=== PATIENT | female | born 1930 | race Caucasian/White ===

== ENCOUNTER 2018-09-20 19:52 | Inpatient (IN) | payer OTHER ==
--- OUTSIDE RECORDS SUMMARY | 2018-09-20 19:55 | XMS REPORT ---
:1930 Author Organization [facility] Address [address] [place] [address] Care Team Providers Name Role Phone ANTONIO RIZZO Unavailable Unavailable Problems This patient has no known problems. Allergies, Adverse Reactions, Alerts This patient has no known allergies or adverse reactions. Medications This patient has no known medications. Results Test Description Test Time Test Comments Text Results Atomic Results Result Comments CBC WITH AUTO DIFF 2017-07-23 05:57:00 Test Item Value Reference Range Comments WBC (test code=WBC) 4.50 10\\S\\3/ul 4.80-10.80 RBC (test code=RBC) 2.86 10\\S\\6/ul 4.20-5.40 Hemoglobin (test code=HGB) 8.6 gm/dl 12.0-14.0 Hematocrit (test code=HCT) 26.5 % 37.0-47.0 MCV (test code=MCV) 92.7 fL 81.0-99.0 MCH (test code=MCH) 30.1 pg 27.0-31.0 MCHC (test code=MCHC) 32.5 gm/dl 33.0-37.0 RDW (test code=RDWVC) 14.6 % 11.5-14.5 Platelet (test code=PLT) 111 10\\S\\3/ul 130-400 MPV (test code=MPV) 10.5 fL 7.4-10.4 "NOT MEASURED" RESULTS ARE DISPLAYED WHEN THE INSTRUMENT HAS A SUPPRESSED OR UNREPORTABLE RESULT. THIS WILL MOST OFTEN HAPPEN WITH THE MPV WHEN THERE IS AN ABNORMAL PLATLET DISTRIBUTION DUE TO A CRITICAL LOW VALUE OR PLATELET CLUMPING. NE% (test code=NE) 36.6 % 42.0-75.0 LY% (test code=LY) 48.4 % 13.0-42.0 MO% (test code=MO) 9.1 % 4.0-14.0 EO% (test code=EO) 5.3 % 1.0-3.0 BA% (test code=BA) 0.4 % 1.0-3.0 IG% (test code=IG%) 0.2 % 0.0-0.4 [id number] 05:43:00 Test Item Value Reference Range Comments Glucose (test code=GLU) 83 mg/dl 75-110 BUN (test code=BUN) 27.0 mg/dl 6.0-17.0 Creatinine (test 1.3 mg/dl 0.4-1.2 code=CREA) Sodium (test code=NA) 137 mmol/l 137-145 Potassium (test code=K) 4.0 mmol/l 3.5-5.0 Chloride (test code=CL) 103 mmol/l 98-107 CO2 (test code=CO2) 25 mmol/l 22-30 Calcium (test code=CALC) 8.6 mg/dl 8.4-10.2 EGFR if 50 (test code=EGFRAA) mL/min/1.73m\\S\\2 EGFR if Non- 41 Estimated Glomerular Iranian (test mL/min/1.73m\\S\\2 Filtration Rate (eGFR) code=EGFRNA) Reference Intervals Decision Points for 18 years and older and average body mass: >=60 Does not exclude kidney disease. 30 - 59 Suggests moderate chronic kidney disease and indicates the need for further investigation including assessment of proteinuria and cardiovascular factors. < 30 Usually indicates a need for referral for assessment and management of chronic kidney failure.
--- OUTSIDE RECORDS SUMMARY | 2018-09-20 19:55 | XMS REPORT | Clinical Summary ---
:1930 Author Organization [facility] Address [address] [place] [address] Care Team Providers Name Role Phone Asked, No Pcp Primary Care Provider Unavailable Allergies Active Allergy Reactions Severity Noted Date Comments Atorvastatin Rash Low 05/11/2016 Amlodipine-Benazepril 05/11/2016 Sulfa (Sulfonamide Antibiotics) 05/11/2016 Current Medications Prescription Sig. Disp. Refills Start Date End Date Status INFLIXIMAB (REMICADE IV) Infuse 400 mg into Active a venous catheter. Once every 3 months levothyroxine (SYNTHROID, Take 25 mcg by 07/22/2016 Active LEVOTHROID) 25 MCG tablet mouth daily. NAMENDA XR 28 mg 04/26/2016 Active capsule,sprinkle,ER 24hr metoprolol tartrate Take 100 mg by 06/02/2016 Active (LOPRESSOR) 100 MG tablet mouth 2 (two) times a day. raloxifene (EVISTA) 60 mg TK 1 T PO QD 0 05/23/2016 Active tablet simvastatin (ZOCOR) 20 MG TK 1 T PO QD IN THE 1 07/04/2016 Active tablet EVENING PREVIDENT 5000 BOOSTER BRUSH ON TEETH TID 2 07/04/2016 Active PLUS 1.1 % paste SUPREP BOWEL PREP KIT MIX AND DRINK A 0 07/01/2016 Active 17.5-3.13-1.6 gram recon DOSE WITH A LARGE soln GLASS OF WATER AT 5 PM AND 1 DOSE WITH LARGE GLASS OF WATER AT 9 PM triamterene-hydrochloroth TK ONE C PO QAM 0 07/15/2016 Active iazid (DYAZIDE) 37.5-25 mg per capsule naproxen-diphenhydramine Take 1 tablet by 07/25/2016 Active (ALEVE PM) 220-25 mg mouth nightly as tablet needed (insomina). cholecalciferol, vitamin Take 1 tablet 07/25/2016 Active D3, (VITAMIN D3) 2,000 (2,000 Units total) unit tablet by mouth daily. multivit with Take 1 tablet by 07/25/2016 Active nuq-BA-soatltoo 0.4-600 mouth daily. mg-mcg capsule biotin 2,500 mcg tablet Take 5,000 mcg by 0 07/25/2016 Active mouth daily. Active Problems Problem Noted Date Other specified rheumatoid arthritis, multiple sites (HCC) 07/25/2016 Social History Tobacco Use Types Packs/Day Years Used Date Never Smoker Alcohol Use Drinks/Week oz/Week Comments No Sex Assigned at Date Recorded Not on file Last Filed Vital Signs Not on file Plan of Treatment Health Maintenance Due Date Last Done Comments SHINGRIX VACCINE (#1) 1982 ZOSTER VACCINE 1992 PNEUMOCOCCAL POLYSACCHARIDE VACCINE AGE 65 AND OVER 1997 PNEUMOCOCCAL-13 1997 INFLUENZA VACCINE 06/27/2018 Results Not on fileafter 09/19/2017
[2018-09-20 20:28] LABS: Arterial Blood Carboxyhemoglob 1.1 % (0-1.5); Blood Gas Oxyhemoglobin 96.3 % (94-97); Blood O2 Saturation 98.2 % (92-98.5)
--- NOTE | 2018-09-20 20:55 | RAD REPORT ---
EXAM DESCRIPTION: CT - Head Brain Wo Cont - 09/20/2018 8:37 pm CLINICAL HISTORY: Transient alteration of awareness COMPARISON: June 2017 TECHNIQUE: Axial 5 mm thick images of the head were obtained without IV contrast. All CT scans are performed using dose optimization technique as appropriate and may include automated exposure control or mA/KV adjustment according to patient size. FINDINGS: No intracranial hemorrhage, mass, edema or shift of mid-line structures. No acute infarcti on changes seen. Moderate severity atrophy and chronic ischemic changes are present similar to compar sonja. Ventricles are in proportion to volume loss. Dense arterial tree calcifications are present. Mastoid air cells are clear. Left maxillary sinus mucosal thickening present without air-fluid level. No acute bony findings. IMPRESSION: Moderate severity atrophy and chronic ischemic change. No acute intracranial finding. No significant change from comparison.
--- NOTE | 2018-09-20 21:22 | RAD REPORT ---
EXAM DESCRIPTION: RAD - Chest Single View - 09/20/2018 8:46 pm CLINICAL HISTORY: Transient alteration of awareness, shortness of breath COMPARISON: January 2018 TECHNIQUE: AP portable chest image was obtained 2032 hours . FINDINGS: No peripheral mass or consolidation. Lung markings are mildly prominent but decreased when compared to the January 2018 exam. No significant failure or volume overload. Heart size is normal and has diminished from the comparison. Upper lobe vasculature within normal limits. No measurable pleur al effusion and no pneumothorax. No acute bony abnormality seen. No acute aortic findings suspected. IMPRESSION: No acute cardiopulmonary process. Heart, vasculature and lung markings have all decreased in prominence since the January comparison.
[2018-09-20 21:37] LABS: Absolute Monocytes 0.3 K/uL (0.1-1.3); Absolute Neutrophil 1.6 K/uL (1.8-8.0); Basophils % 0.4 % (0-1.3); Eosinophils % 3.9 % (0-4.4); Hematocrit 56.5 % (36.0-45.0); Lymphocytes % 33.8 % (15.3-44.8); MCH 31.7 pg (27.0-35.0); MCV 95.9 fL (80-100); MPV 8.9 fL (7.6-11.3)
[2018-09-20 21:42] LABS: Protime INR 1.13
[2018-09-20 21:58] LABS: ALT/SGPT 23 U/L (12-78); AST/SGOT 37 U/L (15-37); Albumin 2.8 g/dL (3.4-5.0); Alkaline Phosphatase 101 U/L (45-117); BUN Blood Urea Nitrogen 26 mg/dL (7-18); Bicarbonate 26 mmol/L (21-32); Bilirubin Direct 0.4 mg/dL (0-0.2); CKMB Creatine Kinase MB 1.5 ng/mL (0.3-3.6); Creatine Phosphokinase 90 U/L (26-192); Glucose Level 101 mg/dL (74-106); Lipase 146 U/L (73-393); Potassium 3.6 mmol/L (3.5-5.1); Protein, Total 7.5 g/dL (6.4-8.2); Sodium Level 144 mmol/L (136-145); Troponin (Emerg Dept Use Only) < 0.02 ng/mL (0.0-0.045)
[2018-09-20 22:15] LABS: Platelet Estimate DECR; Urine White Blood Cell Casts OK
[2018-09-20 22:16] LABS: Anisocytosis 1+; Blood Morphology Comment NOTED (NOT SEEN)
--- NOTE | 2018-09-20 22:16 | ER ---
Nurse's Notes [facility] Name: Britta Saleh Age: 87 yrs Sex: Female : 1930 Arrival Date: 09/20/2018 Time: 19:55 Bed 3 Private MD: Diagnosis: Hepatic Encephalopathy;Altered mental status, unspecified Presentation: 09/20 19:55 Presenting complaint: EMS states: that pt has cataract surg yesterday am and then fc started to become more confused later in the day yesterday. The confusion got worse today so family called EMS. Transition of care: patient was not received from another setting of care. Onset of symptoms was September 19, 2018. Risk Assessment: Do you want to hurt yourself or someone else? Patient reports no desire to harm self or others. Initial Sepsis Screen: Does the patient meet any 2 criteria? Yes Does the patient have a suspected source of infection? No. Patient's initial sepsis screen is negative. Care prior to arrival: Glucose check: 165. 19:55 Method Of Arrival: EMS: [facility] 19:55 Acuity: CHRIS 2 fc Historical: - Allergies: 20:31 Sulfa (Sulfonamide Antibiotics); fc 20:31 Namenda; fc 20:31 Lotrel; fc - Home Meds: 20:31 atorvastatin 10 mg Oral tab 1 tab nightly [Active]; escitalopram oxalate 10 mg oral tab fc 1 tab once daily [Active]; levothyroxine 25 mcg tab 1 tab once daily [Active]; losartan 100 mg oral tab 1 tab once daily [Active]; Evista 60 mg Oral tab 1 tab once daily [Active]; Avapro 300 mg Oral tab 1 tab once daily [Active]; - PMHx: 20:31 Rheumatoid Arthritis; Anemia; Osteoporosis; Hypothyroidism; Hyperlipidemia; osteopenia; fc CAD; Arthritis; Cataracts; C-diff; Dementia; Depression; ENCEPHALOPATHY; generalized weakness; GERD; High Cholesterol; Hypertension; unspecified edema; UTI; - Immunization history:: Last tetanus immunization: up to date Pneumococcal vaccine is up to date, Flu vaccine is up to date. - Social history:: Smoking status: Patient/guardian denies using tobacco. - Ebola Screening: : Patient negative for fever greater than or equal to 101.5 degrees Fahrenheit, and additional compatible Ebola Virus Disease symptoms Patient denies exposure to infectious person Patient denies travel to an Ebola-affected area in the 21 days before illness onset. Screenin:55 Abuse screen: Denies threats or abuse. Nutritional screening: No deficits noted. Tuberculosis screening: No symptoms or risk factors identified. Fall Risk Fall in past 12 months (25 points). Secondary diagnosis (15 points) dementia, No IV (0 pts). Ambulatory Aid- Crutches/Cane/Walker (15 pts). Gait- Weak (10 pts.). Mental Status- Overestimates/Forgets Limitations (15 pts.). Total Salter Fall Scale indicates High Risk Score (45 or more points). Fall prevention measures have been instituted. Side Rails Up X 2 Placed Close to Nursing Station Frequent Obs/Assessments Occuring Family Present and informed to notify staff if the need to leave the bedside As available patient and family educated on Fall Prevention Program and Strategies. Assessment: 20:31 General: Appears in no apparent distress. uncomfortable, well groomed, Behavior is ao anxious, flat, restless, uncooperative. General: Behavior is. Pain: Unable to use pain scale. FLACC scale score is 5 out of 10. Neuro: Level of Consciousness is awake, Oriented to person, Weakness. Cardiovascular: Capillary refill < 3 seconds Patient's skin is warm and dry. Respiratory: Airway is patent Respiratory effort is even, unlabored, Breath sounds are clear. GI: Abdomen is obese. : No deficits noted. No signs and/or symptoms were reported regarding the genitourinary system. EENT: No signs and/or symptoms were reported regarding the EENT system. Derm: Skin is pink, warm \T\ dry. normal, Skin temperature is cool. Musculoskeletal: No signs and/or symptoms reported regarding the musculoskeletal system. 21:46 Reassessment: pt more alert and talking. ak1 Vital Signs: 19:55 BP 169 / 68; Pulse 75; Resp 18; Temp 98.5(O); Pulse Ox 100% on R/A; Weight 77.11 kg fc (R); Height 5 ft. 5 in. (165.10 cm) (R); Pain 0/10; 21:47 BP 161 / 60; Pulse 79; Resp 17; ak1 21:48 Pulse Ox 100% on R/A; ak1 19:55 Body Mass Index 28.29 (77.11 kg, 165.10 cm) ED Course: 19:55 Patient arrived in ED. 19:55 Arm band placed on Patient placed in an exam room, on a stretcher. 19:55 Patient has correct armband on for positive identification. Bed in low position. Call light in reach. Side rails up X2. monitoring specialist on. Pulse ox on. NIBP on. 19:56 Vipul Rodríguez PA is PHCP. jr8 19:56 Art Chow MD is Attending Physician. jr8 20:05 Triage completed. fc 20:[address] via stretcher. vr 20:16 Dayanna Rouse, RN is Primary Nurse. ak1 20:37 CT Head Brain wo Cont In Process Unspecified. EDMS 20:40 Radiology exam delayed due to pat. taken to ct. sg4 20:43 CT completed. Patient tolerated procedure well. Patient moved to radiology. vm2 20:45 Chest Single View XRAY In Process Unspecified. EDMS 20:48 Inserted saline lock: 22 gauge in left forearm, using aseptic technique. ak1 21:48 Cleaned of incontinence. ak1 22:15 Ricardo Manning MD is Hospitalizing Provider. jr8 22:[address] via stretcher. vr 22:24 CT completed. Patient moved back from CT. vm2 22:34 CT Abd/Pelvis - Without Cont In Process Unspecified. EDMS 22:40 No provider procedures requiring assistance completed. Inserted saline lock: 22 gauge ak1 in left antecubital area, using aseptic technique. ,using aseptic technique. placed by Seamus. 22:41 Patient admitted, IV remains in place. ak1 Administered Medications: 21:46 Not Given (Physician Discretion): NS 0.9% 1000 ml IV at 1000 ml once jr8 22:42 Drug: Lactulose 30 grams Volume: 45 ml; Route: PO; ak1 22:53 Follow up: Response: No adverse reaction ak1 Point of Care Testing: Blood Glucose: 20:20 Blood Glucose: 140 mg/dL; ak1 Ranges: Outcome: 22:16 Decision to Hospitalize by Provider. jr8 22:41 Admitted to Med/surg accompanied by tech, family with patient, via stretcher, room 202, ak1 with chart, Report called to Marika 22:41 Condition: stable 22:41 Instructed on the need for admit. 23:13 Patient left the ED. ak1 Signatures: Dispatcher [employer] EDMS Maryan Milan RN RN fc Davis, Victoria vr Roszak, Josh, PA PA 8 Dayanna Rouse RN RN ak1 Seamus Head RN RN ao McGuire, Victoria [facility] Tangela Belcher [facility]
--- NOTE | 2018-09-20 22:17 | EDPHYS ---
Physician Documentation [facility] Name: Britta Saleh Age: 87 yrs Sex: Female : 1930 Arrival Date: 09/20/2018 Time: 19:55 Bed 3 Private MD: ED Physician Art Chow HPI: 09/20 20:55 This 87 yrs old Female presents to ER via EMS with complaints of altered jr8 mental status. 20:55 Onset: The symptoms/episode began/occurred acutely, last night. Possible causes: jr8 unknown. Associated signs and symptoms: The patient has no apparent associated signs or symptoms. Current symptoms: In the emergency department the patient's symptoms are unchanged from the initial presentation. Patient's baseline: Neuro: alert but confused, Motor: no deficits, Speech: normal. The patient has not experienced similar symptoms in the past. The patient has been recently seen by a physician:. Patient had cataract surgery yesterday. Stated that she was fine then. Around midnight noticed that she was acting different in bed. Throughout today patient was worse and now will not respond to them hardly . History of dementia. Stated that she is most of the time alert and can talk without any problem. Occasional confusion on a daily basis. Stated that this is very uncharacteristic of her . Historical: - Allergies: 20:31 Sulfa (Sulfonamide Antibiotics); fc 20:31 Namenda; fc 20:31 Lotrel; fc - Home Meds: 20:31 atorvastatin 10 mg Oral tab 1 tab nightly [Active]; escitalopram oxalate 10 mg oral tab fc 1 tab once daily [Active]; levothyroxine 25 mcg tab 1 tab once daily [Active]; losartan 100 mg oral tab 1 tab once daily [Active]; Evista 60 mg Oral tab 1 tab once daily [Active]; Avapro 300 mg Oral tab 1 tab once daily [Active]; - PMHx: 20:31 Rheumatoid Arthritis; Anemia; Osteoporosis; Hypothyroidism; Hyperlipidemia; osteopenia; fc CAD; Arthritis; Cataracts; C-diff; Dementia; Depression; ENCEPHALOPATHY; generalized weakness; GERD; High Cholesterol; Hypertension; unspecified edema; UTI; - Immunization history:: Last tetanus immunization: up to date Pneumococcal vaccine is up to date, Flu vaccine is up to date. - Social history:: Smoking status: Patient/guardian denies using tobacco. - Ebola Screening: : Patient negative for fever greater than or equal to 101.5 degrees Fahrenheit, and additional compatible Ebola Virus Disease symptoms Patient denies exposure to infectious person Patient denies travel to an Ebola-affected area in the 21 days before illness onset. ROS: 20:55 Unable to obtain ROS due to altered mental status. jr8 Exam: 20:55 Eyes: Pupils equal round and reactive to light, extra-ocular motions intact. Lids and jr8 lashes normal. Conjunctiva and sclera are non-icteric and not injected. Cornea within normal limits. Periorbital areas with no swelling, redness, or edema. ENT: Nares patent. No nasal discharge, no septal abnormalities noted. Tympanic membranes are normal and external auditory canals are clear. Oropharynx with no redness, swelling, or masses, exudates, or evidence of obstruction, uvula midline. Mucous membranes moist. Neck: Trachea midline, no thyromegaly or masses palpated, and no cervical lymphadenopathy. Supple, full range of motion without nuchal rigidity, or vertebral point tenderness. No Meningismus. Cardiovascular: Regular rate and rhythm with a normal S1 and S2. No gallops, murmurs, or rubs. Normal PMI, no JVD. No pulse deficits. 2+ pedal edema noted Respiratory: Lungs have equal breath sounds bilaterally, clear to auscultation and percussion. No rales, rhonchi or wheezes noted. No increased work of breathing, no retractions or nasal flaring. Abdomen/GI: Soft, non-tender, with normal bowel sounds. No distension or tympany. No guarding or rebound. No evidence of tenderness throughout. Back: No spinal tenderness. No costovertebral tenderness. Full range of motion. Skin: Warm, dry with normal turgor. Normal color with no rashes, no lesions, and no evidence of cellulitis. MS/ Extremity: Pulses equal, no cyanosis. Neurovascular intact. Full, normal range of motion. 20:55 Neuro: Orientation: to person, Not oriented to place, time, situation, Mentation: slow to respond, unable to follow commands, Memory: unable to test, Cranial nerves: unable to test, Cerebellar function: unable to test, Motor: unable to test, Sensation: unable to test, Gait: not tested. Vital Signs: 19:55 BP 169 / 68; Pulse 75; Resp 18; Temp 98.5(O); Pulse Ox 100% on R/A; Weight 77.11 kg fc (R); Height 5 ft. 5 in. (165.10 cm) (R); Pain 0/10; 21:47 BP 161 / 60; Pulse 79; Resp 17; ak1 21:48 Pulse Ox 100% on R/A; ak1 19:55 Body Mass Index 28.29 (77.11 kg, 165.10 cm) MDM: 19:56 Patient medically screened. [facility] 22:13 Data reviewed: vital signs, nurses notes, lab test result(s), EKG, radiologic studies, [facility] CT scan, plain films. Data interpreted: Pulse oximetry: on room air is 100 %. Interpretation: normal. Counseling: I had a detailed discussion with the patient and/or guardian regarding: the historical points, exam findings, and any diagnostic results supporting the discharge/admit diagnosis, lab results, radiology results, the need for further work-up and treatment in the hospital. Physician consultation: Ricardo Manning MD was called at 22:14, was contacted at 22:14, regarding admission, to the telemetry unit. consult, patient's condition, and will see patient. 09/20 20:09 Order name: Basic Metabolic Panel [facility] 09/20 20:09 Order name: Blood Culture Adult (2) [facility] 09/20 20:09 Order name: CBC with Diff; Complete Time: 22:16 [facility] 09/20 20:09 Order name: Ckmb; Complete Time: 22:03 [facility] 09/20 20:09 Order name: CPK; Complete Time: 22:03 [facility] 09/20 20:09 Order name: Lactate; Complete Time: 22:03 [facility] 09/20 20:09 Order name: LFT's; Complete Time: 22:03 [facility] 09/20 20:09 Order name: Lipase; Complete Time: 22:03 [facility] 09/20 20:09 Order name: Procalcitonin; Complete Time: 22:16 [facility] 09/20 20:09 Order name: Protime (+inr); Complete Time: 21:45 [facility] 09/20 20:09 Order name: Ptt, Activated; Complete Time: 21:45 [facility] 09/20 20:09 Order name: Troponin (emerg Dept Use Only); Complete Time: 22:03 [facility] 09/20 20:09 Order name: Urine Microscopic Only; Complete Time: 22:22 [facility] 09/20 20:09 Order name: AMMONIA; Complete Time: 22:03 [facility] 09/20 20:09 Order name: Cath; Complete Time: 21:22 [facility] 09/20 20:09 Order name: Chest Single View XRAY; Complete Time: 21:22 [facility] 09/20 20:09 Order name: Accucheck; Complete Time: 20:20 [facility] 09/20 20:09 Order name: Cardiac monitoring; Complete Time: 20:17 [facility] 09/20 20:09 Order name: EKG - Nurse/Tech; Complete Time: 20:33 [facility] 09/20 20:09 Order name: IV Saline Lock - Large Bore; Complete Time: 21:21 [facility] 09/20 20:09 Order name: Labs collected and sent; Complete Time: 21:21 [facility] 09/20 20:10 Order name: CT Head Brain wo Cont; Complete Time: 20:59 [facility] 09/20 20:10 Order name: Basic Metabolic Panel; Complete Time: 22:03 [facility] 09/20 20:10 Order name: ABG; Complete Time: 20:59 [facility] 09/20 21:35 Order name: Urine Dipstick--Ancillary (enter results); Complete Time: 22:26 [facility] 09/20 21:38 Order name: CBC Smear Scan; Complete Time: 22:16 [facility] 09/20 22:10 Order name: CT Abd/Pelvis - Without Cont [facility] 09/20 22:23 Order name: Urine Culture [facility] 09/20 20:09 Order name: O2 Per Protocol; Complete Time: 20:17 [facility] 09/20 20:09 Order name: O2 Sat Monitoring; Complete Time: 20:17 [facility] 09/20 20:09 Order name: Urine Dipstick-Ancillary (obtain specimen); Complete Time: 21:21 [facility] Administered Medications: 21:46 Not Given (Physician Discretion): NS 0.9% 1000 ml IV at 1000 ml once 22:42 Drug: Lactulose 30 grams Volume: 45 ml; Route: PO; ak1 22:53 Follow up: Response: No adverse reaction ak1 Point of Care Testing: Blood Glucose: 20:20 Blood Glucose: 140 mg/dL; ak1 Ranges: Critical Glucose Levels:Adult <50 mg/dl or >400 mg/dl <40 mg/dl or >180 mg/dl Disposition: 09/21 05:54 Co-signature as Attending Physician, Art Chow MD I agree with the assessment and jaki plan of care. Disposition: 09/20/18 22:16 Hospitalization ordered by Ricardo Manning for Inpatient Admission. Preliminary diagnosis are Hepatic Encephalopathy, Altered mental status, unspecified. - Bed requested for Telemetry/MedSurg (Inpatient). - Status is Inpatient Admission. ak1 - Condition is Fair. - Problem is new. - Symptoms have improved. UTI on Admission? No Signatures: Dispatcher [employer] Art Sebastian MD MD cha Chretien, Felicia, RN RN Vipul Cantu PA PA jr8 Dayanna Rouse RN RN ak1 Ngoc Tay mw2 Corrections: (The following items were deleted from the chart) 09/20 22:36 22:16 Hospitalization Ordered by Ricardo Manning MD for Inpatient Admission. Preliminary mw2 diagnosis is Hepatic Encephalopathy; Altered mental status, unspecified. Bed requested for Telemetry/MedSurg (Inpatient). Status is Inpatient Admission. Condition is Fair. Problem is new. Symptoms have improved. UTI on Admission? No. jr8 23:13 22:36 09/20/2018 22:16 Hospitalization Ordered by Ricardo Manning MD for Inpatient ak1 Admission. Preliminary diagnosis is Hepatic Encephalopathy; Altered mental status, unspecified. Bed requested for Telemetry/MedSurg (Inpatient). Status is Inpatient Admission. Condition is Fair. Problem is new. Symptoms have improved. UTI on Admission? No. mw2
[2018-09-20 22:21] LABS: Urine Bacteria <20 /HPF (<20); Urine Culture Reflex Order REFLEXED; Urine RBC <5 /HPF (NONE SEEN)
[2018-09-20 22:25] LABS: Urine Blood NEGATIVE (NEG); Urine Glucose NEGATIVE (NEG); Urine Protein NEGATIVE (NEG); Urine Specific Gravity 1.015 (1.005-1.030)
[2018-09-20] MEDS ORDERED: LACTULOSE 20 GM/30 ML UCUP ONE (22:44)
[2018-09-20] MEDS ORDERED: ACETAMINOPHEN 500 MG TAB PO PRN (22:46)
[2018-09-20] MEDS ORDERED: ONDANSETRON 4 MG/2 ML VIAL IV PRN (22:46)
[2018-09-20] MEDS: LACTULOSE 20 GM/30 ML UCUP PO SCH (23:00)
[2018-09-20] MEDS: NA CHLORIDE 0.9% 1,000 ML IV SCH (23:42)
[2018-09-21] MEDS: LACTULOSE 20 GM/30 ML UCUP PO SCH ×4 (05:00→17:24)
[2018-09-21 06:51] LABS: Potassium 3.5 mmol/L (3.5-5.1)
[2018-09-21 07:03] LABS: Absolute Lymphocytes (CBC) 2.2 K/uL (0.7-4.9); Absolute Monocytes 0.6 K/uL (0.1-1.3); Absolute Neutrophil 2.8 K/uL (1.8-8.0); Basophils % 0.4 % (0-1.3); Eosinophils % 3.9 % (0-4.4); Hematocrit 32.4 % (36.0-45.0); Lymphocytes % 37.5 % (15.3-44.8); MCH 31.8 pg (27.0-35.0); MCV 95.5 fL (80-100); MPV 8.9 fL (7.6-11.3); Monocytes % 10.3 % (3.3-12.3); RBC Red Blood Cell Count 3.39 M/uL (3.86-4.86)
--- NOTE | 2018-09-21 07:08 | RAD REPORT ---
EXAM DESCRIPTION: CT - Abdomen Pelvis Wo Contrast - 09/21/2018 3:25 am CLINICAL HISTORY: Abdominal pain, history of C diff colitis A preliminary report was provided at the time of the study and reviewed prior to final report. COMPARISON: None. TECHNIQUE: Axial [address] imaging of the abdomen and pelvis was performed without IV contrast. No IV contrast was given because of allergy, abnormal renal function, patient refusal or physician re quest. No oral contrast administered. All CT scans are performed using dose optimization technique as appropriate and may include automated exposure control or mA/KV adjustment according to patient size. FINDINGS: No suspicious findings in the lung bases. The liver, spleen and pancreas show no suspicious findings on non-contrast imaging. Cholecystectomy c lips are present. No abnormal biliary tree dilatation. No hydronephrosis or suspicious renal mass. No significant adrenal finding. Isodense renal masses an d pyelonephritis cannot be excluded in the absence of IV contrast. No urinary bladder wall thickening or mass. No bladder calculus. Punctate air within the lumen is presumed to be from in- and out kimberley terization procedure. This needs correlation with exam any history. No dilated bowel loops or bowel wall thickening. No free air, free fluid or inflammatory stranding. N o hernia, mass or bulky lymphadenopathy. Multiple phleboliths are present in the pelvis. Disc and bony degenerative changes are present. Postsurgical changes are present in the proximal righ t femur. Degenerative changes are severe near the lumbosacral junction. Dense arterial tree calcifica tions are present. Prominent dilated veins are seen in the posterior right mid abdomen. Motion degradation is present on both acquisitions. IMPRESSION: No bowel obstruction, free air or surgically emergent finding. Exam has motion degradation but no evidence for colitis or other significant GI process seen. No acute finding suspected. Punctate free air within the lumen of the urinary bladder is presumed to be from a in- and out catheterization procedure. This needs correlation with procedure history. Full assessment is limited is the absence of IV contrast.
[2018-09-21 07:39] VITALS: BMI 28.3
[2018-09-21] MEDS ORDERED: GENTAMICIN OPTH RIGHT EYE SCH (09:00)
[2018-09-21] MEDS: GENTAMICIN OPTH OPTH SCH ×4 (10:14→21:21)
[2018-09-21] MEDS: DIFLUPREDNATE LEFT EYE SCH ×4 (10:14→21:21)
[2018-09-21] MEDS: NEPAFENAC LEFT EYE SCH (10:14)
[2018-09-21] MEDS: DIFLUPREDNATE RIGHT EYE SCH ×2 (10:15→21:23)
[2018-09-21] MEDS: ASPIRIN EC 81 MG TAB PO SCH (10:16)
--- NOTE | 2018-09-21 13:47 | EKG ---
Test Date: 2018-09-20 Test Time: 20:21:24 Glove Wrapper: YUE MEASUREMENT RESULTS: Intervals: Rate: 73 RI: QRSD: 166 QT: 464 QTc: 511 [place]: P: RI: QRS: -19 T: 109 INTERPRETIVE STATEMENTS: nsr Left bundle branch block Abnormal ECG Compared to ECG 02/09/2018 14:26:50 Uncertain supraventricular rhythm now present Sinus rhythm no longer present Electronically Signed On 09-21-18 13:46:01 CDT by Alberto Oneil
--- NOTE | 2018-09-21 14:37 | P.HP ---
Certification for Inpatient Patient admitted to: Inpatient With expected LOS: >2 Midnights Practitioner: I am a practitioner with admitting privileges, knowledge of patient current condition, hospital course, and medical plan of care. Services: Services provided to patient in accordance with Admission requirements found in Title 42 Section 412.3 of the Code of Federal Regulations Patient History Date of Service: 09/21/18 Reason for admission: EXCESSIVE SLEEPINESS. History of Present Illness: MS. DE PAZ HAS BEEN SOMNOLENT ALL YEAR PER BUT LATELY MORE SO. SHE HAD HIGH AMMONIA LEVEL OF 115 AND LOW PLATELETS. SHE HAS RA, DJD AND SOME MEMORY LOSS BY HISTORY. SHE NEVER DRANK HEAVY. THIS AM I COULD NOT AWAKEN HER BUT LATER WHEN I TALKED TO SON SHE WAS FULLLY AWAKE AND ABLE TO CONVERSE. Allergies Sulfa (Sulfonamide Antibiotics) Allergy (Verified 11/30/14 06:16) Hives/Rash Home Medications: Difluprednate [Durezol 0.05%] 1 drops RIGHT EYE BID 09/20/18 Difluprednate [Durezol] 1 gtt LEFT EYE QID 09/20/18 Gentamicin Opth Drop [Garamycin Opth Drops] 1 gtt LEFT EYE QID 09/20/18 Gentamicin Opth Drop [Garamycin Opth Drops] 1 gtt RIGHT EYE QID 09/20/18 Nepafenac [Ilevro] 1 gtt LEFT EYE DAILY 09/20/18 Aspirin [Adult Low Dose Aspirin EC] 81 mg PO DAILY 09/21/18 Atorvastatin Calcium [Lipitor] 10 mg PO DAILY 09/21/18 Furosemide [Lasix] 40 mg PO DAILY 09/21/18 Irbesartan [Avapro] 300 mg PO BEDTIME 09/21/18 Losartan Potassium 100 mg PO DAILY 09/21/18 Optimized Curcumin 2 cap PO BEDTIME 09/21/18 Original Glutathione Formula 6 cap PO DAILY 09/21/18 Potassium Oral Tab [Klor-Con 10 mEq Tab] 10 meq PO DAILY WITH BREAKFAST Raloxifene HCl [Evista] 60 mg PO DAILY 09/21/18 Vitamin B Complex [B-Complex Vitamin] 1 cap PO DAILY 09/21/18 - Past Medical/Surgical History Has patient received pneumonia vaccine in the past: Yes Diabetic: No -: HTN -: hyperlipidemia -: hypothyroidism -: RA -: UTI -: C-Diff -: Dementia -: Htn -: Depression -: Gerd -: Cataracts -: Falls -: Coronary stents -: right knee replacement -: hysterectomy -: cataract sx - Family History Father -: Cancer Mother -: Stroke - Social History Smoking Status: Never smoker Alcohol use: No CD- Drugs: No Caffeine use: Yes Place of Residence: Home Review of Systems 10-point ROS is otherwise unremarkable General: Weakness, Malaise Physical Examination - Vital Signs Temperature: 98.0 F Blood Pressure: 137/63 Pulse: 88 Respirations: 17 Pulse Ox (%): 99 - Physical Exam General: Mild distress HEENT: Atraumatic, PERRLA, Mucous membr. moist/pink, EOMI, Sclerae nonicteric Neck: Supple, 2+ carotid pulse no bruit, No LAD, Without JVD or thyroid abnormality Respiratory: Clear to auscultation bilaterally, Normal air movement Cardiovascular: Regular rate/rhythm, Normal S1 S2 Gastrointestinal: Normal bowel sounds, No tenderness Musculoskeletal: No tenderness Integumentary: No rashes Neurological: Normal gait, Normal speech, Normal strength at 5/5 x4 extr, Normal tone, Normal affect Lymphatics: No axilla or inguinal lymphadenopathy - Studies Laboratory Data (last 24 hrs) 09/20/18 21:10: PT 13.3 H, INR 1.13, APTT 31.7 09/20/18 21:10: WBC 3.1 L, Hgb 18.7 H, Hct 56.5 H, Plt Count 52 L 09/20/18 21:10: Sodium 144, Potassium 3.6, BUN 26 H, Creatinine 1.60 H, Glucose 101, Total Bilirubin 1.0, AST 37, ALT 23, Alkaline Phosphatase 101, Lipase 146 Microbiology Data (last 24 hrs): 09/20/18 21:10 Blood - Blood Anaerobic Blood Culture - Final 09/20/18 21:25 Blood - Blood Anaerobic Blood Culture - Final Assessment and Plan - Problems (Diagnosis) (1) 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 (2) Hepatic encephalopathy Onset Date: 09/21/18 Current Visit: Yes Status: Acute Plan: WILL CONTINUE LACTULOSE TOLERATED, DAILY THIS IS NOT A CURABLE DIAGNOSIS. SON UNDRESTANDS. AT AGE OF 87 WE ONLY NEED SYMPTOMATIC THERAPY. SHE IS NOT A TRANSPLANT OR LIVER SPECIALIST CANDIDATE. (3) Dehydration Onset Date: 06/14/17 Current Visit: No Status: Acute Plan: GENTLE IV HYDRATION. (4) Rheumatoid arthritis Onset Date: 07/19/17 Current Visit: No Status: Chronic Plan: HAS BEEN TO [facility] BEFORE. NOW AT THIS AGE SHE CAN'T TRAVEL TO [place] FOR CARE. Qualifiers: - Advance Directives Does patient have a Living Will: No Does patient have a Durable POA for Healthcare: No
[2018-09-21] MEDS ORDERED: AMLODIPINE 5 MG TAB PO ONE (17:50)
[2018-09-21] MEDS: NA CHLORIDE 0.9% 1,000 ML IV SCH (21:19)
[2018-09-21] MEDS: IRBESARTAN 150 MG TAB PO SCH (21:19)
[2018-09-22] MEDS: LACTULOSE 20 GM/30 ML UCUP PO SCH ×5 (00:19→22:45)
[2018-09-22] MEDS: AMLODIPINE 5 MG TAB PO SCH (09:14)
[2018-09-22] MEDS: ASPIRIN EC 81 MG TAB PO SCH (09:18)
[2018-09-22] MEDS: DIFLUPREDNATE LEFT EYE SCH ×4 (09:18→22:45)
[2018-09-22] MEDS: DIFLUPREDNATE RIGHT EYE SCH ×2 (09:18→22:45)
[2018-09-22] MEDS: GENTAMICIN OPTH OPTH SCH ×4 (09:19→22:45)
[2018-09-22] MEDS: NEPAFENAC LEFT EYE SCH (09:19)
--- NOTE | 2018-09-22 11:08 | P.PN ---
Subjective Date of Service: 09/22/18 Chief Complaint: EXCESSIVE SLEEPINESS. Subjective: Improving SHE IS MUCH MORE AWAKE TODAY. SHE IS ALSO ABLE TO TOLERATE FOOD BUT VERY WEAK AND NOT ABLE TO AMBULATE. Review of Systems 10-point ROS is otherwise unremarkable General: Weakness, Malaise Neurological: Confusion Physical Examination - Vital Signs Temperature: 98.5 F Blood Pressure: 160/60 Pulse: 79 Respirations: 17 Pulse Ox (%): 100 - Physical Exam General: Alert, Mild distress, Confused HEENT: Atraumatic, PERRLA, EOMI Neck: Supple, JVD not distended Respiratory: Clear to auscultation bilaterally, Normal air movement Cardiovascular: Regular rate/rhythm, Normal S1 S2 Gastrointestinal: Normal bowel sounds, No tenderness Musculoskeletal: No tenderness Integumentary: No rashes Neurological: Normal speech, Other (ALERT BUT DISORIENTED TO PLACE.) Lymphatics: No axilla or inguinal lymphadenopathy - Studies Microbiology Data (last 24 hrs): 09/20/18 21:25 Blood - Blood Anaerobic Blood Culture - Final 09/20/18 21:10 Blood - Blood Anaerobic Blood Culture - Final Medications List Reviewed: Yes Assessment And Plan - Current Problems (Diagnosis) (1) 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 LACTULOSE WORKED TO WAKE HER UP. I SUSPECT THIS CAN HAPPEN AGAIN. I TALKED TO SON. I RECOMMEND NH ON MONDAY FOR FURTHER THERAPY. CAN'T PHYSICALLY TAKE CARE OF HER. (2) Hepatic encephalopathy Onset Date: 09/21/18 Current Visit: Yes Status: Acute Plan: WILL CONTINUE LACTULOSE TOLERATED, DAILY THIS IS NOT A CURABLE DIAGNOSIS. SON UNDRESTANDS. AT AGE OF 87 WE ONLY NEED SYMPTOMATIC THERAPY. SHE IS NOT A TRANSPLANT OR LIVER SPECIALIST CANDIDATE. (3) Dehydration Onset Date: 06/14/17 Current Visit: No Status: Acute Plan: GENTLE IV HYDRATION. (4) Rheumatoid arthritis Onset Date: 07/19/17 Current Visit: No Status: Chronic Plan: HAS BEEN TO [facility] BEFORE. NOW AT THIS AGE SHE CAN'T TRAVEL TO [place] FOR CARE. Qualifiers:
[2018-09-22] MEDS: NA CHLORIDE 0.9% 1,000 ML IV SCH (16:35)
[2018-09-22] MEDS: IRBESARTAN 150 MG TAB PO SCH (22:44)
[2018-09-23 02:08] VITALS: O2SAT 96
[2018-09-23 05:36] LABS: Absolute Lymphocytes (CBC) 1.5 K/uL (0.7-4.9); Absolute Monocytes 0.5 K/uL (0.1-1.3); Absolute Neutrophil 3.4 K/uL (1.8-8.0); Basophils % 0.3 % (0-1.3); Eosinophils % 3.5 % (0-4.4); Lymphocytes % 26.6 % (15.3-44.8); MCH 32.7 pg (27.0-35.0); MCV 94.8 fL (80-100); MPV 8.7 fL (7.6-11.3); Monocytes % 9.7 % (3.3-12.3); RBC Red Blood Cell Count 3.17 M/uL (3.86-4.86)
[2018-09-23 05:49] LABS: Potassium 3.7 mmol/L (3.5-5.1)
[2018-09-23] MEDS: LACTULOSE 20 GM/30 ML UCUP PO SCH (09:45)
[2018-09-23] MEDS: AMLODIPINE 5 MG TAB PO SCH (09:45)
[2018-09-23] MEDS: ASPIRIN EC 81 MG TAB PO SCH (09:45)
[2018-09-23 09:46] VITALS: BP 163/70
[2018-09-23] MEDS: DIFLUPREDNATE LEFT EYE SCH (09:47)
[2018-09-23] MEDS: NEPAFENAC LEFT EYE SCH (09:48)
[2018-09-23] MEDS: GENTAMICIN OPTH OPTH SCH (09:48)
[2018-09-23] MEDS: DIFLUPREDNATE RIGHT EYE SCH (09:48)
--- NOTE | 2018-09-23 10:00 | P.DS ---
Admission Date: 09/20/18 Discharge Date: 09/23/18 Disposition: ROUTINE DISCHARGE Discharge Condition: FAIR Reason for Admission: EXCESSIVE SLEEPINESS. 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 DE PAZ HAS BEEN SOMNOLENT ALL YEAR PER BUT LATELY MORE SO. SHE HAD HIGH AMMONIA LEVEL OF 115 AND LOW PLATELETS. SHE HAS RA, DJD AND SOME MEMORY LOSS BY HISTORY. SHE NEVER DRANK HEAVY. THIS AM I COULD NOT AWAKEN HER BUT LATER WHEN I TALKED TO SON SHE WAS FULLLY AWAKE AND ABLE TO CONVERSE. IS DOING GREAT ON LACTULOSE. IS HERE AND WANTS TO TAKE HER HOME. HE DOES NOT WANT NH. WE WILL GET PT. I WILL SEND ORDER. SHE WILL NEED TO RESUME LACTULOSE. I AM STOPPING LASIX AND KCL SHE GETS DEHYDRATED ADN ADDING HYDRALAZINE IN PLACE OF NORVASC TO AVOID PEDAL EDEMA. Vital Signs/Physical Exam: Temp Pulse Resp BP Pulse Ox 97.4 F 71 18 163/70 H 98 09/23/18 04:00 09/23/18 09:45 09/23/18 04:00 09/23/18 09:45 09/23/18 04:00 Laboratory Data at Discharge: WBC 5.7 K/uL (4.3-10.9) 09/23/18 05:26 Hgb 10.3 g/dL (12.0-15.0) L 09/23/18 05:26 Hct 30.0 % (36.0-45.0) L 09/23/18 05:26 Plt Count 75 K/uL (152-406) L 09/23/18 05:26 PT 13.3 SECONDS (9.5-12.5) H 09/20/18 21:10 INR 1.13 09/20/18 21:10 APTT 31.7 SECONDS (24.3-36.9) 09/20/18 21:10 Sodium 147 mmol/L (136-145) H 09/23/18 05:26 Potassium 3.7 mmol/L (3.5-5.1) 09/23/18 05:26 BUN 19 mg/dL (7-18) H 09/23/18 05:26 Creatinine 1.10 mg/dL (0.55-1.3) 09/23/18 05:26 Glucose 99 mg/dL (74-106) 09/23/18 05:26 Total Bilirubin 1.0 mg/dL (0.2-1.0) 09/20/18 21:10 AST 37 U/L (15-37) 09/20/18 21:10 ALT 23 U/L (12-78) 09/20/18 21:10 Alkaline Phosphatase 101 U/L (45-117) 09/20/18 21:10 Lipase 146 U/L (73-393) 09/20/18 21:10 Home Medications: Difluprednate [Durezol 0.05%] 1 drops RIGHT EYE BID 09/20/18 Difluprednate [Durezol] 1 gtt LEFT EYE QID 09/20/18 Gentamicin Opth Drop [Garamycin Opth Drops*] 1 gtt LEFT EYE QID 09/20/18 Gentamicin Opth Drop [Garamycin Opth Drops*] 1 gtt RIGHT EYE QID 09/20/18 Nepafenac [Ilevro] 1 gtt LEFT EYE DAILY 09/20/18 Aspirin [Adult Low Dose Aspirin EC] 81 mg PO DAILY 09/21/18 Irbesartan [Avapro] 300 mg PO BEDTIME 09/21/18 Losartan Potassium 100 mg PO DAILY 09/21/18 Optimized Curcumin 2 cap PO BEDTIME 09/21/18 Original Glutathione Formula 6 cap PO DAILY 09/21/18 Vitamin B Complex [Vitamin B Complex*] 1 cap PO DAILY 09/21/18 Hydralazine HCl 25 mg PO BID #60 tablet 09/23/18 Lactulose 30 ml PO BID #2 l 09/23/18 New Medications: Hydralazine HCl 25 mg PO BID #60 tablet Lactulose 30 ml PO BID #2 l
[2018-09-23 10:07] VITALS: TEMP 98.2
[2018-09-23 18:01] LABS: HBsAG Nonreactive (Nonreactive); Hepatitis A IgM Antibody Nonreactive
== END 2018-09-23 11:51 | disposition home or self-care (01) | DRG 443 ==
LOC: ER 19:52 → ERHOLD 22:23 → 2ND 22:50
PROVIDERS: ADMIT Internal Medicine; ATTEND Internal Medicine
DX: K72.00 Acute and subacute hepatic failure without coma (principal); K75.81 Nonalcoholic steatohepatitis (NASH); K74.69 Other cirrhosis of liver; E86.0 Dehydration; M06.9 Rheumatoid arthritis, unspecified; E03.9 Hypothyroidism, unspecified; Z96.651 Presence of right artificial knee joint; I25.10 Atherosclerotic heart disease of native coronary artery without angina pectoris; Z95.5 Presence of coronary angioplasty implant and graft; K21.9 Gastro-esophageal reflux disease without esophagitis; F32.9 Major depressive disorder, single episode, unspecified; F03.90 Unspecified dementia, unspecified severity, without behavioral disturbance, psychotic disturbance, mood disturbance, and anxiety; I10 Essential (primary) hypertension; E78.5 Hyperlipidemia, unspecified
CPT/HCPCS: 36415; 70450; 71045; 74176; 80048; 80074; 80076; 81003; 81015; 82140; 82550; 82553; 82805; 82962; 83605; 83690; 84145; 84484; 85025; 85610; 85730; 87040; 87086; 87088; 87493; 93005; 97163; 99285; J7030

== ENCOUNTER 2019-03-29 11:52 | Inpatient (IN) | payer OTHER ==
--- OUTSIDE RECORDS SUMMARY | 2019-03-29 11:53 | XMS REPORT | Clinical Summary ---
:1930 Author Organization [facility] Address [address] [place] [address] Care Team Providers Name Role Phone Asked, No Pcp Primary Care Provider Unavailable Allergies Active Allergy Reactions Severity Noted Date Comments Atorvastatin Rash Low 05/11/2016 Amlodipine-Benazepril 05/11/2016 Sulfa (Sulfonamide Antibiotics) 05/11/2016 Medications Medication Sig Dispensed Refills Start Date End Date Status INFLIXIMAB (REMICADE Infuse 400 mg 0 Active IV) into a venous catheter. Once every 3 months levothyroxine Take 25 mcg by 0 07/22/2016 Active (SYNTHROID, LEVOTHROID) mouth daily. 25 MCG tablet NAMENDA XR 28 mg 0 04/26/2016 Active capsule,sprinkle,ER 24hr metoprolol tartrate Take 100 mg by 0 06/02/2016 Active (LOPRESSOR) 100 MG mouth 2 (two) tablet times a day. raloxifene (EVISTA) 60 TK 1 T PO QD 0 05/23/2016 Active mg tablet simvastatin (ZOCOR) 20 TK 1 T PO QD IN 1 07/04/2016 Active MG tablet THE EVENING PREVIDENT 5000 BOOSTER BRUSH ON TEETH 2 07/04/2016 Active PLUS 1.1 % paste TID SUPREP BOWEL PREP KIT MIX AND DRINK A 0 07/01/2016 Active 17.5-3.13-1.6 gram DOSE WITH A LARGE recon soln GLASS OF WATER AT 5 PM AND 1 DOSE WITH LARGE GLASS OF WATER AT 9 PM triamterene-hydrochloro TK ONE C PO QAM 0 07/15/2016 Active thiazid (DYAZIDE) 37.5-25 mg per capsule naproxen-diphenhydramin Take 1 tablet by 0 07/25/2016 Active e (ALEVE PM) 220-25 mg mouth nightly as tablet needed (insomina). cholecalciferol, Take 1 tablet 0 07/25/2016 Active vitamin D3, (VITAMIN (2,000 Units D3) 2,000 unit tablet total) by mouth daily. multivit with Take 1 tablet by 0 07/25/2016 Active qsc-RQ-bfljuznl 0.4-600 mouth daily. mg-mcg capsule biotin 2,500 mcg tablet Take 5,000 mcg by 0 07/25/2016 Active mouth daily. Active Problems Problem Noted Date Other specified rheumatoid arthritis, multiple sites 07/25/2016 Social History Tobacco Use Types Packs/Day Years Used Date Never Smoker Alcohol Use Drinks/Week oz/Week Comments No Sex Assigned at Date Recorded Not on file Job Start Date Occupation Industry Not on file Not on file Not on file Travel History Travel Start Travel End No recent travel history available. Last Filed Vital Signs Not on file Plan of Treatment Health Maintenance Due Date Last Done Comments SHINGLES VACCINES (#1) 1982 65+ PNEUMOCOCCAL VACCINE (1 of 2 - PCV13) 1997 PNEUMOCOCCAL POLYSACCHARIDE VACCINE AGE 65 AND OVER 1997 INFLUENZA VACCINE 06/27/2019 Results Not on fileafter 03/28/2018 Advance Directives Patient has advance care planning documents on file. For more information, please contact:Jonathan Arambual[address] [place] [address]
--- OUTSIDE RECORDS SUMMARY | 2019-03-29 11:54 | XMS REPORT ---
:1930 [facility] Address [address] [place] [address] Care Team Providers Name Role Phone ANTONIO [...] 1.0-3.0 IG% (test code=IG%) 0.2 % 0.0-0.4 [id number] 05:43:00 Test Item Value Reference Range Comments [...] mL/min/1.73m\\S\\2 EGFR if Non- 41 Estimated [place] (test mL/min/1.73m\\S\\2 Filtration Rate (eGFR) code=EGFRNA) Reference [...]
--- NOTE | 2019-03-29 12:44 | RAD REPORT ---
EXAM DESCRIPTION: Michel Single View03/29/2019 12:38 pm CLINICAL HISTORY: Shortness of breath COMPARISON: August 2018 FINDINGS: The lungs appear clear of acute infiltrate. The heart is normal size IMPRESSION: No acute abnormalities displayed
--- NOTE | 2019-03-29 12:48 | RAD REPORT ---
EXAM DESCRIPTION: CT - Head Brain Wo Cont - 03/29/2019 12:40 pm CLINICAL HISTORY: Dizziness COMPARISON: August 2018 TECHNIQUE: Computed axial tomography of the head was obtained. IV contrast was not requested. All CT scans are performed using dose optimization technique as appropriate and may include automated exposure control or mA/KV adjustment according to patient size. FINDINGS: An intracranial bleed is not seen . The ventricles are normal in caliber. No extra-axial fluid collection is noted. [id number]-fp-[id number] low-density areas within periventricular, deep and subcortical white matter likely represent ischemic changes secondary to small vessel disease . Fluid within the sinuses/ mastoids is not seen. Chronic left maxillary and sphenoid sinusitis IMPRESSION: No acute intracranial abnormality is seen. If patient's symptoms persist MRI of the bra in would be recommended.
[2019-03-29] MEDS ORDERED: NA CHLORIDE 0.9% 500 ML ONE (12:54)
[2019-03-29 13:06] LABS: Protime INR 1.05
[2019-03-29 13:20] LABS: Absolute Lymphocytes (CBC) 1.7 K/uL (0.7-4.9); Absolute Monocytes 0.5 K/uL (0.1-1.3); Absolute Neutrophil 2.8 K/uL (1.8-8.0); Basophils % 0.4 % (0-1.3); Eosinophils % 1.9 % (0-4.4); Hematocrit 29.9 % (36.0-45.0); MPV 9.2 fL (7.6-11.3); Monocytes % 9.9 % (3.3-12.3); RBC Red Blood Cell Count 2.98 M/uL (3.86-4.86)
[2019-03-29 13:24] LABS: BUN Blood Urea Nitrogen 54 mg/dL (7-18); Bicarbonate 20 mmol/L (21-32); Glucose Level 116 mg/dL (74-106); Magnesium 2.1 mg/dL (1.8-2.4); Sodium Level 141 mmol/L (136-145); Troponin (Emerg Dept Use Only) < 0.02 ng/mL (0.0-0.045)
[2019-03-29 13:26] LABS: Potassium 5.9 mmol/L (3.5-5.1)
--- NOTE | 2019-03-29 13:48 | EDPHYS ---
Physician Documentation [facility] Name: Britta Saleh Age: 88 yrs Sex: Female : 1930 Arrival Date: 03/29/2019 Time: 11:54 Bed 4 Private MD: Marc York C ED Physician Jerod Monterroso HPI: 03/29 12:15 This 88 yrs old Female presents to ER via Wheelchair with complaints of rn Weakness, Dizziness, Low BP. 12:15 The patient presents to the emergency department with weakness of the entire body, rn generalized weakness. Onset: The symptoms/episode began/occurred 2 hour(s) ago. Severity of symptoms: At their worst the symptoms were mild in the emergency department the symptoms are unchanged. It is unknown whether or not the patient has had similar symptoms in the past. REports around 10AM was at [employer] for her hair, got dizzy, no syncope, no focal neurological complaints, denies pain, family reports generalized weakness but otherwise normal speech. No focal weakness, denies paresthesias, no slurred speech, no headache. No head injury. No recent vomiting/diarrhea. Family reports has cirrhosis and 2 weeks ago lactulose cut in half. Has had problems with ammonia levels before.. Historical: - Allergies: 12:14 Lotrel; hb 12:14 Namenda; hb 12:14 Sulfa (Sulfonamide Antibiotics); hb - Home Meds: 12:14 atorvastatin 10 mg Oral tab 1 tab nightly [Active]; Avapro 300 mg Oral tab 1 tab once hb daily [Active]; escitalopram oxalate 10 mg Oral tab 1 tab once daily [Active]; Evista 60 mg Oral tab 1 tab once daily [Active]; levothyroxine 25 mcg tab 1 tab once daily [Active]; losartan 100 mg Oral tab 1 tab once daily [Active]; Lactulose Oral [Active]; - PMHx: 12:14 Anemia; Arthritis; CAD; Cataracts; C-diff; Dementia; Depression; ENCEPHALOPATHY; hb generalized weakness; GERD; High Cholesterol; Hyperlipidemia; Hypertension; Hypothyroidism; Osteopenia; Osteoporosis; Rheumatoid Arthritis; unspecified edema; UTI; - Immunization history:: Adult Immunizations up to date. - Social history:: Smoking status: Patient/guardian denies using tobacco. - Ebola Screening: : No symptoms or risks identified at this time. - Family history:: not pertinent. - Hospitalizations: : No recent hospitalization is reported. ROS: 12:15 Constitutional: Negative for fever, chills, and weight loss, Eyes: Negative for injury, rn pain, redness, and discharge, Neck: Negative for injury, pain, and swelling, Cardiovascular: Negative for chest pain, palpitations, and edema, Respiratory: Negative for shortness of breath, cough, wheezing, and pleuritic chest pain, Abdomen/GI: Negative for abdominal pain, nausea, vomiting, diarrhea, and constipation, MS/Extremity: Negative for injury and deformity, Skin: Negative for injury, rash, and discoloration, Neuro: Negative for headache, numbness, tingling, and seizure. Exam: 12:15 Constitutional: This is a well developed, well nourished patient who is awake, alert, rn appears anxious Head/Face: Normocephalic, atraumatic. Eyes: Pupils equal round and reactive to light, extra-ocular motions intact. Lids and lashes normal. Conjunctiva and sclera are non-icteric and not injected. Cornea within normal limits. Periorbital areas with no swelling, redness, or edema. ENT: dry MM Cardiovascular: Regular rate and rhythm. No pulse deficits. Respiratory: Mild tachypnea but clear breath sounds Abdomen/GI: soft, non-tender MS/ Extremity: Pulses equal, no cyanosis. Neuro: Awake and alert, GCS 15, oriented to person, place, time, and situation. Cranial nerves II-XII grossly intact. Motor strength 4/5 in all extremities. Sensory grossly intact. Cerebellar exam normal. Vital Signs: 12:13 BP 125 / 42; Pulse 65; Resp 16; Temp 98.2(O); Pulse Ox 95% on R/A; Pain 2/10; hb 13:01 BP 144 / 55; Pulse 64 MON; Resp 14; Pulse Ox 100% on R/A; sg 13:37 BP 156 / 54; Pulse 71; Resp 16; Temp 97.1(TE); Pain 0/10; iw MDM: 12:13 Patient medically screened. rn 12:15 ED course: Pt complains of generalized weakness and dizziness, no focal findings on rn stroke scale, NIH 0, most likely dehydration/ammonia/UTI. . 13:46 Data reviewed: vital signs, nurses notes, lab test result(s), EKG, radiologic studies, rn CT scan, plain films, and as a result, I will admit patient. Counseling: I had a detailed discussion with the patient and/or guardian regarding: the historical points, exam findings, and any diagnostic results supporting the discharge/admit diagnosis, lab results, radiology results, the need for further work-up and treatment in the hospital. Response to treatment: the patient's symptoms have mildly improved after treatment, and as a result, I will admit patient. Admission orders: after a detailed discussion of the patient's condition and case, the admit orders are written by me. 15:06 ED course: NO urinary symptoms, culture obtained, will defer abx until culture returns, rn afebrile. . 03/29 12:11 Order name: Glucose, Ancillary Testing; Complete Time: 12:14 EDMS 03/29 12:15 Order name: Basic Metabolic Panel; Complete Time: 13:34 rn 03/29 12:15 Order name: CBC with Diff; Complete Time: 13:34 rn 03/29 12:15 Order name: Magnesium; Complete Time: 13:34 rn 03/29 12:15 Order name: Protime (+inr); Complete Time: 13:34 rn 03/29 12:15 Order name: Ptt, Activated; Complete Time: 13:34 rn 03/29 12:15 Order name: CT Head Brain wo Cont; Complete Time: 12:52 rn 03/29 12:15 Order name: Troponin (emerg Dept Use Only); Complete Time: 13:34 rn 03/29 12:15 Order name: AMMONIA; Complete Time: 13:34 rn 03/29 12:15 Order name: Urine Microscopic Only; Complete Time: 15:03 rn 03/29 12:15 Order name: Urine Culture rn 03/29 12:15 Order name: XRAY Chest (1 view); Complete Time: 12:52 rn 03/29 13:59 Order name: Urine Dipstick--Ancillary (enter results); Complete Time: 15:03 eb 03/29 12:15 Order name: EKG; Complete Time: 12:16 rn 03/29 12:15 Order name: Cardiac monitoring; Complete Time: 12:40 rn 03/29 12:15 Order name: EKG - Nurse/Tech; Complete Time: 12:40 rn 03/29 12:15 Order name: IV Saline Lock; Complete Time: 12:40 rn 03/29 12:15 Order name: Labs collected and sent; Complete Time: 12:59 rn 03/29 12:15 Order name: NPO; Complete Time: 12:40 rn 03/29 12:15 Order name: O2 Per Protocol; Complete Time: 12:40 rn 03/29 12:15 Order name: O2 Sat Monitoring; Complete Time: 12:40 rn 03/29 12:15 Order name: Urine Dipstick-Ancillary (obtain specimen); Complete Time: 13:41 rn Administered Medications: 12:46 Drug: NS 0.9% 500 ml Route: IV; Rate: bolus; Site: left antecubital; sv 14:27 Drug: Kayexalate 30 grams Route: PO; Point of Care Testing: Blood Glucose: 12:07 Blood Glucose: 128 mg/dL; hb Ranges: Critical Glucose Levels:Adult <50 mg/dl or >400 mg/dl <40 mg/dl or >180 mg/dl Disposition: 03/29/19 13:47 Hospitalization ordered by Marc York for Inpatient Admission. Preliminary diagnosis are Dehydration, Weakness, Acute kidney failure, Hyperkalemia. - Bed requested for Telemetry/MedSurg (Inpatient). - Status is Inpatient Admission. iw - Condition is Stable. - Problem is new. - Symptoms have improved. UTI on Admission? No Signatures: Dispatcher [employer] EDMaggy Holly RN RN sv Williams, Irene, RN RN iw Nieto, Roman, MD MD rn Baxter, Heather, RN RN hb Botello, Elizabeth eb Corrections: (The following items were deleted from the chart) 13:48 13:47 Hospitalization Ordered by A Chela BRIONES for Inpatient Admission. Preliminary rn diagnosis is Dehydration; Weakness; Acute kidney failure. Bed requested for Telemetry/MedSurg (Inpatient). Status is Inpatient Admission. Condition is Stable. Problem is new. Symptoms have improved. UTI on Admission? No. rn 14:52 13:48 03/29/2019 13:47 Hospitalization Ordered by Marc York MD for Inpatient Admission. eb Preliminary diagnosis is Dehydration; Weakness; Acute kidney failure; Hyperkalemia. Bed requested for Telemetry/MedSurg (Inpatient). Status is Inpatient Admission. Condition is Stable. Problem is new. Symptoms have improved. UTI on Admission? No. rn 16:06 14:52 03/29/2019 13:47 Hospitalization Ordered by A Chela BRIONES for Inpatient Admission. iw Preliminary diagnosis is Dehydration; Weakness; Acute kidney failure; Hyperkalemia. Bed requested for Telemetry/MedSurg (Inpatient). Status is Inpatient Admission. Condition is Stable. Problem is new. Symptoms have improved. UTI on Admission? No. eb
--- NOTE | 2019-03-29 13:48 | ER ---
Nurse's Notes [facility] Name: Britta Saleh Age: 88 yrs Sex: Female : 1930 Arrival Date: 03/29/2019 Time: 11:54 Bed 4 Private MD: Marc York C Diagnosis: Dehydration;Weakness;Acute kidney failure;Hyperkalemia Presentation: 03/29 12:12 Presenting complaint: Chills, dizziness, and generalized weakness x 1-2 hrs. Transition hb of care: patient was not received from another setting of care. 12:12 Method Of Arrival: Wheelchair hb 12:12 Onset of symptoms was March 29, 2019. Risk Assessment: Do you want to hurt yourself or hb someone else? Patient reports no desire to harm self or others. Care prior to arrival: None. 12:12 Acuity: CHRIS 3 hb 12:40 Initial Sepsis Screen: Does the patient meet any 2 criteria? No. Patient's initial iw sepsis screen is negative. Does the patient have a suspected source of infection? No. Patient's initial sepsis screen is negative. Historical: - Allergies: 12:14 Lotrel; hb 12:14 Namenda; hb 12:14 Sulfa (Sulfonamide Antibiotics); hb - Home Meds: 12:14 atorvastatin 10 mg Oral tab 1 tab nightly [Active]; Avapro 300 mg Oral tab 1 tab once hb daily [Active]; escitalopram oxalate 10 mg Oral tab 1 tab once daily [Active]; Evista 60 mg Oral tab 1 tab once daily [Active]; levothyroxine 25 mcg tab 1 tab once daily [Active]; losartan 100 mg Oral tab 1 tab once daily [Active]; Lactulose Oral [Active]; - PMHx: 12:14 Anemia; Arthritis; CAD; Cataracts; C-diff; Dementia; Depression; ENCEPHALOPATHY; hb generalized weakness; GERD; High Cholesterol; Hyperlipidemia; Hypertension; Hypothyroidism; Osteopenia; Osteoporosis; Rheumatoid Arthritis; unspecified edema; UTI; - Immunization history:: Adult Immunizations up to date. - Social history:: Smoking status: Patient/guardian denies using tobacco. - Ebola Screening: : No symptoms or risks identified at this time. - Family history:: not pertinent. - Hospitalizations: : No recent hospitalization is reported. Screenin:35 Abuse screen: Denies threats or abuse. Denies injuries from another. Nutritional iw screening: No deficits noted. Tuberculosis screening: No symptoms or risk factors identified. Fall Risk IV access (20 points). Assessment: 12:50 Reassessment: pt returned from CT at this time, pt family remains at bedside, will sg continue to monitor. 13:36 General: Appears in no apparent distress. Behavior is calm, cooperative. Pain: Denies iw pain. Neuro: Level of Consciousness is awake, alert, obeys commands, Oriented to person, place, Moves all extremities. Cardiovascular: Patient's skin is warm and dry. Respiratory: Respiratory effort is even, unlabored, Respiratory pattern is regular. GI: Parent/caregiver reports the patient having diarrhea. Derm: Skin is intact, is fragile, is thin. Musculoskeletal: Range of motion: intact in all extremities. 14:56 Reassessment: Patient appears in no apparent distress at this time. Patient and/or iw family updated on plan of care and expected duration. Pain level reassessed. Patient is alert, oriented x 3, equal unlabored respirations, skin warm/dry/pink. Vital Signs: 12:13 BP 125 / 42; Pulse 65; Resp 16; Temp 98.2(O); Pulse Ox 95% on R/A; Pain 2/10; hb 13:01 BP 144 / 55; Pulse 64 MON; Resp 14; Pulse Ox 100% on R/A; sg 13:37 BP 156 / 54; Pulse 71; Resp 16; Temp 97.1(TE); Pain 0/10; iw ED Course: 11:54 Patient arrived in ED. rg4 11:54 Marc York MD is Private Physician. rg4 12:01 Rosangela Manzano, FRACISCO is Primary Nurse. ph 12:03 Baudilio Saunders PA is PHCP. jmm 12:03 Jerod Monterroso MD is Attending Physician. jmm 12:13 Triage completed. hb 12:13 Arm band placed on. hb 12:21 EKG done, by information technology analyst. reviewed by Jerod Monterroso MD. sm3 12:30 Patient has correct armband on for positive identification. iw 12:33 Initial lab(s) drawn, by vt, sent to lab. Inserted saline lock: 20 gauge in left dh3 antecubital area, using aseptic technique. Blood collected. 12:35 XRAY Chest (1 view) In Process Unspecified. EDMS 12:35 X-ray completed. Portable x-ray completed in exam room. Patient tolerated procedure jb2 well. 12:39 CT completed. Patient tolerated procedure well. Patient moved to CT via stretcher. Patient moved back from CT. 12:40 CT Head Brain wo Cont In Process Unspecified. EDMS 13:21 Nneka Rice, RN is Primary Nurse. iw 13:35 Urine collected: straight cath specimen, clear. iw 13:47 Marc York MD is Hospitalizing Provider. rn 16:05 No provider procedures requiring assistance completed. Patient admitted, IV remains in iw place. Administered Medications: 12:46 Drug: NS 0.9% 500 ml Route: IV; Rate: bolus; Site: left antecubital; sv 14:27 Drug: Kayexalate 30 grams Route: PO; iw Point of Care Testing: Blood Glucose: 12:07 Blood Glucose: 128 mg/dL; hb Ranges: Outcome: 13:47 Decision to Hospitalize by Provider. rn 16:05 Admitted to Med/surg accompanied by tech, family with patient, via stretcher, room 212, iw with chart, Report called to FRACISCO Schaffer 16:05 Condition: good 16:05 Discharge instructions given to patient, family, Instructed on the need for admit, Demonstrated understanding of instructions. 16:06 Patient left the ED. iw Signatures: Dispatcher [employer] EDMS Maggy Boyer, RN FRACISCO Roshan Salinas RN Baudilio Allen PA PA jmm Buechter, Jesse jb2 Nneka Rice, RN FRACISCO Jerod Monterroso MD MD rn Hall, Patricia, RN RN ph Warren, Shannon sw Baxter, Heather, RN RN hb Garcia, Rubi 4 Ethel Warner 3 Vanessa Lopez 3
[2019-03-29 14:12] LABS: Urine Bacteria >50 /HPF (<20); Urine Culture Reflex Order NOT NEEDED; Urine RBC <5 /HPF (NONE SEEN)
[2019-03-29 14:25] LABS: Urine Blood NEGATIVE (NEG); Urine Glucose NEGATIVE (NEG); Urine Protein NEGATIVE (NEG)
[2019-03-29] MEDS ORDERED: SOD POLYSTYREN SUL 15 GM/60 ML UCUP ONE (14:27)
--- NOTE | 2019-03-29 15:16 | EKG ---
Test Date: 2019-03-29 Test Time: 12:21:56 Weed Control Inspector: KAYLA MEASUREMENT RESULTS: Intervals: Rate: 62 DC: 188 QRSD: 146 QT: 472 QTc: 479 [place]: P: 90 DC: 188 QRS: -12 T: 88 INTERPRETIVE STATEMENTS: Sinus rhythm with premature atrial complexes Left bundle branch block Abnormal ECG Compared to ECG 09/20/2018 20:21:24 Atrial premature complex(es) now present Electronically Signed On 03-29-19 15:15:24 CDT by Hussein Patrick
[2019-03-29] MEDS ORDERED: ONDANSETRON 4 MG/2 ML VIAL IV PRN (15:26)
[2019-03-29 16:51] VITALS: BMI 28.0
[2019-03-29] MEDS: NA CHLORIDE 0.9% 1,000 ML IV SCH (17:49)
[2019-03-29 18:24] LABS: Potassium 5.3 mmol/L (3.5-5.1)
[2019-03-29] MEDS: CEFTRIAXONE/SWI 1gm 1 GM/10 ML SYR IVP SCH (20:38)
[2019-03-29 22:47] LABS: Potassium 4.8 mmol/L (3.5-5.1)
[2019-03-30] MEDS: NA CHLORIDE 0.9% 1,000 ML IV SCH ×2 (00:53→12:58)
--- NOTE | 2019-03-30 04:14 | HP ---
Date of Admission: 03/29/2019 ALTAF/MAXIMILIAN Voice ID: [id number] MTDD
--- NOTE | 2019-03-30 04:20 | HP ---
Date of Admission: 03/29/2019 Chief Complaint: Feeling weak, having chills. History Of Present Illness: An 88-year-old female patient who saw me as a new patient visit a week ago, was doing fine in her normal usual state of health and today she was at her beautician's place for her appointment and all of a sudden she felt like she was very weak and felt like she was going to faint and her family brought her into my office. She was not able to get up and walk because of her weakness, so she had her walker and she was sitting on her walker and they wheeled her into our office. As soon as she was brought inside the exam room, I examined her. She appeared very weak and was having chills at that time. Her manual blood pressure was 100/60. She denied any pain anywhere. No fall. No injury. No vomiting. Family reported some diarrhea but no blood in stool. After she was evaluated, family was advised to take her to emergency room right away and after she was evaluated in the ER, she was admitted to hospital with dehydration, high potassium, and urinary tract infection. I did go to see her, this evening. She was in her room. There was no family member with her at bedside and she was feeling little better compared to earlier today. Allergies: TO SULFA. Past Medical History: Significant for hypertension, coronary artery disease, hyperlipidemia, stroke, cirrhosis of liver, hypothyroidism, anxiety, osteoarthritis, rheumatoid arthritis, anemia, thrombocytopenia, lumbar spinal stenosis, and osteopenia. Past Surgical History: Surgery for fracture of femur in 2017, hysterectomy, and coronary artery angioplasty with stent placement in the past. Family History: Significant for coronary artery disease, leukemia, stroke, Alzheimer's disease. Social History: Negative for smoking and negative for alcohol use. Review of Systems: Constitutional: As mentioned above. All other systems reviewed and negative. Medications: Atorvastatin 10 mg daily, B complex 1 tablet daily, escitalopram 10 mg daily, furosemide 40 mg daily, hydralazine 25 mg 2 times a day, irbesartan 300 mg p.o. daily, Klor-Con 10 mEq p.o. daily, lactulose 10 g/15 cc and the patient takes 15 cc 2 times a day, levothyroxine 25 mcg p.o. daily, modafinil 100 mg daily in morning, nitroglycerin p.r.n., spironolactone 100 mg p.o. daily, Vitamin D3 5000 unit daily. Physical Examination: Vital Signs: Her blood pressure when she was at office while sitting in her walker seat, it was 100/60. Initial vital signs in the emergency room, temperature 98.2, pulse 65, respiratory rate 16, blood pressure 125/42, oxygen saturation 95%. Height 5 feet 4 inches, weight 163 pounds. General: The patient appears weaker than normal, not in any distress. HEENT: Head atraumatic, normocephalic. Conjunctivae nonerythematous. Sclerae white. Mouth, no thrush or edema noted. Ears/Nose, no mass, lesion, discharge noted. Neck: Supple. No JVD, lymph nodes, bruit, thyromegaly noted. Lungs: Bilateral good equal air entry. Clear to auscultation. No rhonchi. No rales. Heart: Normal heart sounds, no murmur or gallop. Abdomen: Soft, bowel sounds normal. No guarding, rigidity, tenderness, mass, hepatosplenomegaly, distention, or bruit noted. Extremities: No leg edema. No calf tenderness. Skin: No rash, ulcer, cellulitis. Lymphatics: No lymph node enlargement in neck, supraclavicular, infraclavicular region. Neuro: No focal neurological deficit. Chest: Unremarkable. External Genitalia: Deferred. Rectal: Deferred. Laboratory Data: White count 5.1, hemoglobin 10.2, platelets 115. Sodium 141, potassium 5.9, chloride 113, bicarb 20, BUN 54, creatinine 2.59, glucose 116. Troponin less than 0.02. Magnesium 2.1. Urinalysis, trace esterase, bacteria more than 50, wbc 5-10. Chest x-ray, no acute infiltrate. EKG, no acute ST-T changes. CAT scan of the head, no acute intracranial changes noted. Impression: 1. Acute renal failure. 2. Volume depletion. 3. Hyperkalemia. 4. Urinary tract infection. 5. Cirrhosis of liver. 6. Hypertension. 7. Coronary artery disease. 8. Hyperlipidemia. 9. Stroke. 10. Anemia. 11. Thrombocytopenia. 12. Hypothyroidism. 13. Osteoarthritis, generalized. 14. Anxiety. 15. Rheumatoid arthritis. Plan: Admit the patient to hospital for further evaluation and management of this problem. The patient is appropriate for inpatient and is expected to spend 2 midnights in hospital. We will go ahead and give her IV fluid, IV antibiotics. Repeat blood work tomorrow. We will discontinue her potassium supplement that she takes at home and make adjustment on her diuretic medications. Continue lactulose. Continue other home medications per order. We will consult Physical Therapy to help ambulate her. DVT prophylaxis will be given using SCD. Follow up on urine culture, and details and plan of treatment discussed with her. ALTAF/MAXIMILIAN Voice ID: [id number] MADDIE
[2019-03-30 05:22] LABS: Hematocrit 25.9 % (36.0-45.0)
[2019-03-30 05:29] LABS: Potassium 4.8 mmol/L (3.5-5.1)
[2019-03-30 05:30] LABS: Absolute Lymphocytes (CBC) 1.3 K/uL (0.7-4.9); Absolute Monocytes 0.3 K/uL (0.1-1.3); Absolute Neutrophil 1.7 K/uL (1.8-8.0); Basophils % 0.7 % (0-1.3); Eosinophils % 2.7 % (0-4.4); Lymphocytes % 38.1 % (15.3-44.8); MPV 9.1 fL (7.6-11.3); Monocytes % 8.3 % (3.3-12.3); RBC Red Blood Cell Count 2.55 M/uL (3.86-4.86)
[2019-03-30 08:45] LABS: Platelet Estimate DECR; Urine White Blood Cell Casts OK
[2019-03-30 08:46] LABS: Blood Morphology Comment NOT SEEN (NOT SEEN)
[2019-03-30] MEDS: MODAFINIL 100 MG TAB PO SCH (09:00)
[2019-03-30] MEDS: ESCITALOPRAM 20 MG TAB PO SCH (09:00)
[2019-03-30] MEDS: CEFTRIAXONE/SWI 1gm 1 GM/10 ML SYR IVP SCH ×2 (09:11→21:46)
--- NOTE | 2019-03-30 14:41 | PN ---
Date of Progress Note: 03/30/2019 Subjective: The patient was seen this morning for followup. No new complaints or problems reported by her. Overall, she feels better this morning than yesterday. No fever, chills, nausea, vomiting, diarrhea reported overnight. Objective: Vital Signs: Reviewed. HEENT: Unremarkable. Lungs: Clear to auscultation. Heart: Sounds normal. Abdomen: Soft. Bowel sounds normal. No guarding, rigidity, tenderness, or distention. Extremities: No leg edema. Laboratory Data: White count 3.5, hemoglobin 8.6, platelets 79. Sodium 146, potassium 4.8, chloride 116, bicarb 21, BUN 45, creatinine 1.98, glucose 82. Impression: 1.Urinary tract infection. 2.Acute renal failure. 3.Volume depletion. 4.Hyperkalemia. 5.Pancytopenia. 6.Cirrhosis of liver. Plan: We will go to go ahead and continue current antibiotics, IV fluid. We will repeat blood work tomorrow. Ambulation was encouraged. We will consult Physical Therapy to help ambulate the patient. SCD will be used for DVT prophylaxis per order, and I will see her tomorrow for followup. I did ta lk to the patient's and son this morning and informed all of them that we will have to make s ome changes in her medication and reduce dose of some of her diuretic medication, stop some of the me dication including potassium tablet, so at the time of discharge we will give them new list of medica tions. Possible discharge to go home in next couple of days. The patient will benefit from home hea lth and home physical therapy because of her generalized weakness and debility, and they are willing to go ahead and participate in such care with home health care services, so we will have social worke r help make that arrangements. ALTAF/MODL Voice ID: [id number] Report ID: [id number]
[2019-03-30] MEDS ORDERED: ZOLPIDEM TARTRATE 5 MG TABLET PO SCH (21:00)
[2019-03-30] MEDS: ATORVASTATIN 10 MG TAB PO SCH (21:46)
[2019-03-31] MEDS: NA CHLORIDE 0.9% 1,000 ML IV SCH ×3 (02:23→22:03)
[2019-03-31] MEDS: LEVOTHYROXINE SOD 0.025 MG TAB PO SCH (06:10)
[2019-03-31 07:49] LABS: Magnesium 1.5 mg/dL (1.8-2.4); Potassium 4.9 mmol/L (3.5-5.1)
[2019-03-31 07:58] LABS: Absolute Lymphocytes (CBC) 1.2 K/uL (0.7-4.9); Absolute Monocytes 0.2 K/uL (0.1-1.3); Absolute Neutrophil 1.5 K/uL (1.8-8.0); Basophils % 0.4 % (0-1.3); Eosinophils % 3.1 % (0-4.4); Hematocrit 25.5 % (36.0-45.0); Lymphocytes % 40.1 % (15.3-44.8); MPV 9.4 fL (7.6-11.3); RBC Red Blood Cell Count 2.53 M/uL (3.86-4.86)
[2019-03-31] MEDS: CEFTRIAXONE/SWI 1gm 1 GM/10 ML SYR IVP SCH ×2 (08:27→22:01)
[2019-03-31] MEDS: MODAFINIL 100 MG TAB PO SCH (08:28)
[2019-03-31] MEDS: ESCITALOPRAM 20 MG TAB PO SCH (08:28)
[2019-03-31] MEDS ORDERED: MAGNESIUM SULFATE 1 gm IVPB 1 GM/100 ML BAG IV ONE (11:00)
[2019-03-31 11:02] VITALS: O2SAT 96
[2019-03-31] MEDS ORDERED: HOME MED 1 EA UNK (Lactulose [Lactulose] 10 GM) PO SCH (12:00)
[2019-03-31] MEDS: AMPICILLIN TRIHYDRATE 500 MG CAP PO SCH ×2 (14:08→22:02)
--- NOTE | 2019-03-31 17:31 | PN ---
Date of Progress Note: 03/31/2019 Subjective: The patient was seen this morning for followup. No new complaints or problems reported by patient. Lying in bed, not in distress. Denies any abdominal pain, nausea, vomiting. No chills. Objective: Vital Signs: Reviewed. Remains afebrile. HEENT: Unremarkable. Lungs: Clear to auscultation. Heart: Sounds normal. Abdomen: Soft. Bowel sounds normal. No guarding, rigidity, tenderness, or distention. Extremities: No leg edema. Laboratory Data: White count 3, hemoglobin 8.5, platelets 72. Sodium 145, potassium 4.9, chloride 1 18, bicarb 19, BUN 34, creatinine 1.48, glucose 83, and magnesium 1.5. Urine culture growing E. coli . Impression: 1.Urinary tract infection. 2.Acute renal failure. 3.Volume depletion. 4.Cirrhosis of liver. 5.Pancytopenia. Plan: We will go ahead and continue IV fluid. Renal function is improving on a daily basis with IV fluid hydration and she is responding well. We will continue current IV fluid, repeat blood work mitchell orrow. Possible discharge to go home tomorrow depending on her condition and blood work. We will co ntinue lactulose and urine culture sensitivity results reviewed. We will start the patient on ampicillin and discontinue ceftri axone. ALTAF/MODL Voice ID: [id number] Report ID: [id number]
[2019-03-31] MEDS ORDERED: ZOLPIDEM TARTRATE 5 MG TABLET PO ONE (21:32)
[2019-03-31] MEDS: ATORVASTATIN 10 MG TAB PO SCH (22:02)
[2019-04-01] MEDS: NA CHLORIDE 0.9% 1,000 ML IV SCH ×2 (03:26→05:19)
[2019-04-01] MEDS: LEVOTHYROXINE SOD 0.025 MG TAB PO SCH (05:19)
[2019-04-01 06:08] LABS: Magnesium 1.7 mg/dL (1.8-2.4); Potassium 4.9 mmol/L (3.5-5.1)
[2019-04-01] MEDS: MODAFINIL 100 MG TAB PO SCH (09:28)
[2019-04-01] MEDS: AMPICILLIN TRIHYDRATE 500 MG CAP PO SCH (09:29)
[2019-04-01] MEDS: ESCITALOPRAM 20 MG TAB PO SCH (09:29)
[2019-04-01 10:02] VITALS: BP 171/74; TEMP 98
--- NOTE | 2019-04-02 06:05 | DS ---
Date of Discharge: 04/01/2019 Disposition: Discharged to go home. Physical Examination: HEENT: Unremarkable. Lungs: Clear to auscultation. Heart: Sounds normal. Abdomen: Soft. Bowel sounds normal. No guarding, rigidity, tenderness, or distention. Extremities: No leg edema. Laboratory Data: Labs done during this hospitalization: Initial white count when she was admitted o n 03/29/2019 was 5.1, hemoglobin was 10.2, platelets 115. Yesterday, white count 3, hemoglobin 8.5, platelets 72. Last chemistry today; sodium 143, potassium 4.9, chloride 118, bicarb 18, BUN 26, crea tinine 1.14, glucose 82, magnesium 1.7. Yesterday, magnesium was 1.5. Upon admission, potassium was 5.9, BUN 54, creatinine 2.59. Hospital Course: An 88-year-old female patient was admitted to the hospital after she presented to e mergency room with complaints of feeling weak and having chills. Please see dictated H and P for mor e information. The patient was evaluated in the ER and was admitted to the hospital with acute renal failure, volume depletion, elevated potassium, and urinary tract infection. See dictated H and P fo r more details. After the patient was admitted to the hospital, she was given IV fluid, IV antibioti cs which was ceftriaxone. Home medications were continued per order. We did make some changes in ho me medication during this hospitalization. Physical Therapy was consulted, and she started to ambula te well. Her overall condition improved. Volume depletion problem including potassium was correcte d and normalized and remained normal. We followed renal function on a daily basis, and her renal fun ction improved back to normal. I did suggest to her and her family about getting home health and hermes e physical therapy, and they were agreeable. So, social media director consultation was requested and today nurse notified me and informed me that family and the patient refused to have home health and home ph ysical therapy. The patient's son came to office upon request and picked up a list of medication fro m my office today. Discharge Diagnoses: 1.Acute renal failure. 2.Volume depletion. 3.Hyperkalemia. 4.Urinary tract infection. 5.Cirrhosis of liver. 6.Hypertension. 7.Coronary artery disease. 8.Thrombocytopenia. 9.Hyperlipidemia. 10.Stroke. 11.Anemia. 12.Hypothyroidism. 13.Osteoarthritis, multiple sites. 14.Anxiety. 15.Rheumatoid arthritis. Discharge Medications And Instructions: 1.Follow up at my office per scheduled appointment. 2.Continue all prior home medication except following changes: a.Take ampicillin 500 mg 3 times a day for 1 week. b.Stop spironolactone 100 mg 1 pill daily dose and start spironolactone 100 mg, take half a tablet b y mouth daily. c.Stop furosemide. d.Stop potassium tablet. e.Stop irbesartan. ALTAF/MODL Voice ID: [id number] Report ID: [id number]
== END 2019-04-01 10:54 | disposition home or self-care (01) | DRG 683 ==
LOC: ER 11:52 → ERHOLD 13:58 → 2ND 15:26
PROVIDERS: ADMIT Internal Medicine; ATTEND Internal Medicine
DX: N17.9 Acute kidney failure, unspecified (principal); N39.0 Urinary tract infection, site not specified; D61.818 Other pancytopenia; E86.9 Volume depletion, unspecified; E87.5 Hyperkalemia; K74.60 Unspecified cirrhosis of liver; B96.20 Unspecified Escherichia coli [E. coli] as the cause of diseases classified elsewhere; I10 Essential (primary) hypertension; I25.10 Atherosclerotic heart disease of native coronary artery without angina pectoris; E78.5 Hyperlipidemia, unspecified; E03.9 Hypothyroidism, unspecified; F41.9 Anxiety disorder, unspecified; M06.9 Rheumatoid arthritis, unspecified; M15.9 Polyosteoarthritis, unspecified; Z86.73 Personal history of transient ischemic attack (TIA), and cerebral infarction without residual deficits; Z95.5 Presence of coronary angioplasty implant and graft; Z88.2 Allergy status to sulfonamides
CPT/HCPCS: 36415; 70450; 71045; 80048; 81003; 81015; 82140; 82962; 83735; 84484; 85025; 85610; 85730; 87077; 87086; 87088; 87186; 93005; 97116; 97162; 97530; 99285; J0696; J3475; J7030

== ENCOUNTER 2019-10-21 08:43 | Observation (INO) | payer OTHER ==
--- OUTSIDE RECORDS SUMMARY | 2019-10-21 08:48 | XMS REPORT ---
:1930 [facility] Address [address] [place] [address] Care Team Providers Name Role Phone ANTONIO [...] 1.0-3.0 IG% (test code=IG%) 0.2 % 0.0-0.4 [id number] 05:43:00 Test Item Value Reference Range Comments [...] mL/min/1.73m\\S\\2 EGFR if Non- 41 Estimated Glomerular Israeli (test mL/min/1.73m\\S\\2 Filtration Rate (eGFR) code=EGFRNA) Reference [...]
[2019-10-21 09:52] LABS: Protime INR 1.14
[2019-10-21 10:09] LABS: Absolute Lymphocytes (CBC) 1.3 K/uL (0.7-4.9); Basophils % 0.3 % (0-1.3); Hematocrit 33.9 % (36.0-45.0); Lymphocytes % 30.6 % (15.3-44.8); MPV 8.1 fL (7.6-11.3); RBC Red Blood Cell Count 3.57 M/uL (3.86-4.86)
[2019-10-21] MEDS ORDERED: LACTULOSE 20 GM/30 ML UCUP ONE (10:11)
--- NOTE | 2019-10-21 10:13 | RAD REPORT ---
EXAM DESCRIPTION: CT - Head Brain Wo Cont - 10/21/2019 9:47 am CLINICAL HISTORY: Transient alteration of awareness COMPARISON: None. TECHNIQUE: Axial 5 mm thick images of the head were obtained without IV contrast. All CT scans are performed using dose optimization technique as appropriate and may include automated exposure control or mA/KV adjustment according to patient size. FINDINGS: No intracranial hemorrhage, mass, edema or shift of mid-line structures. No acute infarcti on changes seen. No cortical edema or sulcal effacement. Patient has mild to moderate for age atrophy . Ventricles are in proportion. Advanced chronic ischemic changes present throughout the cerebral whi te matter and to a lesser degree each thalamus and basal ganglia. No significant brainstem chronic is chemic change identifiable. Arterial and physiologic calcifications are present. Mastoid air cells are clear. Significant mucosal thickening and possible air-fluid level in the parti ally imaged left maxillary sinus. No acute bony findings. IMPRESSION: No acute intracranial finding identifiable. Patient has mild to moderate atrophy with ve ntricles in proportion. Advanced chronic ischemic changes are present throughout the cerebral white matter, basal ganglia and thalamus tissues. Chronic ischemic changes can mask nonhemorrhagic acute infarction. MR brain followup can be obtained if there is ongoing concern for acute ischemia. Left maxillary sinus disease only partially imaged.
[2019-10-21 10:24] LABS: ALT/SGPT 40 U/L (12-78); AST/SGOT 76 U/L (15-37); Albumin 3.2 g/dL (3.4-5.0); Alkaline Phosphatase 94 U/L (45-117); Bilirubin Direct 0.4 mg/dL (0-0.2); Bilirubin Total 1.1 mg/dL (0.2-1.0); Protein, Total 7.1 g/dL (6.4-8.2)
[2019-10-21 11:30] LABS: Barbiturates NEGATIVE (NEGATIVE); Benzodiazepines NEGATIVE (NEGATIVE); Cocaine NEGATIVE (NEGATIVE); METHAMPHETAM NEGATIVE (NEGATIVE); Methadone NEGATIVE (NEGATIVE); Opiates NEGATIVE (NEGATIVE); Phencyclidine NEGATIVE (NEGATIVE); THC Cannibis NEGATIVE (NEGATIVE)
[2019-10-21 11:34] LABS: Urine Blood NEGATIVE (NEG); Urine Glucose NEGATIVE (NEG); Urine Protein NEGATIVE (NEG); Urine Specific Gravity 1.015 (1.005-1.030); Urine pH 7.5 (5.0-7.0)
--- NOTE | 2019-10-21 11:36 | RAD REPORT ---
EXAM DESCRIPTION: RAD - Chest Single View - 10/21/2019 11:18 am CLINICAL HISTORY: Shortness of breath, altered mental status COMPARISON: March 29, 2019 TECHNIQUE: AP portable chest image was obtained 1108 hours . FINDINGS: Lung volumes are low compared to prior study. Interstitial pattern is not substantially di fferent. No significant failure or volume overload finding. Heart size is accentuated by shallow insp iration. No measurable pleural effusion and no pneumothorax. No acute bony abnormality seen. No acute aortic findings suspected. IMPRESSION: No acute cardiopulmonary process. No significant change from comparison.
--- NOTE | 2019-10-21 11:46 | ER ---
Nurse's Notes [facility] Name: Rachel Saleh Age: 88 yrs Sex: Female : 1930 Arrival Date: 10/21/2019 Time: 08:56 Bed 14 Private MD: Diagnosis: Hepatic encephalopathy Presentation: 10/21 08:56 Presenting complaint: EMS states: ALTERED MENTAL STATUS. Transition of care: patient bp was not received from another setting of care. Onset of symptoms is unknown. Risk Assessment: Do you want to hurt yourself or someone else? Patient reports no desire to harm self or others. Initial Sepsis Screen: Does the patient meet any 2 criteria? Altered Mental Status. No. Patient's initial sepsis screen is negative. Does the patient have a suspected source of infection? No. Patient's initial sepsis screen is negative. Care prior to arrival: IV initiated. 22 GA, in the right antecubital area. 08:56 Method Of Arrival: EMS: [facility] bp 08:56 Acuity: CHRIS 2 bp Triage Assessment: 09:03 General: Appears in no apparent distress. comfortable, Behavior is unresponsive. Pain: bp Unable to use pain scale. Patient is unresponsive. EENT: No deficits noted. Neuro: Level of Consciousness is stuporous, Oriented to none. Cardiovascular: Rhythm is sinus rhythm. Respiratory: Airway is patent Respiratory effort is even, unlabored, Respiratory pattern is regular, symmetrical. GI: No signs and/or symptoms were reported involving the gastrointestinal system. : No signs and/or symptoms were reported regarding the genitourinary system. Derm: No deficits noted. Musculoskeletal: No deficits noted. Historical: - Allergies: 09:03 Lotrel; bp 09:03 Namenda; bp 09:03 Sulfa (Sulfonamide Antibiotics); bp - Home Meds: 09:03 atorvastatin 10 mg Oral tab 1 tab nightly [Active]; escitalopram oxalate 10 mg Oral tab bp 1 tab once daily [Active]; lactulose 10 gram/15 mL (15 mL) oral soln 15 mL twice a day [Active]; hydralazine 25 mg Oral tab 1 tab 2 times per day [Active]; levothyroxine 25 mcg tab 1 tab once daily [Active]; modafinil 100 mg oral tab 1 tabs once daily [Active]; nitroglycerin 0.4 mg SL subl 1 tab every 5 minutes [Active]; spironolactone 100 mg Oral tab 1 tab once daily [Active]; - PMHx: 09:03 Anemia; Arthritis; CAD; Cataracts; C-diff; Dementia; Depression; ENCEPHALOPATHY; bp generalized weakness; GERD; High Cholesterol; Hyperlipidemia; Hypertension; Hypothyroidism; Osteopenia; Osteoporosis; Rheumatoid Arthritis; unspecified edema; UTI; - Immunization history:: Adult Immunizations unknown. - Social history:: Smoking status: unknown. - Ebola Screening: : No symptoms or risks identified at this time. Screenin:10 Abuse screen: No signs of abuse noted. Nutritional screening: No deficits noted. aa5 Tuberculosis screening: No symptoms or risk factors identified. Fall Risk Fall in past 12 months (25 points). Secondary diagnosis (15 points) dementia, IV access (20 points). Mental Status- Overestimates/Forgets Limitations (15 pts.). Total Salter Fall Scale indicates High Risk Score (45 or more points). Fall prevention measures have been instituted. Side Rails Up X 2 Placed Close to Nursing Station Family Present and informed to notify staff if the need to leave the bedside. Assessment: 09:10 General: Appears comfortable. Pain: Unable to use pain scale. Patient is disoriented. aa5 Neuro: Level of Consciousness is resting with eyes closed, pt opens eyes when calling her name. . Oriented to none Pt unable to follow commands. . Pupils are PERRL. Cardiovascular: Heart tones S1 S2 present Rhythm is regular. Respiratory: Airway is patent Respiratory effort is even, unlabored, Respiratory pattern is regular, symmetrical, Breath sounds are clear bilaterally. GI: Abdomen is round non-distended, Bowel sounds present X 4 quads. Abd is soft and non tender X 4 quads. : Brief noted. EENT: No signs and/or symptoms were reported regarding the EENT system. Derm: Skin is pink, warm \T\ dry. Musculoskeletal: Musculoskeletal: Range of motion: intact in all extremities. 10:10 Reassessment: Pt in bed with eyes closed, pt opens eyes to name, equal and unlabored aa5 respirations. NSR on monitor. Skin is pink/warm/dry. Bed remains in low position, side rails x 2. Pt's family at bedside. . 10:41 Reassessment: Pt cleaned of urinary incontinence, clean brief applied. . aa5 11:00 Reassessment: Resting in bed with eyes closed, respirations are even and unlabored, aa5 skin is pink/warm/dry. Extra blankets applied per pt's family request. . 12:00 Reassessment: Pt in bed with eyes closed, pt opens eyes to name, unable to follow aa5 commands. Remains non-verbal at this time. Equal and unlabored respirations, skin is pink/warm/dry. . 13:00 Reassessment: Pt resting in bed with eyes closed, pt opens eyes to name, unable to aa5 follow commands. Equal and unlabored respirations, skin is pink/warm/dry. . Vital Signs: 09:03 BP 150 / 63; Pulse 74; Resp 12; Temp 97.7; Pulse Ox 97% on R/A; Weight 81.65 kg; bp 10:00 BP 154 / 65; Pulse 72; Resp 14 S; Pulse Ox 98% on R/A; aa5 11:00 BP 148 / 63; Pulse 74; Resp 16 S; Temp 97.8(TE); Pulse Ox 98% on R/A; aa5 12:00 BP 155 / 63; Pulse 74; Resp 14 S; Pulse Ox 100% ; aa5 13:00 BP 151 / 64; Pulse 76; Resp 16 S; Temp 97.8(TE); Pulse Ox 98% on R/A; aa5 ED Course: 08:56 Patient arrived in ED. bp 08:57 Triage completed. bp 08:57 Miley Umanzor, RN is Primary Nurse. aa5 09:00 Blaise Katz MD is Attending Physician. ps1 09:03 Arm band placed on. bp 09:10 Patient has correct armband on for positive identification. Placed in gown. Bed in low aa5 position. Call light in reach. Side rails up X2. Adult w/ patient. alarm security or surveillance monitor on. Pulse ox on. NIBP on. 09:20 Maintain EMS IV. Dressing intact. Good blood return noted. Site clean \T\ dry. Gauge \T\ aa 5 site: 22 G to R AC . 09:51 CT Head Brain wo Cont In Process Unspecified. EDMS 09:57 EKG done, by surveying technician. reviewed by Blaise Katz MD. sm3 10:41 Straight cath inserted, using sterile technique, 16 Fr. Specimen obtained. Returned aa5 clear yellow urine. Patient tolerated well. 11:22 CXR XRAY In Process Unspecified. EDMS 11:45 Marc York MD is Hospitalizing Provider. ps1 13:28 No provider procedures requiring assistance completed. Patient admitted, IV remains in aa5 place. Administered Medications: 10:30 Drug: Lactulose 30 grams Volume: 45 ml; Route: PO; aa5 Outcome: 11:45 Decision to Hospitalize by Provider. ps1 13:29 Admitted to Med/surg accompanied by tech, family with patient, via stretcher, with aa5 chart, Report called to FRACISCO Castellanos 13:29 Condition: stable 13:29 Discharge instructions given to family, Instructed on the need for admit, Demonstrated understanding of instructions. 13:37 Patient left the ED. aa5 Signatures: Dispatcher [employer] EDMS Miley Umanzor, RN RN aa5 Garrett Sanders RN RN Blaise Senior MD MD ps1 John, Vanessa 3
--- NOTE | 2019-10-21 11:46 | EDPHYS ---
Physician Documentation [facility] Name: Rachel Saleh Age: 88 yrs Sex: Female : 1930 Arrival Date: 10/21/2019 Time: 08:56 Bed 14 Private MD: ED Physician Blaise Katz HPI: 10/21 09:37 This 88 yrs old Female presents to ER via EMS with complaints of Altered ps1 Mental Status. 09:37 patient was in normal health a week ago but has had progressive decline. Had an episode ps1 of vomiting yesterday and was able to walk and assist in cleaning it up. This morning checked on patient and she is markedly confused not engaging in history evaluation. "last known normal" was last night before going to sleep. Hx of cirrhosis on lactulose and dementia. . Historical: - Allergies: 09:03 Lotrel; bp 09:03 Namenda; bp 09:03 Sulfa (Sulfonamide Antibiotics); bp - Home Meds: 09:03 atorvastatin 10 mg Oral tab 1 tab nightly [Active]; escitalopram oxalate 10 mg Oral tab bp 1 tab once daily [Active]; lactulose 10 gram/15 mL (15 mL) oral soln 15 mL twice a day [Active]; hydralazine 25 mg Oral tab 1 tab 2 times per day [Active]; levothyroxine 25 mcg tab 1 tab once daily [Active]; modafinil 100 mg oral tab 1 tabs once daily [Active]; nitroglycerin 0.4 mg SL subl 1 tab every 5 minutes [Active]; spironolactone 100 mg Oral tab 1 tab once daily [Active]; - PMHx: 09:03 Anemia; Arthritis; CAD; Cataracts; C-diff; Dementia; Depression; ENCEPHALOPATHY; bp generalized weakness; GERD; High Cholesterol; Hyperlipidemia; Hypertension; Hypothyroidism; Osteopenia; Osteoporosis; Rheumatoid Arthritis; unspecified edema; UTI; - Immunization history:: Adult Immunizations unknown. - Social history:: Smoking status: unknown. - Ebola Screening: : No symptoms or risks identified at this time. ROS: 09:37 Unable to obtain ROS due to altered mental status. ps1 Exam: 09:37 Head/Face: Normocephalic, atraumatic. Eyes: Pupils equal round and reactive to light, ps1 extra-ocular motions intact. Lids and lashes normal. Conjunctiva and sclera are non-icteric and not injected. Chest/axilla: Normal chest wall appearance and motion. Nontender with no deformity. No lesions are appreciated. Cardiovascular: Regular rate and rhythm. No gallops, murmurs, or rubs. Normal PMI, no JVD. No pulse deficits. Respiratory: Lungs have equal breath sounds bilaterally, clear to auscultation and percussion. No rales, rhonchi or wheezes noted. No increased work of breathing, no retractions or nasal flaring. Abdomen/GI: Soft, non-tender, with normal bowel sounds. No distension or tympany. No guarding or rebound. No evidence of tenderness throughout. MS/ Extremity: Pulses equal, no cyanosis. Neurovascular intact. Full, normal range of motion. 09:37 Constitutional: The patient appears in no acute distress, alert, listless. 09:37 Neuro: Orientation: to person, place, time, situation, Mentation: unable to follow commands, Memory: unable to test, AMS. Vital Signs: 09:03 BP 150 / 63; Pulse 74; Resp 12; Temp 97.7; Pulse Ox 97% on R/A; Weight 81.65 kg; bp 10:00 BP 154 / 65; Pulse 72; Resp 14 S; Pulse Ox 98% on R/A; aa5 11:00 BP 148 / 63; Pulse 74; Resp 16 S; Temp 97.8(TE); Pulse Ox 98% on R/A; aa5 12:00 BP 155 / 63; Pulse 74; Resp 14 S; Pulse Ox 100% ; aa5 13:00 BP 151 / 64; Pulse 76; Resp 16 S; Temp 97.8(TE); Pulse Ox 98% on R/A; aa5 MDM: 09:07 Patient medically screened. ps1 10/21 09:17 Order name: Acetaminophen; Complete Time: 10:34 ps1 10/21 09:17 Order name: CBC with Diff ps1 10/21 09:17 Order name: ETOH Level; Complete Time: 10:35 ps1 10/21 09:17 Order name: Hepatic Function; Complete Time: 10:34 ps1 10/21 09:17 Order name: PT-INR; Complete Time: 10:12 ps1 10/21 09:17 Order name: Salicylate; Complete Time: 10:38 ps1 10/21 09:17 Order name: Urine Drug Screen; Complete Time: 11:28 ps1 10/21 09:17 Order name: AMMONIA; Complete Time: 10:34 ps1 10/21 10:14 Order name: CBC Smear Scan EDMS 10/21 11:11 Order name: Urine Dipstick--Ancillary (enter results); Complete Time: 11:34 bd 10/21 11:54 Order name: Basic Metabolic Panel EDMS 10/21 11:54 Order name: Basic Metabolic Panel EDMS 10/21 11:54 Order name: CBC with Automated Diff EDMS 10/21 11:54 Order name: CBC with Automated Diff EDMS 10/21 09:17 Order name: EKG; Complete Time: 09:20 ps1 10/21 09:17 Order name: EKG - Nurse/Tech; Complete Time: 09:38 ps1 10/21 09:17 Order name: IV Saline Lock; Complete Time: 09:38 ps1 10/21 09:17 Order name: Labs collected and sent; Complete Time: 09:38 ps1 10/21 09:17 Order name: Urine Dipstick-Ancillary (obtain specimen); Complete Time: 10:46 ps1 10/21 09:17 Order name: CT Head Brain wo Cont; Complete Time: 10:16 ps1 10/21 10:40 Order name: CXR XRAY; Complete Time: 11:40 [facility] 10/21 10:40 Order name: Straight Cath - Urine; Complete Time: 10:45 ps1 Administered Medications: 10:30 Drug: Lactulose 30 grams Volume: 45 ml; Route: PO; aa5 Disposition: 10/21/19 11:45 Hospitalization ordered by Marc York for Inpatient Admission. Preliminary diagnosis is Hepatic encephalopathy. - Bed requested for Telemetry/MedSurg (Inpatient). - Status is Inpatient Admission. aa5 - Condition is Stable. - Problem is an acute exacerbation. - Symptoms are unchanged. UTI on Admission? No Signatures: Dis[facility] Chely Villarreal Audri, RN RN aa5 Garrett Sanders RN RN Blaise Senior MD MD ps1 Corrections: (The following items were deleted from the chart) 12:05 11:45 Hospitalization Ordered by Marc York MD for Inpatient Admission. Preliminary bd diagnosis is Hepatic encephalopathy. Bed requested for Telemetry/MedSurg (Inpatient). Status is Inpatient Admission. Condition is Stable. Problem is an acute exacerbation. Symptoms are unchanged. UTI on Admission? No. ps1 13:37 12:05 10/21/2019 11:45 Hospitalization Ordered by A Chela BRIONES for Inpatient Admission. aa5 Preliminary diagnosis is Hepatic encephalopathy. Bed requested for Telemetry/MedSurg (Inpatient). Status is Inpatient Admission. Condition is Stable. Problem is an acute exacerbation. Symptoms are unchanged. UTI on Admission? No. bd
[2019-10-21] MEDS ORDERED: ACETAMINOPHEN 500 MG TAB PO PRN (11:50)
--- NOTE | 2019-10-21 11:59 | EKG ---
Test Date: 2019-10-21 Test Time: 09:26:41 Railroad Car Checker: KAYLA MEASUREMENT RESULTS: Intervals: Rate: 74 CA: 192 QRSD: 142 QT: 466 QTc: 517 [place]: P: 67 CA: 192 QRS: 38 T: 159 INTERPRETIVE STATEMENTS: Normal sinus rhythm Left bundle branch block Abnormal ECG Compared to ECG 03/29/2019 12:21:56 Atrial premature complex(es) no longer present Electronically Signed On 10-21-19 11:58:44 PULMONOLOGIST by Hussein Patrick
[2019-10-21 13:57] LABS: Anisocytosis 1+; Blood Morphology Comment NOTED (NOT SEEN); Ovalocytes 1+; Platelet Estimate DECR; Urine White Blood Cell Casts OK
[2019-10-21 13:59] VITALS: BMI 32.9
[2019-10-21] MEDS: NA CHLORIDE 0.9% 1,000 ML IV SCH ×2 (16:00→23:49)
--- NOTE | 2019-10-22 04:14 | HP ---
Date of Admission: 10/21/2019 Chief Complaint: Altered mental status. History Of Present Illness: An 88-year-old pleasant female patient living at [facility] with her , was brought into emergency room because of altered mental status. Yes terday, she had unremarkable day. This morning, reported that he was not able to wake her up , so ambulance was called and the patient was brought here to the emergency room. After she was eval uated, she was admitted to the hospital, had encephalopathy problem. I saw her this evening, her con dition has improved. She was able to talk to me and answer simple questions. Denies any specific co mplaints. No abdominal pain, nausea, vomiting. No fever, chills. No bleeding. Allergies: TO SULFA. Medications: List reviewed. 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 All other systems reviewed and negative. Past Medical History: Significant for hypertension, coronary artery disease, hyperlipidemia, stroke, cirrhosis of liver, hypothyroidism, anxiety, osteoarthritis at multiple sites, rheumatoid arthritis, anemia, thrombocytopenia, lumbar spinal stenosis, and osteopenia. Past Surgical History: Significant for fracture of femur and surgery for that in 2017, hysterectomy, coronary artery angioplasty with stent placement. Family History: Significant for coronary artery disease, leukemia, stroke, Alzheimer disease. Social History: Negative for smoking, alcohol use. Physical Examination: Vital Signs: Temperature 98, pulse 72, respiratory rate 18, blood pressure 132/65, oxygen saturation 98%. General: Awake, alert, oriented, not in distress. HEENT: Head atraumatic, normocephalic. Conjunctivae nonerythematous. Sclerae white. Mouth, no thr ush or edema noted. Ears/Nose, no mass, lesion, discharge noted. Neck: Supple. No JVD, lymph nodes, bruit, thyromegaly noted. Lungs: Bilateral good equal air entry. Clear to auscultation. No rhonchi. No rales. Heart: Normal heart sounds, no murmur or gallop. Abdomen: Soft, bowel sounds normal. No guarding, rigidity, tenderness, mass, hepatosplenomegaly, dis tention, or bruit noted. Extremities: Trace leg edema. Skin: No rash, ulcer, cellulitis. Lymphatics: No lymph node enlargement in neck, supraclavicular, infraclavicular region. Neuro: No focal neurological deficit. Chest: Unremarkable. External Genitalia: Deferred. Rectal: Deferred. CARBON BRUSHER ASSEMBLER: Patient opens her eyes, answer simple questions, slow to respond, not completely oriented, but overall better than before. Laboratory Data: White count 4.4, hemoglobin 11.7, platelets 88. Electrolytes and renal function an d glucose was not checked by the emergency room provider. Only thing the other test was done on bloo d work was chemistry profile, total bilirubin 1.1, SGOT 76, SGPT 40, ammonia level 82. Urinalysis ne gative. Chest x-ray, no acute cardiopulmonary changes. CAT scan of the head, no acute intracranial changes. EKG normal sinus rhythm. No acute ST-T changes. Impression: 1.Hepatic encephalopathy. 2.Cirrhosis of liver, without alcohol use. 3.Hypertension. 4.Coronary artery disease. 5.Hyperlipidemia. 6.Anemia. 7.Thrombocytopenia. 8.Hypothyroidism. 9.Osteoarthritis, multiple sites. 10.Anxiety. 11.Rheumatoid arthritis. Plan: Admit patient to hospital for further evaluation and management of this problem. The patient is appropriate for inpatient and is expected to spend 2 midnights in hospital. We will continue home medications per order. Give lactulose per order. We will have Physical Therapy, start ambulating as of tomorrow and I will see her tomorrow for followup. We will have to make adjustment on her lactul ose dose and give her higher dose upon discharge. Details of plan of treatment discussed with her an d her . No signs or any evidence of any infection anywhere. ALTAF/MODL Voice ID: [id number]
[2019-10-22 05:53] LABS: Absolute Lymphocytes (CBC) 1.5 K/uL (0.7-4.9); Basophils % 0.5 % (0-1.3); Hematocrit 29.6 % (36.0-45.0); Lymphocytes % 37.3 % (15.3-44.8); RBC Red Blood Cell Count 3.08 M/uL (3.86-4.86)
[2019-10-22 06:01] LABS: Potassium 3.7 mmol/L (3.5-5.1)
[2019-10-22] MEDS ORDERED: NITROGLYCERIN 0.4 MG/TAB SL PRN (07:52)
[2019-10-22] MEDS: NA CHLORIDE 0.9% 1,000 ML IV SCH ×2 (08:00→17:04)
[2019-10-22] MEDS: ESCITALOPRAM 20 MG TAB PO SCH (08:56)
[2019-10-22] MEDS: SPIRONOLACTONE 100 MG TAB PO SCH (08:56)
[2019-10-22] MEDS: HYDRALAZINE HCL 25 MG TABLET PO SCH ×2 (08:56→21:27)
[2019-10-22] MEDS: MODAFINIL 100 MG TAB PO SCH (08:56)
[2019-10-22] MEDS: VITAMIN D 5,000 UNIT CAP PO SCH (08:56)
[2019-10-22] MEDS: LACTULOSE 20 GM/30 ML UCUP PO SCH ×4 (08:57→21:28)
[2019-10-22 20:49] VITALS: O2SAT 94
[2019-10-22] MEDS ORDERED: ATORVASTATIN 10 MG TAB PO SCH (21:00)
--- NOTE | 2019-10-22 23:38 | PN ---
Date of Progress Note: 10/22/2019 Subjective: Patient was seen this morning for followup. No new complaints or problems reported by t he patient. She still continues to remain very sleepy, but wakes up, opens her eyes, and answers wit h speaking 1 or 2 words. Objective: Vital Signs: Reviewed. HEENT: Unremarkable. Lungs: Clear to auscultation. Heart: Sounds normal. Abdomen: Soft. Bowel sounds normal. No guarding, rigidity, tenderness, or distention. Extremities: No leg edema. Laboratory Data: White count 4, hemoglobin 10.1, platelets 72. Sodium 144, potassium 3.7, chloride 112, bicarb 26, BUN 34, creatinine 1.50, glucose 80. Impression: 1.Hepatic encephalopathy. 2.Cirrhosis of liver. 3.Thrombocytopenia. 4.Volume depletion. Plan: We will continue current medication. Lactulose will be given per order 20 g 4 times a day. C ontinue home medications per order. Physical therapy was consulted to help ambulate the patient and I will see her tomorrow for followup. We will repeat blood work tomorrow morning. ALTAF/MODL Voice ID: [id number] Report ID: [id number]
[2019-10-23] MEDS: NA CHLORIDE 0.9% 1,000 ML IV SCH (05:18)
[2019-10-23] MEDS ORDERED: LEVOTHYROXINE SOD 0.025 MG TAB PO SCH (06:30)
[2019-10-23 06:34] LABS: Absolute Lymphocytes (CBC) 1.1 K/uL (0.7-4.9); Basophils % 0.4 % (0-1.3); Hematocrit 29.5 % (36.0-45.0); Lymphocytes % 25.6 % (15.3-44.8); MPV 8.5 fL (7.6-11.3); RBC Red Blood Cell Count 3.11 M/uL (3.86-4.86)
[2019-10-23 06:49] LABS: Albumin 2.6 g/dL (3.4-5.0); Bilirubin Total 1.4 mg/dL (0.2-1.0); Magnesium 1.7 mg/dL (1.8-2.4); Potassium 3.6 mmol/L (3.5-5.1); Protein, Total 6.1 g/dL (6.4-8.2)
[2019-10-23] MEDS ORDERED: MAGNESIUM SULFATE 1 gm IVPB 1 GM/100 ML BAG IV ONE (07:57)
[2019-10-23 08:56] VITALS: BP 167/72; TEMP 98.1
[2019-10-23] MEDS: SPIRONOLACTONE 100 MG TAB PO SCH (09:00)
[2019-10-23] MEDS: VITAMIN D 5,000 UNIT CAP PO SCH (09:13)
[2019-10-23] MEDS: ESCITALOPRAM 20 MG TAB PO SCH (09:13)
[2019-10-23] MEDS: LACTULOSE 20 GM/30 ML UCUP PO SCH (09:13)
[2019-10-23] MEDS: HYDRALAZINE HCL 25 MG TABLET PO SCH (09:13)
[2019-10-23] MEDS: MODAFINIL 100 MG TAB PO SCH (09:13)
--- NOTE | 2019-10-23 23:35 | DS ---
Date of Discharge: 10/23/2019 Disposition: Discharged to go home. Physical Examination: HEENT: Unremarkable. Lungs: Clear to auscultation. Heart: Heart sounds normal. Abdomen: Soft. Bowel sounds normal. No guarding, rigidity, tenderness, or distention. Extremities: No leg edema. Laboratory Data: Upon admission, white count 4.4, hemoglobin 11.7, platelets 88. Today, white count 4.5, hemoglobin 10.2, platelets 68. Today, ammonia level 28, upon admission ammonia level was 82. Today, sodium 143, potassium 3.6, chloride 114, bicarb 23, BUN 28, creatinine 1.30, glucose 86, magne sium 1.7, and it was corrected today with IV magnesium replacement. Hospital Course: An 88-year-old female patient who lives at home with her , was brought into the emergency room when was not able to wake her up day before yesterday. She was evaluated in the emergency room with this altered mental status and admitted to the hospital with hepatic encep halopathy. There is no evidence of any infection. CAT scan of the brain was negative for any acute intracranial changes. Urinalysis was negative for any evidence of any infection. After she was admi tted to the hospital, she was started on lactulose. Upon further discussion with the patient's george foster, he informed me that the patient was taking lactulose 10 g once a day. So, I instructed him to in crease the dose and give her 20 g every morning and every afternoon and goal is to have 3-4 loose bow el movement. If that does not happen, then give third dose in the evening time. The patient's george foster verbalized understanding. Her altered mental status problem has resolved. She is back to her nor mal self and today she is being discharged to go home in stable condition. I did talk to patient's bonifacio alemanband about home health care services and home physical therapy and he declined to get any such help . 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 3.Hypertension. 4.Hypomagnesemia. 5.Coronary artery disease. 6.Thrombocytopenia. 7.Anemia. 8.Hyperlipidemia. 9.Hypothyroidism. 10.Osteoarthritis, multiple sites. 11.Anxiety. 12.Rheumatoid arthritis. Discharge Medications And Instructions: 1.Continue all prior home medication except change lactulose dose to 20 g by mouth 2-3 times a day. 2.Follow up at my office in 2-3 weeks. ALTAF/MODL Voice ID: [id number] Report ID: [id number]
== END 2019-10-23 11:52 | disposition home or self-care (01) ==
LOC: ER 08:43 → INTOOBSV 11:53 → ERHOLD 11:53 → 2ND 12:59
PROVIDERS: ADMIT Internal Medicine; ATTEND Internal Medicine
DX: K72.90 Hepatic failure, unspecified without coma (principal); K74.60 Unspecified cirrhosis of liver; I10 Essential (primary) hypertension; E83.42 Hypomagnesemia; I25.10 Atherosclerotic heart disease of native coronary artery without angina pectoris; D69.6 Thrombocytopenia, unspecified; D64.9 Anemia, unspecified; E78.5 Hyperlipidemia, unspecified; E03.9 Hypothyroidism, unspecified; M19.90 Unspecified osteoarthritis, unspecified site; F41.9 Anxiety disorder, unspecified; M06.9 Rheumatoid arthritis, unspecified; E86.9 Volume depletion, unspecified; Z88.2 Allergy status to sulfonamides; Z86.73 Personal history of transient ischemic attack (TIA), and cerebral infarction without residual deficits
CPT/HCPCS: 93005; 85025 ×3; 80048; 36415 ×2; 80320; 82140 ×2; 83735; 80329 ×2; 85610; 80076; 80307 ×8; 81003; 80053; 70450; 71045; 92610; 97112; 97116 ×2; 97161; 97530 ×2; 51702; 99285; J3475; J7030 ×5; G0378 ×4

== ENCOUNTER 2019-11-13 10:03 | Emergency (ER) | payer OTHER ==
--- OUTSIDE RECORDS SUMMARY | 2019-11-13 10:05 | XMS REPORT ---
:1930 [facility] Address [address] [place] [address] Care Team Providers Name Role Phone ANTONIO [...] 1.0-3.0 IG% (test code=IG%) 0.2 % 0.0-0.4 [id number] 05:43:00 Test Item Value Reference Range Comments [...] mL/min/1.73m\\S\\2 EGFR if Non- 41 Estimated Glomerular [place] (test mL/min/1.73m\\S\\2 Filtration Rate (eGFR) code=EGFRNA) Reference [...]
--- NOTE | 2019-11-13 11:30 | RAD REPORT ---
EXAM DESCRIPTION: RAD - Knee Left 2 View - 11/13/2019 11:20 am CLINICAL HISTORY: PAIN COMPARISON: No comparisons FINDINGS: [id number] osteoarthritis is present, greatest involving the medial joint compartmen t. There is loss of joint space with small osteophytes. A small suprapatellar joint effusion is seen. An acute fracture is not identified. IMPRESSION: Moderate osteoarthritis.
--- NOTE | 2019-11-13 11:33 | RAD REPORT ---
EXAM DESCRIPTION: RAD - Clavicle Left - 11/13/2019 11:24 am CLINICAL HISTORY: PAIN COMPARISON: Shoulder Left 2 View dated 11/13/2019 FINDINGS: Advanced AC joint arthritic changes are present. The bones are osteopenic. No acute fractu re seen.
--- NOTE | 2019-11-13 11:34 | RAD REPORT ---
EXAM DESCRIPTION: RAD - Shoulder Left 2 View - 11/13/2019 11:25 am CLINICAL HISTORY: PAIN COMPARISON: No comparisons FINDINGS: Prominent AC joint and glenohumeral joint arthritic changes are present. No acute fracture is evident.
--- NOTE | 2019-11-13 12:13 | ER ---
Nurse's Notes [facility] Name: Rachel Saleh Age: 89 yrs Sex: Female : 1930 Arrival Date: 11/13/2019 Time: 10:05 Bed 7 Private MD: Marc York C Diagnosis: Other slipping, tripping and stumbling and falls;Pain in left shoulder;Pain in left knee Presentation: 11/13 10:20 Presenting complaint: Patient states: I was walking to the car from the flower shop sg when my walker fell off the edge of the sidewalk causing me to fall. pt complaining of pain in the left shoulder, left arm, left ribs, left hip and left leg, pt states did not hit head, denies LOC. Care prior to arrival: None. Mechanism of Injury: Fall from standing position. Trauma event details: Injury occurred in the [facility], Injury occurred: in a public building. Injury occurred: November 13, 2019. 10:20 Acuity: CHRIS 3 sg 10:20 Method Of Arrival: Ambulatory sg 10:30 Transition of care: patient was not received from another setting of care. Onset of sg symptoms was November 13, 2019. Risk Assessment: Do you want to hurt yourself or someone else? Patient reports no desire to harm self or others. Initial Sepsis Screen: Does the patient meet any 2 criteria? No. Patient's initial sepsis screen is negative. Does the patient have a suspected source of infection? No. Patient's initial sepsis screen is negative. Historical: - Allergies: 10:30 Lotrel; sg 10:30 Namenda; sg 10:30 Sulfa (Sulfonamide Antibiotics); sg - PMHx: 10:30 Anemia; Arthritis; CAD; C-diff; Cataracts; Dementia; Depression; ENCEPHALOPATHY; sg generalized weakness; GERD; High Cholesterol; Hyperlipidemia; Hypertension; Hypothyroidism; Osteopenia; Osteoporosis; Rheumatoid Arthritis; unspecified edema; UTI; - Immunization history:: Adult Immunizations up to date. - Social history:: Smoking status: Patient/guardian denies using tobacco. - Ebola Screening: : Patient negative for fever greater than or equal to 101.5 degrees Fahrenheit, and additional compatible Ebola Virus Disease symptoms Patient denies exposure to infectious person Patient denies travel to an Ebola-affected area in the 21 days before illness onset No symptoms or risks identified at this time. Screenin:20 Abuse screen: Denies threats or abuse. Denies injuries from another. Tuberculosis sg screening: No symptoms or risk factors identified. Primary Survey: 10:20 NO uncontrolled hemorrhage observed. A: The patient is alert. Airway: patent, No sg supplemental oxygen in use on arrival. Trachea midline. Breathing/Chest: Respiratory pattern: regular, Respiratory effort: spontaneous, unlabored, Breath sounds: clear, Chest inspection: symmetrical rise and fall of the chest. Circulation: Heart tones present. Skin color: pink, Skin temperature: warm. Disability Alert. Exposure/Environment: All clothing and personal items were removed. Forensic evidence collection is not deemed to be indicated at this time. Items placed in patient belonging bag. There is no evidence of uncontrolled external bleeding. Obvious injury(ies) are noted at this time: left shoulder,left arm, left hip, left leg pain A warming method has been applied: A warm blanket has been provided to the patient. Secondary Survey: 10:20 HEENT: Head No injury/deformity Face No injury/deformity Eyes: No injury or deformity sg noted. Ears: clear Nose: clear Throat: No injury or deformity noted. Gastrointestinal: Abdomen is soft, non-distended. : No signs and/or symptoms were reported regarding the genitourinary system. Musculoskeletal: Circulation, motion, and sensation intact. Range of motion: limited in left shoulder and left elbow Reports pain in left hip, anterior aspect of left shoulder, left elbow and left leg. Assessment: 10:39 General: Appears in no apparent distress. uncomfortable, well groomed, well developed, sg well nourished, Behavior is calm, cooperative, appropriate for age. Pain: Complains of pain in left hip, anterior aspect of left shoulder, left elbow and left knee Quality of pain is described as aching, tender. Neuro: Level of Consciousness is awake, alert, obeys commands, Oriented to person, place, Speech is normal, Facial symmetry appears normal. Cardiovascular: Capillary refill is brisk in bilateral fingers Patient's skin is warm and dry. Chest pain is denied. Respiratory: Airway is patent Respiratory effort is even, unlabored, Respiratory pattern is regular, symmetrical. GI: Abdomen is round non-distended. : No signs and/or symptoms were reported regarding the genitourinary system. EENT: No signs and/or symptoms were reported regarding the EENT system. Derm: Skin is pink, warm \T\ dry. Musculoskeletal: Circulation, motion, and sensation intact. Range of motion: limited in left shoulder Reports pain in left hip, anterior aspect of left shoulder, left elbow and left knee. Vital Signs: 10:20 BP 142 / 65; Pulse 82; Resp 18; Temp 97.4; Pulse Ox 97% on R/A; Pain 7/10; sg [place] Coma Score: 10:20 Eye Response: spontaneous(4). Verbal Response: oriented(5). Motor Response: obeys sg commands(6). Total: 15. Trauma Score (Adult): 10:20 Eye Response: spontaneous(1); Verbal Response: oriented(1); Motor Response: obeys sg commands(2); Systolic BP: > 89 mm Hg(4); Respiratory Rate: 10 to 29 per min(4); Vidya Score: 15; Trauma Score: 12 ED Course: 10:05 Patient arrived in ED. as 10:06 Marc York MD is Private Physician. as 10:08 Jaime Pang MD is Attending Physician. kdr 10:22 Patient has correct armband on for positive identification. Bed in low position. Call sg light in reach. 10:29 Triage completed. sg 10:30 Patient maintains SpO2 saturation greater than 95% on room air. Thermoregulation: warm sg blanket given to patient. 10:31 Arm band placed on. sg 10:32 Roshan Salinas, RN is Primary Nurse. sg 10:58 Awaiting for x-ray. sg 11:30 Shoulder Left (2 View) XRAY In Process Unspecified. EDMS 11:31 Clavicle Left XRAY In Process Unspecified. EDMS 11:31 Knee Left 2 View XRAY In Process Unspecified. EDMS 12:11 Marc York MD is Referral Physician. kdr 12:45 Sling applied to left arm. sg 13:05 No provider procedures requiring assistance completed. Patient did not have IV access sg during this emergency room visit. Administered Medications: No medications were administered Outcome: 12:12 Discharge ordered by . kdr 13:05 Discharged to home ambulatory, with family. sg 13:05 Condition: good 13:05 Discharge instructions given to patient, Instructed on discharge instructions, follow up and referral plans. medication usage, safety practices, Demonstrated understanding of instructions, follow-up care, Prescriptions given X 1. 13:08 Patient left the ED. hb Signatures: Dispatcher [employer] EDMS Roshan Salinas RN RN Jaime Larkin MD MD kdr Martinez, Amelia as Baxter, Heather, RN RN hb
--- NOTE | 2019-11-13 12:13 | EDPHYS ---
Physician Documentation [facility] Name: Rachel Saleh Age: 89 yrs Sex: Female : 1930 Arrival Date: 11/13/2019 Time: 10:05 Bed 7 Private MD: Marc York C ED Physician Jaime Pang HPI: 11/13 10:48 This 89 yrs old Female presents to ER via Ambulatory with complaints of Fall kdr Injury. 10:48 Details of fall: The patient fell from an upright position, while walking. Onset: The kdr symptoms/episode began/occurred suddenly, just prior to arrival. Associated injuries: The patient sustained Left shoulder and knee. Severity of symptoms: At their worst the symptoms were mild, in the emergency department the symptoms are unchanged. The patient has not experienced similar symptoms in the past. The patient has not recently seen a physician. Historical: - Allergies: 10:30 Lotrel; sg 10:30 Namenda; sg 10:30 Sulfa (Sulfonamide Antibiotics); sg - PMHx: 10:30 Anemia; Arthritis; CAD; C-diff; Cataracts; Dementia; Depression; ENCEPHALOPATHY; sg generalized weakness; GERD; High Cholesterol; Hyperlipidemia; Hypertension; Hypothyroidism; Osteopenia; Osteoporosis; Rheumatoid Arthritis; unspecified edema; UTI; - Immunization history:: Adult Immunizations up to date. - Social history:: Smoking status: Patient/guardian denies using tobacco. - Ebola Screening: : Patient negative for fever greater than or equal to 101.5 degrees Fahrenheit, and additional compatible Ebola Virus Disease symptoms Patient denies exposure to infectious person Patient denies travel to an Ebola-affected area in the 21 days before illness onset No symptoms or risks identified at this time. ROS: 10:48 Constitutional: Negative for fever, chills, and weight loss, Eyes: Negative for injury, kdr pain, redness, and discharge, Neck: Negative for injury, pain, and swelling, Cardiovascular: Negative for chest pain, palpitations, and edema, Respiratory: Negative for shortness of breath, cough, wheezing, and pleuritic chest pain, Abdomen/GI: Negative for abdominal pain, nausea, vomiting, diarrhea, and constipation, Back: Negative for injury and pain, : Negative for injury, bleeding, discharge, and swelling, Skin: Negative for injury, rash, and discoloration, Neuro: Negative for headache, weakness, numbness, tingling, and seizure activity. Psych: Negative for depression, anxiety, suicide ideation, homicidal ideation, and hallucinations, Allergy/Immunology: Negative for hives, rash, and allergies, Endocrine: Negative for neck swelling, polydipsia, polyuria, polyphagia, and marked weight changes, Hematologic/Lymphatic: Negative for swollen nodes, abnormal bleeding, and unusual bruising. 10:48 MS/extremity: Positive for injury or acute deformity, decreased range of motion, pain, swelling, tenderness. Exam: 10:48 Constitutional: This is a well developed, well nourished patient who is awake, alert, kdr and in no acute distress. Head/Face: Normocephalic, atraumatic. Eyes: Pupils equal round and reactive to light, extra-ocular motions intact. Lids and lashes normal. Conjunctiva and sclera are non-icteric and not injected. Cornea within normal limits. Periorbital areas with no swelling, redness, or edema. Neck: Trachea midline, no thyromegaly or masses palpated, and no cervical lymphadenopathy. Supple, full range of motion without nuchal rigidity, or vertebral point tenderness. No Meningismus. Chest/axilla: Normal chest wall appearance and motion. Nontender with no deformity. No lesions are appreciated. Cardiovascular: Regular rate and rhythm with a normal S1 and S2. No gallops, murmurs, or rubs. Normal PMI, no JVD. No pulse deficits. Respiratory: Lungs have equal breath sounds bilaterally, clear to auscultation and percussion. No rales, rhonchi or wheezes noted. No increased work of breathing, no retractions or nasal flaring. Abdomen/GI: Soft, non-tender, with normal bowel sounds. No distension or tympany. No guarding or rebound. No evidence of tenderness throughout. Back: No spinal tenderness. No costovertebral tenderness. Full range of motion. Skin: Warm, dry with normal turgor. Normal color with no rashes, no lesions, and no evidence of cellulitis. Neuro: Awake and alert, GCS 15, oriented to person, place, time, and situation. Cranial nerves II-XII grossly intact. Motor strength 5/5 in all extremities. Sensory grossly intact. Cerebellar exam normal. Normal gait. Psych: Awake, alert, with orientation to person, place and time. Behavior, mood, and affect are within normal limits. 10:48 Musculoskeletal/extremity: Extremities: There is tenderness but minimal swelling and no deformity in the left clavicle and shoulder. There is also tenderness to the left knee and with pain on movement anteriorly.. Vital Signs: 10:20 BP 142 / 65; Pulse 82; Resp 18; Temp 97.4; Pulse Ox 97% on R/A; Pain 7/10; sg [place] Coma Score: 10:20 Eye Response: spontaneous(4). Verbal Response: oriented(5). Motor Response: obeys sg commands(6). Total: 15. Trauma Score (Adult): 10:20 Eye Response: spontaneous(1); Verbal Response: oriented(1); Motor Response: obeys sg commands(2); Systolic BP: > 89 mm Hg(4); Respiratory Rate: 10 to 29 per min(4); Vidya Score: 15; Trauma Score: 12 MDM: 12:12 Patient medically screened. kdr 12:15 Data reviewed: vital signs, nurses notes, radiologic studies. Counseling: I had a kdr detailed discussion with the patient and/or guardian regarding: the historical points, exam findings, and any diagnostic results supporting the discharge/admit diagnosis, radiology results, the need for outpatient follow up, a orthopedic surgeon. 11/13 10:47 Order name: Shoulder Left (2 View) XRAY; Complete Time: 12:10 kdr 11/13 10:47 Order name: Clavicle Left XRAY; Complete Time: 12:10 kdr 11/13 10:47 Order name: Knee Left 2 View XRAY; Complete Time: 12:10 kdr 11/13 12:11 Order name: Sling; Complete Time: 12:43 kdr Administered Medications: No medications were administered Disposition: 11/13/19 12:12 Discharged to Home. Impression: Other slipping, tripping and stumbling and falls, Pain in left shoulder, Pain in left knee. - Condition is Stable. - Discharge Instructions: Musculoskeletal Pain, Shoulder Range of Motion Exercises, Shoulder Pain, [id number], Knee Pain, [id number]. - Prescriptions for Ibuprofen 600 mg Oral Tablet - take 1 tablet by ORAL route every 6 hours As needed take with food; 15 tablet. - Medication Reconciliation Form, Thank You Letter form. - Follow up: Marc York MD; When: 2 - 3 days; Reason: Further diagnostic work-up, Recheck today's complaints, Continuance of care, Re-evaluation by your physician. - Problem is new. - Symptoms have improved. - Notes: Use the sling as need for comfort and walking but does not need to be worn continuously or at night. Signatures: Dispatcher [employer] EDMS Roshan Salinas RN RN Jaime Pang MD MD [facility] Anne Baxter RN RN hb Corrections: (The following items were deleted from the chart) 13:08 12:12 11/13/2019 12:12 Discharged to Home. Impression: Other slipping, tripping and hb stumbling and falls; Pain in left shoulder; Pain in left knee. Condition is Stable. Forms are Medication Reconciliation Form, Thank You Letter, Antibiotic Education, Prescription Opioid Use. Follow up: Marc York; When: 2 - 3 days; Reason: Further diagnostic work-up, Recheck today's complaints, Continuance of care, Re-evaluation by your physician. Problem is new. Symptoms have improved. kdr
[2019-11-13 13:20] VITALS: BP 142/65; TEMP 97.4; O2SAT 97
== END 2019-11-13 13:08 | disposition home or self-care (01) ==
LOC: ER 10:03
DX: M25.512 Pain in left shoulder (principal); M25.562 Pain in left knee; W17.89XA Other fall from one level to another, initial encounter; Y93.89 Activity, other specified; Y92.480 Sidewalk as the place of occurrence of the external cause; Z88.2 Allergy status to sulfonamides; Z88.8 Allergy status to other drugs, medicaments and biological substances
CPT/HCPCS: 99284

== ENCOUNTER 2020-02-01 18:10 | Inpatient (IN) | payer OTHER ==
--- OUTSIDE RECORDS SUMMARY | 2020-02-01 18:11 | XMS REPORT ---
:1930 [facility] Address [address] [place] [address] Dr. Jaramillo. [address] [place] [address] Care Team Providers Name Role Phone ANTONIO [...] 1.0-3.0 IG% (test code=IG%) 0.2 % 0.0-0.4 [id number] 05:43:00 Test Item Value Reference Range Comments [...] mL/min/1.73m\\S\\2 EGFR if Non- 41 Estimated Glomerular [place] (test mL/min/1.73m\\S\\2 Filtration Rate (eGFR) code=EGFRNA) Reference [...]
[2020-02-01] MEDS ORDERED: FENTANYL CITR 100 MCG/2 ML ONE (19:20)
--- NOTE | 2020-02-01 19:50 | RAD REPORT ---
EXAM DESCRIPTION: CT - Pelvis Wo Cont - 02/01/2020 7:23 pm CLINICAL HISTORY: Left hip pain status post fall COMPARISON: None. TECHNIQUE: Computed axial tomography of the pelvis was obtained. Coronal reconstruction performed All CT scans are performed using dose optimization technique as appropriate and may include automated exposure control or mA/KV adjustment according to patient size. FINDINGS: Comminuted markedly displaced intertrochanteric fracture involves the proximal left femur with angulation present at the fracture site. The fracture involves the greater and lesser trochanter s. No dislocation IMPRESSION: Left femoral fracture
[2020-02-01 20:31] LABS: Basophils % 0.4 % (0-1.3); Hematocrit 34.2 % (36.0-45.0); Lymphocytes % 16.3 % (15.3-44.8); RBC Red Blood Cell Count 3.58 M/uL (3.86-4.86)
--- NOTE | 2020-02-01 20:31 | ER ---
Nurse's Notes [facility] Name: Rachel Saleh Age: 89 yrs Sex: Female : 1930 Arrival Date: 02/01/2020 Time: 18:13 Bed 25 Private MD: Diagnosis: Intertrochanteric fracture of femur-left;Fall on same level from slipping, tripping and stumbling Presentation: 01/31 18:30 Chief complaint: Patient's son or daughter states: PT WAS KNEELING DOWN CLEANING AND ls4 LOST HER BALANCE AND FELL BACKWARD. LEFT HIP BRUISE AND PAIN. Coronavirus screen: The patient has NOT traveled to a country currently being monitored by the CDC within the last 14 days. Proceed with normal triage procedures. Ebola Screen: No symptoms or risks identified at this time. Initial Sepsis Screen: Does the patient meet any 2 criteria? No. Patient's initial sepsis screen is negative. Does the patient have a suspected source of infection? No. Patient's initial sepsis screen is negative. Risk Assessment: Do you want to hurt yourself or someone else? Patient reports no desire to harm self or others. Note PT HAS OLDER BRUISING, YELLOW AND PURPLE TO LEFT EYE, LEFT JAW REDNESS AND SWELLING WHICH FAMILY STATES IS OLD. PT HAS FREQUENT FALLS AT HOME. Care prior to arrival: 18:30 Method Of Arrival: EMS: [facility] ls4 18:30 Acuity: CHRIS 3 ls4 Triage Assessment: 18:35 General: Appears uncomfortable, Behavior is calm, cooperative. Pain: Complains of pain ls4 in left hip Pain currently is 7 out of 10 on a pain scale. Neuro: Level of Consciousness is awake, alert, obeys commands, Oriented to person, place, situation, Features Editor are weak bilaterally Moves all extremities. Gait is unsteady, Speech SLOW . Facial symmetry appears normal, Pupils are PERRLA. Cardiovascular: Denies chest pain, diaphoresis, fatigue, lightheadedness, nausea, palpitations, shortness of breath, syncope, vomiting, Capillary refill < 3 seconds Patient's skin is warm and dry. Respiratory: Airway is patent Respiratory effort is even, unlabored, Respiratory pattern is regular, Breath sounds are diminished bilaterally. GI: No signs and/or symptoms were reported involving the gastrointestinal system. : No signs and/or symptoms were reported regarding the genitourinary system. Derm: Skin is fragile, Skin is dry, Skin is mottled, BRUISES OF VARIOUS AGES TO ARMS AND FACE. Musculoskeletal: Circulation, motion, and sensation intact. Capillary refill < 3 seconds, Range of motion: limited in left hip Bony deformity noted of left hip. Historical: - Allergies: 18:35 Lotrel; ls4 18:35 Namenda; ls4 18:35 Sulfa (Sulfonamide Antibiotics); ls4 - Home Meds: 22:23 atorvastatin 10 mg Oral tab 1 tab nightly [Active]; escitalopram oxalate 10 mg Oral tab ls4 1 tab once daily [Active]; hydralazine 25 mg Oral tab 1 tab 2 times per day [Active]; lactulose 10 gram/15 mL (15 mL) Oral soln 15 mL twice a day [Active]; levothyroxine 25 mcg tab 1 tab once daily [Active]; modafinil 100 mg Oral tab 1 tabs once daily [Active]; nitroglycerin 0.4 mg SL subl 1 tab every 5 minutes [Active]; spironolactone 100 mg Oral tab 1 tab once daily [Active]; - PMHx: 22:23 Anemia; Arthritis; CAD; Cataracts; C-diff; Dementia; Depression; ENCEPHALOPATHY; ls4 generalized weakness; GERD; High Cholesterol; Hyperlipidemia; Hypertension; Hypothyroidism; Osteopenia; Osteoporosis; Rheumatoid Arthritis; unspecified edema; UTI; - Immunization history:: Adult Immunizations up to date. - Social history:: Smoking status: Patient denies any tobacco usage or history of. Screenin:45 Abuse screen: Denies threats or abuse. Denies injuries from another. Nutritional ls4 screening: No deficits noted. Tuberculosis screening: No symptoms or risk factors identified. Fall Risk Total Salter Fall Scale indicates High Risk Score (45 or more points). Fall prevention measures have been instituted. Side Rails Up X 2 Placed Close to Nursing Station Frequent Obs/Assessments Occuring Family Present and informed to notify staff if the need to leave the bedside As available patient and family educated on Fall Prevention Program and Strategies. Assessment: 18:47 General: SEE TRIAGE. ls4 20:24 Reassessment: Patient appears in no apparent distress at this time. Patient and/or ls4 family updated on plan of care and expected duration. Pain level reassessed. Patient is alert, oriented x 3, equal unlabored respirations, skin warm/dry/pink. 21:30 Reassessment: Patient appears in no apparent distress at this time. Patient and/or ls4 family updated on plan of care and expected duration. Pain level reassessed. Patient is alert, oriented x 3, equal unlabored respirations, skin warm/dry/pink. Vital Signs: 18:30 BP 169 / 67; Pulse 76; Resp 14; Temp 98.5; Pulse Ox 96% on R/A; Weight 72.57 kg; Height ls4 0 ft. 1 in. (5 cm); Pain 7/10; 19:09 BP 171 / 65; Pulse 77; Resp 14; Pulse Ox 96% on R/A; Pain 7/10; ls4 20:00 BP 159 / 75; Pulse 76; Resp 16; Pulse Ox 96% on R/A; Pain 5/10; ls4 22:00 BP 156 / 74; Pulse 74; Resp 14; Pulse Ox 99% on R/A; Pain 3/10; ls4 18:30 Body Mass Index 97521.91 (72.57 kg, 5 cm) ls4 ED Course: 18:13 Patient arrived in ED. ls4 18:29 Cecile Coello, RN is Primary Nurse. ls4 18:34 Triage completed. ls4 18:39 Arm band placed on. Affected limb elevated. ls4 18:40 Whit Hull FNP-C is [facility]. snw 18:40 Jerod Monterroso MD is Attending Physician. snw 18:45 Patient has correct armband on for positive identification. Allergy band placed. Fall ls4 risk band placed. Bed in low position. Call light in reach. Side rails up X2. Adult w/ patient. assistant restaurant general manager on. Pulse ox on. NIBP on. 18:45 No provider procedures requiring assistance completed. ls4 19:[address] In Process Unspecified. EDMS 19:25 CT completed. Patient tolerated procedure well. Patient moved back from CT. mw3 20:24 Initial lab(s) drawn, by me, sent to lab. Inserted saline lock: 20 gauge in left ls4 antecubital area, using aseptic technique. Blood collected. Patient maintains SpO2 saturation greater than 95% on room air. 20:30 Marc York MD is Hospitalizing Provider. snw 21:23 Femur Left XRAY In Process Unspecified. EDMS 21:45 Gallardo cath inserted, using sterile technique, 16 Fr., by pr, balloon inflated, to ls4 gravity drainage, returned clear yellow urine. Patient tolerated well. 21:45 EKG done, by ED staff, reviewed by Whit BALDWIN. ls4 21:56 Chest Single View XRAY Sent. ls4 Administered Medications: 19:17 Drug: fentaNYL (PF) 25 mcg Route: IM; Site: left deltoid; ls4 19:40 Follow up: Response: No adverse reaction; Marked relief of symptoms ls4 21:56 Drug: NS 0.9% 500 ml Route: IV; Rate: bolus; Site: left antecubital; ls4 21:56 Drug: NS 0.9% 1000 ml Route: IV; Rate: 75 ml/hr; Site: left antecubital; ls4 Outcome: 20:30 Decision to Hospitalize by Provider. snw 22:45 Patient left the ED. lp1 Signatures: Dispatcher [employer] EDAR Whit Hull FNP-C FNP-Csnw Jeussita So, RN RN lp1 Lashae Khan mw3 Cecile Coello, RN RN ls4 Corrections: (The following items were deleted from the chart) 23:55 23:53 Patient left the ED. lp1 lp1
--- NOTE | 2020-02-01 20:31 | EDPHYS ---
Physician Documentation [facility] Name: Rachel Saleh Age: 89 yrs Sex: Female : 1930 Arrival Date: 02/01/2020 Time: 18:13 Bed 25 Private MD: ED Physician Jerod Monterroso HPI: 01/31 20:06 This 89 yrs old Female presents to ER via EMS with complaints of fall, left snw hip pain. 20:06 The patient presents with decreased range of motion, pain. The complaints affect the snw left hip. Context: The problem was sustained at home, kitchen, resulted from bending and lost balance, the patient is not able to bear weight, the patient is not able to ambulate. Onset: The symptoms/episode began/occurred suddenly, just prior to arrival. Associated signs and symptoms: The patient has no apparent associated signs or symptoms. Treatment prior to arrival includes: no previous treatment. Severity of symptoms: At their worst the symptoms were moderate. The patient has experienced a previous episode, approximately 3 years ago, and the symptoms today are exactly the same. It is unknown whether or not the patient has recently seen a physician, sees Dr. York. Historical: - Allergies: 18:35 Lotrel; ls4 18:35 Namenda; ls4 18:35 Sulfa (Sulfonamide Antibiotics); ls4 - Home Meds: 22:23 atorvastatin 10 mg Oral tab 1 tab nightly [Active]; escitalopram oxalate 10 mg Oral tab ls4 1 tab once daily [Active]; hydralazine 25 mg Oral tab 1 tab 2 times per day [Active]; lactulose 10 gram/15 mL (15 mL) Oral soln 15 mL twice a day [Active]; levothyroxine 25 mcg tab 1 tab once daily [Active]; modafinil 100 mg Oral tab 1 tabs once daily [Active]; nitroglycerin 0.4 mg SL subl 1 tab every 5 minutes [Active]; spironolactone 100 mg Oral tab 1 tab once daily [Active]; - PMHx: 22:23 Anemia; Arthritis; CAD; Cataracts; C-diff; Dementia; Depression; ENCEPHALOPATHY; ls4 generalized weakness; GERD; High Cholesterol; Hyperlipidemia; Hypertension; Hypothyroidism; Osteopenia; Osteoporosis; Rheumatoid Arthritis; unspecified edema; UTI; - Immunization history:: Adult Immunizations up to date. - Social history:: Smoking status: Patient denies any tobacco usage or history of. ROS: 20:05 Constitutional: Negative for fever, chills, and weight loss, Eyes: Negative for injury, snw pain, redness, and discharge, ENT: Negative for injury, pain, and discharge, Neck: Negative for injury, pain, and swelling, Cardiovascular: Negative for chest pain, palpitations, and edema, Respiratory: Negative for shortness of breath, cough, wheezing, and pleuritic chest pain, Abdomen/GI: Negative for abdominal pain, nausea, vomiting, diarrhea, and constipation, Back: Negative for injury and pain, : Negative for injury, bleeding, discharge, and swelling, Skin: Negative for injury, rash, and discoloration, Neuro: Negative for headache, weakness, numbness, tingling, and seizure. 20:05 MS/extremity: Positive for injury or acute deformity, decreased range of motion, pain, of the left hip. Exam: 20:03 Constitutional: This is a well developed, well nourished patient who is awake, alert, snw and in no acute distress. 20:03 Eyes: Pupils equal round and reactive to light, extra-ocular motions intact. Lids and lashes normal. Conjunctiva and sclera are non-icteric and not injected. Cornea within normal limits. Periorbital areas with no swelling, redness, or edema. ENT: Nares patent. No nasal discharge, no septal abnormalities noted. Tympanic membranes are normal and external auditory canals are clear. Oropharynx with no redness, swelling, or masses, exudates, or evidence of obstruction, uvula midline. Mucous membranes moist. Neck: Trachea midline, no thyromegaly or masses palpated, and no cervical lymphadenopathy. Supple, full range of motion without nuchal rigidity, or vertebral point tenderness. No Meningismus. Chest/axilla: Normal chest wall appearance and motion. Nontender with no deformity. No lesions are appreciated. Cardiovascular: Regular rate and rhythm with a normal S1 and S2. No gallops, murmurs, or rubs. Normal PMI, no JVD. No pulse deficits. Respiratory: Lungs have equal breath sounds bilaterally, clear to auscultation and percussion. No rales, rhonchi or wheezes noted. No increased work of breathing, no retractions or nasal flaring. Abdomen/GI: Soft, non-tender, with normal bowel sounds. No distension or tympany. No guarding or rebound. No evidence of tenderness throughout. Back: No spinal tenderness. No costovertebral tenderness. Full range of motion. 20:03 Head/face: Noted is contusion, that is deep, ecchymosis, that is moderate, of the left cheek, left jaw and left side of forehead, of the old, yellowed/green ecchymosis. 20:03 Skin: Appearance: normal except for affected area, multiple areas of old and new ecchymosis to left face, upper, lateral thigh/hip. Vital Signs: 18:30 BP 169 / 67; Pulse 76; Resp 14; Temp 98.5; Pulse Ox 96% on R/A; Weight 72.57 kg; Height ls4 0 ft. 1 in. (5 cm); Pain 7/10; 19:09 BP 171 / 65; Pulse 77; Resp 14; Pulse Ox 96% on R/A; Pain 7/10; ls4 20:00 BP 159 / 75; Pulse 76; Resp 16; Pulse Ox 96% on R/A; Pain 5/10; ls4 22:00 BP 156 / 74; Pulse 74; Resp 14; Pulse Ox 99% on R/A; Pain 3/10; ls4 18:30 Body Mass Index 04372.91 (72.57 kg, 5 cm) ls4 MDM: 19:10 Patient medically screened. snw 20:01 Data reviewed: vital signs, nurses notes. Data interpreted: Pulse oximetry: on room air snw is 96 %. Interpretation: acceptable. Counseling: I had a detailed discussion with the patient and/or guardian regarding: the historical points, exam findings, and any diagnostic results supporting the discharge/admit diagnosis, the presence of at least one elevated blood pressure reading (>120/80) during this emergency department visit, lab results, radiology results, the need for further work-up and treatment in the hospital. Physician consultation: Avelino Mayfield MD was called at 20:02, was contacted at 20:02, wants results of lab findings prior to agreeing to consult. 20:31 Physician consultation: South Fan MD was called at 20:31, regarding admission, to snw the telemetry unit. Admission orders: after a detailed discussion of the patient's condition and case, the admit orders are written by me. 20:52 Physician consultation: Avelino Mayfield MD and will see patient in inpatient room, would snw like further tests performed, Left femur. 01/31 19:15 Order name: CBC with Diff; Complete Time: 21:33 snw 01/31 19:15 Order name: Chem 7; Complete Time: 20:46 snw 01/31 19:15 Order name: AMMONIA; Complete Time: 20:42 snw 01/31 19:59 Order name: PT-INR; Complete Time: 20:37 snw 01/31 19:59 Order name: Ptt, Activated; Complete Time: 20:37 snw 01/31 21:29 Order name: CBC Smear Scan; Complete Time: 21:33 EDMS 01/31 19:00 Order name: Pelvis Wo Cont CT; Complete Time: 19:52 snw 01/31 19:59 Order name: Chest Single View XRAY snw 01/31 19:59 Order name: EKG; Complete Time: 20:00 snw 01/31 19:59 Order name: EKG - Nurse/Tech; Complete Time: 21:56 snw 01/31 20:52 Order name: Femur Left XRAY snw 01/31 20:06 Order name: Gallardo; Complete Time: 20:36 snw Administered Medications: 19:17 Drug: fentaNYL (PF) 25 mcg Route: IM; Site: left deltoid; ls4 19:40 Follow up: Response: No adverse reaction; Marked relief of symptoms ls4 21:56 Drug: NS 0.9% 500 ml Route: IV; Rate: bolus; Site: left antecubital; ls4 21:56 Drug: NS 0.9% 1000 ml Route: IV; Rate: 75 ml/hr; Site: left antecubital; ls4 Disposition: 02/01 10:09 Co-signature as Attending Physician, Jerod Monterroso MD. rn Disposition: 02/01/20 20:30 Hospitalization ordered by Marc York for Inpatient Admission. Preliminary diagnosis are Intertrochanteric fracture of femur - left, Fall on same level from slipping, tripping and stumbling. - Bed requested for Telemetry/MedSurg (Inpatient). - Status is Inpatient Admission. lp1 - Condition is Stable. - Problem is new. - Symptoms are unchanged. Signatures: Dispatcher [employer] EDMS Whit Hull, ENVELOPE FOLDER-C ENVELOPE FOLDER-Csnw Jerod Monterroso MD MD rn Pena, Laura, RN RN lp1 Imelda Belcher RN RN cg Cecile Coello RN RN ls4 Corrections: (The following items were deleted from the chart) 01/31 22:09 20:30 Hospitalization Ordered by A Chela BRIONES for Inpatient Admission. Preliminary cg diagnosis is Intertrochanteric fracture of femur - left; Fall on same level from slipping, tripping and stumbling. Bed requested for Telemetry/MedSurg (Inpatient). Status is Inpatient Admission. Condition is Stable. Problem is new. Symptoms are unchanged. snw 23:53 22:09 02/01/2020 20:30 Hospitalization Ordered by A Chela BRIONES for Inpatient Admission. lp1 Preliminary diagnosis is Intertrochanteric fracture of femur - left; Fall on same level from slipping, tripping and stumbling. Bed requested for Telemetry/MedSurg (Inpatient). Status is Inpatient Admission. Condition is Stable. Problem is new. Symptoms are unchanged. cg
[2020-02-01 20:34] LABS: Protime INR 1.15
[2020-02-01 20:45] LABS: Potassium 4.2 mmol/L (3.5-5.1)
[2020-02-01 21:28] LABS: Blood Morphology Comment NOT SEEN (NOT SEEN); Platelet Estimate DECR; Urine White Blood Cell Casts OK
[2020-02-01] MEDS ORDERED: NA CHLORIDE 0.9% 1,000 ML ONE (21:32)
[2020-02-01] MEDS ORDERED: MORPHINE 4 MG/ML SYR IV PRN (23:02)
[2020-02-01] MEDS ORDERED: ONDANSETRON 4 MG/2 ML VIAL IV PRN (23:02)
[2020-02-01] MEDS ORDERED: ALBUTEROL 2.5 MG/3 ML NEB SOL NEB PRN (23:02)
[2020-02-01] MEDS: NA CHLORIDE 0.9% 1,000 ML IV SCH (23:02)
[2020-02-01 23:57] VITALS: BMI 29.0
[2020-02-02 06:25] LABS: Absolute Lymphocytes (CBC) 1.1 K/uL (0.7-4.9); Basophils % 0.2 % (0-1.3); Hematocrit 28.4 % (36.0-45.0); Lymphocytes % 19.8 % (15.3-44.8); MPV 8.4 fL (7.6-11.3); RBC Red Blood Cell Count 2.99 M/uL (3.86-4.86)
[2020-02-02 06:32] LABS: Potassium 4.2 mmol/L (3.5-5.1)
[2020-02-02 10:32] LABS: Albumin 2.4 g/dL (3.4-5.0); Bilirubin Total 1.5 mg/dL (0.2-1.0); Potassium 4.2 mmol/L (3.5-5.1); Protein, Total 6.2 g/dL (6.4-8.2)
[2020-02-02] MEDS ORDERED: NITROGLYCERIN 0.4 MG/TAB SL PRN (10:45)
[2020-02-02] MEDS: NA CHLORIDE 0.9% 1,000 ML IV SCH (11:43)
--- NOTE | 2020-02-02 12:25 | CON ---
Date of Consultation: 02/02/2020 Reason For Consultation: Left hip pain. History Of Present Illness: Ms. Saleh is an 89-year-old female who presented to the ER yesterday af ter sustaining a fall onto her left side with subsequent left hip pain and inability to bear weight. reports fall earlier. There was some bruising over her left hip earlier in the week. Britta lly, the patient mobilizes with the use of a walker. Patient has history of right subtrochanteric fe mur fracture 3 years ago. She underwent intramedullary nailing. Patient did require postop rehabili tation in the residential facility. Patient reports pain in her left hip at this time. Denies a ny other musculoskeletal complaints. Review of Systems: As above, otherwise negative. Past Medical History: Includes hypertension, hyperlipidemia, hypothyroidism, dementia, coronary mark ry disease. Past Surgical History: Includes right knee replacement, hysterectomy, right hip nailing and coronary stent placement. Social History: Denies tobacco, alcohol use. Lives at home with her . Physical Examination: General: No apparent distress. HEENT: Normocephalic, atraumatic. Neck: Supple. Cardiovascular: Brisk cap refill to all digits. Chest: Nonlabored breathing. Abdomen: Nondistended. Psychiatric: Response to examination. Musculoskeletal: Bilateral upper extremities functional range of motion without pain. No gross defo rmities. No obvious dislocations. Right lower extremity functional range of motion without pain. N o gross deformities. No obvious dislocations. Left lower extremity pain with range of motion of the left hip. Ecchymosis of the lateral left hip. No tenderness to palpation of the knee, tibia, foot, or ankle. Moves toes grossly. Reports sensation grossly intact to the dorsal and plantar surface o f her left foot. Diagnostic Studies: X-rays and CAT scan of her left hip demonstrate an intertrochanteric left femur fracture with displacement. Assessment And Plan: Ms. Saleh is an 89-year-old female with a left intertrochanteric femur fractur e. I discussed with the patient and her and her daughter at length risks and benefits associ ated with operative and nonoperative treatment. Given her displaced fracture pattern, I recommend hope rgical fixation with intramedullary fixation. Risks and benefits associated with the procedure were discussed. They expressed understanding. We will proceed with operative treatment once patient has been evaluated and cleared medically by Dr. York and Cardiology. CV/MODL Voice ID: [id number] Report ID: [id number]
--- NOTE | 2020-02-02 12:42 | RAD REPORT ---
EXAM DESCRIPTION: RAD - Chest Single View - 02/01/2020 8:50 pm CLINICAL HISTORY: preop Chest pain. COMPARISON: Chest Single View dated 10/21/2019; Chest Single View dated 03/29/2019; Chest Single View dated 09/20/2018; Chest Single View dated 02/09/2018 FINDINGS: Portable technique limits examination quality. Emphysematous changes are present throughout the lungs. The heart is normal in size. No displaced fra ctures.Aortic atherosclerosis. IMPRESSION: Prominent COPD.
--- NOTE | 2020-02-02 12:44 | RAD REPORT ---
EXAM DESCRIPTION: RAD - Femur Left - 02/01/2020 9:23 pm CLINICAL HISTORY: SMASH INJURY Trauma, pain COMPARISON: Pelvis Wo Cont dated 02/01/2020 FINDINGS: Intratrochanteric fracture the proximal left femur is seen with varus angulation. Bones ar e diffusely demineralized.
--- NOTE | 2020-02-02 17:47 | CON ---
Date of Consultation: 01/26/2020 Identification: An 89-year-old woman. Chief Complaint: Pain in the left hip, her left side of her body. Reason For Consult: Preop assessment before she undergoes open reduction internal fixation of her hi p. History Of Present Illness: Ms. Saleh has a remote history of intracoronary stents more than 20 yea rs ago. She is not having chest pain. She was walking around her house, ended up falling, somehow. Apparently, there was not loss of consciousness and immediately started having pain. X-rays indicat e intertrochanteric fracture of the left femoral neck. In the past, she has had a right femoral neck surgery. She does not recall having any problems going to anesthesia. Outpatient Medications: Spironolactone, levothyroxine, vitamin D3, vitamin B complex, Provigil, ator vastatin, hydralazine, Lexapro, lactulose, nitroglycerin, although the patient never uses nitroglycer in. Allergies: THE PATIENT REPORTS DRUG ALLERGY TO AMLODIPINE, BENAZEPRIL, MEMANTINE, SULFA, AND ALL SUL FA ANTIBIOTICS. Social History: She was a cigarette smoker in the past. Does not smoke or use any alcohol now. Physical Examination: General: She appears to be her stated age of 89. She is alert, conversant, but seems a little bit l ess than perfect in her memory. She is 5 feet 1 inch, 153 pounds. Does not appear to be in distress . Lungs: Clear. Heart: Regular rate and rhythm. No murmur or gallop. Abdomen: Soft. Extremities: Reveal no significant edema. Distal pulses easily palpable. Laboratory Data: An EKG reveals sinus rhythm, left bundle-branch block. She has had EKGs here befor e, the last one was September 2019 and it looked exactly the same. Impression: The patient is an acceptable candidate to undergo open reduction internal fixation of a left intertrochanteric femoral neck fracture. ANCA/MAXIMILIAN Voice ID: [id number] Report ID: [id number]
--- NOTE | 2020-02-02 20:17 | HP ---
Date of Admission: 02/02/2020 Chief Complaint: Fall and hip pain. 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 She started complaining of hip pain immediately. After she was evaluated in the emergency room, she was admitted to the hospital with hip fracture. I saw her this morning. Her and daughter were present at bedside. Allergies: TO SULFA, DETAILS UNKNOWN. Medications: Atorvastatin 10 mg daily, vitamin D3 5000 units daily, escitalopram 10 mg p.o. daily, furosemide 40 mg p.o. daily, hydralazine 50 mg 1 tablet by mouth 2 times a day, lactulose 10 g per 15 mL and the patient takes 15 mL by mouth 2 times a day, Nitrostat p.r.n. for chest pain, spironolactone 100 mg takes half a tablet by mouth daily. Review of Systems: Musculoskeletal: As mentioned above. All other systems reviewed and negative. 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 Past Surgical History: Hysterectomy, right femur fracture surgery. Family History: Father due to leukemia and had coronary artery disease. Mother with Alzheimer disease and stroke. Brother with coronary artery disease. Social History: Negative for smoking, alcohol use. Physical Examination: Vital Signs: Temperature 98.2, pulse 89, respiratory rate 16, blood pressure 136/62, oxygen saturation 96%. Height 5 feet 1 inch, weight 153 pounds. General: Awake, alert, oriented, not in distress. HEENT: Face examination shows some contusion of the left side of the face. Conjunctivae nonerythematous. Sclerae white. Mouth, no thrush or edema noted. Ears/Nose, no mass, lesion, discharge noted. Neck: Supple. No JVD, lymph nodes, bruit, thyromegaly noted. Lungs: Bilateral good equal air entry. Clear to auscultation. No rhonchi. No rales. Heart: Normal heart sounds, no murmur or gallop. Abdomen: Soft, bowel sounds normal. No guarding, rigidity, tenderness, mass, hepatosplenomegaly, distention, or bruit noted. Extremities: No leg edema. No calf tenderness. Skin: No rash, ulcer, cellulitis. Lymphatics: No lymph node enlargement in neck, supraclavicular, infraclavicular region. Neuro: No focal neurological deficit. Chest: Unremarkable. External Genitalia: Deferred. Rectal: Deferred. Laboratory Data: Yesterday, white count 6.2, hemoglobin 11.4, platelets 97. This morning, white count 5.4, hemoglobin 9.6, platelets 85. INR 1.15. Yesterday, sodium 141, potassium 4.2, chloride 104, bicarb 26, BUN 45, creatinine 2.13, glucose 133. Ammonia level 18. Today, sodium 143, potassium 4.2, chloride 108, bicarb 27, BUN 45, creatinine 1.83, glucose 105, total bilirubin 1.5, direct bilirubin not available, SGOT 41, SGPT 27, serum albumin 2.2. CAT scan of the pelvis shows left femoral fracture, intertrochanteric region. Impression: 1. Left femur intertrochanteric fracture, comminuted. 2. Pancytopenia. 3. Cirrhosis of liver, not alcohol related. 4. Chronic kidney disease, stage 3. 5. Hypertension. 6. Hyperlipidemia. 7. Coronary artery disease, history of stroke. 8. Lumbar spine stenosis. 9. Osteoarthritis, multiple sites. Plan: Admit the patient to hospital for further evaluation and management of this problem. Patient is appropriate for inpatient and is expected to spend [address] Mayfield from orthopedic surgeon was consulted and he has seen the patient this morning prior to my arrival and as I understand he is planning to do surgery tomorrow. Cardiology consultation for preop clearance is pending. Patient is at acceptable risk from planned surgery except few details that I have discussed with the patient's family member that is inherent risk of any surgery at this age, including risk of bleeding, infection, blood clot, risk of myocardial infarction, stroke, etc, but in view of her cirrhosis of liver one has to worry about possibly somewhat increased risk of bleeding, infection as well as she may require some blood product. At this point, there is no need for any blood transfusion or platelet transfusion. We will repeat tomorrow morning. Home medications will be continued per order. Depending on how she does postoperatively, decision will be made if she can go to inpatient rehab or she will have to go to [facility] for rehab therapy. Also, talked to family about advance directive and daughter will look into the patient's advance directive at this point. She remains full code until we hear something different from family. ALTAF/MODL Voice ID: [id number] MADDIE
[2020-02-02] MEDS ORDERED: HOME MED 1 EA UNK (Lactulose [Lactulose] 10 GM) PO SCH (21:00)
[2020-02-02] MEDS: LACTULOSE 20 GM/30 ML UCUP PO SCH (21:20)
[2020-02-02] MEDS: HYDRALAZINE HCL 25 MG TABLET PO SCH (21:20)
[2020-02-02] MEDS ORDERED: ACETAMINOPHEN 500 MG TAB PO ONE (21:55)
[2020-02-02] MEDS ORDERED: ACETAMINOPHEN 500 MG TAB PO PRN (21:59)
[2020-02-02] MEDS ORDERED: CEFTRIAXONE 1 GM/NS 50 ML 1 GM/50 ML BAG IV SCH (22:00)
[2020-02-02 22:41] LABS: Urine Appearance CLOUDY; Urine Bilirubin NEGATIVE (NEG); Urine Blood NEGATIVE (NEG); Urine Color YELLOW; Urine Glucose NEGATIVE (NEG); Urine Protein NEGATIVE (NEG); Urine Specific Gravity 1.015 (1.005-1.030); Urine pH 5.5 (5.0-7.0)
[2020-02-02 22:49] LABS: Urine Microscopic Reflex ORDER UMIC
[2020-02-02] MEDS: CEFTRIAXONE/SWI 1gm 1 GM/10 ML SYR IV SCH (22:53)
[2020-02-02 22:57] LABS: Urine Bacteria LOADED /HPF (<20); Urine Culture Reflex Order REFLEXED; Urine RBC <5 /HPF (NONE SEEN); Urine Urothelial Cells <5 /HPF (NONE SEEN)
[2020-02-03] MEDS: NA CHLORIDE 0.9% 1,000 ML IV SCH ×2 (01:15→15:39)
[2020-02-03 04:24] LABS: Absolute Lymphocytes (CBC) 1.8 K/uL (0.7-4.9); Basophils % 0.3 % (0-1.3); Hematocrit 24.9 % (36.0-45.0); Lymphocytes % 28.4 % (15.3-44.8); MPV 8.1 fL (7.6-11.3); RBC Red Blood Cell Count 2.63 M/uL (3.86-4.86)
[2020-02-03 04:36] LABS: Magnesium 1.8 mg/dL (1.8-2.4); Potassium 4.2 mmol/L (3.5-5.1)
[2020-02-03] MEDS: LEVOTHYROXINE SOD 0.05 MG TABLET PO SCH (05:30)
--- NOTE | 2020-02-03 07:31 | EKG ---
Test Date: 2020-02-01 Test Time: 21:35:54 Vehicle Glass Technician: MERLE MEASUREMENT RESULTS: Intervals: Rate: 98 NV: 168 QRSD: 150 QT: 430 QTc: 548 [place]: P: 52 NV: 168 QRS: -13 T: 130 INTERPRETIVE STATEMENTS: Normal sinus rhythm Left bundle branch block Abnormal ECG Compared to ECG 10/21/2019 09:26:41 No significant changes Electronically Signed On 02-03-20 07:30:41 CDT by Hussein Patrick
--- NOTE | 2020-02-03 08:24 | RAD REPORT ---
EXAM DESCRIPTION: RAD - Chest Single View - 02/02/2020 10:51 pm CLINICAL HISTORY: Fever of unknown origin Chest pain. COMPARISON: Chest Single View dated 02/01/2020; Chest Single View dated 10/21/2019; Chest Single View dated 03/29/2019; Chest Single View dated 09/20/2018 FINDINGS: Portable technique limits examination quality. The lungs are emphysematous but grossly clear. The heart is normal in size. No displaced fractures.Ao rtic atherosclerosis. IMPRESSION: Prominent COPD.
[2020-02-03] MEDS: LACTULOSE 20 GM/30 ML UCUP PO SCH ×2 (08:58→21:32)
[2020-02-03] MEDS: HYDRALAZINE HCL 25 MG TABLET PO SCH ×2 (08:58→21:32)
[2020-02-03] MEDS: SPIRONOLACTONE 100 MG TAB PO SCH (08:58)
[2020-02-03] MEDS: ESCITALOPRAM 20 MG TAB PO SCH (08:58)
[2020-02-03] MEDS ORDERED: FENTANYL CITR 100 MCG/2 ML ONE (11:33)
[2020-02-03] MEDS ORDERED: LIDOCAINE 1% MPF 5 ML VIAL ONE (11:33)
[2020-02-03] MEDS ORDERED: propofoL 200 MG/20 ML VIAL IV ONE (11:33)
[2020-02-03] MEDS ORDERED: Ringers Lactate 1,000 ML IV ONE (11:57)
[2020-02-03] MEDS ORDERED: TRANEXAMIC ACID 1,000 MG in NA CHLORIDE 0.9% 50 ML IV ONE (12:00)
[2020-02-03] MEDS ORDERED: CEFAZOLIN/SWI 1gm 1 GM/10 ML SYR ONE (12:30)
[2020-02-03] MEDS ORDERED: ONDANSETRON 4 MG/2 ML VIAL ONE (13:15)
--- NOTE | 2020-02-03 14:45 | P.BOP ---
Preoperative diagnosis: left intertrochanteric femur fracture Postoperative diagnosis: same Primary procedure: cephallomedullary fixation of left intertrochanteric femur fracture Advertising Intern: NONE,NONE Estimated blood loss: 150 cc Specimen: none Findings: see dictation Anesthesia: General Complications: None Drain(s): Urinary catheter Implants: 9x180 mm Biomet Affixus nail, 90 mm lag screw Fluids & blood products: per anesthesia record Transferred to: Recovery Room Condition: Good
[2020-02-03] MEDS ORDERED: HYDROCODONE/APAP 7.5/325 MG TAB PO PRN (14:52)
[2020-02-03] MEDS ORDERED: DOCUSATE NA 100 MG CAP PO PRN (14:52)
[2020-02-03] MEDS ORDERED: MORPHINE 4 MG/ML SYR IV PRN (14:52)
--- NOTE | 2020-02-03 15:03 | RAD REPORT ---
EXAM DESCRIPTION: RAD - Hip In Or - 02/03/2020 2:57 pm CLINICAL HISTORY: LT HIP NAILING IN OR 5 COMPARISON: Pelvis dated 07/05/2017 FINDINGS: Fluoroscopy time 1.4 minutes.
[2020-02-03 15:25] LABS: Hematocrit 29.7 % (36.0-45.0)
--- NOTE | 2020-02-03 15:26 | RAD REPORT ---
EXAM DESCRIPTION: RAD - Hip Left 2 View - 02/03/2020 3:17 pm CLINICAL HISTORY: Left femoral fracture FINDINGS: Compression screw and intramedullary conor affix left femoral fracture in good alignment
[2020-02-03] MEDS ORDERED: ALBUTEROL 2.5 MG/3 ML NEB SOL NEB PRN (16:00)
[2020-02-03] MEDS ORDERED: MORPHINE 2 MG/ML SYR IV PRN (16:00)
[2020-02-03] MEDS: CEFTRIAXONE/SWI 1gm 1 GM/10 ML SYR IV SCH (22:22)
--- NOTE | 2020-02-04 00:32 | PN ---
Date of Progress Note: 02/03/2020 Subjective: Patient was seen this morning for followup. She was lying in bed, awake, alert, oriente d, not in distress. Denied any complaints. Objective: VITAL SIGNS: Reviewed. HEENT: Unremarkable. LUNGS: Clear to auscultation. CARDIAC: Heart sounds normal. ABDOMEN: Soft. Bowel sounds normal. No guarding, rigidity, tenderness, or distention. EXTREMITIES: No leg edema. Laboratory Data: White count 6.4, hemoglobin 8.4, platelets 80. Sodium 140, potassium 4.2, chloride 108, bicarb 27, BUN 42, creatinine 1.68, glucose 96, magnesium 1.8. Impression: 1.Hip fracture. 2.Cirrhosis of liver. 3.Anemia. 4.Thrombocytopenia. Plan: We will continue current medication. Patient had surgery done for hip fracture today by Dr. Anirudh quiroz, and he did call and discuss details with me. We will go ahead and repeat blood work tomorrow, a nd depending on that, we will decide about anticoagulation therapy for DVT prophylaxis and it depends on her hemoglobin and platelet count. Patient should use SCD for DVT prophylaxis meanwhile. Dr. Raya hernandes has suggested touchdown weightbearing, so there is a good possibility that patient will need to co nsider snf placement if she cannot go to inpatient rehab and will make this decision over period of next day or 2 days. ALTAF/MODL Voice ID: [id number] Report ID: [id number]
[2020-02-04 04:21] LABS: Absolute Lymphocytes (CBC) 1.3 K/uL (0.7-4.9); Basophils % 0.3 % (0-1.3); Hematocrit 22.7 % (36.0-45.0); Lymphocytes % 20.8 % (15.3-44.8); MPV 8.3 fL (7.6-11.3); RBC Red Blood Cell Count 2.36 M/uL (3.86-4.86)
[2020-02-04 04:29] LABS: Potassium 4.4 mmol/L (3.5-5.1)
[2020-02-04] MEDS: LEVOTHYROXINE SOD 0.05 MG TABLET PO SCH (05:23)
[2020-02-04] MEDS: TRAMADOL HCL 50 MG TAB PO PRN ×2 (05:24→21:22)
[2020-02-04] MEDS: NA CHLORIDE 0.9% 1,000 ML IV SCH (05:24)
[2020-02-04] MEDS ORDERED: NA CHLORIDE 0.9% 1,000 ML IV SCH (06:00)
[2020-02-04] MEDS ORDERED: NA CHLORIDE 0.9% 250 ML ONE ×2 (06:45→12:34)
[2020-02-04] MEDS: LACTULOSE 20 GM/30 ML UCUP PO SCH ×2 (08:29→21:22)
[2020-02-04] MEDS: SPIRONOLACTONE 100 MG TAB PO SCH (08:29)
[2020-02-04] MEDS: HYDRALAZINE HCL 25 MG TABLET PO SCH ×2 (08:30→21:22)
[2020-02-04] MEDS: modafiniL 100 MG TAB PO SCH (08:34)
[2020-02-04] MEDS: ESCITALOPRAM 20 MG TAB PO SCH (08:34)
[2020-02-04] MEDS: VITAMIN B COMPLEX 1 CAP PO SCH (08:34)
[2020-02-04] MEDS: VITAMIN D 5,000 UNIT CAP PO SCH (08:35)
--- NOTE | 2020-02-04 12:04 | P.PN ---
Subjective Date of Service: 02/04/20 Chief Complaint: s/p IMN left hip Subjective: Working w/ PT asleep during visit; discussed care with at bedside; some pain with PT today Physical Examination - Vital Signs Temperature: 98.6 F Blood Pressure: 120/57 Pulse: 86 Respirations: 17 Pulse Ox (%): 96 - Physical Exam General: In no apparent distress Musculoskeletal: Other (LLE: dressing c/d/i; some ecchymoses over the lateral hip) Assessment And Plan - Plan Rachel is an 89 yo female s/p left hip IMN POD #1 for intertrochanteric femur fracture -PT to mobilize; TDWB LLE -decrease [place] 7.5 to 5 as patient lethargic today -acute expected postoperative blood loss anemia; continue to monitor H/H -given 1 unit PRBCs and 1 more to be given today -lovenox to be started for DVT prophylaxis today
[2020-02-04] MEDS: HYDROCODONE/APAP 5/325 MG TAB PO PRN (16:51)
[2020-02-04] MEDS ORDERED: ENOXAPARIN 30 MG/0.3 ML SQ SCH (17:00)
[2020-02-04 17:31] LABS: Hematocrit 29.2 % (36.0-45.0)
[2020-02-04] MEDS: ATORVASTATIN 10 MG TAB PO SCH (21:22)
[2020-02-04] MEDS: CEFTRIAXONE/SWI 1gm 1 GM/10 ML SYR IV SCH (22:12)
--- NOTE | 2020-02-05 02:26 | PN ---
Date of Progress Note: 02/04/2020 Subjective: Patient was seen this morning for followup lying in bed, sleeping, arousable, not in any distress. Objective: Vital Signs: Reviewed. HEENT: Unremarkable. Lungs: Clear to auscultation. Heart: Sounds normal. Abdomen: Soft. Bowel sounds normal. No guarding, rigidity, tenderness, distention. Extremities: No leg edema. Laboratory Data: White count 6.2, hemoglobin 7.7, platelets 75. Sodium 142, potassium 4.4, chloride 111, bicarb 26, BUN 35, creatinine 1.56, glucose 99. Impression: 1.Acute blood loss anemia. 2.Thrombocytopenia. 3.Cirrhosis of liver. 4.Hip fracture. Plan: We will continue current medications. We will start DVT prophylaxis using Lovenox as of this morning, and blood transfusion was ordered this morning with patient's low hemoglobin result. We james l monitor patient's CBC. If platelet count starts to get less than 50,000, we will hold anticoagulat ion medication, which is Lovenox 30 mg subcu injection daily which will be started this evening. Alyce coon with physical therapy and I will see her tomorrow for followup. ALTAF/MODL Voice ID: [id number] Report ID: [id number]
[2020-02-05 04:08] LABS: Absolute Lymphocytes (CBC) 1.6 K/uL (0.7-4.9); Basophils % 0.3 % (0-1.3); Hematocrit 27.2 % (36.0-45.0); Lymphocytes % 23.6 % (15.3-44.8); MPV 8.7 fL (7.6-11.3); RBC Red Blood Cell Count 2.93 M/uL (3.86-4.86)
[2020-02-05 04:23] LABS: Magnesium 1.9 mg/dL (1.8-2.4); Potassium 4.1 mmol/L (3.5-5.1)
[2020-02-05] MEDS: HYDROCODONE/APAP 5/325 MG TAB PO PRN ×2 (05:24→09:13)
[2020-02-05] MEDS: LEVOTHYROXINE SOD 0.05 MG TABLET PO SCH (05:24)
[2020-02-05] MEDS: HYDRALAZINE HCL 25 MG TABLET PO SCH ×2 (09:00→22:21)
[2020-02-05] MEDS: LACTULOSE 20 GM/30 ML UCUP PO SCH ×2 (09:03→22:25)
[2020-02-05] MEDS: VITAMIN D 5,000 UNIT CAP PO SCH (09:04)
[2020-02-05] MEDS: ESCITALOPRAM 20 MG TAB PO SCH (09:04)
[2020-02-05] MEDS: SPIRONOLACTONE 100 MG TAB PO SCH (09:06)
[2020-02-05] MEDS: modafiniL 100 MG TAB PO SCH (09:07)
[2020-02-05] MEDS: VITAMIN B COMPLEX 1 CAP PO SCH (09:07)
[2020-02-05] MEDS: FUROSEMIDE 40 MG TABLET PO SCH (09:12)
--- NOTE | 2020-02-05 14:04 | P.PN ---
Subjective Date of Service: 02/05/20 Chief Complaint: s/p IMN left hip Subjective: Working w/ PT asleep during visit; discussed care with daughter at bedside; sat up in a chair with PT today Physical Examination - Vital Signs Temperature: 98.1 F Blood Pressure: 143/64 Pulse: 75 Respirations: 18 Pulse Ox (%): 100 - Physical Exam General: In no apparent distress Musculoskeletal: Other (LLE: dressing c/d/i; no significant swelling noted) Assessment And Plan - Plan Rachel is an 89 yo female s/p left hip IMN POD #2 for intertrochanteric femur fracture -PT to mobilize; TDWB LLE -pain controlled -acute expected postoperative blood loss anemia; continue to monitor H/H -lovenox for DVT prophylaxis today; monitor platelets -d/c jones today
[2020-02-05] MEDS: ENOXAPARIN 30 MG/0.3 ML SQ SCH (16:33)
[2020-02-05] MEDS: CEFTRIAXONE/SWI 1gm 1 GM/10 ML SYR IV SCH (22:19)
[2020-02-05] MEDS: TRAMADOL HCL 50 MG TAB PO PRN (22:20)
[2020-02-05] MEDS: ATORVASTATIN 10 MG TAB PO SCH (22:21)
--- NOTE | 2020-02-06 01:09 | PN ---
Date of Progress Note: 02/05/2020 Subjective: Patient was seen this morning for followup. She was lying in bed, not in any distress. Denies any new complaints. Objective: Vital Signs: Reviewed. HEENT: Unremarkable. Lungs: Clear to auscultation. Heart: Heart sounds normal. Abdomen: Soft, bowel sounds normal. No guarding, rigidity, tenderness, or distention. Extremities: No leg edema. Laboratory Data: White count 6.6, hemoglobin 9.2, platelets 70. Sodium 138, potassium 4.1, chloride 107, bicarb 26, BUN 35, creatinine 1.52, glucose 93. Urine culture grew E coli and Klebsiella. It is sensitive to ceftriaxone and the patient is currently receiving current antibiotic. Impression: 1.Hip fracture. 2.Urinary tract infection. 3.Anemia. 4.Thrombocytopenia. 5.Cirrhosis of liver. Plan: We will continue current medication. Continue DVT prophylaxis use. We will monitor CBC. We will hold Lovenox if platelet count is less than 50. We will have social science analyst assist family with s killed nursing facility placement as the patient was thought to be appropriate for residential fa cility placement instead of inpatient rehab as she is not able to participate in 3 hours rehab therapy on the day-to-day basis. I will see her tomorrow for followup. ALTAF/MODL Voice ID: [id number] Report ID: [id number]
[2020-02-06 04:11] LABS: Absolute Lymphocytes (CBC) 1.5 K/uL (0.7-4.9); Basophils % 0.3 % (0-1.3); Hematocrit 26.6 % (36.0-45.0); Lymphocytes % 22.7 % (15.3-44.8); MPV 8.5 fL (7.6-11.3); RBC Red Blood Cell Count 2.87 M/uL (3.86-4.86)
[2020-02-06 04:28] LABS: Magnesium 1.9 mg/dL (1.8-2.4); Potassium 4.4 mmol/L (3.5-5.1)
[2020-02-06 05:35] LABS: Blood Morphology Comment NOT SEEN (NOT SEEN); Platelet Estimate DECR
[2020-02-06] MEDS: LEVOTHYROXINE SOD 0.05 MG TABLET PO SCH (05:53)
--- NOTE | 2020-02-06 06:30 | OP ---
Date of Procedure: 02/03/2020 Surgeon: Avelino Mayfield MD Preoperative Diagnosis: Left intertrochanteric femur fracture. Postoperative Diagnosis: Left intertrochanteric femur fracture. Procedure Performed: Cephalomedullary fixation of left intertrochanteric femur fracture. Anesthesia: General. Fluids: Per Anesthesia record. Estimated Blood Loss: 150 cc. Complications: None. Implants: A 9 x 180 mm Biomet Affixus nail with a 90 mm lag screw. Indications For Procedure: Rachel is an 89-year-old female who presented to the ER after sustaining a fall onto her left side with subsequent pain and inability to bear weight to her left hip. X-rays i n the emergency room demonstrated a left intertrochanteric femur fracture on both x-ray and CT scan. I discussed with the patient and her family at length risks and benefits associated with operative a nd nonoperative treatment. Given her inability to bear weight and significant fracture pattern, I re commended operative treatment, the family agreed to proceed with operative treatment after clearance by the Medical Team and Cardiology. Description Of Procedure: After informed consent was obtained, the patient was identified in the pre operative holding area. The left lower extremity was marked. Patient was then taken back to the ope rating room, transferred to the operating room table in a supine fashion and placed under general ane sthesia. She was placed on the fracture table with her extremities well padded. Fluoroscopy was the n used preoperatively to evaluate the fracture pattern and evaluate for proper reduction. The patien t did have significant medial displacement of the shaft, at that point an open reduction was found to be necessary. The left lower extremity was prepped and draped in the usual sterile fashion. A time -out was initiated. The correct patient and procedure were confirmed and identified. The patient caicedo kranthi received her preoperative prophylactic antibiotics. Approximately an 8 cm incision was made over t he lateral aspect of the proximal femur at the level of the fracture site as marked by fluoroscopy. A bone hook was carefully placed over the top of the proximal femoral shaft and a lateral force was b rought on the proximal femur to aid with reduction. Once reduction was confirmed on fluoroscopy in [facility] AP and lateral views, a second 8 cm incision was made just proximal to the greater tuberosity and dissection was then taken out of the greater trochanter with Bovie electrocautery. A guide pin was placed in the tip of the greater trochanter, placed on the femoral canal in an antegrade fashion. Af ter this was placed, the entry reamer was then placed over the guide pin and passed down the proximal femur by hand. Once this was completed, the guide pin and the entry reamer was then removed. A bal l-tip guide pin was then placed down the femoral shaft down to the distal femur. The proximal femur was then reamed, preoperatively using x-ray a size 9 mm nail was selected at 125 degree neck angle. The nail was then placed over the guidepin into proper position, again holding the fracture reduced w ith the bone hook. The fracture did have a reverse obliquity type pattern noted. After the conor was placed, triple sleeve guide was then placed using the jig and a lag screw was selected. Using a size 90 mm lag screw it was then placed into good overall position near the subchondral bone of the femor al head. Once that was placed, using the jig, a distal interlocking screw was placed. Final x-rays were taken. There was overall good reduction of the fracture and good placement of the hardware. Th e wounds were then irrigated thoroughly with normal saline. The fascia was approximated using 0 Vicr yl. Subcutaneous tissue was approximated using a 2-0 Vicryl. Skin was approximated using wil. Sterile dressings were placed. The patient was awakened and transferred to the PACU in stable condit ion. Postoperative Plan: She will be touchdown weightbearing on her left lower extremity. Physical Thera py will be consulted. Dr. York will continue to monitor the patient and manage medically. CV/MODL Voice ID: [id number] Report ID: [id number]
[2020-02-06] MEDS ORDERED: LACTULOSE 20 GM/30 ML UCUP PO ONE (08:25)
[2020-02-06] MEDS: TRAMADOL HCL 50 MG TAB PO PRN (08:44)
[2020-02-06] MEDS: SPIRONOLACTONE 100 MG TAB PO SCH (08:46)
[2020-02-06] MEDS: VITAMIN B COMPLEX 1 CAP PO SCH (08:46)
[2020-02-06] MEDS: VITAMIN D 5,000 UNIT CAP PO SCH (08:46)
[2020-02-06] MEDS: FUROSEMIDE 40 MG TABLET PO SCH (08:47)
[2020-02-06] MEDS: HYDRALAZINE HCL 25 MG TABLET PO SCH ×2 (08:48→21:22)
[2020-02-06] MEDS: LACTULOSE 20 GM/30 ML UCUP PO SCH ×3 (08:48→21:21)
[2020-02-06] MEDS: ESCITALOPRAM 20 MG TAB PO SCH (08:49)
[2020-02-06] MEDS: modafiniL 100 MG TAB PO SCH (08:49)
--- NOTE | 2020-02-06 15:39 | P.PN ---
Subjective Date of Service: 02/06/20 Chief Complaint: s/p IMN left hip Subjective: Working w/ PT Physical Examination - Vital Signs Temperature: 97.8 F Blood Pressure: 140/55 Pulse: 72 Respirations: 19 Pulse Ox (%): 98 - Physical Exam General: In no apparent distress Musculoskeletal: Other (LLE: minimal sanguinous drainage on left hip dressing; mild swelling; + ecchymoses over lateral hip which was there preoperatively) Assessment And Plan - Plan Rachel is an 89 yo female s/p left hip IMN POD #3 for intertrochanteric femur fracture -continue with PT to mobilize; TDWB LLE -lovenox for DVT prophylaxis today; monitor platelets -ok to d/c to SNF when accepted; d/c stapes 2 weeks postop
[2020-02-06] MEDS: ENOXAPARIN 30 MG/0.3 ML SQ SCH (16:58)
[2020-02-06] MEDS: HYDROCODONE/APAP 5/325 MG TAB PO PRN (21:22)
[2020-02-06] MEDS: ATORVASTATIN 10 MG TAB PO SCH (21:22)
[2020-02-06] MEDS: CEFTRIAXONE/SWI 1gm 1 GM/10 ML SYR IV SCH (23:55)
[2020-02-07 06:25] LABS: Absolute Lymphocytes (CBC) 1.4 K/uL (0.7-4.9); Basophils % 0.6 % (0-1.3); Hematocrit 26.1 % (36.0-45.0); Lymphocytes % 24.7 % (15.3-44.8); MPV 8.3 fL (7.6-11.3)
[2020-02-07] MEDS: LEVOTHYROXINE SOD 0.05 MG TABLET PO SCH (06:35)
[2020-02-07 06:38] LABS: Magnesium 1.8 mg/dL (1.8-2.4); Potassium 4.1 mmol/L (3.5-5.1)
[2020-02-07] MEDS: FUROSEMIDE 40 MG TABLET PO SCH (08:38)
[2020-02-07] MEDS: modafiniL 100 MG TAB PO SCH (08:38)
[2020-02-07] MEDS: VITAMIN D 5,000 UNIT CAP PO SCH (08:38)
[2020-02-07] MEDS: HYDRALAZINE HCL 25 MG TABLET PO SCH (08:39)
[2020-02-07] MEDS: ESCITALOPRAM 20 MG TAB PO SCH (08:39)
[2020-02-07] MEDS: LACTULOSE 20 GM/30 ML UCUP PO SCH ×2 (08:39→13:26)
[2020-02-07] MEDS: SPIRONOLACTONE 100 MG TAB PO SCH (08:39)
[2020-02-07] MEDS: VITAMIN B COMPLEX 1 CAP PO SCH (08:40)
[2020-02-07 12:08] VITALS: TEMP 97.7
--- NOTE | 2020-02-07 12:25 | PN ---
Date of Progress Note: 02/06/2020 Subjective: Patient was seen for followup in the morning. Her daughter was present with her at beds kourt[facility]. Objective: VITAL SIGNS: Reviewed. HEENT: Unremarkable. LUNGS: Clear to auscultation. HEART: Sounds normal. ABDOMEN: Soft. Bowel sounds normal. No guarding, rigidity, tenderness, or distention. EXTREMITIES: No leg edema. Laboratory Data: White count 6.7, hemoglobin 9.1, platelets 84. Sodium 136, potassium 4.4, chloride 106, bicarb 27, BUN 37, creatinine 1.49, glucose 106. Magnesium 1.9. Impression: 1.Hip fracture. 2.Cirrhosis of liver. 3.Anemia. 4.Thrombocytopenia. Plan: We will go ahead and increase the dose of lactulose as after communicating with nursing staff information that I have learnt that patient has not had a bowel movement in last 24 hours. So, I hav e ordered an extra dose of lactulose and we will increase her usual dose of lactulose as well. Varinder nickerson's daughter informed me that family would like to take her home instead of taking her to [facility] and I expressed my concerns about taking her home and may not be able to get the physi caren therapy that she needs at the [facility], but it appears that family understands, but they woul d like to rather take her home. So as per their decision, we will request social service to assist w ith disposition. Once arrangements gets completed, we can plan to discharge her. Meanwhile, nursing staff after I saw patient reported that patient does have area of decubitus on her heel. Her heels were ordered to be offloaded, but in spite of those precautions, patient still ended up having this d ecubitus on the heel, so we will consult general surgeon, but meanwhile, I have instructed nursing st aff to make sure that her heels are offloaded. We will continue ceftriaxone for urinary tract infect ion. Continue Lovenox. Her platelet count is stable, which is her baseline right now. ALTAF/MODL Voice ID: [id number] Report ID: [id number]
[2020-02-07 13:19] VITALS: O2SAT 96
[2020-02-07] MEDS ORDERED: BISACODYL 10 MG RECTAL SUPP PR ONE (15:00)
[2020-02-07] MEDS: ENOXAPARIN 30 MG/0.3 ML SQ SCH (15:36)
[2020-02-07 16:25] VITALS: BP 148/63
--- NOTE | 2020-02-08 01:47 | DS ---
Date of Discharge: 02/07/2020 History: The patient was seen this morning for followup. No new complaints or problems reported. She was lying in bed, not in distress. Her was with her at bedside. Physical Examination: Vital Signs: Reviewed. HEENT: Unremarkable. Abdomen: Bowel sounds normal. No guarding, rigidity, tenderness, or distention. Extremities: No leg edema. Left heel exam shows evidence of blister over left medial knee. No open wound. Discharge Medications And Instructions: 1. Continue all prior home medications including continue furosemide 40 mg p.o. daily. 2. Cefuroxime 250 mg p.o. 2 times a day for 5 days. 3. Tylenol with codeine No. 3, which she will take 1 tablet p.o. q.6 hours p.r.n. for pain. Prescription written for 30 tablets with 1 refill. 4. Consult Physical Therapy and Occupational Therapy at senior living. 5. Fall precautions. 6. Offload heels all the time. 7. Change position every 2 hours from [id number]. 8. CBC, Chem-7 to be done once a week. Discharge Diagnoses: 1. Left hip intertrochanteric fracture. 2. Anemia. 3. Thrombocytopenia. 4. Cirrhosis of liver. 5. Stage II decubitus ulcer, left heel. 6. Urinary tract infection. Hospital Course: An 89-year-old female patient who fell down at home and was brought into the emergency room. Further evaluation revealed presence of left hip intertrochanteric fracture. Patient was admitted to the hospital. Orthopedic consultation was requested and the patient had surgery done by Dr. Mayfield. Cardiac clearance was obtained. Her ammonia level was normal when she came in. Patient has chronic anemia, chronic thrombocytopenia and after surgery she was medically stable, she did require blood transfusion because of anemia problem and after blood transfusion her hemoglobin remained stable. Lowest platelet count was 70,000. After that platelet started coming up and today was around 85,000 to 87,000. This is her baseline platelet count. Lovenox was started for DVT prophylaxis and she has tolerated that very well. My recommendation is to continue Lovenox unless platelet count drops less than 50, which we never saw that during this hospitalization. Upon discharge from the hospital instead of Lovenox, I have changed her anti-coagulation therapy to Eliquis 2.5 mg 2 times a day for 1 month. She did have a small blister over left heel area. There is no open wound and she developed this in spite of air mattress and offloading of the heel. I did discuss with the patient's about precautions to be taken at senior living. Social Service was consulted and arrangements completed today for patient to go to long-term facility. Inpatient rehab was consulted and the patient was denied for inpatient rehab stay. She did have some constipation problem. Lactulose was continued, we gave even higher dose of lactulose yesterday and today Dulcolax rectal suppository was ordered. ALTAF/MODL Voice ID: [id number] Report ID: [id number]
== END 2020-02-07 16:54 | DRG 481 ==
LOC: ER 18:10 → ERHOLD 21:37 → 4TH 22:19
PROVIDERS: ADMIT Internal Medicine; ATTEND Internal Medicine
PROC: 0QS704Z Reposition Left Upper Femur with Internal Fixation Device, Open Approach (ICD-10-PCS; 2020-02-03)
PROC: 30233N1 Transfusion of Nonautologous Red Blood Cells into Peripheral Vein, Percutaneous Approach (ICD-10-PCS; principal; 2020-02-04)
DX: S72.142A Displaced intertrochanteric fracture of left femur, initial encounter for closed fracture (principal); D62 Acute posthemorrhagic anemia; N39.0 Urinary tract infection, site not specified; L89.622 Pressure ulcer of left heel, stage 2; E03.9 Hypothyroidism, unspecified; I25.10 Atherosclerotic heart disease of native coronary artery without angina pectoris; M06.9 Rheumatoid arthritis, unspecified; K74.60 Unspecified cirrhosis of liver; I12.9 Hypertensive chronic kidney disease with stage 1 through stage 4 chronic kidney disease, or unspecified chronic kidney disease; N18.3 Chronic kidney disease, stage 3 (moderate); E78.5 Hyperlipidemia, unspecified; M48.061 Spinal stenosis, lumbar region without neurogenic claudication; D69.6 Thrombocytopenia, unspecified; M19.90 Unspecified osteoarthritis, unspecified site; B96.20 Unspecified Escherichia coli [E. coli] as the cause of diseases classified elsewhere; B96.1 Klebsiella pneumoniae [K. pneumoniae] as the cause of diseases classified elsewhere; W01.0XXA Fall on same level from slipping, tripping and stumbling without subsequent striking against object, initial encounter; Y92.000 Kitchen of unspecified non-institutional (private) residence as the place of occurrence of the external cause; Z95.5 Presence of coronary angioplasty implant and graft; Z86.73 Personal history of transient ischemic attack (TIA), and cerebral infarction without residual deficits; Z96.651 Presence of right artificial knee joint
CPT/HCPCS: 36415; 36430; 51702; 71045; 72192; 73530; 80048; 80053; 81003; 81015; 82140; 83605; 83735; 85014; 85018; 85025; 85610; 85730; 86850; 86900; 86901; 87040; 87077; 87086; 87088; 87186; 87804; 93005; 94760; 96372; 97112; 97116; 97161; 97530; 99285; J0690; J0696; J1650; J2270; J2405; J2704; J3010; J7030; J7120; P9016

== ENCOUNTER 2020-06-04 15:24 | Emergency (ER) | payer OTHER ==
--- NOTE | 2020-06-04 17:05 | RAD REPORT ---
EXAM DESCRIPTION: CT - CTHCSPWOC - 06/04/2020 4:51 pm CLINICAL HISTORY: Trauma, head and neck injury. fall COMPARISON: Head C Spine Mpr Wo Con dated 07/05/2017; Facial Bones W/ Mpr dated 06/04/2020; Head Brain W o Cont dated 10/21/2019; Head Brain Wo Cont dated 03/29/2019; Pelvis Wo Cont dated 02/01/2020 TECHNIQUE: Axial 5 mm thick images of the head were obtained. Axial 2 mm thick images of the cervical spine were obtained with sagittal and coronal reconstruction images generated and reviewed. All CT scans are performed using dose optimization technique as appropriate and may include automated exposure control or mA/KV adjustment according to patient size. FINDINGS: CT HEAD WITHOUT CONTRAST: No acute hemorrhage, hydrocephalus or extra-axial collection is identified.Moderate generalized brain atrophy is present with moderate periventricular and deep white matter chronic microvascular ischemi c changes.No areas of brain edema or midline shift. Chronic left maxillary sinusitis.Right vertebral artery is atherosclerotic.The calvarium is intact. CT CERVICAL SPINE WITHOUT CONTRAST: No acute fracture or subluxation seen.Quite significant bony hypertrophy and degenerative changes at the C1-C2 articulation is seen. 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 Advanced lower cervical degenerative changes with large posterior osteophyte pr esent at C5-6. 2 mm degenerative anterolisthesis C4 on 5 is present.No prevertebral soft tissues swel ling is identified. IMPRESSION: No acute intracranial findings. 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 Chronic left maxillary sinusitis.
--- NOTE | 2020-06-04 17:07 | RAD REPORT ---
EXAM DESCRIPTION: CT - CTFB CLINICAL HISTORY: fall Fall, trauma facial pain and injury. COMPARISON: No comparisons TECHNIQUE: Axial 2 mm thick images of the face were obtained with sagittal and coronal reconstructio n images. All CT scans are performed using dose optimization technique as appropriate and may include automated exposure control or mA/KV adjustment according to patient size. FINDINGS: Mildly angulated anterior right nasal bone fracture is seen.No additional nasal bone fract ure is evident.The mandible is intact. The globes and orbital contents are grossly unremarkable.Chronic left maxillary sinusitis changes are present. IMPRESSION: Mild right-sided nasal bone fracture.
--- NOTE | 2020-06-04 18:06 | ER ---
Nurse's Notes [facility] Name: Rachel Saleh Age: 89 yrs Sex: Female : 1930 Arrival Date: 06/04/2020 Time: 15:34 Bed 20 Private MD: Diagnosis: Other slipping, tripping and stumbling and falls;Fracture of nasal bones;Superficial injury of head Presentation: 06/04 15:53 Chief complaint: Patient states: Slipped and fell forward. Landed on face. Bruising and ca1 Lac on nose. Happened around noon. Denies LOC. Not on Blood thinners. Reports L knee pain. Coronavirus screen: Proceed with normal triage. Patient denies a cough. Patient denies shortness of breath or difficulty breathing. Patient denies measured and/or subjective temperature greater than 100.4F prior to today's visit. Patient denies travel on a cruise ship or to a country the [facility] currently lists as an affected area. Patient denies contact with known and/or suspected case of COVID-19. Ebola Screen: Patient negative for fever greater than or equal to 101.5 degrees Fahrenheit, and additional compatible Ebola Virus Disease symptoms Patient denies exposure to infectious person. Patient denies travel to an Ebola-affected area in the 21 days before illness onset. No symptoms or risks identified at this time. Initial Sepsis Screen: Does the patient meet any 2 criteria? No. Patient's initial sepsis screen is negative. Does the patient have a suspected source of infection? No. Patient's initial sepsis screen is negative. Risk Assessment: Do you want to hurt yourself or someone else? Patient reports no desire to harm self or others. Onset of symptoms was June 04, 2020. 15:53 Method Of Arrival: Wheelchair ca1 15:53 Acuity: CHRIS 2 ca1 17:15 Care prior to arrival: None. Mechanism of Injury: Fall. Trauma event details: Injury ll1 occurred in the [facility]. Triage Assessment: 17:13 General: Appears uncomfortable, Behavior is calm, cooperative, appropriate for age. ll1 Pain: Complains of pain in nose Quality of pain is described as aching. EENT: Nares dried blood noted. Reports nasal discharge that is bloody pain in nose. Neuro: No deficits noted. Cardiovascular: No deficits noted. Respiratory: No deficits noted. Musculoskeletal: Circulation, motion, and sensation intact. Capillary refill < 3 seconds, Tenderness present in nose Reports pain in nose. Injury Description: Head injury. Trauma Activation: Alert Physician: ED Physician; Name: ; Notified At: ; Arrived At: Physician: General Surgeon; Name: ; Notified At: ; Arrived At: Physician: Radiology; Name: ; Notified At: ; Arrived At: Physician: Respiratory; Name: ; Notified At: ; Arrived At: Physician: Lab; Name: ; Notified At: ; Arrived At: Historical: - Allergies: 15:58 Lotrel; ca1 15:58 Namenda; ca1 15:58 Sulfa (Sulfonamide Antibiotics); ca1 - Home Meds: 15:58 atorvastatin 10 mg Oral tab 1 tab nightly [Active]; escitalopram oxalate 10 mg Oral tab ca1 1 tab once daily [Active]; hydralazine 25 mg Oral tab 1 tab 2 times per day [Active]; lactulose 10 gram/15 mL (15 mL) Oral soln 15 mL twice a day [Active]; levothyroxine 25 mcg tab 1 tab once daily [Active]; modafinil 100 mg Oral tab 1 tabs once daily [Active]; nitroglycerin 0.4 mg SL subl 1 tab every 5 minutes [Active]; spironolactone 100 mg Oral tab 1 tab once daily [Active]; - PMHx: 15:58 Anemia; Arthritis; CAD; Cataracts; C-diff; Dementia; Depression; ENCEPHALOPATHY; ca1 generalized weakness; GERD; High Cholesterol; Hyperlipidemia; Hypertension; Hypothyroidism; Osteopenia; Osteoporosis; Rheumatoid Arthritis; unspecified edema; UTI; - Immunization history:: Adult Immunizations up to date, Last tetanus immunization: unknown, Pneumococcal vaccine is up to date, Flu vaccine is up to date. - Social history:: Smoking status: Patient denies any tobacco usage or history of. Screenin:11 Abuse screen: Denies threats or abuse. Nutritional screening: No deficits noted. ll1 Tuberculosis screening: No symptoms or risk factors identified. Fall Risk Fall in past 12 months (25 points). IV access (20 points). Gait- Weak (10 pts.). Mental Status- Overestimates/Forgets Limitations (15 pts.). Total Salter Fall Scale indicates High Risk Score (45 or more points). Fall prevention measures have been instituted. Side Rails Up X 2 1:1 Attendant Assigned Frequent Obs/Assessments Occuring As available patient and family educated on Fall Prevention Program and Strategies. Primary Survey: 17:12 NO uncontrolled hemorrhage observed. A: The patient is alert. Airway: patent. ll1 Breathing/Chest: Respiratory pattern: regular, Respiratory effort: spontaneous, unlabored, Breath sounds: clear. Circulation: Pulses: palpable right radial artery and left radial artery. Skin color: pink. Disability Alert. Exposure/Environment: There is no evidence of uncontrolled external bleeding. Obvious injury(ies) are noted at this time: nose A warming method has been applied: A warm blanket has been provided to the patient. 17:15 Reassessment Airway Breathing/Chest. ll1 Assessment: 17:50 General: See triage assessment for further details.. Pain: Complains of pain in nose. ll1 Neuro: Level of Consciousness is awake, alert, obeys commands, Oriented to person, place, time, situation, Appropriate for age Multi Purpose Machine Operator are equal bilaterally Moves all extremities. Full function Gait is steady, Speech is normal, Facial symmetry appears normal, Pupils are PERRLA, Reports headache. Cardiovascular: No deficits noted. Respiratory: No deficits noted. Derm: Wound noted Reports laceration to bridge of nose. Vital Signs: 15:53 BP 162 / 81; Pulse 82; Resp 15 S; Temp 97.9(TE); Pulse Ox 98% on R/A; Weight 72.57 kg ca1 (R); Height 5 ft. 4 in. (162.56 cm) (R); 17:29 BP 171 / 72; Pulse 82; Resp 17; Pulse Ox 100% ; ll1 19:00 BP 159 / 69; Pulse 80; Resp 18; Pulse Ox 100% ; ll1 15:53 Body Mass Index 27.46 (72.57 kg, 162.56 cm) ca1 [place] Coma Score: 17:12 Eye Response: spontaneous(4). Verbal Response: oriented(5). Motor Response: obeys ll1 commands(6). Total: 15. Trauma Score (Adult): 17:12 Eye Response: spontaneous(1); Verbal Response: oriented(1); Motor Response: obeys ll1 commands(2); Systolic BP: > 89 mm Hg(4); Respiratory Rate: 10 to 29 per min(4); Vidya Score: 15; Trauma Score: 12 ED Course: 15:34 Patient arrived in ED. fj1 15:56 Triage completed. ca1 15:58 Arm band placed on right wrist. ca1 15:59 India Macdonald, RN is Primary Nurse. ll1 16:02 Jaime Pang MD is Attending Physician. kdr 17:15 Patient has correct armband on for positive identification. Placed in gown. Bed in low ll1 position. Call light in reach. Side rails up X2. 17:15 Patient maintains SpO2 saturation greater than 95% on room air. Thermoregulation: warm ll1 blanket given to patient. 19:00 No provider procedures requiring assistance completed. Patient did not have IV access ss during this emergency room visit. Administered Medications: No medications were administered Intake: 19:07 IV: 0ml; Total: 0ml. ll1 Output: 19:07 Urine: 0ml; Total: 0ml. ll1 Outcome: 18:06 Discharge ordered by . kdr 19:00 Discharged to home via wheelchair, with family. ss 19:00 Condition: good 19:00 Discharge instructions given to patient, family, Instructed on discharge instructions, follow up and referral plans. Demonstrated understanding of instructions, follow-up care. 19:06 Patient left the ED. ll1 19:07 Patient's length of stay in the Emergency Department was greater than 2 hours. ll1 resultsPatient's length of stay extended due to Signatures: Jaime Pang MD MD [facility] Noreen Lux RN RN Susy June RN RN ca1 Jitendra Vance fj India Macdonald, FRACISCO RN ll1 Corrections: (The following items were deleted from the chart) 15:57 15:53 Chief complaint: Patient states: Slipped and fell forward. Landed on face. ca1 Bruising and Lac on nose. Happened around noon. Denies LOC. ca1
--- NOTE | 2020-06-04 18:06 | EDPHYS ---
Physician Documentation [facility] Name: Rachel Saleh Age: 89 yrs Sex: Female : 1930 Arrival Date: 06/04/2020 Time: 15:34 Bed 20 Private MD: ED Physician Jaime Pang HPI: 06/04 16:14 This 89 yrs old Female presents to ER via Wheelchair with complaints of Fall kdr Injury. 16:14 Details of fall: The patient fell from an upright position, while walking. Onset: The kdr symptoms/episode began/occurred suddenly, at 12:30. Associated injuries: The patient sustained Nose/facial . Severity of symptoms: At their worst the symptoms were very mild, in the emergency department the symptoms have resolved. The patient has not experienced similar symptoms in the past. The patient has not recently seen a physician. Historical: - Allergies: 15:58 Lotrel; ca1 15:58 Namenda; ca1 15:58 Sulfa (Sulfonamide Antibiotics); ca1 - Home Meds: 15:58 atorvastatin 10 mg Oral tab 1 tab nightly [Active]; escitalopram oxalate 10 mg Oral tab ca1 1 tab once daily [Active]; hydralazine 25 mg Oral tab 1 tab 2 times per day [Active]; lactulose 10 gram/15 mL (15 mL) Oral soln 15 mL twice a day [Active]; levothyroxine 25 mcg tab 1 tab once daily [Active]; modafinil 100 mg Oral tab 1 tabs once daily [Active]; nitroglycerin 0.4 mg SL subl 1 tab every 5 minutes [Active]; spironolactone 100 mg Oral tab 1 tab once daily [Active]; - PMHx: 15:58 Anemia; Arthritis; CAD; Cataracts; C-diff; Dementia; Depression; ENCEPHALOPATHY; ca1 generalized weakness; GERD; High Cholesterol; Hyperlipidemia; Hypertension; Hypothyroidism; Osteopenia; Osteoporosis; Rheumatoid Arthritis; unspecified edema; UTI; - Immunization history:: Adult Immunizations up to date, Last tetanus immunization: unknown, Pneumococcal vaccine is up to date, Flu vaccine is up to date. - Social history:: Smoking status: Patient denies any tobacco usage or history of. ROS: 16:14 Constitutional: Negative for fever, chills, and weight loss, Eyes: Negative for injury, kdr pain, redness, and discharge, Neck: Negative for injury, pain, and swelling, Cardiovascular: Negative for chest pain, palpitations, and edema, Respiratory: Negative for shortness of breath, cough, wheezing, and pleuritic chest pain, Abdomen/GI: Negative for abdominal pain, nausea, vomiting, diarrhea, and constipation, Back: Negative for injury and pain, : Negative for injury, bleeding, discharge, and swelling, MS/Extremity: Negative for injury and deformity, Skin: Negative for injury, rash, and discoloration, Neuro: Negative for headache, weakness, numbness, tingling, and seizure activity. Psych: Negative for depression, anxiety, suicide ideation, homicidal ideation, and hallucinations, Allergy/Immunology: Negative for hives, rash, and allergies, Endocrine: Negative for neck swelling, polydipsia, polyuria, polyphagia, and marked weight changes, Hematologic/Lymphatic: Negative for swollen nodes, abnormal bleeding, and unusual bruising. 16:14 ENT: Positive for nose bleed, Nasal swelling and hematoma!. Exam: 16:14 Constitutional: This is a well developed, well nourished patient who is awake, alert, kdr and in no acute distress. Eyes: Pupils equal round and reactive to light, extra-ocular motions intact. Lids and lashes normal. Conjunctiva and sclera are non-icteric and not injected. Cornea within normal limits. Periorbital areas with no swelling, redness, or edema. Neck: Trachea midline, no thyromegaly or masses palpated, and no cervical lymphadenopathy. Supple, full range of motion without nuchal rigidity, or vertebral point tenderness. No Meningismus. Chest/axilla: Normal chest wall appearance and motion. Nontender with no deformity. No lesions are appreciated. Cardiovascular: Regular rate and rhythm with a normal S1 and S2. No gallops, murmurs, or rubs. Normal PMI, no JVD. No pulse deficits. Respiratory: Lungs have equal breath sounds bilaterally, clear to auscultation and percussion. No rales, rhonchi or wheezes noted. No increased work of breathing, no retractions or nasal flaring. Abdomen/GI: Soft, non-tender, with normal bowel sounds. No distension or tympany. No guarding or rebound. No evidence of tenderness throughout. Back: No spinal tenderness. No costovertebral tenderness. Full range of motion. Skin: Warm, dry with normal turgor. Normal color with no rashes, no lesions, and no evidence of cellulitis. MS/ Extremity: Pulses equal, no cyanosis. Neurovascular intact. Full, normal range of motion. Neuro: Awake and alert, GCS 15, oriented to person, place, time, and situation. Cranial nerves II-XII grossly intact. Motor strength 5/5 in all extremities. Sensory grossly intact. Cerebellar exam normal. Normal gait. Psych: Awake, alert, with orientation to person, place and time. Behavior, mood, and affect are within normal limits. 16:14 Head/face: Noted is contusion, deformity, elevation, ecchymosis, hematoma, swelling, of the bridge of nose, right side of nose and left side of nose. Vital Signs: 15:53 BP 162 / 81; Pulse 82; Resp 15 S; Temp 97.9(TE); Pulse Ox 98% on R/A; Weight 72.57 kg ca1 (R); Height 5 ft. 4 in. (162.56 cm) (R); 17:29 BP 171 / 72; Pulse 82; Resp 17; Pulse Ox 100% ; ll1 19:00 BP 159 / 69; Pulse 80; Resp 18; Pulse Ox 100% ; ll1 15:53 Body Mass Index 27.46 (72.57 kg, 162.56 cm) ca1 [place] Coma Score: 17:12 Eye Response: spontaneous(4). Verbal Response: oriented(5). Motor Response: obeys ll1 commands(6). Total: 15. Trauma Score (Adult): 17:12 Eye Response: spontaneous(1); Verbal Response: oriented(1); Motor Response: obeys ll1 commands(2); Systolic BP: > 89 mm Hg(4); Respiratory Rate: 10 to 29 per min(4); Vidya Score: 15; Trauma Score: 12 MDM: 18:06 Patient medically screened. kdr 18:08 Data reviewed: vital signs, nurses notes, radiologic studies. Counseling: I had a kdr detailed discussion with the patient and/or guardian regarding: the historical points, exam findings, and any diagnostic results supporting the discharge/admit diagnosis, radiology results, the need for outpatient follow up. 06/04 16:13 Order name: CT Facial Bones W/ Con \T\ Mpr kdr 06/04 16:13 Order name: CT Head C Spine kdr 06/04 17:07 Order name: CT; Complete Time: 18:04 EDMS 06/04 17:08 Order name: CT; Complete Time: 18:04 EDMS Administered Medications: No medications were administered Disposition: 06/04/20 18:06 Discharged to Home. Impression: Other slipping, tripping and stumbling and falls, Fracture of nasal bones, Superficial injury of head. - Condition is Stable. - Discharge Instructions: Nasal Fracture, [id number], Head Injury, Adult, [id number]. - Medication Reconciliation Form, Thank You Letter form. - Follow up: Private Physician; When: 2 - 3 days; Reason: If symptoms return, Further diagnostic work-up, Recheck today's complaints, Continuance of care, Re-evaluation by your physician. - Problem is new. - Symptoms have improved. Signatures: Dispatcher [employer] EDMS Jaime Pang MD MD kdr Shaylee, Susy RN RN ca1 India Macdonald RN RN ll1 Corrections: (The following items were deleted from the chart) 19:06 18:06 06/04/2020 18:06 Discharged to Home. Impression: Other slipping, tripping and ll1 stumbling and falls; Fracture of nasal bones; Superficial injury of head. Condition is Stable. Forms are Medication Reconciliation Form, Thank You Letter, Antibiotic Education, Prescription Opioid Use. Follow up: Private Physician; When: 2 - 3 days; Reason: If symptoms return, Further diagnostic work-up, Recheck today's complaints, Continuance of care, Re-evaluation by your physician. Problem is new. Symptoms have improved. kdr
--- OUTSIDE RECORDS SUMMARY | 2020-06-04 18:42 | XMS REPORT | Continuity of Care Document ---
:1930 Author Organization [facility] Address [facility] [address] [place] [address] Care Team Providers Name Role Phone Asked, Pcp Primary Care Physician Unavailable Doctor Unassigned, Name Attending Clinician Unavailable Doreen Vargas Attending Clinician Luca BRIONES Attending Clinician MATTHIAS Attending Clinician Unavailable Luca BRIONES Admitting Clinician MATTHIAS Admitting Clinician Unavailable Problems Condition Condition Condition Status Onset Resolution Last Treating Co mments Source Name Details Category Date Date Treatment Clinician Date Other Other Disease Active [place] specified specified 07-25 Meth nando rheumatoid rheumatoid 00:00: st arthritis, arthritis, 00 multiple multiple sites sites Allergies, Adverse Reactions, Alerts Allergy Allergy Status Severity Reaction(s) Onset Inactive Treating Comm ents Source Name Type Date Date Clinician Atorvast Propensi Active Rash [place] atin ty to 615 Methodi adverse 00:00: st reaction 00 s to drug Amlodipi Propensi Active [place] ne-Benaz ty to 615 Methodi epril adverse 00:00: st reaction 00 s to drug Sulfa Propensi Active [place] (Sulfona ty to 15 Methodi mide adverse 00:00: st Antibiot reaction 00 ics) s to drug Social History Social Habit Start Date Stop Date Quantity Comments Source Sex Assigned At [facility] ethodist Alcohol intake 2016-07-25 2016-07-25 Current [facility] thodist 00:00:00 00:00:00 non-drinker of alcohol (finding) Smoking Status Start Date Stop Date Source Never smoker Jonathan Wattersis t Medications Ordered Filled Start Stop Current Ordering Indication Dosage Frequency Signature Comments Components Source Medication Medication Date Date Medication? Clinician (SIG) Name Name INFLIXIMAB Yes 400mg Infuse 400 Castillo (REMICADE 8-29 mg into a Metho di IV) 10:37: venous st 44 catheter. Once every 3 months naproxen-di Yes 1{tbl} QD Take 1 [place] phenhydrami 8-29 tablet by Met vishal ne (ALEVE 00:00: mouth st PM) 220-25 00 nightly as mg tablet needed (insomina) . cholecalcif Yes 2000U QD Take 1 Elie ston herrera, 8-29 tablet Methodi vitamin D3, 00:00: (2,000 st (VITAMIN 00 Units D3) 2,000 total) by unit tablet mouth daily. multivit Yes 1{tbl} QD Take 1 [place] with 8-29 tablet by Methodi min-FA-lyco 00:00: mouth st pene 00 daily. 0.4-600 mg-mcg capsule biotin Yes 5000ug QD Take 5,000 Elie ston 2,500 mcg 8-29 mcg by Methodi tablet 00:00: mouth st 00 daily. levothyroxi Yes 25ug QD Take 25 Elie ston ne 8-26 mcg by Methodi (SYNTHROID, 00:00: mouth st LEVOTHROID) 00 daily. 25 MCG tablet triamterene Yes TK ONE C [place] -hydrochlor 8-19 PO QAM Method i othiazid 00:00: st (DYAZIDE) 00 37.5-25 mg per capsule simvastatin Yes TK 1 T PO [place] (ZOCOR) 20 8-08 QD IN THE Meth nando MG tablet 00:00: EVENING st 00 PREVIDENT Yes BRUSH ON [place] 8-08 TEETH TID Methodi BOOSTER 00:00: st PLUS 1.1 % 00 paste SUPREP Yes MIX AND Castillo BOWEL PREP 8-05 DRINK A Method i KIT 00:00: DOSE WITH st 17.5-3.13-1 00 A LARGE .6 gram GLASS OF recon soln WATER AT 5 PM AND 1 DOSE WITH LARGE GLASS OF WATER AT 9 PM metoprolol Yes 100mg Q.5D Take 100 [place] tartrate 7-07 mg by Methodi (LOPRESSOR) 00:00: mouth 2 st 100 MG 00 (two) tablet times a day. raloxifene Yes TK 1 T PO Moi ayala (EVISTA) 60 6-27 QD Methodi mg tablet 00:00: st 00 NAMENDA XR Yes Castillo 28 mg 5-31 Methodi capsule,spr 00:00: st inkle,ER 00 24hr Procedures This patient has no known procedures. Plan of Care Planned Activity Planned Date Details Comments Source Future Scheduled 2020-06-27 INFLUENZA VACCINE [place] [facility] 00:00:00 [code = INFLUENZA VACCINE] Future Scheduled 1997 65+ PNEUMOCOCCAL [facility] 00:00:00 VACCINE (1 of 2 - PCV13) [code = 65+ PNEUMOCOCCAL VACCINE (1 of 2 - PCV13)] Future Scheduled 1982 SHINGLES VACCINES (#1) [facility] Test 00:00:00 [code = SHINGLES VACCINES (#1)] Encounters Start End Encounter Admission Attending Care Care Encounter Source Date/Time Date/Time Type Type Clinicians Facility Department ID 2020-03-30 2020-03-30 Orders Doctor WALL [id number] 18 00:00:00 00:00:00 Only UnassignedNAZIA [id number] [facility] [id number] [id number] 2020-03-16 2020-03-16 Orders Doctor WALL [id number] 75 00:00:00 00:00:00 Only UnassignedNAZIA [id number] [facility] [id number] 2020-02-28 2020-03-02 Hospital Mariela Jaime Doreen [facility] [id number] 16:38:44 16:46:00 Encounter Stacia Segovia [place] [id number] [place] [id number] [place] [id number] 081 Results Test Description Test Time Test Comments Results Result Comments Source CBC WITH AUTO DIFF 2017-07-23 05:57:00 Test Item Value Reference Range Interpretation Comme nts WBC (test code = WBC) 4.50 10\\S\\3/ul 4.80-10.80 L RBC (test code = RBC) 2.86 10\\S\\6/ul 4.20-5.40 L Hemoglobin (test code = HGB) 8.6 gm/dl 12.0-14.0 L Hematocrit (test code = HCT) 26.5 % 37.0-47.0 L MCV (test code = MCV) 92.7 fL 81.0-99.0 MCH (test code = MCH) 30.1 pg 27.0-31.0 MCHC (test code = MCHC) 32.5 gm/dl 33.0-37.0 L RDW (test code = RDWVC) 14.6 % 11.5-14.5 H Platelet (test code = PLT) 111 10\\S\\3/ul 130-400 L MPV (test code = MPV) 10.5 fL 7.4-10.4 A "NOT M EASURED" RESULTS ARE DISPLAYED WHEN THE INSTRUMENT HAS A SUPPRESSE D OR UNREPORTABLE RE SULT. THIS WILL MOST OFTEN HAPPEN WITH THE MPV WHEN TH ERE IS AN ABNORMAL PLATLE T DISTRIBUTION DUE TO A CRITIC AL LOW VALUE OR PLATELET CLU MPING. NE% (test code = NE) 36.6 % 42.0-75.0 L LY% (test code = LY) 48.4 % 13.0-42.0 H MO% (test code = MO) 9.1 % 4.0-14.0 EO% (test code = EO) 5.3 % 1.0-3.0 H BA% (test code = BA) 0.4 % 1.0-3.0 L IG% (test code = IG%) 0.2 % 0.0-0.4 [id number] 05:43:00 Test Item Value Reference Range Interpretation Comments Glucose (test code 83 mg/dl 75-110 = GLU) BUN (test code = 27.0 mg/dl 6.0-17.0 H BUN) Creatinine (test 1.3 mg/dl 0.4-1.2 H code = CREA) Sodium (test code = 137 mmol/l 137-145 NA) Potassium (test 4.0 mmol/l 3.5-5.0 code = K) Chloride (test code 103 mmol/l 98-107 = CL) CO2 (test code = 25 mmol/l 22-30 CO2) Calcium (test code 8.6 mg/dl 8.4-10.2 = CALC) EGFR if 50 Latvian (test code mL/min/1.73m\\ = EGFRAA) S\\2 EGFR if Non- 41 Estimate d Glomerular [place]vian (test code mL/min/1.73m\\ Filtrat ion Rate (eGFR) = EGFRNA) S\\2 Reference Inter vals Decision Points for 18 years and older and average body ma ss: >= 60 Does not exc lude kidney disease. 30 - 59 Suggests modera te chronic kidney disease and indicat es the need for furthe r investigation including asses sment of proteinuria and cardiovascular factors. < 30 Usually in dicates a need for refe rral for assessment and management of c hronic kidney failure.
--- OUTSIDE RECORDS SUMMARY | 2020-06-04 18:42 | XMS REPORT | Clinical Summary ---
:1930 Author Organization [facility] Address [address] [place] [address] Care Team Providers Name Role Phone Asked, Pcp Primary Care Provider Unavailable Allergies Active Allergy Reactions Severity Noted Date Comments Atorvastatin Rash Low 05/11/2016 Amlodipine-Benazepril 05/11/2016 Sulfa (Sulfonamide Antibiotics) 6 Medications Medication Sig Dispensed Refills Start Date End Date Status INFLIXIMAB (REMICADE Infuse 400 mg 0 Active IV) into a venous catheter. Once every 3 months levothyroxine Take 25 mcg by 0 07/22/2016 Active (SYNTHROID, LEVOTHROID) mouth daily. 25 MCG tablet NAMENDA XR 28 mg 0 04/26/2016 Ac tive capsule,sprinkle,ER 24hr metoprolol tartrate Take 100 mg [...] capsule naproxen-diphenhydramin Take 1 tablet by 0 6 Active e (ALEVE PM) 220-25 mg mouth nightly as tablet needed (insomina). cholecalciferol, Take 1 tablet 0 07/25/2016 Active vitamin D3, (VITAMIN (2,000 Units D3) 2,000 unit tablet total) by mouth daily. multivit with Take 1 tablet by 0 07/25/2016 Active def-DL-lfhgoupd 0.4-600 mouth daily. mg-mcg capsule biotin 2,500 mcg tablet Take 5,000 mcg by 0 07/25/20 16 Active mouth daily. 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
--- OUTSIDE RECORDS SUMMARY | 2020-06-04 18:42 | XMS REPORT | Summary of Care ---
:1930 Author Organization [facility] - Health Address [address] [place] [address] Care Team Providers Name Role Phone Pcp, Patient Does Not Have A Primary Care Provider +1-000-00 0-0000 Elena Andrew DO Body Masker Encounter Details Date Type Department Care Team Description 03/16/2020 Orders Only [facility] Doctor Unassigned, No [address] [facility] [place] [address] [address] [place] [address] Allergies Active Allergy Reactions Severity Noted Date Comments Amlodipine-Benazepril Unknown - See comments 6 Atorvastatin Rash Low 05/11/2016 Sulfa (Sulfonamide Antibiotics) Unknown - See comments 05/11/2016 documented as of this encounter (statuses as of 03/18/2020) Medications Medication Sig Dispensed Refills Start Date End Date Status traMADOL 50 mg tablet Take 50 mg by 0 Active mouth every 6 (six) hours as needed. simvastatin 20 mg tablet Take 20 mg by 0 Active mouth at bedtime. atorvastatin 10 mg Take 10 mg by 0 Active tablet mouth at bedtime. CHOLECALCIFEROL, VITAMIN 0 Active D3, (CHOLECALCIFEROL, VIT D3,,BULK, MISC) levothyroxine 25 mcg Take 25 mcg by 0 Active tablet mouth every morning. metoprolol succinate XL Take 100 mg by 0 Active 100 mg 24 hr tablet mouth daily. raloxifene (EVISTA) 60 Take 60 mg by 0 Active mg tablet mouth daily. donepezil 5 mg tablet Take 5 mg by 0 Active mouth at bedtime. rivaroxaban (XARELTO) 10 Take by mouth 0 Active mg tablet daily. aspirin (LO-DOSE Take 81 mg by 0 Active ASPIRIN) 81 mg EC tablet mouth daily. losartan 100 mg tablet Take 100 mg by 0 Active mouth daily. FOLIC ACID ORAL Take by mouth. 0 Active escitalopram oxalate Take 10 mg by 0 Active (LEXAPRO) 10 mg tablet mouth daily. MAGNESIUM OXIDE ORAL Take by mouth. 0 Active omeprazole 20 mg capsule Take 20 mg by 0 Active mouth daily. BIOTIN ORAL Take by mouth. 0 Ac tive Food Supplement, Take by mouth. 0 Active Lactose-Free (ENSURE HIGH PROTEIN) liquid acetaminophen 325 mg Take by mouth 0 Active tablet every 6 (six) hours as needed. guaiFENesin Take by mouth 0 Act andrew (GUERO-TUSSIN) 100 mg/5 every 4 (four) mL solution hours. lactulose 10 gram/15 mL Take 30 mL by 0 Active oral solution mouth 3 (three) times daily. documented as of this encounter (statuses as of 03/18/2020) Active Problems Problem Noted Date Pneumonia due to infectious organism 02/29/2020 Chronic diastolic congestive heart failure 02/29/2020 LBBB (left bundle branch block) 02/29/2020 Essential hypertension 02/29/2020 Anemia 02/29/2020 Thrombocytopenia 02/29/2020 Hypertensive urgency 02/29/2020 NSTEMI (non-ST elevated myocardial infarction) 020 documented as of this encounter (statuses as of 03/18/2020) Social History Tobacco Use Types Packs/Day Years Used Date Never Smoker Smokeless Tobacco: Never Used Sex Assigned at Date Recorded Not on file Job Start Date Occupation Industry Not on file Not on file Not on file Travel History Travel Start Travel End No recent travel history available. documented as of this encounter Last Filed Vital Signs Not on filedocumented in this encounter Plan of Treatment Health Maintenance Due Date Last Done Comments DTaP,Tdap,and Td Vaccines (1 - Tdap) 1941 Zoster Recombinant Vaccine (SHINGRIX) (1 of 2) 1982 Medicare Wellness Visit 1997 Osteoporosis Screening 1997 PNEUMOCOCCAL VACCINES 65+ (1 of 2 - PCV13) 1997 INFLUENZA VACCINE (#1) 2019 documented as of this encounter Procedures Procedure Name Priority Date/Time Associated Diagnosis Comme nts HOME HEALTH - OTHER Routine 03/16/2020 12:01 AM CDT documented in this encounter Results Not on filedocumented in this encounter Insurance Payer Benefit Plan / Subscriber ID Effective Dates Phone Addre ss Type Group HUMANA - HUMANA [id number] 2016-[place] [facility] Adv MANAGED MEDICARE t FFS MEDICARE documented as of this encounter
--- OUTSIDE RECORDS SUMMARY | 2020-06-04 18:43 | XMS REPORT | Summary of Care ---
:1930 Author Organization [facility] - Health Address [address] [place] [address] Care Team Providers Name Role Phone Pcp, Patient Does Not Have A Primary Care Provider +1-000-00 0-0000 Elena Andrew DO Environmental Services Technician Encounter Details Date Type Department Care Team Description 03/30/2020 Orders Only [facility] Doctor Unassigned, No 301 [facility] [place] [address] [address] [place] [address] Allergies Active Allergy Reactions Severity Noted Date Comments Amlodipine-Benazepril Unknown - See comments 6 Atorvastatin Rash Low 05/11/2016 Sulfa (Sulfonamide Antibiotics) Unknown - See comments 05/11/2016 documented as of this encounter (statuses as of 03/31/2020) Medications Medication Sig Dispensed Refills Start Date [...] as of this encounter (statuses as of 03/31/2020) Active Problems Problem Noted Date Pneumonia due to infectious organism 02/29/2020 Chronic diastolic congestive heart failure 02/29/2020 LBBB (left bundle branch block) 02/29/2020 Essential hypertension 02/29/2020 Anemia 02/29/2020 Thrombocytopenia 02/29/2020 Hypertensive urgency 02/29/2020 NSTEMI (non-ST elevated myocardial infarction) 020 documented as of this encounter (statuses as of 03/31/2020) Social History Tobacco Use Types Packs/Day Years [...] of 2 - PCV13) 1997 INFLUENZA VACCINE (Season Ended) 2020 documented as of this encounter Procedures Procedure Name Priority Date/Time Associated Diagnosis Comme nts HOME HEALTH - OTHER Routine 03/30/2020 12:01 AM CDT documented in this encounter Results Not on filedocumented in this encounter Insurance Payer Benefit Plan / Subscriber ID Effective Dates Phone Addre ss Type Group HUMANA - HUMANA [id number] 2016-[place] [facility] Adv MANAGED MEDICARE t FFS MEDICARE documented as of this encounter
[2020-06-04 19:11] VITALS: TEMP 97.9
[2020-06-04 19:12] VITALS: O2SAT 100
[2020-06-04 19:14] VITALS: BP 159/69
== END 2020-06-04 19:06 | disposition home or self-care (01) ==
LOC: ER 15:24
DX: S02.2XXA Fracture of nasal bones, initial encounter for closed fracture (principal); W01.0XXA Fall on same level from slipping, tripping and stumbling without subsequent striking against object, initial encounter; Y93.01 Activity, walking, marching and hiking; Y92.9 Unspecified place or not applicable; Z88.2 Allergy status to sulfonamides; Z88.8 Allergy status to other drugs, medicaments and biological substances; I10 Essential (primary) hypertension; E78.5 Hyperlipidemia, unspecified; E78.00 Pure hypercholesterolemia, unspecified; E03.9 Hypothyroidism, unspecified
CPT/HCPCS: 70450; 70486; 72125; 76377; 99284; G0390

== ENCOUNTER 2021-02-04 11:58 | Inpatient (IN) | payer OTHER, SELFPAY ==
--- OUTSIDE RECORDS SUMMARY | 2021-02-04 12:00 | XMS REPORT | Continuity of Care Document ---
:1930 Author Organization [facility] t Address [address] [place] [address] Care Team Providers Name Role Phone Asked, Pcp Primary Care Physician Unavailable Doctor Unassigned, Name Attending Clinician Unavailable Doreen Vargas Attending Clinician Luca BRIONES Attending Clinician MATTHIAS Attending Clinician Unavailable Luca BRIONES Admitting Clinician MATTHIAS Admitting Clinician Unavailable Problems Condition Condition Condition Status Onset Resolution Last Treating Co mments Source Name Details Category Date Date Treatment Clinician Date Other Other Disease Active [place] specified specified 07-25 Meth nando rheumatoid rheumatoid 00:00: st arthritis, arthritis, 00 multiple multiple sites sites Allergies, Adverse Reactions, Alerts Allergy Allergy Status Severity Reaction(s) Onset Inactive Treating Comm ents Source Name Type Date Date Clinician Atorvast Propensi Active Rash [place] atin ty to 6-15 Methodi adverse 00:00: st reaction 00 s to drug Amlodipi Propensi Active [place] ne-Benaz ty to 6-15 Methodi epril adverse 00:00: st reaction 00 s to drug Sulfa Propensi Active [place] (Sulfona ty to 6-15 Methodi mide adverse 00:00: st Antibiot reaction 00 ics) s to drug Social History Social Habit Start Date Stop Date Quantity Comments Source Alcohol intake 2016-07-25 2016-07-25 Current [facility] thodist 00:00:00 00:00:00 non-drinker of alcohol (finding) Sex Assigned At [birth year] [facility] ethodist 00:00:00 00:00:00 Smoking Status Start Date Stop Date Source Never smoker Cast[facility] Methodis t Medications Ordered Filled Start Stop Current Ordering Indication Dosage Frequency Signature Comments Components Source Medication Medication Date Date Medication? Clinician (SIG) Name Name INFLIXIMAB Yes 400mg Infuse 400 Jonathan (REMICADE 8-29 mg into a Metho di IV) 10:37: venous st 44 catheter. Once every 3 months naproxen-di Yes 1{tbl} QD Take 1 [place] phenhydrami 8-29 tablet by Met vishal blair (ALEVE 00:00: mouth st PM) 220-25 00 [...] SUPREP Yes MIX AND [place] BOWEL PREP 05 DRINK A Method i KIT 00:00: DOSE WITH st 17.5-3.13-1 00 A LARGE .6 gram GLASS OF recon soln WATER AT 5 PM AND 1 DOSE WITH LARGE GLASS OF WATER AT 9 PM metoprolol Yes 100mg Q.5D Take 100 [place] tartrate 7-07 mg by Methodi (LOPRESSOR) 00:00: [...] Future Scheduled 2020-06-27 INFLUENZA VACCINE [place] [facility] 00:00:00 [code = INFLUENZA VACCINE] Future Scheduled 1997 65+ PNEUMOCOCCAL [facility] 00:00:00 VACCINE (1 of 1 - PPSV23) [code = 65+ PNEUMOCOCCAL VACCINE (1 of 1 - PPSV23)] Future Scheduled 1982 SHINGLES VACCINES (#1) [facility] 00:00:00 [code = SHINGLES VACCINES (#1)] Future Scheduled 1948 COVID-19 VACCINE (1 of [place] [facility] 00:00:00 2) [code = COVID-19 VACCINE (1 of 2)] Encounters Start End Encounter Admission Attending Care Care Encounter Source Date/Time Date/Time Type Type Clinicians Facility Department ID 2020-03-30 2020-03-30 Orders Doctor WALL [id number] 00:00:00 00:00:00 Only UnassignedNAZIA [id number] [place] [facility] [id number] [id number] 2020-03-16 2020-03-16 Orders Doctor WALL [id number] 00:00:00 00:00:00 Only UnassignedNAZIA [id number] [place] [facility] [id number] 2020-02-28 2020-03-02 [facility] Jaime [place] [facility] [id number] 16:38:44 16:46:00 Encounter Stacia Segovia [id number] [place] [id number] [place] [id number] [id number] Results Test Description Test Time Test [...] (test code = IG%) 0.2 % 0.0-0.4 [id number] 05:43:00 Test Item Value Reference Range Interpretation [...] mg/dl 8.4-10.2 = CALC) EGFR if 50 [place]ian (test code mL/min/1.73m\\ = EGFRAA) S\\2 EGFR if Non- 41 Estimate d Glomerular [place]ian (test code mL/min/1.73m\\ Filtrat ion Rate (eGFR) [...]
[2021-02-04 12:53] LABS: Absolute Lymphocytes (CBC) 1.7 K/uL (0.7-4.9); Basophils % 0.3 % (0-1.3); Lymphocytes % 35.1 % (15.3-44.8); MPV 8.6 fL (7.6-11.3); RBC Red Blood Cell Count 3.51 M/uL (3.86-4.86)
--- NOTE | 2021-02-04 13:01 | RAD REPORT ---
EXAM DESCRIPTION: CT - Head Brain Wo Cont - 02/04/2021 12:48 pm CLINICAL HISTORY: Alteration of awareness/confusion COMPARISON: 2018 TECHNIQUE: Computed axial tomography of the head was obtained. IV contrast was not requested. All CT scans are performed using dose optimization technique as appropriate and may include automated exposure control or mA/KV adjustment according to patient size. FINDINGS: An intracranial bleed is not seen . The ventricles are normal in caliber. No extra-axial fluid collection is noted. Moderate low-density areas within periventricular, deep and subcortical white matter likely represent ischemic changes secondary to small vessel disease. Low-density left cerebrum may be secondary to old infarction. Chronic sinusitis IMPRESSION: No acute intracranial abnormality seen. If the patient's symptoms persist MR brain would be recommended
--- NOTE | 2021-02-04 13:02 | RAD REPORT ---
EXAM DESCRIPTION: Michel Single View02/04/2021 12:45 pm CLINICAL HISTORY: Shortness of breath COMPARISON: 2019 FINDINGS: The lungs appear clear of acute infiltrate. The heart is borderline enlarged IMPRESSION: No acute abnormalities displayed
[2021-02-04 13:09] LABS: Protime INR 1.16
[2021-02-04 13:14] LABS: Sodium Level 140 mmol/L (136-145)
[2021-02-04 13:15] LABS: ALT/SGPT 43 U/L (12-78); AST/SGOT 61 U/L (15-37); Albumin 2.9 g/dL (3.4-5.0); Alkaline Phosphatase 146 U/L (45-117); BUN Blood Urea Nitrogen 37 mg/dL (7-18); Bicarbonate 24 mmol/L (21-32); Bilirubin Direct 0.8 mg/dL (0-0.2); Bilirubin Total 2.5 mg/dL (0.2-1.0); Glucose Level 96 mg/dL (74-106); Magnesium 1.9 mg/dL (1.8-2.4); NT PRO-BNP 769 pg/mL (<450); Protein, Total 7.2 g/dL (6.4-8.2); Troponin (Emerg Dept Use Only) < 0.02 ng/mL (0.0-0.045)
[2021-02-04] MEDS ORDERED: NA CHLORIDE 0.9% 500 ML ONE (13:58)
[2021-02-04] MEDS ORDERED: NA CHLORIDE 0.9% 1,000 ML ONE (13:58)
[2021-02-04] MEDS ORDERED: CEFTRIAXONE/SWI 1gm 1 GM/10 ML SYR ONE (13:59)
--- NOTE | 2021-02-04 14:46 | EDPHYS ---
Physician Documentation [facility] Name: Rachel Saleh Age: 89 yrs Sex: Female : 1930 Arrival Date: 02/04/2021 Time: 12:14 Bed 15 Private MD: ED Physician Art Chow HPI: 02/04 13:49 This 89 yrs old Female presents to ER via EMS with complaints of Altered jaki Mental Status. 13:49 The patient presents with agitation, confusion, trouble concentrating. Onset: The jaki symptoms/episode began/occurred 2 day(s) ago. Possible causes: low blood sugar, sepsis, hepatic encepholopathy. Associated signs and symptoms: Pertinent positives: confusion. Current symptoms: In the emergency department the patient's symptoms are unchanged from the initial presentation. Patient's baseline: Neuro: alert but confused, orientated to person, place, Motor: no deficits, Speech: normal, normal for age. The patient has experienced similar episodes in the past, several times. Historical: - Allergies: 12:18 Lotrel; dm5 12:18 Namenda; dm5 12:18 Sulfa (Sulfonamide Antibiotics); dm5 - PMHx: 12:18 Anemia; CAD; UTI; unspecified edema; Rheumatoid Arthritis; Osteoporosis; Osteopenia; dm5 Hypothyroidism; Hypertension; Hyperlipidemia; High Cholesterol; GERD; generalized weakness; ENCEPHALOPATHY; Depression; Dementia; C-diff; Cataracts; Arthritis; - Family history:: not pertinent. ROS: 13:49 Constitutional: Negative for fever, chills, and weight loss, Eyes: Negative for injury, jaki pain, redness, and discharge, ENT: Negative for injury, pain, and discharge, Neck: Negative for injury, pain, and swelling, Cardiovascular: Negative for chest pain, palpitations, and edema, Respiratory: Negative for shortness of breath, cough, wheezing, and pleuritic chest pain, Abdomen/GI: Negative for abdominal pain, nausea, vomiting, diarrhea, and constipation, Back: Negative for injury and pain, : Negative for injury, bleeding, discharge, and swelling, MS/Extremity: Negative for injury and deformity, Skin: Negative for injury, rash, and discoloration, Psych: Negative for depression, anxiety, suicide ideation, homicidal ideation, and hallucinations, Allergy/Immunology: Negative for hives, rash, and allergies, Endocrine: Negative for neck swelling, polydipsia, polyuria, polyphagia, and marked weight changes, Hematologic/Lymphatic: Negative for swollen nodes, abnormal bleeding, and unusual bruising. 13:49 Neuro: Positive for altered mental status, weakness. Exam: 13:49 Constitutional: This is a well developed, well nourished patient who is awake, alert, jaki and in no acute distress. Head/Face: Normocephalic, atraumatic. Eyes: Pupils equal round and reactive to light, extra-ocular motions intact. Lids and lashes normal. Conjunctiva and sclera are non-icteric and not injected. Cornea within normal limits. Periorbital areas with no swelling, redness, or edema. ENT: Nares patent. No nasal discharge, no septal abnormalities noted. Tympanic membranes are normal and external auditory canals are clear. Oropharynx with no redness, swelling, or masses, exudates, or evidence of obstruction, uvula midline. Mucous membranes moist. Neck: Trachea midline, no thyromegaly or masses palpated, and no cervical lymphadenopathy. Supple, full range of motion without nuchal rigidity, or vertebral point tenderness. No Meningismus. Chest/axilla: Normal chest wall appearance and motion. Nontender with no deformity. No lesions are appreciated. Cardiovascular: Regular rate and rhythm with a normal S1 and S2. No gallops, murmurs, or rubs. Normal PMI, no JVD. No pulse deficits. Respiratory: Lungs have equal breath sounds bilaterally, clear to auscultation and percussion. No rales, rhonchi or wheezes noted. No increased work of breathing, no retractions or nasal flaring. Abdomen/GI: Soft, non-tender, with normal bowel sounds. No distension or tympany. No guarding or rebound. No evidence of tenderness throughout. Back: No spinal tenderness. No costovertebral tenderness. Full range of motion. Skin: Warm, dry with normal turgor. Normal color with no rashes, no lesions, and no evidence of cellulitis. MS/ Extremity: Pulses equal, no cyanosis. Neurovascular intact. Full, normal range of motion. Psych: Awake, alert, with orientation to person, place and time. Behavior, mood, and affect are within normal limits. 13:49 Neuro: Orientation: appropriate for stated age, no acute changes, to person, place, Not oriented to time, situation, Mentation: slow to respond, confused, Memory: immediate memory is impaired, remote memory is impaired, recent memory is intact, Cerebellar function: no acute changes, Motor: is normal, is grossly normal based on the patient's age, Sensation: no obvious gross deficits, appropriate no acute changes, Gait: not tested. seizure activity, is not displayed by the patient. 14:45 ECG was reviewed by the Attending Physician. jaki Vital Signs: 12:15 BP 158 / 62; Pulse 81; Resp 16; Temp 98.5(O); Pulse Ox 98% on R/A; Pain 0/10; zb 13:25 BP 148 / 86; Pulse 74; Resp 16; Pulse Ox 96% on R/A; zb 14:00 BP 157 / 63; Pulse 83; Resp 18; Pulse Ox 100% on R/A; zb 16:00 BP 155 / 68; Pulse 80; Resp 16; Pulse Ox 97% on R/A; zb 17:00 BP 163 / 59; Pulse 88; Resp 18; Pulse Ox 98% on R/A; zb 18:00 BP 168 / 55; Pulse 90; Resp 16; Pulse Ox 95% on R/A; zb 19:23 BP 169 / 54; Pulse 86; Resp 14; Pulse Ox 95% ; tt3 MDM: 12:24 Patient medically screened. jaki 13:57 Differential Diagnosis: CVA, electrolyte abnormality, hypoglycemia, pneumonia, sepsis, jaki TIA, UTI. Data reviewed: vital signs, nurses notes, lab test result(s), EKG, radiologic studies, CT scan, plain films. Data interpreted: facility rehab director: rate is 80 beats/min, rhythm is regular, Pulse oximetry: on room air is 95 %. Test interpretation: by ED physician or midlevel provider: ECG, plain radiologic studies. Counseling: I had a detailed discussion with the patient and/or guardian regarding: the historical points, exam findings, and any diagnostic results supporting the discharge/admit diagnosis, lab results, radiology results, the need for further work-up and treatment in the hospital. 02/04 12:20 Order name: Basic Metabolic Panel dm5 02/04 12:20 Order name: CBC with Diff dm5 02/04 12:20 Order name: LFT's dm5 02/04 12:20 Order name: Magnesium dm5 02/04 12:20 Order name: NT PRO-BNP [facility] 02/04 12:20 Order name: PT-INR [facility] 02/04 12:20 Order name: Troponin (emerg Dept Use Only) [facility] 02/04 12:27 Order name: Urine Culture [facility] 02/04 12:27 Order name: Blood Culture Adult (2) [facility] 02/04 12:27 Order name: Lactate [facility] 02/04 12:44 Order name: AMMONIA [facility] 02/04 12:53 Order name: CBC with Automated Diff; Complete Time: 13:24 [facility] 02/04 13:15 Order name: Basic Metabolic Panel; Complete Time: 13:24 [facility] 02/04 13:15 Order name: Liver (Hepatic) Function; Complete Time: 13:24 [facility] 02/04 12:20 Order name: XRAY Chest (1 view) [facility] 02/04 12:27 Order name: CT Head Brain wo Cont [facility] 02/04 13:02 Order name: CT; Complete Time: 13:24 [facility] 02/04 13:02 Order name: RAD; Complete Time: 13:24 [facility] 02/04 13:15 Order name: Troponin (Emerg Dept Use Only); Complete Time: 13:24 [facility] 02/04 13:15 Order name: NT PRO-BNP; Complete Time: 13:24 [facility] 02/04 13:15 Order name: Magnesium; Complete Time: 13:24 [facility] 02/04 13:39 Order name: Protime (+INR); Complete Time: 14:43 [facility] 02/04 14:29 Order name: Lactate; Complete Time: 14:43 [facility] 02/04 15:23 Order name: Urine Dipstick--Ancillary (enter results) 02/04 15:30 Order name: Urine Dipstick-Ancillary; Complete Time: 19:41 [facility] 02/04 17:27 Order name: Ammonia; Complete Time: 19:41 [facility] 02/04 17:31 Order name: Lactate Sepsis 2 HR Follow-up; Complete Time: 19:41 [facility] 02/04 19:58 Order name: COVID-19 : Document "Date of Symptom Onset" if Symptomatic. em 02/04 20:14 Order name: CORONAVIRUS [facility] 02/04 21:08 Order name: SARS-COV-2 RT PCR [facility] 02/04 12:20 Order name: EKG; Complete Time: 12:21 [facility] 02/04 12:20 Order name: Cardiac monitoring; Complete Time: 14:27 [facility] 02/04 12:20 Order name: EKG - Nurse/Tech; Complete Time: 14:27 [facility] 02/04 12:20 Order name: IV Saline Lock; Complete Time: 14:26 [facility] 02/04 12:20 Order name: Labs collected and sent; Complete Time: 14:27 [facility] 02/04 12:20 Order name: O2 Per Protocol; Complete Time: 14:27 [facility] 02/04 12:20 Order name: O2 Sat Monitoring; Complete Time: 14:27 [facility] 02/04 12:27 Order name: Urine Dipstick-Ancillary (obtain specimen); Complete Time: 18:45 jaki 02/04 12:27 Order name: Gallardo; Complete Time: 14:26 jaki EC:45 Rate is 87 beats/min. Rhythm is regular. QRS [place] is Normal. DC interval is normal. QRS jaki interval is normal. QT interval is prolonged at 434 msec. No Q waves. T waves are Normal. No ST changes noted. Clinical impression: Abnormal EKG without significant change and No evidence of ischemia. Interpreted by me. Reviewed by me. Administered Medications: 13:49 Drug: Rocephin 1 grams Route: IV; Rate: per protocol; Site: right jugular; zb 19:52 Follow up: Response: No adverse reaction; IV Status: Completed infusion; IV Intake: zb 1400ml 13:54 Drug: NS 0.9% 1000 ml Route: IV; Rate: 125 ml/hr; Site: right jugular; zb 19:45 Follow up: IV Status: Infusion continued upon admission ss 13:55 Drug: NS 0.9% 500 ml Route: IV; Rate: bolus; Site: right jugular; zb 19:45 Follow up: IV Status: Completed infusion Disposition: 02/04/21 14:45 Hospitalization ordered by Roc York for Inpatient Admission. Preliminary diagnosis are Unspecified cirrhosis of liver, Dementia in other diseases classified elsewhere, Weakness, Urinary tract infection, site not specified, Unspecified kidney failure - chronic. - Bed requested for Telemetry/MedSurg (Inpatient). - Status is Inpatient Admission. mw2 - Condition is Fair. - Problem is new. - Symptoms have improved. Signatures: Dispatcher [employer] EDMS Cleopatra Brink RN RN Art Richardson MD MD cha Westbrook, SandiSylvia mw2 Soheila Valerio Zipporah, RN RN zb Smirch, Shelby RN ss Corrections: (The following items were deleted from the chart) 18:33 14:45 Hospitalization Ordered by Roc York MD for Inpatient Admission. Preliminary eb diagnosis is Unspecified cirrhosis of liver; Dementia in other diseases classified elsewhere; Weakness; Urinary tract infection, site not specified. Bed requested for Telemetry/MedSurg (Inpatient). Status is Inpatient Admission. Condition is Fair. Problem is new. Symptoms have improved. jaki 19:42 18:33 02/04/2021 14:45 Hospitalization Ordered by Roc York MD for Inpatient jaki Admission. Preliminary diagnosis is Unspecified cirrhosis of liver; Dementia in other diseases classified elsewhere; Weakness; Urinary tract infection, site not specified. Bed requested for Telemetry/MedSurg (Inpatient). Status is Inpatient Admission. Condition is Fair. Problem is new. Symptoms have improved. eb 21:37 19:42 02/04/2021 14:45 Hospitalization Ordered by Roc York MD for Inpatient mw2 Admission. Preliminary diagnosis is Unspecified cirrhosis of liver; Dementia in other diseases classified elsewhere; Weakness; Urinary tract infection, site not specified; Unspecified kidney failure - chronic. Bed requested for Telemetry/MedSurg (Inpatient). Status is Inpatient Admission. Condition is Fair. Problem is new. Symptoms have improved. jaki
--- NOTE | 2021-02-04 14:46 | ER ---
Nurse's Notes [facility] Name: Rachel Saleh Age: 89 yrs Sex: Female : 1930 Arrival Date: 02/04/2021 Time: 12:14 Bed 15 Private MD: Diagnosis: Unspecified cirrhosis of liver;Dementia in other diseases classified elsewhere;Weakness;Urinary tract infection, site not specified;Unspecified kidney failure-chronic Presentation: 02/04 12:14 Chief complaint: EMS states: AMS more than normal, pt has history of dementia and UTI, dm5 CVA 2012. Pt is repeating herself more than normal since 0700 this morning. Neg for [place] in the field. Coronavirus screen: Client denies travel out of the [place] in the last 14 days. At this time, the client does not indicate any symptoms associated with coronavirus-19. Ebola Screen: Patient negative for fever greater than or equal to 101.5 degrees Fahrenheit, and additional compatible Ebola Virus Disease symptoms Patient denies exposure to infectious person. Patient denies travel to an Ebola-affected area in the 21 days before illness onset. No symptoms or risks identified at this time. Initial Sepsis Screen: Does the patient meet any 2 criteria? Altered Mental Status. Does the patient have a suspected source of infection? Yes: Dysuria/Frequency/Urgency/UTI. Risk Assessment: Do you want to hurt yourself or someone else? Unable to obtain. Onset of symptoms was February 04, 2021 at 07:00. 12:14 Method Of Arrival: EMS: [facility] dm5 12:14 Acuity: CHRIS 3 dm5 13:18 Acuity: CHRIS 2 zb Historical: - Allergies: 12:18 Lotrel; dm5 12:18 Namenda; dm5 12:18 Sulfa (Sulfonamide Antibiotics); dm5 - PMHx: 12:18 Anemia; CAD; UTI; unspecified edema; Rheumatoid Arthritis; Osteoporosis; Osteopenia; dm5 Hypothyroidism; Hypertension; Hyperlipidemia; High Cholesterol; GERD; generalized weakness; ENCEPHALOPATHY; Depression; Dementia; C-diff; Cataracts; Arthritis; - Family history:: not pertinent. Screenin:00 Abuse screen: Denies threats or abuse. Denies injuries from another. Nutritional zb screening: No deficits noted. Tuberculosis screening: No symptoms or risk factors identified. Fall Risk No fall in past 12 months (0 pts). Secondary diagnosis (15 points) IV access (20 points). Ambulatory Aid- None/Bed Rest/Nurse Assist (0 pts). Gait- Impaired (20 pts.). Mental Status- Overestimates/Forgets Limitations (15 pts.). Total Salter Fall Scale indicates High Risk Score (45 or more points). Fall prevention measures have been instituted. Side Rails Up X 2 Placed Close to Nursing Station Frequent Obs/Assessments Occuring Family Present and informed to notify staff if the need to leave the bedside As available patient and family educated on Fall Prevention Program and Strategies. Assessment: 13:18 General: Appears in no apparent distress. uncomfortable, Behavior is calm, cooperative, zb appropriate for age. Pain: Denies pain. Neuro: Level of Consciousness is awake, alert, obeys commands, confused, Oriented to person, place, Speech is normal. Cardiovascular: Capillary refill < 3 seconds Patient's skin is warm and dry. Respiratory: Airway is patent Respiratory effort is even, unlabored, Respiratory pattern is regular, symmetrical. GI: Abdomen is round non-distended, Bowel sounds present X 4 quads. : Urine is cloudy. EENT: No signs and/or symptoms were reported regarding the EENT system. Derm: Skin is intact, is fragile, is thin, Skin is normal, Bruising that is dark purple, on right antecubital area. 14:00 Reassessment: Patient appears in no apparent distress at this time. family remains at b bedside. patient aox2 with periods of confusion and agitation. 15:00 Reassessment: family remains at bedside no changes for patient at this time. Will zb continue to follow w/ patient. 16:00 Reassessment: family remains at bed. no changes at this time. patient repositioned and zb discussed plan of care. Reassessment:. 17:00 Reassessment: Pt aox2 has periods of confusion. daughter remains at bedside. zb 18:00 Reassessment: daughter switched out with other daughter to keep patient comforted. zb patient remains aox2 with periods of contusion. 19:32 Reassessment: Patient appears in no apparent distress at this time. Daughter remains at bedside with patient. Neuro: Level of Consciousness is awake, alert. Respiratory: Airway is patent Respiratory effort is even, unlabored, Respiratory pattern is regular, symmetrical. 19:47 Reassessment: Report called to FRACISCO Reece. ss 20:35 Reassessment: Patient appears in no apparent distress at this time. zb Vital Signs: 12:15 BP 158 / 62; Pulse 81; Resp 16; Temp 98.5(O); Pulse Ox 98% on R/A; Pain 0/10; zb 13:25 BP 148 / 86; Pulse 74; Resp 16; Pulse Ox 96% on R/A; zb 14:00 BP 157 / 63; Pulse 83; Resp 18; Pulse Ox 100% on R/A; zb 16:00 BP 155 / 68; Pulse 80; Resp 16; Pulse Ox 97% on R/A; zb 17:00 BP 163 / 59; Pulse 88; Resp 18; Pulse Ox 98% on R/A; zb 18:00 BP 168 / 55; Pulse 90; Resp 16; Pulse Ox 95% on R/A; zb 19:23 BP 169 / 54; Pulse 86; Resp 14; Pulse Ox 95% ; tt3 ED Course: 12:14 Patient arrived in ED. dm5 12:16 Triage completed. dm5 12:24 Art Chow MD is Attending Physician. jaki 13:13 Dalila Kapoor, FRACISCO is Primary Nurse. zb 14:44 Roc York MD is Hospitalizing Provider. [facility] 15:31 Urine Dipstick--Ancillary (enter results) Sent. 5 15:31 Basic Metabolic Panel Sent. 5 15:31 CBC with Diff Sent. 5 15:31 LFT's Sent. 5 15:32 Magnesium Sent. 5 15:32 NT PRO-BNP Sent. 5 15:32 Troponin (emerg Dept Use Only) Sent. 5 15:32 PT-INR Sent. 5 15:32 Urine collected: EKG done. Inserted. 5 15:32 Patient has correct armband on for positive identification. Placed in gown. Bed in low 5 position. Call light in reach. Side rails up X2. Adult w/ patient. Warm blanket given. surveillance monitor on. Pulse ox on. NIBP on. 15:33 Gallardo cath inserted, using sterile technique, 16 Fr., by me, balloon inflated, urine [facility] specimen collected. 15:35 EKG done, by ED staff, reviewed by Art Chow MD. 5 Administered Medications: 13:49 Drug: Rocephin 1 grams Route: IV; Rate: per protocol; Site: right jugular; zb 19:52 Follow up: Response: No adverse reaction; IV Status: Completed infusion; IV Intake: zb 1400ml 13:54 Drug: NS 0.9% 1000 ml Route: IV; Rate: 125 ml/hr; Site: right jugular; zb 19:45 Follow up: IV Status: Infusion continued upon admission ss 13:55 Drug: NS 0.9% 500 ml Route: IV; Rate: bolus; Site: right jugular; zb 19:45 Follow up: IV Status: Completed infusion ss Intake: 19:52 IV: 1400ml; Total: 1400ml. zb Outcome: 14:45 Decision to Hospitalize by Provider. jaki 21:37 Patient left the ED. mw2 Signatures: Cleopatra Brink, RN FRACISCO Art Jones MD MD cha Munoz, Edgar RN Noreen Prajapati RN RN ss Martinez, Maria 5 Ngoc Tay mw2 Leonel Starks 3 Dalila Kapoor RN RN zb Corrections: (The following items were deleted from the chart) 19:08 18:46 BP 158 / 62; Pulse 81bpm; Resp 16bpm; Pulse Ox 98% RA; Temp 98.5F Oral; Pain zb 0/10; zb 20:49 14:00 Reassessment: Patient appears in no apparent distress at this time. em zb
[2021-02-04 15:30] LABS: Urine Blood NEGATIVE (NEG); Urine Glucose NEGATIVE (NEG); Urine Protein NEGATIVE (NEG); Urine Specific Gravity 1.015 (1.005-1.030); Urine pH 8.5 (5.0-7.0)
[2021-02-04] MEDS: NA CHLORIDE 0.9% 1,000 ML IV SCH (20:02)
[2021-02-04] MEDS ORDERED: ONDANSETRON 4 MG/2 ML VIAL IV PRN (20:02)
[2021-02-04] MEDS: CEFTRIAXONE/SWI 1gm 1 GM/10 ML SYR IV SCH (20:02)
[2021-02-04] MEDS ORDERED: ACETAMINOPHEN 325 MG TABLET PO PRN (20:02)
[2021-02-04 22:14] VITALS: BMI 23.2
[2021-02-04] MEDS: FAMOTIDINE 20 MG/2 ML VIAL IV SCH (23:23)
[2021-02-05 06:19] LABS: Absolute Lymphocytes (CBC) 1.2 K/uL (0.7-4.9); Basophils % 0.7 % (0-1.3); Hematocrit 26.6 % (36.0-45.0); Lymphocytes % 33.5 % (15.3-44.8); MPV 8.8 fL (7.6-11.3); RBC Red Blood Cell Count 2.79 M/uL (3.86-4.86)
[2021-02-05 06:25] LABS: Potassium 4.1 mmol/L (3.5-5.1)
[2021-02-05] MEDS: NA CHLORIDE 0.9% 1,000 ML IV SCH ×3 (06:26→23:47)
--- NOTE | 2021-02-05 06:50 | EKG ---
Test Date: 2021-02-04 Test Time: 14:29:21 Gem Setter: ELISEO MEASUREMENT RESULTS: Intervals: Rate: 87 WA: 202 QRSD: 118 QT: 434 QTc: 522 [place]: P: 62 WA: 202 QRS: -24 T: 90 INTERPRETIVE STATEMENTS: Normal sinus rhythm Cannot rule out Anterior infarct, age undetermined Prolonged QT Abnormal ECG Compared to ECG 02/01/2020 21:35:54 Myocardial infarct finding now present Prolonged QT interval now present Left bundle-branch block no longer present Electronically Signed On 02-05-21 06:49:13 [employer]IT [employer] DEPARTMENT SUPERVISOR by Alberto Oneil
[2021-02-05] MEDS: FAMOTIDINE 20 MG/2 ML VIAL IV SCH ×2 (09:16→21:25)
[2021-02-05 10:26] LABS: Platelet Estimate DECR
[2021-02-05 10:27] LABS: Blood Morphology Comment NOT SEEN (NOT SEEN)
[2021-02-05 10:29] LABS: White Blood Cell Scan OK (OK)
[2021-02-05] MEDS: HYDRALAZINE HCL 25 MG TABLET PO SCH (20:46)
[2021-02-05] MEDS: HEPARIN 5000 UNIT/ML 1 ML VIAL SQ SCH (20:46)
[2021-02-05] MEDS: CEFTRIAXONE/SWI 1gm 1 GM/10 ML SYR IV SCH (20:47)
--- NOTE | 2021-02-05 21:18 | PN ---
Date of Progress Note: 02/05/2021 Subjective: The patient was seen for followup this morning. No new complaints or problems reported. She feels better than yesterday, looks actually better than yesterday. Objective: Vital Signs: Reviewed. HEENT: Unremarkable. Lungs: Clear to auscultation. Heart: Sounds normal. Abdomen: Soft. Bowel sounds normal. No guarding, rigidity, tenderness, or distention. Extremities: No leg edema. Laboratory Data: White count 3.5, hemoglobin 8.9, platelets 74. Sodium 143, potassium 4.1, chloride 111, bicarb 24, BUN 42, creatinine 1.60, glucose 74. Impression: 1.Acute kidney injury. 2.Volume depletion. 3.Cirrhosis of liver. 4.Pancytopenia. 5.Hypertension. 6.Hyperlipidemia. 7.Generalized weakness. 8.Debility. Plan: We will go ahead and have physical therapy continue to work with the patient. Continue IV flu id, but reduce rate. Home medications will be continued per order. Repeat blood work tomorrow morning and I will see her tomorrow for followup. Abdominal ultrasound was ordered. We will follow up on the results. ALTAF/MODL Voice ID: [id number] Report ID: [id number]
--- NOTE | 2021-02-05 23:57 | HP ---
Date of Admission: 02/04/2021 Chief Complaint: Feeling weak and confused. History Of Present Illness: This is an 89-year-old female patient, living at home with her , was brought into the emergency room because she was found to be weaker than usual and somewhat confus ed. After she was evaluated in the ER, she was admitted to the hospital. I saw her in the emergency room. Her daughter was present with her at bedside. She denies any fall or injury. Allergies: SULFA, DETAILS UNKNOWN. Medications: Atorvastatin 10 mg daily, vitamin D3 5000 units daily, escitalopram 10 mg daily, furose mide 40 mg daily, hydralazine 50 mg 2 times a day, lactulose 15 mL 2 times a day, nitroglycerin p.r.n ., spironolactone 50 mg daily. Review of Systems: FRUIT PICKER: As mentioned above. Constitutional: As mentioned above. All other systems reviewed and negative. Past Medical History: Significant for stroke, hypothyroidism, hypertension, hyperlipidemia, coronary artery disease, cirrhosis of liver, lumbar spinal stenosis, osteoarthritis at multiple sites, rheuma toid arthritis, anemia due to chronic kidney disease, pancytopenia, anxiety, osteopenia. Past Surgical History: Hysterectomy and surgery for right femur fracture. Family History: Father , had leukemia and coronary artery disease. Mother had Alzheimer disease , stroke. Brother with coronary artery disease. Social History: Negative for smoking or alcohol use. Physical Examination: Vital Signs: Initial vital signs when she came into emergency room, temperature 98.5, pulse 81, resp iratory rate 16, blood pressure 158/62, oxygen saturation 98%, height 5 feet 4 inches, weight 135 radu nds. General: Awake, alert, oriented, not in distress. HEENT: Head atraumatic, normocephalic. Conjunctivae nonerythematous. Sclerae white. Mouth, no thr ush or edema noted. Ears/Nose, no mass, lesion, discharge noted. Neck: Supple. No JVD, lymph nodes, bruit, thyromegaly noted. Lungs: Bilateral good equal air entry. Clear to auscultation. No rhonchi. No rales. Heart: Normal heart sounds. No murmur or gallop. Abdomen: Soft. Bowel sounds normal. No guarding, rigidity, tenderness, mass, hepatosplenomegaly, d istention, or bruit noted. Extremities: No leg edema. No calf tenderness. Skin: No rash, ulcer, cellulitis. Lymphatics: No lymph node enlargement in neck, supraclavicular, infraclavicular region. Neuro: No focal neurological deficit. Chest: Unremarkable. External Genitalia: Deferred. Rectal: Deferred. Laboratory Data: White count 5, hemoglobin 11, platelets 105. Sodium 140, potassium 4, chloride 104 , bicarb 24, BUN 37, creatinine 2.16, glucose 96, lactic acid 3.9, total bilirubin 2.5, direct biliru bin 0.8, AST 61, ALT 43, alkaline phosphatase 146. Troponin less than 0.02. Urinalysis negative. C OVID-19 test negative. CAT scan of the head was negative for any acute intracranial changes. Chest x-ray, no acute abnormality detected. EKG normal sinus rhythm. Impression: 1.Acute kidney injury. 2.Volume depletion. 3.Pancytopenia. 4.Hypothyroidism. 5.Hypertension. 6.Hyperlipidemia. 7.Coronary artery disease. 8.Cirrhosis of liver. 9.Lumbar spinal stenosis. 10.Osteoarthritis, multiple sites. 11.Anxiety. Plan: We will admit the patient to hospital for further evaluation and management of this problem. The patient is appropriate for inpatient and is expected to spend 2 midnights in hospital. We will g o ahead and start her on IV fluid. Consult physical therapy. We will go ahead and repeat blood work tomorrow morning. Details and plan of treatment discussed with her and her family. The patient anisha es at home with her and they both have increasing difficulty with ADLs and I have recommended assisted care facility placement for her and her . ALTAF/MODL Voice ID: [id number]
[2021-02-06 06:44] LABS: Absolute Lymphocytes (CBC) 1.5 K/uL (0.7-4.9); Basophils % 0.7 % (0-1.3); Hematocrit 31.2 % (36.0-45.0); Lymphocytes % 32.1 % (15.3-44.8); MPV 8.1 fL (7.6-11.3); RBC Red Blood Cell Count 3.29 M/uL (3.86-4.86)
[2021-02-06 07:02] LABS: Potassium 3.9 mmol/L (3.5-5.1)
[2021-02-06 07:03] LABS: Magnesium 1.6 mg/dL (1.8-2.4)
[2021-02-06] MEDS: HEPARIN 5000 UNIT/ML 1 ML VIAL SQ SCH (09:00)
[2021-02-06] MEDS: SPIRONOLACTONE 25 MG TABLET PO SCH (09:11)
[2021-02-06] MEDS: FAMOTIDINE 20 MG/2 ML VIAL IV SCH ×2 (09:11→20:22)
[2021-02-06] MEDS: HYDRALAZINE HCL 25 MG TABLET PO SCH ×2 (09:11→20:22)
[2021-02-06] MEDS ORDERED: LACTULOSE 20 GM/30 ML UCUP PO ONE (10:49)
--- NOTE | 2021-02-06 12:10 | PN ---
Date of Progress Note: 02/06/2021 Subjective: The patient was seen this morning for followup. She was lying in bed, not in any distre ss. Denies any new complaints. Objective: Vital Signs: Reviewed. HEENT: Unremarkable. Lungs: Clear to auscultation. Heart: Sounds normal. Abdomen: Soft. Bowel sounds normal. No guarding, rigidity, tenderness, distention. Extremities: No leg edema. Laboratory Data: White count 4.6, hemoglobin 10.5, platelets 69. Sodium 142, potassium 3.9, chlorid e 111, bicarb 22, BUN 29, creatinine 1.47, glucose 73, magnesium 1.6. Impression: 1.Acute kidney injury. 2.Volume depletion. 3.Hypomagnesemia. 4.Anemia. 5.Thrombocytopenia. 6.Cirrhosis of liver. 7.Urinary tract infection, organism Escherichia coli. Plan: We will go ahead and continue current antibiotic, which is ceftriaxone and E coli sensitive to ceftriaxone. Continue current IV fluid. Ambulation was encouraged. She is ambulating with physica l therapy and we will replace magnesium per protocol. Repeat blood work tomorrow. I will communicat e with her son today. ALTAF/MODL Voice ID: [id number] Report ID: [id number]
[2021-02-06] MEDS ORDERED: MAGNESIUM SULFATE 1 gm IVPB 1 GM/100 ML BAG IV ONE (12:20)
--- NOTE | 2021-02-06 18:00 | RAD REPORT ---
EXAM DESCRIPTION: US - Abdomen Exam Complete - 02/06/2021 5:44 pm CLINICAL HISTORY: Abdominal pain. cirrhosis COMPARISON: Abdomen Exam Complete dated 12/26/2016 FINDINGS: Liver demonstrates a shrunken nodular contour and heterogenous echotexture compatible with underlying cirrhosis. No focal liver lesions or intrahepatic biliary dilatation is seen. Cholecystectomy. Common bile duct is normal in caliber measuring 5 millimeters. Both kidneys are normal in size, shape and echotexture. No hydronephrosis, focal lesion of concern or perinephric fluid. The spleen is mildly prominent measuring 12 x 5 cm. The pancreas and aorta are obscured by bowel gas. The visualized aspects of the IVC are grossly normal. IMPRESSION: Moderate liver cirrhosis pattern. Cholecystectomy.
[2021-02-06] MEDS: LACTULOSE 20 GM/30 ML UCUP PO SCH (20:22)
[2021-02-06] MEDS: CEFTRIAXONE/SWI 1gm 1 GM/10 ML SYR IV SCH (20:22)
[2021-02-06 20:55] VITALS: O2SAT 98
[2021-02-07] MEDS: NA CHLORIDE 0.9% 1,000 ML IV SCH (03:13)
[2021-02-07 05:52] LABS: Absolute Lymphocytes (CBC) 1.4 K/uL (0.7-4.9); Basophils % 0.5 % (0-1.3); Hematocrit 27.4 % (36.0-45.0); Lymphocytes % 37.3 % (15.3-44.8); MPV 8.6 fL (7.6-11.3); RBC Red Blood Cell Count 2.85 M/uL (3.86-4.86)
[2021-02-07 06:05] LABS: Albumin 2.1 g/dL (3.4-5.0); Bilirubin Total 0.9 mg/dL (0.2-1.0); Magnesium 1.9 mg/dL (1.8-2.4); Potassium 3.9 mmol/L (3.5-5.1); Protein, Total 5.5 g/dL (6.4-8.2)
[2021-02-07] MEDS: FAMOTIDINE 20 MG/2 ML VIAL IV SCH (09:00)
[2021-02-07] MEDS: SPIRONOLACTONE 25 MG TABLET PO SCH (09:59)
[2021-02-07] MEDS: HYDRALAZINE HCL 25 MG TABLET PO SCH (09:59)
[2021-02-07] MEDS: LACTULOSE 20 GM/30 ML UCUP PO SCH (09:59)
[2021-02-07] MEDS ORDERED: FAMOTIDINE 20 MG/2 ML VIAL IV SCH (10:00)
--- NOTE | 2021-02-07 12:47 | DS ---
Date of Discharge: 02/07/2021 Disposition: Discharged to go home. Physical Examination: HEENT: Unremarkable. Lungs: Clear to auscultation. Heart: Sounds normal. Abdomen: Soft. Bowel sounds normal. No guarding, rigidity, tenderness, or distention. Extremities: No leg edema. Discharge Medications And Instructions: 1.Continue all prior home medications. 2.Following new medication as prescribed which is Augmentin 500 mg 1 tablet by mouth 2 times a day w ith food for 1 week. 3.Family to provide 24-hour care to the patient to reduce any chances of fall and injury. 4.Follow up with Dr. York on 02/18/2021. Call office for appointment. Laboratory Data: Labs done during this hospitalization, upon admission; white count 5, hemoglobin 11 , platelets 105. CBC today; white count 3.9, hemoglobin 9.1, platelets 72. Sodium 145, potassium 3. 9, chloride 114, bicarb 23, BUN 26, creatinine 1.24, glucose 74. Liver function test; AST 66, ALT 36 , alkaline phosphatase 107, albumin 2.1. Ultrasound shows moderate changes of cirrhosis of liver. Hospital Course: An 89-year-old female patient admitted to the hospital with complaints of feeling w eak and confused. Please see dictated H and P for more information. The patient was admitted to the hospital with acute kidney injury, volume depletion. She was given IV fluid. Her renal function caicedo s improved. Her home medications were continued per order. Physical Therapy was consulted. The lucho juarez lives at home with her and I am definitely concerned about her ability to live at home w ithout any extra help at home. I did recommend assisted care facility placement which the patient's , her son and other family member are very well aware of that as I have discussed that with th e patient's son today as well as the patient's daughter on the day of admission about my recommendati on that they both should go to assisted care facility, but they have not made any decision. They bot h would like to go home. Family wants them to come home and family already has started talking to [facility] and some other local agencies to provide care at home. The patient has significant gen eralized weakness still and I am concerned about her risk of fall and injury and I have asked family to provide 24-hour care at home between family's help and outside agency. Son has informed me that [facility] will be able to provide 24-hour care for the patient and as her condition improves, then they can reduce level of help that she needs at home. She has still some periods of confusion, which is to b e expected with her old age and she may have some underlying dementia problem along with current urin devi tract infection may contribute to that problem as well. Her urine culture results came back and it is E coli and she is on ceftriaxone during this hospital stay, which is sensitive to ceftriaxone a nd upon discharge, we will send her home with Augmentin. The patient's son has requested wheelchair and I have written Social Service consultation to assist the patient to get wheelchair along with [facility] and home physical therapy and nurse was advised to contact the agency of family's [facility] today to initiate this home health services. Final Diagnoses: 1.Acute kidney injury. 2.Volume depletion. 3.Urinary tract infection. 4.Pancytopenia. 5.Hypothyroidism. 6.Hypertension. 7.Hyperlipidemia. 8.Coronary artery disease. 9.Cirrhosis of liver. 10.Lumbar spinal stenosis. 11.Osteoarthritis, multiple sites. 12.Anxiety. ALTAF/MODL Voice ID: [id number] Report ID: [id number]
[2021-02-07 13:17] VITALS: BP 150/65; TEMP 97.4
== END 2021-02-07 14:09 | disposition home or self-care (01) | DRG 683 ==
LOC: ER 11:58 → ERHOLD 14:11 → 2ND 19:50
PROVIDERS: ADMIT Internal Medicine; ATTEND Internal Medicine
DX: N17.9 Acute kidney failure, unspecified (principal); N39.0 Urinary tract infection, site not specified; D61.818 Other pancytopenia; E86.9 Volume depletion, unspecified; I10 Essential (primary) hypertension; E78.5 Hyperlipidemia, unspecified; I25.10 Atherosclerotic heart disease of native coronary artery without angina pectoris; K21.9 Gastro-esophageal reflux disease without esophagitis; M19.90 Unspecified osteoarthritis, unspecified site; F41.9 Anxiety disorder, unspecified; E83.42 Hypomagnesemia; E03.9 Hypothyroidism, unspecified; M48.061 Spinal stenosis, lumbar region without neurogenic claudication; K74.60 Unspecified cirrhosis of liver; B96.20 Unspecified Escherichia coli [E. coli] as the cause of diseases classified elsewhere; Z88.1 Allergy status to other antibiotic agents; Z88.8 Allergy status to other drugs, medicaments and biological substances; Z90.710 Acquired absence of both cervix and uterus; Z86.73 Personal history of transient ischemic attack (TIA), and cerebral infarction without residual deficits; Z20.822 Contact with and (suspected) exposure to COVID-19
CPT/HCPCS: 36415; 51702; 70450; 71045; 76700; 80048; 80053; 80076; 81003; 82140; 83605; 83735; 83880; 84484; 85025; 85610; 87040; 87077; 87086; 87088; 87186; 93005; 96365; 96366; 97161; 99285; J0696; J1644; J3475; J7030; J7040; U0003

== ENCOUNTER 2021-03-19 16:23 | Inpatient (IN) | payer OTHER ==
--- OUTSIDE RECORDS SUMMARY | 2021-03-19 16:26 | XMS REPORT | Continuity of Care Document ---
:1930 Author Organization [facility] t Address [address] [place] [address] Care Team Providers Name Role Phone Asked, Pcp Primary Care Physician Unavailable Doctor Unassigned, Name Attending Clinician Unavailable Doreen Vargas Attending Clinician Luca BRIONES Attending Clinician MATTHIAS Attending Clinician Unavailable Luca BRIONES Admitting Clinician MATTHIAS Admitting Clinician Unavailable Problems Condition Condition Condition Status Onset Resolution Last Treating Co mments Source Name Details Category Date Date Treatment Clinician Date Other Other Disease Active Timbo specified specified 07-25 Meth nando rheumatoid rheumatoid [...] 00 s to drug Sulfa Propensi Active Timbo (Sulfona ty to 6-15 Methodi mide adverse 00:00: st Antibiot reaction 00 ics) s to drug Social History Social Habit Start Date Stop Date Quantity Comments Source Alcohol intake 2016-07-25 2016-07-25 Current [facility] thodist 00:00:00 00:00:00 non-drinker of alcohol (finding) Sex Ass[birth year] At [birth year] [facility] ethodist 00:00:00 00:00:00 Smoking Status Start Date [...] Planned Date Details Comments Source Future Scheduled 2021-06-27 INFLUENZA VACCINE [place] [facility] Test 00:00:00 [code = INFLUENZA VACCINE] Future Scheduled 1997 65+ PNEUMOCOCCAL [place] Religion Test 00:00:00 VACCINE (1 of 1 - PPSV23) [code = 65+ PNEUMOCOCCAL VACCINE (1 of 1 - PPSV23)] Future Scheduled 1982 SHINGLES VACCINES (#1) H ourodrigo Religion Test 00:00:00 [code = SHINGLES VACCINES (#1)] Future Scheduled 1946 COVID-19 VACCINE (1) Eliedavid solerabril Religion Test 00:00:00 [code = COVID-19 VACCINE (1)] Encounters Start End Encounter Admission Attending Care Care Encounter Source Date/Time Date/Time Type Type Clinicians Facility Department ID 2020-03-30 2020-03-30 Orders Doctor WALL [id number] 00:00:00 00:00:00 Only UnassignedNAZIA [id number] [place] [facility] [id number] 2020-03-16 2020-03-16 Orders Doctor WALL [id number] 00:00:00 00:00:00 Only UnassignedNAZIA [id number] [place] [facility] [id number] 2020-02-28 2020-03-02 [facility] Jaime Sierra [facility] [id number] 16:38:44 16:46:00 Encounter Stacia Segovia [id number] [place] [id number] [place] [id number] Results Test Description Test Time Test [...] (test code = IG%) 0.2 % 0.0-0.4 [id number] 05:43:00 Test Item Value Reference Range Interpretation [...]
--- NOTE | 2021-03-19 21:11 | RAD REPORT ---
EXAM DESCRIPTION: CT - Head Brain Wo Cont - 03/19/2021 9:05 pm CLINICAL HISTORY: CONFUSED Headache, drowsiness COMPARISON: Head Brain Wo Cont dated 02/04/2021; Facial Bones W/ Mpr dated 06/04/2020 TECHNIQUE: All CT scans are performed using dose optimization technique as appropriate and may inclu de automated exposure control or mA/KV adjustment according to patient size. FINDINGS: No intracranial hemorrhage, hydrocephalus or extra-axial fluid collection.Moderate general ized brain atrophy is present with moderate periventricular and deep white matter chronic microvascul ar ischemic changes.No areas of brain edema or evidence of midline shift. Mild right vertebral athero sclerosis. Chronic opacification left maxillary antrum. The calvarium is intact. IMPRESSION: No acute intracranial abnormality.
--- NOTE | 2021-03-19 21:12 | RAD REPORT ---
EXAM DESCRIPTION: RAD - Chest Single View - 03/19/2021 8:51 pm CLINICAL HISTORY: AMS Chest pain. COMPARISON: Chest Single View dated 02/04/2021; Chest Single View dated 02/02/2020; Chest Single View d ated 02/01/2020; Chest Single View dated 10/21/2019 FINDINGS: Portable technique limits examination quality. The lungs are grossly clear. The heart is normal in size. No displaced fractures. IMPRESSION: No acute intrathoracic process suspected.
[2021-03-19] MEDS ORDERED: NA CHLORIDE 0.9% 500 ML ONE (21:16)
[2021-03-19 21:30] LABS: ALT/SGPT 37 U/L (12-78); AST/SGOT 48 U/L (15-37); Albumin 2.9 g/dL (3.4-5.0); Alkaline Phosphatase 121 U/L (45-117); BUN Blood Urea Nitrogen 34 mg/dL (7-18); Bicarbonate 26 mmol/L (21-32); Bilirubin Direct 0.4 mg/dL (0-0.2); Glucose Level 83 mg/dL (74-106); Magnesium 1.8 mg/dL (1.8-2.4); NT PRO-BNP 328 pg/mL (<450); Protein, Total 6.9 g/dL (6.4-8.2); Sodium Level 139 mmol/L (136-145); Troponin (Emerg Dept Use Only) < 0.02 ng/mL (0.0-0.045)
[2021-03-19 21:49] LABS: Absolute Lymphocytes (CBC) 1.6 K/uL (0.7-4.9); Basophils % 0.5 % (0-1.3); Hematocrit 32.7 % (36.0-45.0); Lymphocytes % 27.4 % (15.3-44.8); MPV 8.4 fL (7.6-11.3); RBC Red Blood Cell Count 3.44 M/uL (3.86-4.86)
[2021-03-19 21:55] LABS: Blood Morphology Comment NOT SEEN (NOT SEEN); Platelet Estimate DECR; White Blood Cell Scan OK (OK)
[2021-03-19 22:07] LABS: Urine Blood Negative (Negative); Urine Glucose Negative (Negative); Urine Protein Negative (Negative); Urine Specific Gravity 1.015 (1.005-1.030); Urine pH 8.5 (5.0-7.0)
[2021-03-19 22:08] LABS: Urine Blood Negative (Negative); Urine Glucose Negative (Negative); Urine Protein Negative (Negative); Urine Specific Gravity 1.015 (1.005-1.030); Urine pH 8.5 (5.0-7.0)
--- NOTE | 2021-03-19 22:14 | EDPHYS ---
Physician Documentation [facility] Name: Rachel Saleh Age: 89 yrs Sex: Female : 1930 Arrival Date: 03/19/2021 Time: 16:27 Bed 18 Private MD: Marc York C ED Physician Norberto Agosto HPI: 03/19 20:33 This 89 yrs old Female presents to ER via Wheelchair with complaints of mh7 Urinary Problem. 20:33 The patient presents with confusion, Lethargic, less active. Onset: The mh7 symptoms/episode began/occurred this morning, today. Possible causes: family suspects UTI. Associated signs and symptoms: Pertinent negatives: abdominal pain, agitation, blurred vision, chest pain, combativeness, diaphoresis, diarrhea, dizziness, headache, lightheadedness, nausea, numbness, palpitations, seizure, shortness of breath, tingling, vertigo, vomiting, weakness. Current symptoms: In the emergency department the patient's symptoms have improved, moderately. Historical: - Allergies: 16:53 Lotrel; hb 16:53 Namenda; hb 16:53 Sulfa (Sulfonamide Antibiotics); hb - Home Meds: 19:39 atorvastatin 10 mg Oral tab 1 tab nightly [Active]; escitalopram oxalate 10 mg Oral tab vg1 1 tab once daily [Active]; hydralazine 25 mg Oral tab 1 tab 2 times per day [Active]; lactulose 10 gram/15 mL (15 mL) Oral soln 15 mL twice a day [Active]; levothyroxine 25 mcg tab 1 tab once daily [Active]; modafinil 100 mg Oral tab 1 tabs once daily [Active]; nitroglycerin 0.4 mg SL subl 1 tab every 5 minutes [Active]; spironolactone 100 mg Oral tab 1 tab once daily [Active]; - PMHx: 19:39 Anemia; Arthritis; CAD; Cataracts; C-diff; Dementia; Depression; ENCEPHALOPATHY; vg1 generalized weakness; GERD; High Cholesterol; Hyperlipidemia; Hypertension; Hypothyroidism; Osteopenia; Osteoporosis; Rheumatoid Arthritis; unspecified edema; UTI; - Immunization history:: Adult Immunizations up to date. - Social history:: Smoking status: Patient denies any tobacco usage or history of. ROS: 20:33 Constitutional: Negative for fever, chills, and weight loss, Eyes: Negative for injury, mh7 pain, redness, and discharge, ENT: Negative for injury, pain, and discharge, Neck: Negative for injury, pain, and swelling, Cardiovascular: Negative for chest pain, palpitations, and edema, Respiratory: Negative for shortness of breath, cough, wheezing, and pleuritic chest pain, Abdomen/GI: Negative for abdominal pain, nausea, vomiting, diarrhea, and constipation, Back: Negative for injury and pain, : Negative for injury, bleeding, discharge, and swelling, MS/Extremity: Negative for injury and deformity, Skin: Negative for injury, rash, and discoloration, Psych: Negative for depression, anxiety, suicide ideation, homicidal ideation, and hallucinations, Allergy/Immunology: Negative for hives, rash, and allergies, Endocrine: Negative for neck swelling, polydipsia, polyuria, polyphagia, and marked weight changes, Hematologic/Lymphatic: Negative for swollen nodes, abnormal bleeding, and unusual bruising. Exam: 20:33 Constitutional: This is a well developed, well nourished patient who is awake, alert, mh7 and in no acute distress. Head/Face: Normocephalic, atraumatic. Eyes: Pupils equal round and reactive to light, extra-ocular motions intact. Lids and lashes normal. Conjunctiva and sclera are non-icteric and not injected. Cornea within normal limits. Periorbital areas with no swelling, redness, or edema. Neck: Trachea midline, no thyromegaly or masses palpated, and no cervical lymphadenopathy. Supple, full range of motion without nuchal rigidity, or vertebral point tenderness. No Meningismus. Chest/axilla: Normal chest wall appearance and motion. Nontender with no deformity. No lesions are appreciated. Cardiovascular: Regular rate and rhythm with a normal S1 and S2. No gallops, murmurs, or rubs. Normal PMI, no JVD. No pulse deficits. Respiratory: Lungs have equal breath sounds bilaterally, clear to auscultation and percussion. No rales, rhonchi or wheezes noted. No increased work of breathing, no retractions or nasal flaring. Abdomen/GI: Soft, non-tender, with normal bowel sounds. No distension or tympany. No guarding or rebound. No evidence of tenderness throughout. Back: No spinal tenderness. No costovertebral tenderness. Full range of motion. Skin: Warm, dry with normal turgor. Normal color with no rashes, no lesions, and no evidence of cellulitis. MS/ Extremity: Pulses equal, no cyanosis. Neurovascular intact. Full, normal range of motion. Psych: Awake, alert, with orientation to person, place and time. Behavior, mood, and affect are within normal limits. 03/20 00:08 Neuro: Orientation: to person, place, situation, Mentation: appropriate for stated age, mh7 Memory: appropriate for stated age, Cranial nerves: grossly normal, Cerebellar function: is grossly normal, Motor: is normal, Sensation: is normal, Gait: not tested. seizure activity, is not displayed by the patient, Abnormal movements: there are no abnormal movements. Vital Signs: 03/19 16:50 BP 153 / 56; Pulse 63; Resp 16; Temp 97.4; Pulse Ox 99% on R/A; Pain 0/10; hb 19:35 BP 188 / 64; Pulse 66; Resp 16; Pulse Ox 98% on R/A; vg1 03/20 01:27 BP 160 / 86; Pulse 81; Resp 16; Pulse Ox 98% on R/A; Pain 0/10; iw MDM: 03/19 22:11 Differential Diagnosis: electrolyte abnormality, hypoglycemia, intracranial bleed, [facility] pneumonia, UTI, volume depletion. Data reviewed: vital signs, nurses notes, old medical records, lab test result(s), CBC, electrolytes, urinalysis, radiologic studies, CT scan, plain films. Data interpreted: Pulse oximetry: on room air is 98 %. Interpretation: normal. Response to treatment: the patient's symptoms have mildly improved after treatment. 22:[address] [facility] 03/19 19:51 Order name: Basic Metabolic Panel; Complete Time: 22:05 [facility] 03/19 19:51 Order name: CBC with Diff; Complete Time: 22:05 [facility] 03/19 19:51 Order name: LFT's; Complete Time: 22:05 [facility] 03/19 19:51 Order name: Magnesium; Complete Time: 22:05 [facility] 03/19 19:51 Order name: NT PRO-BNP; Complete Time: 22:05 [facility] 03/19 19:51 Order name: PT-INR [facility] 03/19 19:51 Order name: Troponin (emerg Dept Use Only); Complete Time: 22:05 [facility] 03/19 19:52 Order name: AMMONIA; Complete Time: 22:05 [facility] 03/19 21:55 Order name: CBC Smear Scan; Complete Time: 22:05 [facility] 03/19 22:07 Order name: Urine Dipstick-Ancillary; Complete Time: 22:09 [facility] 03/19 22:07 Order name: Urine Dipstick-Ancillary; Complete Time: 22:09 [facility] 03/19 22:34 Order name: CBC with Automated Diff [facility] 03/19 22:34 Order name: Comprehensive Metabolic Panel [facility] 03/19 22:34 Order name: Comprehensive Metabolic Panel [facility] 03/19 19:51 Order name: XRAY Chest (1 view); Complete Time: 22:05 [facility] 03/19 19:51 Order name: EKG; Complete Time: 19:52 [facility] 03/19 19:51 Order name: Cardiac monitoring; Complete Time: 20:01 [facility] 03/19 19:51 Order name: EKG - Nurse/Tech; Complete Time: 20:01 [facility] 03/19 19:51 Order name: IV Saline Lock; Complete Time: 20:53 [facility] 03/19 19:51 Order name: Labs collected and sent; Complete Time: 20:53 [facility] 03/19 19:51 Order name: O2 Per Protocol; Complete Time: 20:01 [facility] 03/19 19:51 Order name: O2 Sat Monitoring; Complete Time: 20:01 [facility] 03/19 19:52 Order name: CT Head Brain wo Cont; Complete Time: 22:05 [facility] 03/19 22:34 Order name: Heart Healthy [facility] 03/19 22:35 Order name: CBC with Automated Diff [facility] 03/19 23:27 Order name: COVID-19 : Document "Date of Symptom Onset" if Symptomatic. tt3 03/20 00:05 Order name: CORONAVIRUS [facility] 03/20 01:07 Order name: SARS-COV-2 RT PCR [facility] 03/19 19:51 Order name: Urine Dipstick-Ancillary (obtain specimen); Complete Time: 22:06 7 Administered Medications: 21:17 Drug: NS 0.9% 500 ml Route: IV; Rate: bolus; Site: right forearm; vg1 23:08 Drug: Lactulose 20 grams Volume: 30 ml; Route: PO; iw Disposition: 03/19/21 22:13 Hospitalization ordered by Marc York for Inpatient Admission. Preliminary diagnosis is Hepatic Encephalopathy. - Bed requested for Telemetry/MedSurg (Inpatient). - Status is Inpatient Admission. jm8 - Condition is Stable. - Problem is new. - Symptoms have improved. Signatures: Dispatcher [employer] EDMS Kaycee Vivar RN RN mw Williams, Irene, RN RN Anne Baxter RN RN hb Garcia, Victoria, RN RN vg1 Norberto Agosto MD MD 7 Caden Boss RN FRACISCO jm8 Corrections: (The following items were deleted from the chart) 03/20 01:13 03/19 22:13 Hospitalization Ordered by A Chela BRIONES for Inpatient Admission. Preliminary diagnosis is Hepatic Encephalopathy. Bed requested for Telemetry/MedSurg (Inpatient). Status is Inpatient Admission. Condition is Stable. Problem is new. Symptoms have improved. [facility] 03/20 01:59 01:13 03/19/2021 22:13 Hospitalization Ordered by A Chela BRIONES for Inpatient Admission. jm8 Preliminary diagnosis is Hepatic Encephalopathy. Bed requested for Telemetry/MedSurg (Inpatient). Status is Inpatient Admission. Condition is Stable. Problem is new. Symptoms have improved. ronnie
--- NOTE | 2021-03-19 22:14 | ER ---
Nurse's Notes [facility] Name: Rachel Saleh Age: 89 yrs Sex: Female : 1930 Arrival Date: 03/19/2021 Time: 16:27 Bed 18 Private MD: Marc York C Diagnosis: Hepatic Encephalopathy Presentation: 03/19 16:50 Chief complaint: Daughter reports she seems lethargic today, concerned that she has hb another UTI. Pt stated "I just don't feel good.". Coronavirus screen: At this time, the client does not indicate any symptoms associated with coronavirus-19. Ebola Screen: No symptoms or risks identified at this time. Initial Sepsis Screen: Does the patient meet any 2 criteria? No. Patient's initial sepsis screen is negative. Does the patient have a suspected source of infection? No. Patient's initial sepsis screen is negative. Risk Assessment: Do you want to hurt yourself or someone else? Patient reports no desire to harm self or others. Onset of symptoms was March 19, 2021. 16:50 Method Of Arrival: Wheelchair hb 16:50 Acuity: CHRIS 3 hb Historical: - Allergies: 16:53 Lotrel; hb 16:53 Namenda; hb 16:53 Sulfa (Sulfonamide Antibiotics); hb - Home Meds: 19:39 atorvastatin 10 mg Oral tab 1 tab nightly [Active]; escitalopram oxalate 10 mg Oral tab vg1 1 tab once daily [Active]; hydralazine 25 mg Oral tab 1 tab 2 times per day [Active]; lactulose 10 gram/15 mL (15 mL) Oral soln 15 mL twice a day [Active]; levothyroxine 25 mcg tab 1 tab once daily [Active]; modafinil 100 mg Oral tab 1 tabs once daily [Active]; nitroglycerin 0.4 mg SL subl 1 tab every 5 minutes [Active]; spironolactone 100 mg Oral tab 1 tab once daily [Active]; - PMHx: 19:39 Anemia; Arthritis; CAD; Cataracts; C-diff; Dementia; Depression; ENCEPHALOPATHY; vg1 generalized weakness; GERD; High Cholesterol; Hyperlipidemia; Hypertension; Hypothyroidism; Osteopenia; Osteoporosis; Rheumatoid Arthritis; unspecified edema; UTI; - Immunization history:: Adult Immunizations up to date. - Social history:: Smoking status: Patient denies any tobacco usage or history of. Screenin:36 Abuse screen: Denies threats or abuse. Nutritional screening: No deficits noted. vg1 Tuberculosis screening: No symptoms or risk factors identified. Fall Risk No fall in past 12 months (0 pts). No secondary diagnosis (0 pts). IV access (20 points). Ambulatory Aid- Crutches/Cane/Walker (15 pts). Gait- Weak (10 pts.). Mental Status- Oriented to own ability (0 pts). Total Salter Fall Scale indicates High Risk Score (45 or more points). Fall prevention measures have been instituted. Side Rails Up X 2 Placed Close to Nursing Station 1:1 Attendant Assigned Family Present and informed to notify staff if the need to leave the bedside. Assessment: 19:31 General: Appears in no apparent distress. comfortable, Behavior is calm, cooperative. vg1 Pain: Denies pain. Neuro: Level of Consciousness is awake, alert, obeys commands, Oriented to person, place, time, situation, Arboreal Scientist are equal bilaterally Full function in bilateral arm(s) Pt unable to hold BRUNA legs up for 5 seconds. Provider notified. Gait is unsteady, Speech is normal, Facial symmetry appears normal. Cardiovascular: Patient's skin is warm and dry. Respiratory: Airway is patent Respiratory effort is even, unlabored. GI: No signs and/or symptoms were reported involving the gastrointestinal system. : Denies burning with urination. EENT: No signs and/or symptoms were reported regarding the EENT system. Derm: Skin is intact, Skin is pink, warm \\T\\ dry. Musculoskeletal: Circulation, motion, and sensation intact. 21:30 Reassessment: Patient appears in no apparent distress at this time. Patient and/or iw family updated on plan of care and expected duration. Pain level reassessed. 23:00 Reassessment: Patient appears in no apparent distress at this time. Patient and/or iw family updated on plan of care and expected duration. Pain level reassessed. Patient is alert, oriented x 3, equal unlabored respirations, skin warm/dry/pink. Vital Signs: 16:50 BP 153 / 56; Pulse 63; Resp 16; Temp 97.4; Pulse Ox 99% on R/A; Pain 0/10; hb 19:35 BP 188 / 64; Pulse 66; Resp 16; Pulse Ox 98% on R/A; vg1 03/20 01:27 BP 160 / 86; Pulse 81; Resp 16; Pulse Ox 98% on R/A; Pain 0/10; iw ED Course: 03/19 16:27 Patient arrived in ED. mr 16:27 Marc York MD is Private Physician. mr 16:52 Triage completed. hb 16:53 Arm band placed on. hb 18:21 Baudilio Saunders PA is PHCP. [facility] 18:21 Art Chow MD is Attending Physician. [facility] 19:19 Sidra Belcher, RN is Primary Nurse. vg1 19:23 Norberto Agosto MD is Attending Physician. mh7 19:36 Patient has correct armband on for positive identification. Bed in low position. Call vg1 light in reach. Side rails up X2. Adult w/ patient. 20:00 EKG done, by ED staff, reviewed by Norberto Agosto MD. vg1 20:30 Missed attempt(s): 22 gauge in left antecubital area. vg1 20:51 XRAY Chest (1 view) In Process Unspecified. EDMS 20:53 Initial lab(s) drawn, by ED staff, sent to lab. Inserted saline lock: 22 gauge in right vg1 forearm, using aseptic technique. ,using aseptic technique. Completed by FRACISCO Villarreal Blood collected. 21:05 CT Head Brain wo Cont In Process Unspecified. EDMS 21:36 Lab(s) recollected, by me, sent to lab. vg1 22:09 Report given to FRACISCO Early. vg1 22:12 Marc York MD is Hospitalizing Provider. [facility] 03/20 00:40 Primary Nurse role handed off by Sidra Belcher, RN tt3 Administered Medications: 03/19 21:17 Drug: NS 0.9% 500 ml Route: IV; Rate: bolus; Site: right forearm; vg1 23:08 Drug: Lactulose 20 grams Volume: 30 ml; Route: PO; iw Outcome: 22:13 Decision to Hospitalize by Provider. [facility] 03/20 01:59 Patient left the ED. jm8 Signatures: Dispatcher [employer] EDKS Baudilio Saunders PA PA [facility] Nneka Rice RN RN Anne Baxter RN RN Sidra Belcher RN RN vg1 Norberto Agosto MD MD mh7 Leonel Starks tt3 Caden Boss RN RN jm8
[2021-03-19] MEDS ORDERED: ONDANSETRON 4 MG/2 ML VIAL IV PRN (22:29)
[2021-03-19] MEDS ORDERED: ALBUTEROL 2.5 MG/3 ML NEB SOL NEB PRN (22:29)
[2021-03-19 22:46] LABS: Protime INR 1.15
[2021-03-19] MEDS ORDERED: LACTULOSE 20 GM/30 ML UCUP ONE (23:05)
[2021-03-20] MEDS: D5 0.45 NS 1,000 ML IV SCH ×3 (00:44→12:41)
[2021-03-20] MEDS ORDERED: D5 0.45 NS 1,000 ML IV ONE (01:04)
[2021-03-20 02:21] VITALS: BMI 24.6
[2021-03-20] MEDS: IPRATROPIUM BROM 0.5MG/2.5ML NEB SCH ×4 (03:00→20:25)
[2021-03-20 04:40] LABS: Absolute Lymphocytes (CBC) 1.4 K/uL (0.7-4.9); Basophils % 0.7 % (0-1.3); Hematocrit 27.7 % (36.0-45.0); Lymphocytes % 33.7 % (15.3-44.8); MPV 8.9 fL (7.6-11.3)
[2021-03-20 04:59] LABS: Albumin 2.3 g/dL (3.4-5.0); Bilirubin Total 0.8 mg/dL (0.2-1.0); Potassium 4.3 mmol/L (3.5-5.1); Protein, Total 5.8 g/dL (6.4-8.2)
--- NOTE | 2021-03-20 07:56 | EKG ---
Test Date: 2021-03-19 Test Time: 19:55:21 Gluing Machine Offbearer: BRE MEASUREMENT RESULTS: Intervals: Rate: 70 SD: QRSD: 116 QT: 458 QTc: 494 [place]: P: SD: QRS: -20 T: 86 INTERPRETIVE STATEMENTS: Accelerated Junctional rhythm Cannot rule out Anterior infarct, age undetermined Abnormal ECG Compared to ECG 02/04/2021 14:29:21 Accelerated junctional rhythm now present Sinus rhythm no longer present Prolonged QT interval no longer present Myocardial infarct finding still present Electronically Signed On 03-20-21 07:56:09 CDT by Alberto Oneil
[2021-03-20] MEDS ORDERED: LACTULOSE 20 GM/30 ML UCUP PO SCH (09:00)
[2021-03-20] MEDS: LACTULOSE 20 GM/30 ML UCUP PO SCH ×3 (12:41→19:55)
[2021-03-20] MEDS: SPIRONOLACTONE 25 MG TABLET PO SCH (12:51)
[2021-03-20] MEDS: ATORVASTATIN 10 MG TAB PO SCH (19:55)
--- NOTE | 2021-03-20 22:11 | HP ---
Date of Admission: 03/19/2021 Chief Complaint: Weakness and sleepiness. History Of Present Illness: This is an 89-year-old female patient, who lives at home with her joann crisostomo, came into emergency room with above-mentioned problem. No recent fall or injury. After she was e valuated in the ER, she was admitted to the hospital with hepatic encephalopathy. When I saw her thi s morning, she was lying in bed, not in any distress, recognized me, and denies any shortness of liz th or chest pain. No abdominal pain. No nausea or vomiting. Upon further questioning, she tells me that she has not taken her lactulose lately and has been having constipation problem also lately. S he could not tell me exactly when was her last bowel movement. Allergies: SULFA, DETAILS UNKNOWN. Medications: Atorvastatin 40 mg daily, vitamin D3 5000 unit daily, furosemide 40 mg daily, spironola ctone 50 mg p.o. daily, escitalopram 10 mg daily, hydralazine 50 mg 2 times a day, lactulose 15 mL 2 times a day, nitroglycerin p.r.n. Review of Systems: Constitutional: As mentioned above. All other systems reviewed and negative. Past Medical History: Significant for stroke, hypothyroidism, hypertension, hyperlipidemia, coronary artery disease, cirrhosis of liver, lumbar spinal stenosis, osteoarthritis at multiple sites, rheuma toid arthritis, anemia due to chronic kidney disease, pancytopenia, anxiety, osteopenia. Past Surgical History: Significant for hysterectomy and surgery for right femur fracture. Family History: Father , had leukemia and coronary artery disease. Mother had Alzheimer disease , stroke. Brother with coronary artery disease. Social History: Negative for smoking and alcohol use. Physical Examination: LAST VITAL SIGNS: Temperature 98.8, pulse 69, respiratory rate 16, blood pressure 140/64, oxygen sat uration 98%. Height 5 feet 5 inches, weight 148 pounds. General: Awake, alert, oriented, not in distress. HEENT: Head atraumatic, normocephalic. Conjunctivae nonerythematous. Sclerae white. Mouth, no thr ush or edema noted. Ears/Nose, no mass, lesion, discharge noted. Neck: Supple. No JVD, lymph nodes, bruit, thyromegaly noted. Lungs: Bilateral good equal air entry. Clear to auscultation. No rhonchi. No rales. Heart: Normal heart sounds. No murmur or gallop. Abdomen: Soft. Bowel sounds normal. No guarding, rigidity, tenderness, mass, hepatosplenomegaly, d istention, or bruit noted. Extremities: No leg edema. No calf tenderness. Skin: No rash, ulcer, cellulitis. Lymphatics: No lymph node enlargement in neck, supraclavicular, infraclavicular region. Neuro: No focal neurological deficit. Chest: Unremarkable. External Genitalia: Deferred. Rectal: Deferred. Laboratory Data: White count 5.9, hemoglobin 11, platelets 91. Today, white count 4, hemoglobin 9.3 , platelets 75. INR 1.15. Sodium 139, potassium 5, chloride 106, bicarb 26, BUN 34, creatinine 1.43 , glucose 83. Liver function tests revealed total bilirubin 0.4, AST 48, ALT 37, alkaline phosphatas e 121. Ammonia level was 91 yesterday with troponin less than 0.02. This morning, ammonia level is 125, AST 40, ALT 30, alkaline phosphatase 93, total bilirubin 0.8, BUN 35, creatinine 1.34, sodium 14 1, and potassium 4.3. Urinalysis negative. COVID-19 test negative. Chest x-ray, no acute cardiopul monary changes. CAT scan of the head, no acute intracranial changes. Impression: 1.Hepatic encephalopathy. 2.Cirrhosis of liver. 3.Pancytopenia. 4.Volume depletion. 5.Hypothyroidism. 6.Hypertension. 7.Hyperlipidemia. 8.Coronary artery disease. 9.Lumbar spinal stenosis. 10.Osteoarthritis, multiple sites. 11.Anxiety. Plan: We will go ahead and admit the patient to hospital for further evaluation and management of th is problem. The patient is appropriate for inpatient and [facility] We will continue her home medications per order. SCD is in place for DVT prophylaxis, which we w ill continue that. Consult physical therapy to help ambulate the patient. We will continue current diet order and start the patient on lactulose per order. We will repeat blood work tomorrow morning. Depending on her condition, we will decide if she can be discharged tomorrow or not. ALTAF/MODL Voice ID: [id number]
[2021-03-21] MEDS: IPRATROPIUM BROM 0.5MG/2.5ML NEB SCH ×4 (02:25→20:07)
[2021-03-21] MEDS: D5 0.45 NS 1,000 ML IV SCH ×2 (05:21→23:38)
[2021-03-21] MEDS: SPIRONOLACTONE 25 MG TABLET PO SCH (08:36)
[2021-03-21] MEDS: VITAMIN D 5,000 UNIT CAP PO SCH (08:36)
[2021-03-21] MEDS: LACTULOSE 20 GM/30 ML UCUP PO SCH ×4 (08:36→23:03)
[2021-03-21 08:37] LABS: Absolute Lymphocytes (CBC) 1.2 K/uL (0.7-4.9); Basophils % 0.5 % (0-1.3); Hematocrit 27.3 % (36.0-45.0); Lymphocytes % 35.9 % (15.3-44.8); MPV 8.5 fL (7.6-11.3); RBC Red Blood Cell Count 2.86 M/uL (3.86-4.86)
[2021-03-21] MEDS: HOME MED 1 EA UNK (Escitalopram Oxalate [Escitalopram Oxalate] 10 MG Tablet) PO SCH (08:37)
[2021-03-21] MEDS: FUROSEMIDE 40 MG TABLET PO SCH (08:37)
[2021-03-21 08:45] LABS: Magnesium 1.6 mg/dL (1.8-2.4); Potassium 4.6 mmol/L (3.5-5.1)
[2021-03-21] MEDS ORDERED: HYDRALAZINE HCL 25 MG TABLET PO SCH (09:00)
[2021-03-21] MEDS: HYDRALAZINE HCL 25 MG TABLET PO SCH ×2 (09:23→20:08)
[2021-03-21] MEDS ORDERED: Rifaximin 550 MG Tab PO SCH (10:00)
--- NOTE | 2021-03-21 10:15 | PN ---
Date of Progress Note: 03/21/2021 Subjective: The patient was seen this morning for followup. No new complaints or problems reported by the patient. Lying in bed, eating breakfast this morning when I saw her. Denies any abdominal pa in, nausea, vomiting. No chest pain. No shortness of breath. Objective: Vital Signs: Reviewed. HEENT: Unremarkable. Lungs: Clear to auscultation. Heart: Sounds normal. Abdomen: Soft. Bowel sounds normal. No guarding, rigidity, tenderness, distention. Extremities: No leg edema. Laboratory Data: Sodium 139, potassium 4.6, chloride 109, bicarb 26, BUN 27, creatinine 1.20, glucos e 91, magnesium low at 1.6, and ammonia level has gone up today, it is 137. Yesterday, it was 125 an d at the time of admission it was 91. White count 3.3, hemoglobin 9, platelets 75. Impression: 1.Hepatic encephalopathy. 2.Pancytopenia. 3.Cirrhosis of liver. Plan: We will go ahead and continue current medications. Home medications will be continued per ord er. Physical Therapy to continue to work with the patient. Pancytopenia will not require any interv ention, except monitoring and it is due to underlying cirrhosis of liver. The patient reports that s he did not have any bowel movement since I saw her yesterday, but as per my discussion with the [facility] staff, the patient did have one bowel movement last night. We will go ahead and increase the dose of lactulose from 3 times a day to every 6 hours and we will add Xifaxan 550 mg 2 times a day. We will repeat blood work tomorrow and I will see her tomorrow for followup. ALTAF/MODL Voice ID: [id number] Report ID: [id number]
[2021-03-21] MEDS: ATORVASTATIN 10 MG TAB PO SCH (20:08)
[2021-03-22] MEDS: IPRATROPIUM BROM 0.5MG/2.5ML NEB SCH ×4 (02:10→20:10)
[2021-03-22 04:44] LABS: Albumin 2.2 g/dL (3.4-5.0); Bilirubin Total 0.8 mg/dL (0.2-1.0); Magnesium 1.6 mg/dL (1.8-2.4); Potassium 4.2 mmol/L (3.5-5.1); Protein, Total 5.6 g/dL (6.4-8.2)
[2021-03-22] MEDS: LACTULOSE 20 GM/30 ML UCUP PO SCH ×3 (05:13→17:26)
[2021-03-22] MEDS: LEVOTHYROXINE SOD 0.025 MG TAB PO SCH (05:13)
[2021-03-22] MEDS ORDERED: MAGNESIUM SULFATE 1 gm IVPB 1 GM/100 ML BAG IV ONE (06:11)
[2021-03-22] MEDS: HOME MED 1 EA UNK (Escitalopram Oxalate [Escitalopram Oxalate] 10 MG Tablet) PO SCH (08:07)
[2021-03-22] MEDS: VITAMIN D 5,000 UNIT CAP PO SCH (08:49)
[2021-03-22] MEDS: FUROSEMIDE 40 MG TABLET PO SCH (08:49)
[2021-03-22] MEDS: SPIRONOLACTONE 25 MG TABLET PO SCH (08:49)
[2021-03-22] MEDS: HYDRALAZINE HCL 25 MG TABLET PO SCH ×2 (08:49→21:01)
[2021-03-22] MEDS: D5 0.45 NS 1,000 ML IV SCH (17:26)
[2021-03-22 18:36] VITALS: O2SAT 96
[2021-03-22] MEDS: ATORVASTATIN 10 MG TAB PO SCH (21:01)
--- NOTE | 2021-03-22 21:03 | PN ---
Date of Progress Note: 03/22/2021 Subjective: The patient was seen this morning for followup. She was lying in bed, sleeping, easily arousable, not in distress. Denies any complaints. Nurse reported that the patient had 2 loose maximiliano l movements last night, none during daytime. No nausea. No vomiting. Objective: Vital Signs: Reviewed. HEENT: Unremarkable. Lungs: Clear to auscultation. Heart: Sounds normal. Abdomen: Soft. Bowel sounds normal. No guarding, rigidity, tenderness, or distention. Extremities: No leg edema. Laboratory Data: Ammonia level 104. Sodium 140, potassium 4.2, chloride 109, bicarb 26, BUN 26, cre atinine 1.31, glucose 83. Impression: 1.Hepatic encephalopathy. 2.Cirrhosis of liver. 3.Pancytopenia. Plan: We will go ahead and continue lactulose 20 g every 6 hours. Xifaxan was ordered yesterday but I was told by pharmacist that it is not available in the hospital, so we will not be able to use it. Physical Therapy to continue to work with the patient. We will repeat blood work tomorrow. Today' s ammonia level is better today than yesterday and hopefully depending on ammonia level tomorrow, we will decide if we can discharge her to go home tomorrow or not. ALTAF/MODL Voice ID: [id number] Report ID: [id number]
[2021-03-23] MEDS: LACTULOSE 20 GM/30 ML UCUP PO SCH ×2 (01:20→06:19)
[2021-03-23] MEDS: IPRATROPIUM BROM 0.5MG/2.5ML NEB SCH ×2 (02:25→08:00)
[2021-03-23 05:14] LABS: Magnesium 1.8 mg/dL (1.8-2.4); Potassium 4.1 mmol/L (3.5-5.1)
[2021-03-23 05:20] LABS: Absolute Lymphocytes (CBC) 1.6 K/uL (0.7-4.9); Basophils % 0.4 % (0-1.3); Hematocrit 30.1 % (36.0-45.0); Lymphocytes % 30.8 % (15.3-44.8); RBC Red Blood Cell Count 3.15 M/uL (3.86-4.86)
[2021-03-23] MEDS: LEVOTHYROXINE SOD 0.025 MG TAB PO SCH (06:19)
[2021-03-23] MEDS ORDERED: MAGNESIUM SULFATE 1 gm IVPB 1 GM/100 ML BAG IV ONE (06:45)
[2021-03-23] MEDS: HYDRALAZINE HCL 25 MG TABLET PO SCH (08:31)
[2021-03-23] MEDS: SPIRONOLACTONE 25 MG TABLET PO SCH (08:31)
[2021-03-23] MEDS: VITAMIN D 5,000 UNIT CAP PO SCH (08:31)
[2021-03-23] MEDS: FUROSEMIDE 40 MG TABLET PO SCH (08:31)
[2021-03-23] MEDS: HOME MED 1 EA UNK (Escitalopram Oxalate [Escitalopram Oxalate] 10 MG Tablet) PO SCH (09:00)
[2021-03-23 12:04] VITALS: BP 152/68; TEMP 98
--- NOTE | 2021-03-24 18:05 | DS ---
Date of Discharge: 03/23/2021 Disposition: Discharged to go home. Physical Examination: HEENT: Unremarkable. Lungs: Clear to auscultation. Heart: Sounds normal. Abdomen: Soft. Bowel sounds normal. No guarding, rigidity, tenderness, or distention. Extremities: No leg edema. Discharge Medications And Instructions: 1.Continue all prior home medication except change lactulose and take 20 g by mouth 3 times a day an d follow up at my office next week on Monday or Monday. 2.Social Service to make arrangements for home health care and home physical therapy. Laboratory Data: Upon admission; white count 5.9, hemoglobin 11, platelets 91. Today; white count 5 .3, hemoglobin 9.9, platelets 86. Last chemistry today; sodium 141, potassium 4.1, chloride 108, bic arb 25, BUN 29, creatinine 1.54, glucose 102. Ammonia level 86 today. Her initial ammonia level whe n she came into emergency room was 91. Highest ammonia level was 137, which was on 03/21/2021. Init ial creatinine was 1.43 when she came in, lowest creatinine 1.20 day before yesterday, and last creat inine today 1.54. Hospital Course: An 89-year-old female patient admitted to the hospital with weakness and sleepiness . Please see dictated H and P for more information. The patient was evaluated in the ER and admitte d to the hospital with hepatic encephalopathy. She was given lactulose and she started to have diarr hea with lactulose as expected and her ammonia level started to come down now and overall her conditi on is stable for discharge and she was discharged to go home in stable condition. Physical Therapy w as consulted during this hospitalization to help ambulate the patient. Her other medical problems re mained stable. Final Diagnoses: 1.Hepatic encephalopathy. 2.Pancytopenia. 3.Cirrhosis of liver. 4.Volume depletion. 5.Hypothyroidism. 6.Hypertension. 7.Hyperlipidemia. 8.Coronary artery disease. 9.Lumbar spinal stenosis. 10.Osteoarthritis, multiple sites. 11.Anxiety. ALTAF/MODL Voice ID: [id number] Report ID: [id number]
== END 2021-03-23 11:40 | disposition home health service (06) | DRG 442 ==
LOC: ER 16:23 → ERHOLD 22:53 → 4TH 03-20 01:45
PROVIDERS: ADMIT Internal Medicine; ATTEND Internal Medicine
DX: K72.90 Hepatic failure, unspecified without coma (principal); D61.818 Other pancytopenia; I25.10 Atherosclerotic heart disease of native coronary artery without angina pectoris; K21.9 Gastro-esophageal reflux disease without esophagitis; E78.5 Hyperlipidemia, unspecified; I10 Essential (primary) hypertension; E03.9 Hypothyroidism, unspecified; K74.60 Unspecified cirrhosis of liver; E86.9 Volume depletion, unspecified; M48.061 Spinal stenosis, lumbar region without neurogenic claudication; M19.90 Unspecified osteoarthritis, unspecified site; F41.9 Anxiety disorder, unspecified; Z88.1 Allergy status to other antibiotic agents; Z79.899 Other long term (current) drug therapy; Z86.73 Personal history of transient ischemic attack (TIA), and cerebral infarction without residual deficits; Z88.8 Allergy status to other drugs, medicaments and biological substances; Z79.890 Hormone replacement therapy; Z20.822 Contact with and (suspected) exposure to COVID-19
CPT/HCPCS: 36415; 70450; 71045; 80048; 80053; 80076; 81003; 82140; 82947; 83735; 83880; 84484; 85025; 85610; 93005; 94640; 94760; 97116; 97161; 97530; 99284; J3475; J7040; J7799; U0003

== ENCOUNTER 2021-03-28 08:36 | Inpatient (IN) | payer OTHER ==
--- OUTSIDE RECORDS SUMMARY | 2021-03-28 08:39 | XMS REPORT | Continuity of Care Document ---
:1930 Author Organization [facility] t Address [address] [place] [address] Care Team Providers Name Role Phone Asked, Pcp Primary Care Physician Unavailable Doctor Unassigned, Name Attending Clinician Unavailable Doreen Vargas Attending Clinician Luca BRIONES Attending Clinician MATTHIAS Attending Clinician Unavailable Luca BRIONES Admitting Clinician MATTHIAS Admitting Clinician Unavailable Problems Condition Condition Condition Status Onset Resolution Last Treating Co mments Source Name Details Category Date Date Treatment Clinician Date Other Other Disease Active Rousseau specified specified 07-25 Meth nando rheumatoid rheumatoid [...] 00 s to drug Sulfa Propensi Active Rousseau (Sulfona ty to 6-15 Methodi mide adverse 00:00: st Antibiot reaction 00 ics) s to drug Social History Social Habit Start Date Stop Date Quantity Comments Source Alcohol intake 2016-07-25 2016-07-25 Current [facility] thodist 00:00:00 00:00:00 non-drinker of alcohol (finding) Sex Assigned At [birth year] [facility] ethodist 00:00:00 00:00:00 Smoking Status Start Date [...] Future Scheduled 2021-06-27 INFLUENZA VACCINE [place] [facility] [employer] [facility] 00:00:00 [code = INFLUENZA VACCINE] Future Scheduled 1997 65+ PNEUMOCOCCAL [place] Religious Test 00:00:00 VACCINE (1 of 1 - PPSV23) [code = 65+ PNEUMOCOCCAL VACCINE (1 of 1 - PPSV23)] Future Scheduled 1982 SHINGLES VACCINES (#1) H ourodrigo Religious Test 00:00:00 [code = SHINGLES VACCINES (#1)] Future Scheduled 1946 COVID-19 VACCINE (1) Eliedavid solerabril Religious Test 00:00:00 [code = COVID-19 VACCINE (1)] Encounters Start End Encounter Admission Attending Care Care Encounter Source Date/Time Date/Time Type Type Clinicians Facility Department ID 2020-03-30 2020-03-30 Orders Doctor WALL [id number] 00:00:00 00:00:00 Only UnassignedNAZIA [id number] [place] [facility] [id number] 2020-03-16 2020-03-16 Orders Doctor WALL [id number] 00:00:00 00:00:00 Only UnassignedNAZIA [id number] [place] [facility] [id number] 2020-02-28 2020-03-02 [facility] Jaime Sierra [facility] [id number] 16:38:44 16:46:00 Encounter Stacia Segovia [id number] [place] [id number] [place] [id number] Results Test Description Test Time Test [...] (test code = IG%) 0.2 % 0.0-0.4 [id number] 05:43:00 Test Item Value Reference Range Interpretation [...] mg/dl 8.4-10.2 = CALC) EGFR if 50 Ghanaian (test code mL/min/1.73m\\ = EGFRAA) S\\2 EGFR if Non- 41 Estimate d Glomerular Ghanaian (test code mL/min/1.73m\\ Filtrat ion Rate (eGFR) [...]
--- NOTE | 2021-03-28 09:45 | RAD REPORT ---
EXAM DESCRIPTION: CT - Head Brain Wo Cont - 03/28/2021 9:40 am CLINICAL HISTORY: CONFUSED Headache, drowsiness COMPARISON: Head Brain Wo Cont dated 03/19/2021; Head Brain Wo Cont dated 02/04/2021 TECHNIQUE: All CT scans are performed using dose optimization technique as appropriate and may inclu de automated exposure control or mA/KV adjustment according to patient size. FINDINGS: No intracranial hemorrhage, hydrocephalus or extra-axial fluid collection. Moderate genera lized brain atrophy is present with moderate periventricular and deep white matter chronic microvascu lar ischemic changes. No areas of brain edema or evidence of midline shift. Chronic sinus opacification of the left frontal and left maxillary antrum. The calvarium is intact. M ild vertebral atherosclerosis. IMPRESSION: No acute intracranial abnormality. Chronic left-sided sinus opacification.
[2021-03-28 10:23] LABS: Absolute Lymphocytes (CBC) 1.3 K/uL (0.7-4.9); Basophils % 0.5 % (0-1.3); Hematocrit 31.3 % (36.0-45.0); Lymphocytes % 33.5 % (15.3-44.8); MPV 8.7 fL (7.6-11.3); RBC Red Blood Cell Count 3.25 M/uL (3.86-4.86)
[2021-03-28] MEDS ORDERED: NA CHLORIDE 0.9% 1,000 ML ONE (10:37)
[2021-03-28] MEDS ORDERED: CEFTRIAXONE/SWI 1gm 1 GM/10 ML SYR ONE (10:37)
[2021-03-28] MEDS ORDERED: LACTULOSE 20 GM/30 ML UCUP ONE (10:37)
[2021-03-28 10:45] LABS: Albumin 2.7 g/dL (3.4-5.0); Bilirubin Direct 0.3 mg/dL (0-0.2); Bilirubin Total 0.9 mg/dL (0.2-1.0); Potassium 4.4 mmol/L (3.5-5.1); Protein, Total 7.1 g/dL (6.4-8.2)
--- NOTE | 2021-03-28 11:01 | EDPHYS ---
Physician Documentation [facility] Name: Rachel Saleh Age: 89 yrs Sex: Female : 1930 Arrival Date: 03/28/2021 Time: 08:40 Bed 15 Private MD: ED Physician Sanjuanita Tam HPI: 03/28 10:57 This 89 yrs old Female presents to ER via EMS with complaints of ams. ma2 10:57 The patient presents with confusion, decreased mental status. Onset: The ma2 symptoms/episode began/occurred gradually, 1 day(s) ago. Associated signs and symptoms: Pertinent negatives: chest pain, combativeness, confusion, diarrhea. - Immunization history:: Adult Immunizations up to date. - Social history:: Smoking status: unknown Patient/guardian denies using alcohol, street drugs, The patient lives with family. - Family history:: not pertinent. ROS: 10:57 Constitutional: Negative for fever, chills, and weight loss. ma2 10:57 All other systems are negative. Exam: 10:57 Constitutional: This is a well developed, well nourished patient who is awake, alert, ma2 and in no acute distress. Chest/axilla: Normal chest wall appearance and motion. Nontender with no deformity. No lesions are appreciated. Cardiovascular: Regular rate and rhythm with a normal S1 and S2. No gallops, murmurs, or rubs. Normal PMI, no JVD. No pulse deficits. Respiratory: Lungs have equal breath sounds bilaterally, clear to auscultation and percussion. No rales, rhonchi or wheezes noted. No increased work of breathing, no retractions or nasal flaring. Abdomen/GI: Soft, non-tender, with normal bowel sounds. No distension or tympany. No guarding or rebound. No evidence of tenderness throughout. Back: No spinal tenderness. No costovertebral tenderness. Full range of motion. Skin: Warm, dry with normal turgor. Normal color with no rashes, no lesions, and no evidence of cellulitis. MS/ Extremity: Pulses equal, no cyanosis. Neurovascular intact. Full, normal range of motion. Neuro: samnolant arosable to verbal communication , otherwise alert, GCS 15, oriented to person, place, time, and situation. Cranial nerves II-XII grossly intact. Motor strength 5/5 in all extremities. Sensory grossly intact. Cerebellar exam normal. Normal gait. Vital Signs: 09:14 BP 141 / 54; Pulse 68; Resp 18; Temp 98.0(O); Pulse Ox 100% on R/A; Pain 0/10; kg 10:00 BP 136 / 64; Pulse 69; Resp 15; Pulse Ox 100% on R/A; ca1 11:00 BP 142 / 54; Pulse 68; Resp 18 S; Pulse Ox 100% on R/A; ca1 12:00 BP 132 / 53; Pulse 70; Resp 16; Pulse Ox 99% on R/A; zb 13:07 BP 136 / 51; Pulse 67; Resp 18; Pulse Ox 98% on R/A; zb 14:00 BP 139 / 53; Pulse 66; Resp 16; Pulse Ox 98% on R/A; zb MDM: 08:55 Patient medically screened. ma2 10:57 Differential Diagnosis: electrolyte abnormality, seizure, UTI, volume depletion. Data ma2 reviewed: vital signs, nurses notes. Counseling: I had a detailed discussion with the patient and/or guardian regarding: the historical points, exam findings, and any diagnostic results supporting the discharge/admit diagnosis, the presence of at least one elevated blood pressure reading (>120/80) during this emergency department visit, the need for further work-up and treatment in the hospital. Response to treatment: the patient's symptoms have markedly improved after treatment. 03/28 08:59 Order name: AMMONIA [facility] 03/28 08:59 Order name: Basic Metabolic Panel [facility] 03/28 08:59 Order name: CBC with Diff [facility] 03/28 08:59 Order name: Hepatic Function; Complete Time: 10:57 [facility] 03/28 08:59 Order name: Lipase; Complete Time: 10:57 [facility] 03/28 09:00 Order name: Ammonia; Complete Time: 10:57 EDMN 03/28 09:00 Order name: Basic Metabolic Panel; Complete Time: 10:57 EDMN 03/28 09:00 Order name: CBC with Automated Diff; Complete Time: 13:00 EDMN 03/28 11:45 Order name: Urine Dipstick-Ancillary; Complete Time: 13:00 EDMN 03/28 11:50 Order name: CBC Smear Scan; Complete Time: 13:00 EDMS 03/28 13:26 Order name: Liver (Hepatic) Function EDMS 03/28 13:26 Order name: CBC with Automated Diff EDMS 03/28 13:26 Order name: CBC with Automated Diff EDMS 03/28 13:26 Order name: Comprehensive Metabolic Panel EDMS 03/28 08:59 Order name: CT Head Brain wo Cont vt2 03/28 08:59 Order name: IV Saline Lock; Complete Time: 10:14 [facility] 03/28 08:59 Order name: Labs collected and sent; Complete Time: 10:14 [facility] 03/28 08:59 Order name: Urine Dipstick-Ancillary (obtain specimen); Complete Time: 11:43 vt2 03/28 09:46 Order name: CT; Complete Time: 10:57 EDMS 03/28 13:26 Order name: Regular EDMS 03/28 13:26 Order name: Comprehensive Metabolic Panel EDMS 03/28 13:38 Order name: COVID-19 : Document "Date of Symptom Onset" if Symptomatic. 03/28 14:43 Order name: SARS-COV-2 RT PCR [facility] 03/28 15:22 Order name: Glucose, Ancillary Testing EDMS Administered Medications: 10:11 Drug: NS 0.9% 1000 ml Route: IV; Rate: 125 ml/hr; Site: left antecubital; ca1 11:44 Follow up: Response: No adverse reaction; IV Status: Infusion continued upon admission ca1 10:14 Drug: Rocephin (cefTRIAXone) 1 grams Route: IV; Rate: calculated rate; Site: left ca1 antecubital; 11:43 Follow up: Response: No adverse reaction; IV Status: Completed infusion ca1 10:16 Drug: Lactulose 30 grams Volume: 45 ml; Route: PO; ca1 11:43 Follow up: Response: No adverse reaction ca1 Disposition: 03/28/21 11:00 Hospitalization ordered by Roc York for Inpatient Admission. Preliminary diagnosis is Encephalopathy, unspecified - hepatic . - Bed requested for Telemetry/MedSurg (Inpatient). - Status is Inpatient Admission. zb - Condition is Stable. - Problem is new. - Symptoms are unchanged. Signatures: Dispatcher [employer] EDMN Sanjuanita Tam MD MD vt2 Soheila Valerio Cheryl, RN RN ca1 Dalila Kapoor RN RN zb Rissa Ferreira kg Corrections: (The following items were deleted from the chart) 14:01 13:39 CORONAVIRUS ordered. EDMS EDMS 14:07 11:00 Hospitalization Ordered by Roc York MD for Inpatient Admission. Preliminary eb diagnosis is Encephalopathy, unspecified - hepatic . Bed requested for Telemetry/MedSurg (Inpatient). Status is Inpatient Admission. Condition is Stable. Problem is new. Symptoms are unchanged. ma2 15:26 14:07 03/28/2021 11:00 Hospitalization Ordered by Roc York MD for Inpatient zb Admission. Preliminary diagnosis is Encephalopathy, unspecified - hepatic . Bed requested for Telemetry/MedSurg (Inpatient). Status is Inpatient Admission. Condition is Stable. Problem is new. Symptoms are unchanged. eb
--- NOTE | 2021-03-28 11:01 | ER ---
Nurse's Notes [facility] Name: Rachel Saleh Age: 89 yrs Sex: Female : 1930 Arrival Date: 03/28/2021 Time: 08:40 Bed 15 Private MD: Diagnosis: Encephalopathy, unspecified-hepatic Presentation: 03/28 09:14 Chief complaint: EMS states: Pt came from home. Family stated that she is more confused kg and less responsive that normal. Coronavirus screen: Client denies travel out of the [place] in the last 14 days. Ebola Screen: Patient negative for fever greater than or equal to 101.5 degrees Fahrenheit, and additional compatible Ebola Virus Disease symptoms. Initial Sepsis Screen: Does the patient meet any 2 criteria? Altered Mental Status. Does the patient have a suspected source of infection? No. Patient's initial sepsis screen is negative. Risk Assessment: Do you want to hurt yourself or someone else? Patient reports no desire to harm self or others. Onset of symptoms was March 27, 2021 at 15:00. 09:14 Method Of Arrival: EMS: [facility] kg 09:14 Acuity: CHRIS 3 kg - Immunization history:: Adult Immunizations up to date. - Social history:: Smoking status: unknown Patient/guardian denies using alcohol, street drugs, The patient lives with family. - Family history:: not pertinent. Screenin:20 Abuse screen: Denies threats or abuse. Nutritional screening: No deficits noted. kg Tuberculosis screening: No symptoms or risk factors identified. Fall Risk Fall in past 12 months (25 points). Secondary diagnosis (15 points) IV access (20 points). Ambulatory Aid- None/Bed Rest/Nurse Assist (0 pts). Gait- Impaired (20 pts.). Mental Status- Overestimates/Forgets Limitations (15 pts.). Total Salter Fall Scale indicates High Risk Score (45 or more points). Assessment: 09:19 General: Appears in no apparent distress. Behavior is calm, cooperative, inappropriate kg for age, quiet. Pain: Denies pain. Neuro: Level of Consciousness is awake, alert, obeys commands, confused, Oriented to person, Qualitative Field Project Manager are equal bilaterally weak bilaterally Moves all extremities. Weakness Gait is Unable to ambulate at this time. Speech Slow to respond. Cardiovascular: No deficits noted. Respiratory: No deficits noted. GI: No deficits noted. : No deficits noted. EENT: No deficits noted. Derm: No deficits noted. Musculoskeletal: weakness. 10:36 Reassessment: Patient appears in no apparent distress at this time. No changes from ca1 previously documented assessment. Patient and/or family updated on plan of care and expected duration. Pain level reassessed. 11:44 Reassessment: Patient appears in no apparent distress at this time. No changes from ca1 previously documented assessment. Patient and/or family updated on plan of care and expected duration. Pain level reassessed. Vital Signs: 09:14 BP 141 / 54; Pulse 68; Resp 18; Temp 98.0(O); Pulse Ox 100% on R/A; Pain 0/10; kg 10:00 BP 136 / 64; Pulse 69; Resp 15; Pulse Ox 100% on R/A; ca1 11:00 BP 142 / 54; Pulse 68; Resp 18 S; Pulse Ox 100% on R/A; ca1 12:00 BP 132 / 53; Pulse 70; Resp 16; Pulse Ox 99% on R/A; zb 13:07 BP 136 / 51; Pulse 67; Resp 18; Pulse Ox 98% on R/A; zb 14:00 BP 139 / 53; Pulse 66; Resp 16; Pulse Ox 98% on R/A; zb ED Course: 08:40 Patient arrived in ED. aa5 08:55 Sanjuanita Tam MD is Attending Physician. ma2 09:05 Rissa Ferreira is Primary Nurse. kg 09:18 Triage completed. kg 10:15 Arm band placed on right wrist. ca1 10:15 Initial lab(s) drawn, by va, sent to lab. Inserted saline lock: 22 gauge in left ca1 antecubital area, using aseptic technique. Blood collected. 10:16 Primary Nurse role handed off by Rissa Ferreira ca1 10:16 Susy June RN is Primary Nurse. ca1 10:16 Patient has correct armband on for positive identification. Placed in gown. Bed in low ca1 position. Call light in reach. Side rails up X2. wood grainer on. Pulse ox on. NIBP on. Warm blanket given. 11:00 Roc York MD is Hospitalizing Provider. ma2 11:44 Straight cath inserted, using sterile technique, 18 Fr. Specimen obtained. Returned ca1 clear yellow urine. Patient tolerated well. 15:02 No provider procedures requiring assistance completed. Patient admitted, IV remains in zb place. 15:06 Report given to FRACISCO Tuttle. zb Administered Medications: 10:11 Drug: NS 0.9% 1000 ml Route: IV; Rate: 125 ml/hr; Site: left antecubital; ca1 11:44 Follow up: Response: No adverse reaction; IV Status: Infusion continued upon admission ca1 10:14 Drug: Rocephin (cefTRIAXone) 1 grams Route: IV; Rate: calculated rate; Site: left ca1 antecubital; 11:43 Follow up: Response: No adverse reaction; IV Status: Completed infusion ca1 10:16 Drug: Lactulose 30 grams Volume: 45 ml; Route: PO; ca1 11:43 Follow up: Response: No adverse reaction ca1 Outcome: 11:00 Decision to Hospitalize by Provider. ma2 15:02 Admitted to Med/surg accompanied by nurse, room 201, with chart, Report called to stephen Gramajo RN 15:02 Condition: stable 15:02 Instructed on the need for admit. 15:26 Patient left the ED. zb Signatures: Miley Umanzor RN RN aa5 Sanjuanita Tam MD MD nj2 Susy June RN RN ca1 Dalila Kapoor RN RN Rissa Elaine kg
[2021-03-28 11:45] LABS: Urine Blood Negative (Negative); Urine Glucose Negative (Negative); Urine Protein Negative (Negative); Urine pH 7.5 (5.0-7.0)
[2021-03-28 11:50] LABS: Blood Morphology Comment NOT SEEN (NOT SEEN); Platelet Estimate DECR; White Blood Cell Scan OK (OK)
[2021-03-28 16:42] VITALS: BMI 26.6
[2021-03-28] MEDS: LACTULOSE 20 GM/30 ML UCUP PO SCH (17:02)
[2021-03-28] MEDS ORDERED: NITROGLYCERIN 0.4 MG/TAB SL PRN (18:53)
--- NOTE | 2021-03-28 18:54 | P.HP ---
Certification for Inpatient Patient admitted to: Inpatient With expected LOS: >2 Midnights Practitioner: I am a practitioner with admitting privileges, knowledge of patient current condition, hospital course, and medical plan of care. Services: Services provided to patient in accordance with Admission requirements found in Title 42 Section 412.3 of the Code of Federal Regulations Patient History Date of Service: 03/28/21 Reason for admission: CONFUSION History of Present Illness: MS. 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 SHE VOMITED A COUPLE OF DAYS AGO BUT HAS MORE SOMOLENCE SINCE THEN. SHE HAS BEEN ON REGULAR LACTULOSE AND IS NOT MISSING IT. Allergies amlodipine [From Lotrel] Allergy (Verified 02/01/20 23:33) Hives/Rash benazepril [From Lotrel] Allergy (Verified 02/01/20 23:33) Hives/Rash memantine [From Namenda] Allergy (Verified 02/01/20 23:33) Hives/Rash Sulfa (Sulfonamide Antibiotics) Allergy (Verified 11/30/14 06:16) Hives/Rash Home Medications: Atorvastatin Calcium [Lipitor] 10 mg PO BEDTIME 02/05/21 Cholecalciferol (Vitamin D3) [Vitamin D 5,000 Iu Cap] 5,000 unit PO DAILY 02/05/21 Escitalopram Oxalate 10 mg PO DAILY 02/05/21 Hydralazine HCl 50 mg PO BID 02/05/21 Lactulose 20 gm PO TID 02/05/21 Nitroglycerin [Nitrostat] 0.4 mg SL [id number] PRN 02/05/21 Spironolactone 50 mg PO DAILY 02/05/21 Levothyroxine Sodium [Levothyroxine] 25 mcg PO [id number] 03/20/21 Furosemide [Lasix*] 1 tab PO DAILY 03/28/21 - Past Medical/Surgical History Has patient received pneumonia vaccine in the past: Yes Diabetic: No -: HTN -: hyperlipidemia -: hypothyroidism -: RA -: UTI -: C-Diff -: Dementia -: Htn -: Depression -: Gerd -: Cataracts -: Falls -: Coronary stents -: right knee replacement -: hysterectomy -: cataract sx -: Hip surgery - Family History Father -: Cancer Mother -: Stroke - Social History Smoking Status: Never smoker Alcohol use: No CD- Drugs: No Caffeine use: Yes Place of Residence: Home Review of Systems 10-point ROS is otherwise unremarkable General: Weakness, Malaise Physical Examination - Vital Signs Temperature: 96.6 F Blood Pressure: 140/80 Pulse: 66 Respirations: 15 Pulse Ox (%): 98 - Physical Exam General: In no apparent distress, Oriented x2, Confused HEENT: Atraumatic, PERRLA, Mucous membr. moist/pink, EOMI, Sclerae nonicteric Neck: Supple, 2+ carotid pulse no bruit, No LAD, Without JVD or thyroid abnormality Respiratory: Clear to auscultation bilaterally, Normal air movement Cardiovascular: Regular rate/rhythm, Normal S1 S2 Gastrointestinal: Normal bowel sounds, No tenderness Musculoskeletal: No tenderness Integumentary: No rashes Neurological: Normal gait, Normal speech, Normal strength at 5/5 x4 extr, Normal tone, Normal affect Lymphatics: No axilla or inguinal lymphadenopathy - Studies Laboratory Data (last 24 hrs) 03/28/21 10:11: WBC 3.90 L D, Hgb 10.3 L, Hct 31.3 L, Plt Count 83 L 03/28/21 10:11: Sodium 140, Potassium 4.4, BUN 35 H, Creatinine 1.65 H, Glucose 111 H, Total Bilirubin 0.9, AST 38 H, ALT 32, Alkaline Phosphatase 122 H, Lipase 202 Assessment and Plan - Problems (Diagnosis) (1) Hepatic encephalopathy Onset Date: 09/21/18 Current Visit: No Status: Chronic Plan: THERE DOES NOT SEEM TO BE ANY TRIGGER FOR THIS ACUTE CHANGE NOW. UA IS NEG. CXR OREDERED. ADD XIFAXAN ORALLY. CONTINUE LACTULOSE. PROGNOSIS GUARDED. DR. DISLA WILL BE HERE IN AM SHE IS AWAKE BUT CONFUSED AND SLOW. SHE DOES NOT HAVE ANY ACUTE DISTRESS. - Advance Directives Does patient have a Living Will: Yes Does patient have a Durable POA for Healthcare: Yes
[2021-03-28] MEDS: NACHLORIDE 0.45% 1,000 ML IV SCH (19:10)
[2021-03-28] MEDS ORDERED: ENOXAPARIN 30 MG/0.3 ML SQ ONE (19:49)
[2021-03-28 20:28] LABS: Albumin 2.3 g/dL (3.4-5.0); Bilirubin Direct 0.3 mg/dL (0-0.2); Bilirubin Total 0.7 mg/dL (0.2-1.0); Protein, Total 6.2 g/dL (6.4-8.2)
[2021-03-28] MEDS ORDERED: LACTULOSE 20 GM/30 ML UCUP PO SCH (21:00)
[2021-03-28] MEDS ORDERED: Rifaximin 550 MG Tab PO SCH (21:00)
--- NOTE | 2021-03-28 21:01 | RAD REPORT ---
EXAM DESCRIPTION: RAD - Chest Single View - 03/28/2021 8:56 pm CLINICAL HISTORY: encephalopathy, rule out infection Chest pain. COMPARISON: Chest Single View dated 03/19/2021; Chest Single View dated 02/04/2021; Chest Single View dated 02/02/2020; Chest Single View dated 02/01/2020 FINDINGS: Portable technique limits examination quality. The lungs are emphysematous but grossly clear. The heart is normal in size. Degenerative changes are present both shoulders. IMPRESSION: COPD.
[2021-03-28] MEDS: ATORVASTATIN 10 MG TAB PO SCH (21:19)
[2021-03-28] MEDS: HYDRALAZINE HCL 25 MG TABLET PO SCH (21:20)
[2021-03-29] MEDS: LACTULOSE 20 GM/30 ML UCUP PO SCH ×4 (00:25→17:45)
[2021-03-29 06:10] LABS: Absolute Lymphocytes (CBC) 0.8 K/uL (0.7-4.9); Basophils % 0.2 % (0-1.3); Lymphocytes % 12.1 % (15.3-44.8); MPV 8.7 fL (7.6-11.3); RBC Red Blood Cell Count 3.11 M/uL (3.86-4.86)
[2021-03-29] MEDS ORDERED: LEVOTHYROXINE SOD 0.025 MG TAB PO SCH (06:30)
[2021-03-29 06:31] LABS: Albumin 2.6 g/dL (3.4-5.0); Bilirubin Total 1.3 mg/dL (0.2-1.0); Potassium 4.5 mmol/L (3.5-5.1); Protein, Total 6.5 g/dL (6.4-8.2)
[2021-03-29] MEDS: ESCITALOPRAM 20 MG TAB PO SCH (09:19)
[2021-03-29] MEDS: NACHLORIDE 0.45% 1,000 ML IV SCH ×3 (09:19→21:40)
[2021-03-29] MEDS: HYDRALAZINE HCL 25 MG TABLET PO SCH ×2 (09:19→21:19)
[2021-03-29] MEDS: ENSURE CLEAR 200 ML CAN PO SCH ×2 (09:20→21:20)
[2021-03-29] MEDS: VITAMIN D 5,000 UNIT CAP PO SCH (09:20)
[2021-03-29] MEDS ORDERED: ENOXAPARIN 30 MG/0.3 ML SQ SCH (17:00)
[2021-03-29] MEDS ORDERED: ACETAMINOPHEN 500 MG TAB PO PRN (20:59)
[2021-03-29] MEDS: ATORVASTATIN 10 MG TAB PO SCH (21:19)
[2021-03-29] MEDS ORDERED: ACETAMINOPHEN 500 MG TAB ONE (21:20)
[2021-03-29] MEDS ORDERED: CEFTRIAXONE 1 GM/NS 50 ML 1 GM/50 ML BAG IV SCH (22:00)
[2021-03-29] MEDS: CEFTRIAXONE/SWI 1gm 1 GM/10 ML SYR IV SCH (22:41)
[2021-03-29 23:14] LABS: Urine Appearance CLEAR (Clear); Urine Bilirubin NEGATIVE (Negataive); Urine Blood NEGATIVE (Negative); Urine Color YELLOW (Yellow); Urine Glucose NEGATIVE (Negative); Urine Protein NEGATIVE (Negative)
[2021-03-30] MEDS: LACTULOSE 20 GM/30 ML UCUP PO SCH ×4 (00:59→18:14)
[2021-03-30 01:08] LABS: Urine Bacteria <20 /HPF (<20); Urine RBC <5 /HPF (NONE SEEN)
[2021-03-30 06:01] LABS: Basophils % 0.5 % (0-1.3); Hematocrit 27.9 % (36.0-45.0); Lymphocytes % 12.2 % (15.3-44.8); MPV 8.1 fL (7.6-11.3); RBC Red Blood Cell Count 2.95 M/uL (3.86-4.86)
[2021-03-30] MEDS: ESCITALOPRAM 20 MG TAB PO SCH (08:56)
[2021-03-30] MEDS: HYDRALAZINE HCL 25 MG TABLET PO SCH ×2 (08:56→21:13)
[2021-03-30] MEDS: NACHLORIDE 0.45% 1,000 ML IV SCH (08:57)
[2021-03-30] MEDS: ENSURE CLEAR 200 ML CAN PO SCH ×2 (08:57→21:13)
[2021-03-30] MEDS: VITAMIN D 5,000 UNIT CAP PO SCH (08:57)
--- NOTE | 2021-03-30 09:52 | RAD REPORT ---
EXAM DESCRIPTION: RAD - Chest Single View - 03/29/2021 9:54 pm CLINICAL HISTORY: Fever. COMPARISON: None. TECHNIQUE: Single view AP chest radiograph(s). FINDINGS: Mild prominence of the central pulmonary vasculature. Moderate diffuse pulmonary interstit ial thickening. No pleural effusion. No pneumothorax. Nonenlarged cardiomediastinal silhouette. Aorti c knob atherosclerosis. Osteopenia. IMPRESSION: Mild prominence of the central pulmonary vasculature. Moderate diffuse pulmonary interst itial thickening. Electronically signed by: Farrah Duff MD 03/29/2021 9:58 PM CDT Due to temporary technical issues with the PACS/Fluency reporting system, reports are being signed by the in house radiologist without review as a courtesy to ensure prompt reporting. The interpreting r adiologist is fully responsible for the content of the report.
--- NOTE | 2021-03-30 10:15 | PN ---
Date of Progress Note: 03/29/2021 Subjective: The patient was seen this morning for followup. She was lying in bed. Her daughter was with her at bedside. The patient was brought into emergency room with altered mental status and was admitted to the hospital with hepatic encephalopathy after she came in yesterday to the emergency ro om. This morning when I saw her, she appeared weaker than usual, very slow to respond. She did inder gnize me and she told me my name, but her responses were very slow compared to how she was when we re leased her from hospital last time. No abdominal pain, shortness of breath. No chest pain. No naus ea. No vomiting. Objective: Vital Signs: Reviewed. HEENT: Unremarkable. Lungs: Clear to auscultation. Heart: Sounds normal. Abdomen: Soft. Bowel sounds normal. No guarding, rigidity, tenderness, or distention. Extremities: No leg edema. Laboratory Data: White count 6.5, hemoglobin 10, platelets 79. Sodium 139, potassium 4.5, chloride 109, bicarb 22, BUN 31, creatinine 1.59, glucose 96, total bilirubin 1.3. Ammonia level 80. Impression: 1.Hepatic encephalopathy. 2.Cirrhosis of liver. 3.Chronic kidney disease, stage 3B. 4.Hypertension. 5.Anemia. 6.Thrombocytopenia. Plan: We will go ahead and continue current medication. We will continue home medications per order and lactulose will be given per order. We will monitor her ammonia level along with clinical status . Details were discussed with family member that is patient's daughter who was at bedside. Daughter was made aware of the fact that ammonia level may not always correlate with clinical status and that is obvious looking at her now with ammonia level of 80, but her clinical status is worse versus last time when we released her with ammonia level around 85 or so with significant improvement in her cli nical status. Highest ammonia level during last hospital stay was around 135 upon admission. During last hospital stay, her ammonia level was 90. All these details were discussed with her. We will c onsult Physical Therapy and we will see her tomorrow for followup. ALTAF/MODL Voice ID: [id number] Report ID: [id number]
[2021-03-30] MEDS: CEFTRIAXONE/SWI 1gm 1 GM/10 ML SYR IV SCH (21:00)
[2021-03-30] MEDS: ATORVASTATIN 10 MG TAB PO SCH (21:13)
--- NOTE | 2021-03-30 21:47 | PN ---
Date of Progress Note: 03/30/2021 Subjective: The patient was seen this morning for followup. Her mental status was not any better co mpared to yesterday. She is lying in bed, appears very weak and tired, speaks very softly, recognize s me. Denies any abdominal pain, nausea, vomiting. Objective: Vital Signs: Reviewed. HEENT: Unremarkable. Lungs: Clear to auscultation. Heart: Sounds normal. Abdomen: Soft. Bowel sounds normal. No guarding, rigidity, tenderness, distention. Extremities: No leg edema. Laboratory Data: White count 8.3, hemoglobin 9.6, platelets 62. Sodium 136, potassium 4, chloride 1 05, bicarb 24, BUN 30, creatinine 1.42, glucose 88. Ammonia level 22. Impression: 1.Hepatic encephalopathy. 2.Cirrhosis of liver. 3.Fever. 4.Thrombocytopenia. 5.Anemia. 6.Chronic kidney disease, stage 3. Plan: We will continue current medications. The patient started to have fever as of yesterday karl hollins. We will follow up on culture results. Empiric antibiotic, ceftriaxone were started. Urinalysis remained unremarkable. Details and plan of treatment discussed with the patient, and son today. I will see her tomorrow for followup. ALTAF/MODL Voice ID: [id number] Report ID: [id number]
[2021-03-30] MEDS ORDERED: Levofloxacin500mg IV 500 MG/100 ML BAG IV ONE (22:00)
[2021-03-30 23:55] VITALS: O2SAT 98
[2021-03-31] MEDS: LACTULOSE 20 GM/30 ML UCUP PO SCH ×2 (00:44→06:06)
[2021-03-31 06:27] LABS: Potassium 3.8 mmol/L (3.5-5.1)
[2021-03-31] MEDS: NACHLORIDE 0.45% 1,000 ML IV SCH (08:36)
[2021-03-31] MEDS: ENSURE CLEAR 200 ML CAN PO SCH (09:00)
[2021-03-31 09:26] VITALS: BP 149/68; TEMP 98.1
[2021-03-31] MEDS: ESCITALOPRAM 20 MG TAB PO SCH (09:41)
[2021-03-31] MEDS: VITAMIN D 5,000 UNIT CAP PO SCH (09:41)
[2021-03-31] MEDS: HYDRALAZINE HCL 25 MG TABLET PO SCH (09:41)
[2021-04-01] MEDS ORDERED: Levofloxacin 250mg IV 250 MG/50 ML BAG IV SCH (22:00)
--- NOTE | 2021-04-02 02:45 | DS ---
Date of Discharge: 03/31/2021 ALTAF/MODL Voice ID: [id number] Report ID: [id number] MTDD
--- NOTE | 2021-04-02 02:45 | DS ---
Date of Discharge: 03/31/2021 Disposition: Discharged to go home. Physical Examination: HEENT: Unremarkable. Lungs: Clear to auscultation. Heart: Sounds normal. Abdomen: Soft. Bowel sounds normal. No guarding, rigidity, tenderness, or distention. Extremities: No leg edema. Laboratory Data: Sodium 134, potassium 3.8, chloride 104, bicarb 20, BUN 36, creatinine 1.55, glucose 107. Last ammonia level 22 and initial ammonia level was 79. Last CBC revealed white count 8.3, hemoglobin 9.6, platelets 63. Initial CBC revealed white count 3.9, hemoglobin 10.3, platelets 82. Hospital Course: This is an 89-year-old female patient, admitted to the hospital with altered mental status. Please see dictated H and P for more information. After the patient came into emergency room, she was admitted to the hospital with hepatic encephalopathy problem. She was given lactulose 20 g every 6 hours during this hospital stay and her hepatic encephalopathy problem improved. Today, her mental status is much better and it is back to baseline compared to how it was for prior 2 days. No other problems reported during this hospital stay except she had some low-grade fever and initially she was given empiric antibiotic, ceftriaxone, and she did not respond well and she still continued to have low-grade fever and subsequently we change it to Levaquin and her condition has improved since we started giving her Levaquin. Her urine culture and blood culture have remained negative. Chest x-ray has not shown any pneumonia and there is no obvious sign of any infection on her physical exam. Details and plan of treatment discussed with the patient's son today on the phone. The patient has 24 hour caregiver at home. The patient's family does not want her to go to halfway and they will continue to manage her at home. Final Diagnoses: 1. Hepatic encephalopathy. 2. Pancytopenia. 3. Fever. 4. Cirrhosis of liver. 5. Hypothyroidism. 6. Hypertension. 7. Hyperlipidemia. 8. Chronic kidney disease stage 3B. 9. Coronary artery disease. 10. Lumbar spinal stenosis. 11. Anxiety. 12. Osteoarthritis, multiple sites. Discharge Medications And Instructions: 1. Continue all prior home medications except change lactulose 20 g by mouth 4 times a day. 2. Levaquin 500 mg daily for 1 week. 3. Follow up at my office next week. 4. Home health care to resume care at home including home physical therapy. ALTAF/MODL Voice ID: [id number] Report ID: [id number] MTDD
== END 2021-03-31 10:15 | disposition home health service (06) | DRG 442 ==
LOC: ER 08:36 → ERHOLD 13:22 → 2ND 15:05
PROVIDERS: ADMIT Internal Medicine; ATTEND Internal Medicine
DX: K72.90 Hepatic failure, unspecified without coma (principal); D61.818 Other pancytopenia; I12.9 Hypertensive chronic kidney disease with stage 1 through stage 4 chronic kidney disease, or unspecified chronic kidney disease; N18.32 Chronic kidney disease, stage 3b; K21.9 Gastro-esophageal reflux disease without esophagitis; E03.9 Hypothyroidism, unspecified; I25.10 Atherosclerotic heart disease of native coronary artery without angina pectoris; M19.90 Unspecified osteoarthritis, unspecified site; F41.9 Anxiety disorder, unspecified; K74.60 Unspecified cirrhosis of liver; M48.061 Spinal stenosis, lumbar region without neurogenic claudication; E78.5 Hyperlipidemia, unspecified; R50.9 Fever, unspecified; Z88.1 Allergy status to other antibiotic agents; Z88.8 Allergy status to other drugs, medicaments and biological substances; Z79.890 Hormone replacement therapy; Z79.899 Other long term (current) drug therapy; Z95.5 Presence of coronary angioplasty implant and graft; Z96.651 Presence of right artificial knee joint; Z90.710 Acquired absence of both cervix and uterus; Z20.822 Contact with and (suspected) exposure to COVID-19
CPT/HCPCS: 36415; 51702; 70450; 71045; 80048; 80053; 80076; 81001; 81003; 82140; 82947; 83690; 84443; 85025; 87040; 87086; 87088; 96365; 97161; 97530; 99285; J0696; J1650; J7030; U0003

== ENCOUNTER 2021-05-16 08:50 | Inpatient (IN) | payer OTHER ==
--- OUTSIDE RECORDS SUMMARY | 2021-05-16 08:53 | XMS REPORT | Continuity of Care Document ---
:1930 Author Organization [facility] t Address [address] [place] [address] [address]. [address] [place] [address] Care Team Providers Name Role Phone Asked, Pcp Primary Care Physician Unavailable Doctor Unassigned, Name Attending Clinician Unavailable Doreen Vargas Attending Clinician Luca BRIONES Attending Clinician MATTHIAS Attending Clinician Unavailable Luca BRIONES Admitting Clinician MATTHIAS Admitting Clinician Unavailable Problems Condition Condition Condition Status Onset Resolution Last Treating Co mments Source Name Details Category Date Date Treatment Clinician Date Other Other Disease Active Celestine specified specified 07-25 Meth nando rheumatoid rheumatoid [...] 00 s to drug Sulfa Propensi Active Celestine (Sulfona ty to 615 Methodi mide adverse 00:00: st Antibiot reaction 00 ics) s to drug Social History Social Habit Start Date Stop Date Quantity Comments Source Alcohol intake 2016-07-25 2016-07-25 Current [facility] thodist 00:00:00 00:00:00 non-drinker of alcohol (finding) Sex Assigned At [birth year] [facility] ethodist 00:00:00 00:00:00 Smoking Status Start Date Stop Date Source Never smoker Jonathan Methodis t Medications Ordered Filled Start Stop [...] Future Scheduled 2021-06-27 INFLUENZA VACCINE [place] [facility] Test 00:00:00 [code = INFLUENZA VACCINE] Future Scheduled 1997 65+ PNEUMOCOCCAL Castillo [facility] Test 00:00:00 VACCINE (1 of 1 - PPSV23) [code = 65+ PNEUMOCOCCAL VACCINE (1 of 1 - PPSV23)] Future Scheduled 1982 SHINGLES VACCINES (#1) H shivani [facility] Test 00:00:00 [code = SHINGLES VACCINES (#1)] Future Scheduled 1944 COVID-19 VACCINE (1) Eliedavid solerabril [facility] Test 00:00:00 [code = COVID-19 VACCINE (1)] Encounters Start End Encounter Admission Attending Care Care Encounter Source Date/Time Date/Time Type Type Clinicians Facility Department ID 2020-03-30 2020-03-30 Orders Doctor WALL [id number] 00:00:00 00:00:00 Only UnassignedNAZIA [id number] [place] [facility] [id number] 2020-03-16 2020-03-16 Orders Doctor WALL [id number] 00:00:00 00:00:00 Only UnassignedNAZIA [id number] [place] [facility] [id number] 2020-02-28 2020-03-02 [facility] Jaime Sierra [facility] [id number] 16:38:44 16:46:00 Encounter Stacia Segovia [id number] [place] [id number] [place] [id number] Results Test Description Test Time Test [...] (test code = IG%) 0.2 % 0.0-0.4 [id number] 05:43:00 Test Item Value Reference Range Interpretation [...] mg/dl 8.4-10.2 = CALC) EGFR if 50 [place] (test code mL/min/1.73m\\ = EGFRAA) S\\2 EGFR if Non- 41 Estimate d Glomerular [place] (test code mL/min/1.73m\\ Filtrat ion Rate (eGFR) [...]
[2021-05-16 09:43] LABS: Absolute Lymphocytes (CBC) 1.5 K/uL (0.7-4.9); Basophils % 0.6 % (0-1.3); MPV 8.8 fL (7.6-11.3); RBC Red Blood Cell Count 3.23 M/uL (3.86-4.86)
[2021-05-16 10:04] LABS: Protime INR 1.11
[2021-05-16 10:09] LABS: ALT/SGPT 34 U/L (12-78); Albumin 2.6 g/dL (3.4-5.0); Alkaline Phosphatase 113 U/L (45-117); Amylase 114 U/L (25-115); BUN Blood Urea Nitrogen 45 mg/dL (7-18); Bicarbonate 27 mmol/L (21-32); Bilirubin Direct 0.3 mg/dL (0-0.2); CKMB Creatine Kinase MB 1.4 ng/mL (1.0-3.6); Creatine Phosphokinase 67 U/L (26-192); Glucose Level 111 mg/dL (74-106); Lipase 234 U/L (73-393); Protein, Total 7.1 g/dL (6.4-8.2); Sodium Level 142 mmol/L (136-145); Troponin (Emerg Dept Use Only) < 0.02 ng/mL (0.0-0.045)
--- NOTE | 2021-05-16 10:12 | RAD REPORT ---
EXAM DESCRIPTION: RAD - Chest Single View - 05/16/2021 10:06 am CLINICAL HISTORY: CONGESTION COMPARISON: March 29 TECHNIQUE: AP portable chest image was obtained 05/16/2021 10:06 am . FINDINGS: No peripheral mass or consolidation. Chronic interstitial opacification is present showing no new or progressive process from comparison. Hilar regions within normal limits. Heart size and va sculature are normal range, slightly decreased from comparison. No measurable pleural effusion and no pneumothorax. No acute bony abnormality seen. No acute aortic findings suspected. IMPRESSION: No acute cardiopulmonary process. Patient has chronic interstitial lung disease without evidence for superimposed interstitial edema or infiltrate.
[2021-05-16 10:29] LABS: AST/SGOT 51 U/L (15-37); Potassium 4.4 mmol/L (3.5-5.1)
[2021-05-16] MEDS ORDERED: ONDANSETRON 4 MG/2 ML VIAL ONE (10:42)
[2021-05-16] MEDS ORDERED: CEFTRIAXONE/SWI 1gm 1 GM/10 ML SYR ONE (10:42)
[2021-05-16] MEDS ORDERED: ONDANSETRON 4 MG/2 ML VIAL IV PRN (10:42)
[2021-05-16] MEDS ORDERED: FAMOTIDINE 20 MG/2 ML VIAL IV ONE (10:42)
[2021-05-16] MEDS ORDERED: NA CHLORIDE 0.9% 1,000 ML ONE (10:42)
--- NOTE | 2021-05-16 10:44 | RAD REPORT ---
EXAM DESCRIPTION: CT - Head Brain Wo Cont - 05/16/2021 10:18 am CLINICAL HISTORY: APHASIA, AMS COMPARISON: Head Brain Wo Cont dated 03/28/2021Head Brain Wo Cont dated 03/28/2021; Chest Single View da denise 05/16/2021 TECHNIQUE: Axial 5 mm thick images of the head were obtained without IV contrast. All CT scans are performed using dose optimization technique as appropriate and may include automated exposure control or mA/KV adjustment according to patient size. FINDINGS: No intracranial hemorrhage, mass, edema or shift of mid-line structures. No acute infarcti on changes seen. No cortical edema or sulcal effacement. Moderate severity atrophy changes are presen t. Ventricles are in proportion to the volume loss. Patient has moderate severity chronic ischemic pa ttern throughout the cerebral white matter. Arterial tree calcifications are present. Mastoid air cells are clear. Left maxillary chronic sinusitis. No acute bony findings. IMPRESSION: Moderate severity for age atrophy and chronic ischemic changes with ventricles in propor tion to the volume loss. Chronic left maxillary sinusitis. Above detailed findings are not clearly different from March 28 CT study.
--- NOTE | 2021-05-16 10:47 | EDPHYS ---
Physician Documentation [facility] Name: Rachel Saleh Age: 89 yrs Sex: Female : 1930 Arrival Date: 05/16/2021 Time: 08:54 Bed 4 Private MD: ED Physician Sanjuanita Tam HPI: 05/16 09:51 This 89 yrs old Female presents to ER via EMS with complaints of Altered ma2 Mental Status. 09:51 The patient presents with confusion. Onset: The symptoms/episode began/occurred ma2 gradually, 2 day(s) ago. Associated signs and symptoms: Pertinent negatives: blurred vision, combativeness, diaphoresis. The patient has experienced similar episodes in the past. Historical: - Allergies: 08:58 Lotrel; ss 08:58 Namenda; ss 08:58 Sulfa (Sulfonamide Antibiotics); ss - Home Meds: 08:58 atorvastatin 10 mg Oral tab 1 tab nightly [Active]; escitalopram oxalate 10 mg Oral tab ss 1 tab once daily [Active]; hydralazine 25 mg Oral tab 1 tab 2 times per day [Active]; lactulose 10 gram/15 mL (15 mL) Oral soln 15 mL twice a day [Active]; levothyroxine 25 mcg tab 1 tab once daily [Active]; modafinil 100 mg Oral tab 1 tabs once daily [Active]; nitroglycerin 0.4 mg SL subl 1 tab every 5 minutes [Active]; spironolactone 100 mg Oral tab 1 tab once daily [Active]; - PMHx: 08:58 Anemia; CAD; Dementia; Hyperlipidemia; Hypothyroidism; High Cholesterol; ss ENCEPHALOPATHY; GERD; generalized weakness; Depression; C-diff; Cataracts; Arthritis; Hypertension; Osteopenia; Osteoporosis; Rheumatoid Arthritis; unspecified edema; UTI; - Immunization history:: Adult Immunizations up to date. - Social history:: Smoking status: Patient denies any tobacco usage or history of. - Family history:: not pertinent. ROS: 09:51 Constitutional: Negative for fever, chills, and weight loss. ma2 09:51 All other systems are negative. Exam: 09:51 Constitutional: This is a well developed, well nourished patient who is awake, alert, ma2 and in no acute distress. Head/Face: Normocephalic, atraumatic. Eyes: Pupils equal round and reactive to light, extra-ocular motions intact. Lids and lashes normal. Conjunctiva and sclera are non-icteric and not injected. Cornea within normal limits. Periorbital areas with no swelling, redness, or edema. ENT: Nares patent. No nasal discharge, no septal abnormalities noted. Tympanic membranes are normal and external auditory canals are clear. Oropharynx with no redness, swelling, or masses, exudates, or evidence of obstruction, uvula midline. Mucous membranes moist. Neck: Trachea midline, no thyromegaly or masses palpated, and no cervical lymphadenopathy. Supple, full range of motion without nuchal rigidity, or vertebral point tenderness. No Meningismus. Chest/axilla: Normal chest wall appearance and motion. Nontender with no deformity. No lesions are appreciated. Cardiovascular: Regular rate and rhythm with a normal S1 and S2. No gallops, murmurs, or rubs. Normal PMI, no JVD. No pulse deficits. Respiratory: Lungs have equal breath sounds bilaterally, clear to auscultation and percussion. No rales, rhonchi or wheezes noted. No increased work of breathing, no retractions or nasal flaring. Abdomen/GI: Soft, non-tender, with normal bowel sounds. No distension or tympany. No guarding or rebound. No evidence of tenderness throughout. Skin: Warm, dry with normal turgor. Normal color with no rashes, no lesions, and no evidence of cellulitis. MS/ Extremity: Pulses equal, no cyanosis. Neurovascular intact. Full, normal range of motion. Neuro: samnolent yet arousable to verbal stimulation,not answering questions. Cranial nerves II-XII grossly intact. Motor strength 5/5 in all extremities. Sensory grossly intact. Cerebellar exam normal. Normal gait. Vital Signs: 09:08 BP 176 / 62; Pulse 62; Resp 14; Temp 98.1; Pulse Ox 98% on R/A; Pain 0/10; hb 09:30 BP 178 / 88; Pulse 68; Resp 24; Pulse Ox 97% on R/A; hb 11:30 BP 158 / 68; Pulse 60; Resp 17; Pulse Ox 99% on R/A; hb MDM: 09:01 Patient medically screened. ma2 09:51 Differential Diagnosis: electrolyte abnormality, hypoglycemia, intracranial bleed, [facility] pneumonia, volume depletion. 10:46 Data reviewed: vital signs, nurses notes. Counseling: I had a detailed discussion with [facility] the patient and/or guardian regarding: the historical points, exam findings, and any diagnostic results supporting the discharge/admit diagnosis, the presence of at least one elevated blood pressure reading (>120/80) during this emergency department visit, the need for outpatient follow up. Response to treatment: the patient's symptoms have markedly improved after treatment. 05/16 09:04 Order name: Amylase, Serum [facility] 05/16 09:04 Order name: Basic Metabolic Panel [facility] 05/16 09:04 Order name: Blood Culture Adult (2) [facility] 05/16 09:04 Order name: CBC with Diff [facility] 05/16 09:04 Order name: Ckmb [facility] 05/16 09:04 Order name: CPK [facility] 05/16 09:04 Order name: Lactate [facility] 05/16 09:04 Order name: LFT's [facility] 05/16 09:04 Order name: Lipase [facility] 05/16 09:04 Order name: Procalcitonin; Complete Time: 10:38 [facility] 05/16 09:04 Order name: Protime (+inr); Complete Time: 10:38 [facility] 05/16 09:04 Order name: Ptt, Activated; Complete Time: 10:38 [facility] 05/16 09:04 Order name: Troponin (emerg Dept Use Only); Complete Time: 10:38 [facility] 05/16 09:04 Order name: Urine Microscopic Only [facility] 05/16 09:05 Order name: Amylase; Complete Time: 10:38 [facility] 05/16 09:05 Order name: Basic Metabolic Panel; Complete Time: 10:38 [facility] 05/16 09:05 Order name: Blood Culture [facility] 05/16 09:05 Order name: CBC with Automated Diff; Complete Time: 10:38 [facility] 05/16 09:05 Order name: CKMB Creatine Kinase MB; Complete Time: 10:38 [facility] 05/16 09:05 Order name: Creatine Phosphokinase; Complete Time: 10:38 [facility] 05/16 09:05 Order name: Lactate; Complete Time: 10:38 [facility] 05/16 09:05 Order name: Liver (Hepatic) Function; Complete Time: 10:38 [facility] 05/16 09:05 Order name: Lipase; Complete Time: 10:38 EDMS 05/16 09:21 Order name: AMMONIA; Complete Time: 10:38 ma2 05/16 09:48 Order name: Glucose, Ancillary Testing; Complete Time: 10:38 EDMS 05/16 10:45 Order name: Basic Metabolic Panel EDMS 05/16 10:45 Order name: Basic Metabolic Panel EDMS 05/16 10:45 Order name: CBC with Automated Diff EDMS 05/16 10:45 Order name: CBC with Automated Diff EDMS 05/16 12:02 Order name: Urine Dipstick-Ancillary EDMS 05/16 09:04 Order name: Chest Single View XRAY; Complete Time: 10:38 ma2 05/16 09:04 Order name: Accucheck; Complete Time: 09:36 ma2 05/16 09:04 Order name: Cardiac monitoring; Complete Time: 09:07 ma2 05/16 09:04 Order name: EKG - Nurse/Tech; Complete Time: 09:07 mn2 05/16 09:04 Order name: IV Saline Lock - Large Bore; Complete Time: 10:00 mn2 05/16 09:04 Order name: Labs collected and sent; Complete Time: 10:00 mn2 05/16 09:04 Order name: O2 Per Protocol; Complete Time: 10:00 mn2 05/16 09:04 Order name: O2 Sat Monitoring; Complete Time: 10:00 mn2 05/16 09:04 Order name: Urine Dipstick-Ancillary (obtain specimen); Complete Time: 11:56 mn2 05/16 09:21 Order name: CT Head Brain wo Cont; Complete Time: 10:45 mn2 05/16 09:21 Order name: CT Abd/Pelvis - Without Contrast mn2 05/16 10:40 Order name: Straight Cath; Complete Time: 12:03 ss Administered Medications: 10:33 Drug: NS 0.9% 1000 ml Route: IV; Rate: 1 bolus; Site: right antecubital; hb 10:33 Drug: Zofran (Ondansetron) 4 mg Route: IVP; Site: right antecubital; hb 10:33 Drug: Pepcid (famotidine) 20 mg Route: IVP; Site: right antecubital; hb Disposition: 06/20/21 10:47 Hospitalization ordered by Roc York for Inpatient Admission. Preliminary diagnosis is Altered mental status, unspecified. - Bed requested for Telemetry/MedSurg (Inpatient). - Status is Inpatient Admission. hb - Condition is Stable. - Problem is new. - Symptoms are unchanged. Signatures: Dispatcher [employer] EDMS Yaneth Greene RN RN Noreen Lux RN RN Anne Baxter RN RN Sanjuanita Tam MD MD mn2 Corrections: (The following items were deleted from the chart) 11:11 10:47 Hospitalization Ordered by Roc York MD for Inpatient Admission. Preliminary dw diagnosis is Altered mental status, unspecified. Bed requested for Telemetry/MedSurg (Inpatient). Status is Inpatient Admission. Condition is Stable. Problem is new. Symptoms are unchanged. ma2 12:05 11:11 05/16/2021 10:47 Hospitalization Ordered by Roc York MD for Inpatient hb Admission. Preliminary diagnosis is Altered mental status, unspecified. Bed requested for Telemetry/MedSurg (Inpatient). Status is Inpatient Admission. Condition is Stable. Problem is new. Symptoms are unchanged. dw
--- NOTE | 2021-05-16 10:47 | ER ---
Nurse's Notes [facility] Name: Rachel Saleh Age: 89 yrs Sex: Female : 1930 Arrival Date: 05/16/2021 Time: 08:54 Bed 4 Private MD: Diagnosis: Altered mental status, unspecified Presentation: 05/16 09:08 Chief complaint: EMS states: AMS since last night. Coronavirus screen: At this time, hb the client does not indicate any symptoms associated with coronavirus-19. Ebola Screen: No symptoms or risks identified at this time. Initial Sepsis Screen: Does the patient meet any 2 criteria? No. Patient's initial sepsis screen is negative. Does the patient have a suspected source of infection? No. Patient's initial sepsis screen is negative. Risk Assessment: Do you want to hurt yourself or someone else? Patient reports no desire to harm self or others. Onset of symptoms was May 16, 2021. 09:08 Method Of Arrival: EMS: [facility] 09:08 Acuity: CHRIS 2 hb Historical: - Allergies: 08:58 Lotrel; ss 08:58 Namenda; ss 08:58 Sulfa (Sulfonamide Antibiotics); ss - Home Meds: 08:58 atorvastatin 10 mg Oral tab 1 tab nightly [Active]; escitalopram oxalate 10 mg Oral tab ss 1 tab once daily [Active]; hydralazine 25 mg Oral tab 1 tab 2 times per day [Active]; lactulose 10 gram/15 mL (15 mL) Oral soln 15 mL twice a day [Active]; levothyroxine 25 mcg tab 1 tab once daily [Active]; modafinil 100 mg Oral tab 1 tabs once daily [Active]; nitroglycerin 0.4 mg SL subl 1 tab every 5 minutes [Active]; spironolactone 100 mg Oral tab 1 tab once daily [Active]; - PMHx: 08:58 Anemia; CAD; Dementia; Hyperlipidemia; Hypothyroidism; High Cholesterol; ss ENCEPHALOPATHY; GERD; generalized weakness; Depression; C-diff; Cataracts; Arthritis; Hypertension; Osteopenia; Osteoporosis; Rheumatoid Arthritis; unspecified edema; UTI; - Immunization history:: Adult Immunizations up to date. - Social history:: Smoking status: Patient denies any tobacco usage or history of. - Family history:: not pertinent. Screenin:09 Abuse screen: Denies threats or abuse. Denies injuries from another. Nutritional hb screening: No deficits noted. Tuberculosis screening: No symptoms or risk factors identified. Fall Risk Total Salter Fall Scale indicates Low Risk Score (25-44 pts). Fall prevention measures have been instituted. Side Rails Up X 2 Frequent Obs/Assesments occuring Family Present and informed to notify staff if they need to leave bedside As available Patient and Family Educated on Fall Prevention Program and strategies. Assessment: 09:10 General: Appears in no apparent distress. Behavior is calm, cooperative. Pain: Denies hb pain. Neuro: Level of Consciousness is obeys commands, listless, Oriented to person. Cardiovascular: Patient's skin is warm and dry. Rhythm is regular. Respiratory: Respiratory effort is even, unlabored, Respiratory pattern is regular, symmetrical. GI: No signs and/or symptoms were reported involving the gastrointestinal system. : No signs and/or symptoms were reported regarding the genitourinary system. EENT: No signs and/or symptoms were reported regarding the EENT system. Derm: Skin is pink, warm \T\ dry. Musculoskeletal: No signs and/or symptoms reported regarding the musculoskeletal system. 10:00 Reassessment: Patient appears in no apparent distress at this time. No changes from hb previously documented assessment. Patient and/or family updated on plan of care and expected duration. Pain level reassessed. 11:00 Reassessment: Patient appears in no apparent distress at this time. No changes from hb previously documented assessment. Patient and/or family updated on plan of care and expected duration. Pain level reassessed. Vital Signs: 09:08 BP 176 / 62; Pulse 62; Resp 14; Temp 98.1; Pulse Ox 98% on R/A; Pain 0/10; hb 09:30 BP 178 / 88; Pulse 68; Resp 24; Pulse Ox 97% on R/A; hb 11:30 BP 158 / 68; Pulse 60; Resp 17; Pulse Ox 99% on R/A; hb ED Course: 08:54 Patient arrived in ED. mr 09:01 Sanjuanita Tam MD is Attending Physician. ma2 09:06 Sarah Carrington RN is Primary Nurse. tr6 09:09 Triage completed. hb 09:09 Arm band placed on. hb 09:09 Patient has correct armband on for positive identification. Bed in low position. Call light in reach. Side rails up X2. meat butcher on. Pulse ox on. NIBP on. 10:00 Inserted saline lock: 22 gauge in right antecubital area, using aseptic technique. ss ,using aseptic technique. insertion VIA ultrasound guided. Blood collected. 10:05 Chest Single View XRAY In Process Unspecified. EDMS 10:18 CT Head Brain wo Cont In Process Unspecified. EDMS 10:22 CT Abd/Pelvis - Without Contrast In Process Unspecified. EDMS 10:46 Roc York MD is Hospitalizing Provider. ma2 12:04 No provider procedures requiring assistance completed. Patient admitted, IV remains in hb place. Administered Medications: 10:33 Drug: NS 0.9% 1000 ml Route: IV; Rate: 1 bolus; Site: right antecubital; hb 10:33 Drug: Zofran (Ondansetron) 4 mg Route: IVP; Site: right antecubital; hb 10:33 Drug: Pepcid (famotidine) 20 mg Route: IVP; Site: right antecubital; hb Outcome: 10:47 Decision to Hospitalize by Provider. ma2 12:04 Admitted to Tele family with patient, via stretcher, room 410, Report called to Lala han RN 12:04 Condition: stable 12:04 Instructed on the need for admit. 12:05 Patient left the ED. Signatures: Dispatcher [employer] [facility] Samia TenorioNoreen veloz RN RN Anne Baxter RN RN Sanjuanita Tam MD MD ma2 Sarah Carrington RN RN tr6 Corrections: (The following items were deleted from the chart) 09:09 09:09 Fall Risk Total Salter Fall Scale indicates Low Risk Score (25-44 pts). hb hb
--- NOTE | 2021-05-16 10:51 | RAD REPORT ---
EXAM DESCRIPTION: CT - Abdomen Pelvis Wo Contrast - 05/16/2021 10:22 am CLINICAL HISTORY: ABD PAIN COMPARISON: Abdomen Pelvis Wo Contrast dated 09/20/2018 TECHNIQUE: Axial [address] imaging of the abdomen and pelvis was performed without IV contrast. No IV contrast was given because of allergy, abnormal renal function, patient refusal or physician re quest. All CT scans are performed using dose optimization technique as appropriate and may include automated exposure control or mA/KV adjustment according to patient size. FINDINGS: Chronic interstitial lung disease present not clearly different. No pneumothorax or pleura l effusion at the lung bases. Nodular liver contour noted. No focal liver lesion on noncontrast imaging. Spleen is prominent in siz e with no focal splenic lesions. No pancreatic or peripancreatic acute finding seen. Cholecystectomy clips are present. No biliary tree dilatation. No hydronephrosis or suspicious renal mass. No obstructing or nonobstructing calculi. No significant adrenal finding. Isodense renal masses and pyelonephritis cannot be excluded in the absence of IV con trast. The urinary bladder is without significant finding. There is questionable wall thickening near the distal esophagus at the GE junction. This is limited i n assessment due to motion. Blair of the stomach appear thickened. However, there is no content withi n the lumen which exaggerates the wall thickness. Pattern is not grossly different from 2018. No dila denise large or small bowel loops. Colon stool volume is not abnormal. There is mild amount of stool dis tending the rectum. Uterus is not identified presumed absent. Ovaries are absent or atrophic. No free air, free fluid or inflammatory stranding. No hernia, mass or bulky lymphadenopathy. Prominent disc and bony degenerative changes are present. Degenerative changes most advanced at the L 1-2 disc level. Patient has spurring and bridging ossification along the anterior aspect T7-T12. No s acral ala or pelvic fractures seen. Bilateral hip surgical hardware in place. IMPRESSION: Non-contrast enhanced CT abdomen and pelvis imaging show no acute or emergent finding. Above detailed findings not substantially different from 2018. Full assessment is limited is the absence of IV contrast.
[2021-05-16] MEDS: D5 0.45 NS 1,000 ML IV SCH ×2 (11:00→20:50)
[2021-05-16] MEDS ORDERED: CEFTRIAXONE/SWI 1gm 1 GM/10 ML SYR IV SCH (12:00)
[2021-05-16 12:02] LABS: Urine Blood Negative (Negative); Urine Glucose Negative (Negative); Urine Protein Negative (Negative); Urine Specific Gravity 1.015 (1.005-1.030); Urine pH 7.5 (5.0-7.0)
[2021-05-16 12:18] LABS: Urine Bacteria NONE SEEN /HPF (<20); Urine RBC NONE SEEN /HPF (NONE SEEN)
[2021-05-16] MEDS: LACTULOSE 20 GM/30 ML UCUP PO SCH ×2 (17:25→20:51)
[2021-05-16] MEDS: HYDRALAZINE HCL 25 MG TABLET PO SCH (17:25)
[2021-05-16 19:53] VITALS: BMI 26.5
[2021-05-16] MEDS: CEFTRIAXONE/SWI 1gm 1 GM/10 ML SYR IV SCH (20:51)
--- NOTE | 2021-05-16 22:11 | HP ---
Date of Admission: 05/16/2021 Chief Complaint: Nausea, vomiting, altered mental status. History Of Present Illness: An 89-year-old pleasant female patient, lives at home, who has 24-hour care at home, was doing fine in her normal usual state of health until yesterday. She started to have some nausea off and on throughout the day. Her appetite was poor yesterday. She did take her lactulose as prescribed yesterday but did not eat much. She was feeling very weak and this morning with worsening symptoms she was brought into emergency room. After she was evaluated in the ER, she was admitted to the hospital. I saw her in the emergency room. Her daughter was present with her at bedside. Medications: List reviewed. Review of Systems: Constitutional: As mentioned above. GI: As mentioned above. All other systems reviewed and negative. Allergies: TO SULFA, DETAILS ARE UNKNOWN. Past Medical History: Significant for stroke, hypothyroidism, hypertension, hyperlipidemia, coronary artery disease, cirrhosis of liver, lumbar spinal stenosis, osteoarthritis at multiple sites, rheumatoid arthritis, anemia due to chronic kidney disease, pancytopenia, anxiety, osteopenia. Past Surgical History: Significant for hysterectomy, surgery for right femur fracture. Family History: Father , had leukemia and coronary artery disease. Mother had Alzheimer disease, stroke. Brother with coronary artery disease. Social History: Negative for smoking and alcohol use. Physical Examination: VITAL SIGNS: When she first came into emergency room, blood pressure 176/62, pulse 62, respiratory rate 14, temperature 98.1, pulse oximetry 98%. General: The patient appears weaker than normal. Not able to answer any questions and not able to recognize me. HEENT: Head atraumatic, normocephalic. Conjunctivae nonerythematous. Sclerae white. Mouth, no thrush or edema noted. Ears/Nose, no mass, lesion, discharge noted. Neck: Supple. No JVD, lymph nodes, bruit, thyromegaly noted. Lungs: Bilateral good equal air entry. Clear to auscultation. No rhonchi. No rales. Heart: Normal heart sounds, no murmur or gallop. Abdomen: Soft, bowel sounds normal. No guarding, rigidity, tenderness, mass, hepatosplenomegaly, distention, or bruit noted. Extremities: No leg edema. No calf tenderness. Skin: No rash, ulcer, cellulitis. Lymphatics: No lymph node enlargement in neck, supraclavicular, infraclavicular region. Neuro: No focal neurological deficit. Chest: Unremarkable. External Genitalia: Deferred. Rectal: Deferred. Laboratory Data: White count 4.6, hemoglobin 10.4, platelets 87. INR 1.11. Sodium 142, potassium 4.4, chloride 109, bicarb 27, BUN 45, creatinine 1.62, glucose 111, total bilirubin 1, direct bilirubin 0.3, AST 51, ALT 34, alkaline phosphatase 113. CK-MB 1.4, troponin less than 0.02, lipase 234. Lactic acid level 2.3. Procalcitonin 0.22. Ammonia level 60. Chest x-ray, no acute cardiopulmonary changes. CAT scan of the abdomen and pelvis, no acute intraabdominal finding. CT head shows moderate cerebral atrophy, no acute findings. Impression: 1. Probable urinary tract infection. 2. Hepatic encephalopathy. 3. Anemia, unspecified. 4. Thrombocytopenia. 5. Cirrhosis of liver. 6. Hypertension. 7. Hyperlipidemia. 8. Coronary artery disease. 9. Hypothyroidism. 10. Osteoarthritis, multiple sites. Plan: Admit patient to hospital for further evaluation and management of this problem. The patient is appropriate for inpatient and is expected to spend 2 midnights in hospital. We will go ahead and give antibiotics. Urine specimen was not collected in the emergency room before she received first dose of ceftriaxone. I have advised to do a straight cath to get urine specimen and send for urine culture, urinalysis, blood culture, we will follow up on all those results. Meanwhile continue empiric antibiotic, ceftriaxone. Continue lactulose per order and other home medications per order. Details and plan of treatment discussed with the patient's daughter who was at bedside, and I will see her tomorrow for followup. ALTAF/MODL Voice ID: [id number] MADDIE
[2021-05-17 04:41] LABS: Absolute Lymphocytes (CBC) 1.2 K/uL (0.7-4.9); Basophils % 0.7 % (0-1.3); Hematocrit 25.3 % (36.0-45.0); Lymphocytes % 35.9 % (15.3-44.8); MPV 8.1 fL (7.6-11.3); RBC Red Blood Cell Count 2.66 M/uL (3.86-4.86)
[2021-05-17 04:52] LABS: Potassium 3.8 mmol/L (3.5-5.1)
[2021-05-17] MEDS: D5 0.45 NS 1,000 ML IV SCH ×3 (07:00→18:31)
[2021-05-17] MEDS: LACTULOSE 20 GM/30 ML UCUP PO SCH ×4 (08:10→19:51)
[2021-05-17] MEDS: MULTIVIT W/ MINERAL TAB PO SCH (08:10)
[2021-05-17] MEDS: ESCITALOPRAM 20 MG TAB PO SCH (08:10)
[2021-05-17] MEDS: CEFTRIAXONE/SWI 1gm 1 GM/10 ML SYR IV SCH ×2 (08:10→19:51)
[2021-05-17] MEDS: SPIRONOLACTONE 25 MG TABLET PO SCH (08:10)
[2021-05-17] MEDS: ATORVASTATIN 10 MG TAB PO SCH (08:11)
[2021-05-17] MEDS: HYDRALAZINE HCL 25 MG TABLET PO SCH ×2 (08:11→16:07)
[2021-05-17] MEDS: FUROSEMIDE 40 MG TABLET PO SCH (08:11)
[2021-05-17] MEDS: VITAMIN D 5,000 UNIT CAP PO SCH (08:11)
[2021-05-17 23:41] VITALS: O2SAT 95
--- NOTE | 2021-05-18 00:17 | PN ---
Date of Progress Note: 05/17/2021 Subjective: The patient was seen this morning for followup. No new complaints or problems reported by patient. She was sleeping, arousable, communicated well. This morning she was more awake, alert compared to yesterday. Denies any complaints. No abdominal pain, nausea, vomiting. Objective: Vital Signs: Reviewed. HEENT: Examination unremarkable. Lungs: Clear to auscultation. Heart: Sounds normal. Abdomen: Soft. Bowel sounds normal. No guarding, rigidity, tenderness, or distention. Extremities: No leg edema. Labs: Ammonia level 106 this morning. Yesterday it was 60. Impression: 1.Hepatic encephalopathy. 2.Hypertension. 3.Anemia. 4.Thrombocytopenia. Plan: We will continue current empiric antibiotic. Continue lactulose. Monitor ammonia level, but it does not necessarily coincide with the clinical picture as her ammonia level has gone up today, bu t clinically she has improved compared to yesterday. Details were discussed with the patient's son t his evening. I will see her tomorrow for followup. ALTAF/MODL Voice ID: [id number] Report ID: [id number]
[2021-05-18] MEDS: CEFTRIAXONE/SWI 1gm 1 GM/10 ML SYR IV SCH (08:29)
[2021-05-18] MEDS: HYDRALAZINE HCL 25 MG TABLET PO SCH (08:29)
[2021-05-18] MEDS: LACTULOSE 20 GM/30 ML UCUP PO SCH (08:29)
[2021-05-18] MEDS: SPIRONOLACTONE 25 MG TABLET PO SCH (08:30)
[2021-05-18] MEDS: ESCITALOPRAM 20 MG TAB PO SCH (08:30)
[2021-05-18] MEDS: VITAMIN D 5,000 UNIT CAP PO SCH (08:30)
[2021-05-18] MEDS: FUROSEMIDE 40 MG TABLET PO SCH (08:30)
[2021-05-18] MEDS: MULTIVIT W/ MINERAL TAB PO SCH (08:30)
[2021-05-18] MEDS: ATORVASTATIN 10 MG TAB PO SCH (08:30)
[2021-05-18 08:31] VITALS: BP 193/85
[2021-05-18 08:40] VITALS: TEMP 97.6
--- NOTE | 2021-05-19 06:35 | DS ---
Date of Discharge: 05/18/2021 Disposition: Discharged to go home. Physical Examination: HEENT: Unremarkable. Lungs: Clear to auscultation. Heart: Sounds normal. Abdomen: Soft. Bowel sounds normal. No guarding, rigidity, tenderness, distention. Extremities: No leg edema. Laboratory Data: Ammonia level today was 37; yesterday, it was 106; and upon admission, it was 60. Chemistry from yesterday, sodium 143, potassium 3.8, chloride 110, bicarb 27, BUN 35, creatinine 1.30 , glucose 99. Yesterday, white count 3.4, hemoglobin 8.6, platelets 72. Discharge Medications: 1.Continue all prior home medications. 2.Ceftin 250 mg take 1 tablet by mouth 2 times a day for 1 week. Followup: Follow up at my office next week on Monday, which is 05/24/2021. Hospital Course: 89-year-old pleasant female patient, living at home, came into emergency room with complaints of nausea, vomiting, and altered mental status. Please see dictated H and P for more info rmation. After the patient was evaluated in the ER, she was admitted to the hospital with hepatic en cephalopathy and probable urinary tract infection. She received first dose of antibiotic in the [facility] room without collecting urine specimen, so when I ordered urinalysis and urine culture, this wa s after the antibiotic treatment was started. Her urine culture did not grow any specific bacteria. Overall, her condition improved and she was discharged to go home in stable condition today with abo ve-mentioned medication and instruction. Final Diagnoses: 1.Hepatic encephalopathy. 2.Probable urinary tract infection. 3.Anemia, unspecified. 4.Thrombocytopenia. 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 6.Hypertension. 7.Hyperlipidemia. 8.Coronary artery disease. 9.Hypothyroidism. 10.Osteoarthritis, multiple sites. ALTAF/MODL Voice ID: [id number] Report ID: [id number]
== END 2021-05-18 10:15 | disposition home health service (06) | DRG 689 ==
LOC: ER 08:50 → ERHOLD 10:42 → 4TH 11:30
PROVIDERS: ADMIT Internal Medicine; ATTEND Internal Medicine
DX: N39.0 Urinary tract infection, site not specified (principal); G93.41 Metabolic encephalopathy; E03.9 Hypothyroidism, unspecified; I10 Essential (primary) hypertension; E78.5 Hyperlipidemia, unspecified; I25.10 Atherosclerotic heart disease of native coronary artery without angina pectoris; M06.9 Rheumatoid arthritis, unspecified; M19.90 Unspecified osteoarthritis, unspecified site; D64.9 Anemia, unspecified; D69.6 Thrombocytopenia, unspecified; K74.60 Unspecified cirrhosis of liver; Z86.73 Personal history of transient ischemic attack (TIA), and cerebral infarction without residual deficits
CPT/HCPCS: 36415; 70450; 71045; 74176; 80048; 80076; 81003; 81015; 82140; 82150; 82550; 82553; 82947; 83605; 83690; 84145; 84484; 85025; 85610; 85730; 87040; 93005; 96374; 96375; 97116; 97161; 97530; 99285; J0696; J2405; J7030; J7799

== ENCOUNTER 2021-06-21 03:44 | Inpatient (IN) | payer OTHER ==
--- OUTSIDE RECORDS SUMMARY | 2021-06-21 03:46 | XMS REPORT | Continuity of Care Document ---
:1930 Author Organization [facility] Address [facility] [address] [place] [address] Care Team Providers Name Role Phone Asked, Pcp Primary Care Physician Unavailable Doctor Unassigned, Name Attending Clinician Unavailable Doreen Vargas Attending Clinician Luca BRIONES Attending Clinician MATTHIAS Attending Clinician Unavailable Luca BRIONES Admitting Clinician MATTHIAS Admitting Clinician Unavailable Problems Condition Condition Condition Status Onset Resolution Last Treating Co mments Source Name Details Category Date Date Treatment Clinician Date Other Other Disease Active [place] specified specified 07-25 Meth nando rheumatoid rheumatoid [...] 00 s to drug Sulfa Propensi Active [place] (Sulfona ty to 6-15 Methodi mide adverse 00:00: st Antibiot reaction 00 ics) s to drug Social History Social Habit Start Date Stop Date Quantity Comments Source Alcohol intake 2016-07-25 2016-07-25 Current [facility] 00:00:00 00:00:00 non-drinker of alcohol (finding) Sex Assigned At [birth year] [facility] 00:00:00 00:00:00 Smoking Status Start Date [...] metoprolol Yes 100mg Q.5D Take 100 Ho usmelissa tartrate 7-07 mg by Methodi (LOPRESSOR) 00:00: [...] Future Scheduled 2021-06-27 INFLUENZA VACCINE [place] [facility] [facility] 00:00:00 [code = INFLUENZA VACCINE] Future Scheduled 1997 65+ PNEUMOCOCCAL [facility] [employer] [facility] 00:00:00 VACCINE (1 of 1 - PPSV23) [code = 65+ PNEUMOCOCCAL VACCINE (1 of 1 - PPSV23)] Future Scheduled 1982 SHINGLES VACCINES (#1) H shivani [employer] [facility] 00:00:00 [code = SHINGLES VACCINES (#1)] Future Scheduled 1944 COVID-19 VACCINE (1) [facility]av[facility] solerabril [employer] [facility] 00:00:00 [code = COVID-19 VACCINE (1)] Encounters Start End Encounter Admission Attending Care Care Encounter Source Date/Time Date/Time Type Type Clinicians Facility Department ID 2020-03-30 2020-03-30 Orders Doctor WALL [id number] 00:00:00 00:00:00 Only UnassignedNAZIA [id number] [place] [facility] [id number] 2020-03-16 2020-03-16 Orders Doctor WALL [id number] 00:00:00 00:00:00 Only UnassignedNAZIA [id number] [place] [facility] [id number] 2020-02-28 2020-03-02 [facility] Jaime Sierra [facility] [id number] 16:38:44 16:46:00 Encounter Stacia Segovia [id number] [place] [id number] [place] [id number] Results Test Description Test Time Test [...] (test code = IG%) 0.2 % 0.0-0.4 [id number] 05:43:00 Test Item Value Reference Range Interpretation [...] mg/dl 8.4-10.2 = CALC) EGFR if 50 [place] (test code mL/min/1.73m\\ = EGFRAA) S\\2 EGFR if Non- 41 Estimate d Glomerular [place] (test code mL/min/1.73m\\ Filtrat ion Rate (eGFR) [...]
[2021-06-21 04:15] LABS: Urine Blood Negative (Negative); Urine Glucose Negative (Negative); Urine Protein Negative (Negative); Urine Specific Gravity 1.015 (1.005-1.030)
[2021-06-21 05:36] LABS: Urine Amorphous Sediment 2+ /HPF (NONE SEEN); Urine Bacteria <20 /HPF (<20); Urine RBC NONE SEEN /HPF (NONE SEEN)
[2021-06-21 06:19] LABS: Albumin 2.8 g/dL (3.4-5.0); Bilirubin Direct 0.3 mg/dL (0-0.2); Bilirubin Total 0.8 mg/dL (0.2-1.0); Potassium 4.5 mmol/L (3.5-5.1); Protein, Total 7.1 g/dL (6.4-8.2)
[2021-06-21 06:55] LABS: Basophils % 0.5 % (0-1.3); Hematocrit 27.6 % (36.0-45.0); Lymphocytes % 24.2 % (15.3-44.8); MPV 8.3 fL (7.6-11.3); RBC Red Blood Cell Count 2.87 M/uL (3.86-4.86)
[2021-06-21 07:40] LABS: Protime INR 1.15
[2021-06-21] MEDS ORDERED: LACTULOSE 20 GM/30 ML UCUP ONE (07:54)
--- NOTE | 2021-06-21 10:18 | RAD REPORT ---
EXAM DESCRIPTION: 1. CT of the head without contrast 2. CT of the cervical spine without contrast. 3. CT of the chest, abdomen, and pelvis without contrast. CLINICAL HISTORY: Trauma COMPARISON: 05/16/2021 TECHNIQUE: Axial CT of the head obtained from the skull apex to the skull base without contrast. Axi al CT images of the cervical spine obtained from the skull base through the thoracic inlet. Sagittal and coronal reformatted images available. CT of the chest, abdomen and pelvis performed without IV co ntrast. Suboptimal evaluation of the soft tissues, solid organs, and vasculature due to lack of IV co ntrast. This exam was performed according to our departmental dose-optimization program, which incl udes automated exposure control, adjustment of the mA and/or kV according to patient size and/or use of iterative reconstruction technique. FINDINGS: CT head: No acute intracranial hemorrhage identified. No mass, mass effect, shift of the midline, abnormal ext ra-axial fluid collection or CT evidence of acute ischemic change identified. Mild prominence of the ventricular system and sulcal spaces may represent atrophy. Confluent hypodensities throughout the supratentorial white matter are nonspecific and may represent sequela of chronic small vessel ischemi c change. Opacities in the left maxillary sinus, anterior left ethmoid air cells, and left frontal sinus. Opaci ties in the right mastoid air cells. No skull fracture identified. Visualized orbits and globes are unremarkable. Atherosclerotic calcification of the intracranial internal carotid arteries. Cervical CT: Straightening of the cervical lordosis may be secondary to patient positioning. The atlantoaxial, a tlantodental, and occipitoatlantal intervals are preserved. No acute fracture identified. Stable ap pearance of the odontoid process with ununited type II odontoid process fracture. Prevertebral soft tissues are unremarkable. Mild to moderate multilevel loss of intervertebral disc height with endplate spondylosis, facet arthr opathy, and uncovertebral joint. Posterior disc osteophyte complex at C5/6 encroach on the anterior s alaina canal. Visualized skull base is intact. No fracture of the visualized facial bones. Visualized mastoid air c ells and paranasal sinuses are well aerated. No cervical lymphadenopathy. Carotid artery atherosclerosis. Chest: Thyroid: No abnormalities of the visualized thyroid. Great Vessels: Great vessels have normal anatomic configuration. Thoracic Aorta: Atherosclerotic calcification of the thoracic aorta. Pulmonary arteries: The main pulmonary artery is not dilated. Heart: Coronary artery atherosclerosis. No cardiomegaly or significant pericardial effusion. Lymph Nodes: No enlarged mediastinal lymph nodes identified. Esophagus: Small hiatal hernia. Other: No additional findings. Lungs: No airspace opacities identified. Respiratory motion artifact. Pleura: No pleural effusion or pneumothorax. Trachea/Airways: No abnormalities of the visualized trachea or airways. Abdomen: Liver: The liver has normal size and density. Gallbladder: Prior cholecystectomy. Spleen, Pancreas, and Adrenal Glands: Splenomegaly. Pancreas and adrenal glands are unremarkable. Kidneys: No hydronephrosis or obstructing ureteral calculus. Vasculature: Aortoiliac atherosclerosis. Stomach: The stomach and duodenum have normal course. Other: No free intraperitoneal air. No free fluid or lymphadenopathy. Pelvis: Bladder: Wall thickening of the urinary bladder. Bowel: No dilated loops of large or small bowel. Wall thickening of the ascending colon with mild a djacent inflammatory change. Appendix: Not identified. Pelvis: Prior hysterectomy. Bones: Bilateral proximal femoral fixation. Osteopenia. Osteophytic change of the hips. Multilevel en dplate spondylosis and facet arthropathy throughout the visualized spine. Degenerative anterolisthesi s of L4 over L5 and L5 over S1. Vertebral body height preserved. Osteoarthritic change of the shoulde rs. No acute fractures identified. IMPRESSION: 1. No acute intracranial findings. 2. No evidence of acute fracture or subluxation of the cervical spine. 3. 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 4. Wall thickening of the ascending colon with mild adjacent inflammatory change. These findings co uld be seen with colitis. 5. Wall thickening of the urinary bladder. Correlation with urinalysis recommended. 6. Splenomegaly. 7. Coronary artery atherosclerosis. 8. Small hiatal hernia. Electronically signed by: Thaddeus Qureshi 06/21/2021 5:52 AM CDT Due to temporary technical issues with the PACS/Fluency reporting system, reports are being signed by the in house radiologist without review as a courtesy to ensure prompt reporting. The interpreting r adiologist is fully responsible for the content of the report.
[2021-06-21] MEDS ORDERED: ACETAMINOPHEN 500 MG TAB PO PRN (19:50)
[2021-06-21] MEDS ORDERED: ONDANSETRON 4 MG/2 ML VIAL IV PRN (19:50)
[2021-06-21 19:54] VITALS: BMI 28.3
[2021-06-21] MEDS: LACTULOSE 20 GM/30 ML UCUP PO SCH (20:12)
[2021-06-21] MEDS: CEFTRIAXONE/SWI 1gm 1 GM/10 ML SYR IV SCH (20:13)
[2021-06-21] MEDS ORDERED: CEFTRIAXONE 1 GM/NS 50 ML 1 GM/50 ML BAG IV SCH (22:00)
[2021-06-22] MEDS: LACTULOSE 20 GM/30 ML UCUP PO SCH ×6 (00:30→21:29)
[2021-06-22 06:02] LABS: Absolute Lymphocytes (CBC) 1.3 K/uL (0.7-4.9); Basophils % 0.3 % (0-1.3); Hematocrit 26.6 % (36.0-45.0); Lymphocytes % 23.6 % (15.3-44.8); MPV 8.4 fL (7.6-11.3); RBC Red Blood Cell Count 2.81 M/uL (3.86-4.86)
[2021-06-22 06:05] LABS: Potassium 4.7 mmol/L (3.5-5.1)
[2021-06-22 08:40] LABS: Blood Morphology Comment NOT SEEN (NOT SEEN); Platelet Estimate DECR; White Blood Cell Scan OK (OK)
[2021-06-22] MEDS: CEFTRIAXONE/SWI 1gm 1 GM/10 ML SYR IV SCH ×2 (09:15→21:29)
--- NOTE | 2021-06-22 12:40 | EKG ---
Test Date: 2021-06-21 Test Time: 03:58:22 Public Relations Assistant: TLT MEASUREMENT RESULTS: Intervals: Rate: 66 NC: QRSD: 134 QT: 484 QTc: 507 [place]: P: NC: QRS: -19 T: 78 INTERPRETIVE STATEMENTS: Wide QRS rhythm Nonspecific intraventricular block Cannot rule out Anterior infarct, age undetermined Abnormal ECG Compared to ECG 05/30/2021 03:08:27 Uncertain supraventricular rhythm now present Sinus rhythm no longer present Left-axis deviation no longer present Myocardial infarct finding still present Electronically Signed On 06-22-21 12:37:44 CDT by Alberto Oneil
--- NOTE | 2021-06-22 17:16 | ER ---
Nurse's Notes [facility] Name: Rachel Saleh Age: 89 yrs Sex: Female : 1930 Arrival Date: 06/21/2021 Time: 03:46 Bed 5 Private MD: Diagnosis: Metabolic encephalopathy-Hepatic encephalopathy;Dehydration;Fall from bed, initial encounter;Acute cystitis Presentation: 06/21 03:50 Chief complaint: EMS states: they were toned out for report of pt having rolled out of bb bed with AMS pt is on hospice for liver disease and has a UTI. Coronavirus screen: At this time, the client does not indicate any symptoms associated with coronavirus-19. Ebola Screen: No symptoms or risks identified at this time. Initial Sepsis Screen: Does the patient meet any 2 criteria? No. Patient's initial sepsis screen is negative. Does the patient have a suspected source of infection? No. Patient's initial sepsis screen is negative. Risk Assessment: Do you want to hurt yourself or someone else? Patient reports no desire to harm self or others. Onset of symptoms was June 21, 2021. 03:50 Acuity: CHRIS 3 bb 04:32 Method Of Arrival: EMS: [facility] bb Historical: - Allergies: 03:55 Lotrel; bb 03:55 Namenda; bb 03:55 Sulfa (Sulfonamide Antibiotics); bb - Home Meds: 03:55 atorvastatin 10 mg Oral tab 1 tab nightly [Active]; escitalopram oxalate 10 mg Oral tab bb 1 tab once daily [Active]; hydralazine 25 mg Oral tab 1 tab 2 times per day [Active]; lactulose 10 gram/15 mL (15 mL) Oral soln 15 mL twice a day [Active]; levothyroxine 25 mcg tab 1 tab once daily [Active]; modafinil 100 mg Oral tab 1 tabs once daily [Active]; nitroglycerin 0.4 mg SL subl 1 tab every 5 minutes [Active]; spironolactone 100 mg Oral tab 1 tab once daily [Active]; - PMHx: 03:55 Anemia; Arthritis; CAD; Cataracts; C-diff; Dementia; Depression; ENCEPHALOPATHY; bb generalized weakness; GERD; High Cholesterol; Hyperlipidemia; Hypertension; Hypothyroidism; Osteopenia; Osteoporosis; Rheumatoid Arthritis; unspecified edema; UTI; - Immunization history:: Adult Immunizations unknown. - Social history:: Smoking status: unknown. Screenin:37 Abuse screen: Denies threats or abuse. Denies injuries from another. Nutritional lp1 screening: No deficits noted. Tuberculosis screening: No symptoms or risk factors identified. Fall Risk Total Salter Fall Scale indicates High Risk Score (45 or more points). Fall prevention measures have been instituted. Side Rails Up X 2 Frequent Obs/Assessments Occuring. Assessment: 04:38 Reassessment: pt to CT scan via stretcher accompanied by patient care technician. bb 05:00 General: Appears in no apparent distress. Behavior is calm. Pain: Unable to use pain lp1 scale. Patient is disoriented. Neuro: Level of Consciousness is confused, Oriented to person. Cardiovascular: Patient's skin is warm and dry. Respiratory: Respiratory effort is even. GI: Abdomen is non-distended. : No signs and/or symptoms were reported regarding the genitourinary system. EENT: No signs and/or symptoms were reported regarding the EENT system. Derm: Skin is fragile, is thin, Skin is dry, Skin is normal. Musculoskeletal: No deficits noted. 07:16 Reassessment: Pt laying in bed with eyes closed, respiration even and unlabored, no jl7 signs of distress noted. 08:00 Reassessment: Patient appears in no apparent distress at this time. No changes from jl7 previously documented assessment. Patient and/or family updated on plan of care and expected duration. Pain level reassessed. Family at bedside, awaiting radiology report. 09:00 Reassessment: Patient appears in no apparent distress at this time. No changes from jl7 previously documented assessment. Patient and/or family updated on plan of care and expected duration. Pain level reassessed. 10:00 Reassessment: Patient appears in no apparent distress at this time. No changes from jl7 previously documented assessment. Patient and/or family updated on plan of care and expected duration. Pain level reassessed. 11:00 Reassessment: Patient appears in no apparent distress at this time. No changes from jl7 previously documented assessment. Patient and/or family updated on plan of care and expected duration. Pain level reassessed. 12:00 Reassessment: Patient appears in no apparent distress at this time. No changes from jl7 previously documented assessment. Patient and/or family updated on plan of care and expected duration. Pain level reassessed. 14:00 Reassessment: Patient appears in no apparent distress at this time. No changes from jl7 previously documented assessment. Patient and/or family updated on plan of care and expected duration. Pain level reassessed. 15:51 Reassessment: Pt's brief and bedding changed, pt remains non-verbal, no signs of jl7 distress noted. Vital Signs: 03:50 BP 152 / 64; Pulse 66; Resp 14 S; Temp 97.7(O); Pulse Ox 98% on R/A; Weight 68.04 kg bb (R); Height 5 ft. 6 in. (167.64 cm) (R); Pain 0/10; 04:00 BP 156 / 58; Pulse 66; Resp 13; Pulse Ox 98% on R/A; lp1 04:45 BP 163 / 62; Pulse 67; Resp 12; Pulse Ox 98% on R/A; lp1 05:15 BP 170 / 70; Pulse 70; Resp 19; Pulse Ox 98% on R/A; lp1 07:16 BP 125 / 90; Pulse 66; Resp 15; Pulse Ox 96% ; jl7 09:31 BP 159 / 64; Pulse 64; Resp 15; Pulse Ox 98% ; jl7 10:30 BP 149 / 60; Pulse 61; Resp 15; Pulse Ox 98% ; jl7 11:30 BP 151 / 62; Pulse 59; Resp 14; Pulse Ox 98% ; jl7 12:40 BP 167 / 70; Pulse 63; Resp 15; Pulse Ox 99% ; jl7 14:00 BP 166 / 79; Pulse 65; Resp 15; Pulse Ox 99% ; jl7 15:15 BP 180 / 77; Pulse 68; Resp 14; Pulse Ox 98% ; jl7 16:45 BP 151 / 56; Pulse 76; Resp 16; Pulse Ox 98% ; jl7 18:00 BP 156 / 54; Pulse 75; Resp 14; Pulse Ox 98% ; jl7 03:50 Body Mass Index 24.21 (68.04 kg, 167.64 cm) bb 03:50 FLACC scale bb ED Course: 03:46 Patient arrived in ED. ds1 03:48 Norberto Agosto MD is Attending Physician. 7 03:50 Arm band placed on Patient placed in an exam room, on a stretcher, on monitoring engineer, bb on pulse oximetry. 04:00 EKG done, by ED staff, reviewed by Norberto Agosto MD. bb 04:10 Straight cath inserted, using sterile technique, 16 Fr. Returned clear yellow urine. bb Patient tolerated poorly. 04:30 Patient has correct armband on for positive identification. Bed in low position. Call lp1 light in reach. quality assurance monitor body on. Pulse ox on. NIBP on. 04:30 Initial lab(s) drawn, by or, sent to lab. Inserted saline lock: 20 gauge in left bb antecubital area, using aseptic technique. Blood collected. 04:35 Triage completed. bb 05:20 CT Traumagram (Head C Spine CAP wo con) In Process Unspecified. EDMS 07:03 Jesusita So RN is Primary Nurse. lp1 07:05 Attending Physician role handed off by Norberto Agosto MD rn 07:05 Jerod Monterroso MD is Attending Physician. rn 07:11 Urine Microscopic Only Sent. jl7 07:11 LFT's Sent. jl7 07:11 Basic Metabolic Panel Sent. jl7 07:11 CBC with Diff Sent. jl7 07:11 Type And Screen Sent. jl7 10:18 Marc York MD is Hospitalizing Provider. rn 16:33 CORONAVIRUS Sent. jl7 16:33 COVID-19 : Document "Date of Symptom Onset" if Symptomatic. Sent. jl7 18:31 No provider procedures requiring assistance completed. Patient admitted, IV remains in jl7 place. intact, No redness/swelling at site. Administered Medications: 07:49 Drug: Lactulose 20 grams Volume: 30 ml; Route: PO; jl7 10:22 Follow up: Response: No adverse reaction jl7 Outcome: 10:19 Decision to Hospitalize by Provider. rn 18:31 Admitted to Tele accompanied by [facility], via stretcher, room 202, with chart. jl7 18:31 Condition: stable 18:31 Discharge instructions given to family, Instructed on the need for admit, Demonstrated understanding of instructions. 18:34 Patient left the ED. jl7 Signatures: Dispatcher [employer] EDSD Shakeel Nidia dsLovely Sabillon RN RN bb Jerod Monterroso MD MD rn Pena, Laura, RN RN 1 Sintia Marie RN RN jl7 Norberto Agosto MD MD 7 Corrections: (The following items were deleted from the chart) 04:32 Chief complaint: EMS states: they were toned out for report of pt having rolled bb out of bed with AMS pt is on hospice for liver disease and has a UTI 04:32 Coronavirus screen: At this time, the client does not indicate any symptoms bb associated with coronavirus-19. 04:32 Ebola Screen: No symptoms or risks identified at this time. [facility] 04:32 Initial Sepsis Screen: Does the patient meet any 2 criteria? No. Patient's bb initial sepsis screen is negative. Does the patient have a suspected source of infection? No. Patient's initial sepsis screen is negative. 04:32 Risk Assessment: Do you want to hurt yourself or someone else? Patient reports no bb desire to harm self or others. 04:32 Onset of symptoms was June 21, 2021 [facility] 04:32 Method Of Arrival: EMS: [facility] : 04:32 BP 152 / 64; Pulse 66bpm; Resp 14bpm; Spontaneous; Pulse Ox 98% RA; Temp 97.7F bb Oral; 68.04 kg Reported; Height 5 ft. 6 in. Reported; BMI: 24.2; Pain 0/10; FLACC scale; 04:32 Acuity: CHRIS 3 [facility] 12:39 09:31 Reassessment: Patient appears in no apparent distress at this time. No changes jl7 from previously documented assessment. Patient and/or family updated on plan of care and expected duration. Pain level reassessed. Patient is alert, oriented x 3, equal unlabored respirations, skin warm/dry/pink. jl7
--- NOTE | 2021-06-22 17:17 | EDPHYS ---
Physician Documentation [facility] Name: Rachel Saleh Age: 89 yrs Sex: Female : 1930 Arrival Date: 06/21/2021 Time: 03:46 Bed 5 Private MD: ED Physician Jerod Monterroso HPI: 06/21 03:45 This 89 yrs old Female presents to ER via Unassigned with complaints of Fall mh7 Injury. 03:45 Details of fall: The patient fell from a supine position, out of bed, and struck a mh7 carpeted surface. Onset: The symptoms/episode began/occurred today. Associated injuries: The patient sustained Unknown. Severity of symptoms: At their worst the symptoms were moderate, earlier today, in the emergency department the symptoms are unchanged. Unable to obtain HPI due to altered mental status. 03:45 Family reports that patient rolled out of bed onto the floor. They note that patient 7 has an altered mental status so called EMS to bring to ED. Stated patient has liver disease and takes lactulose.. Historical: - Allergies: 03:55 Lotrel; bb 03:55 Namenda; bb 03:55 Sulfa (Sulfonamide Antibiotics); bb - Home Meds: 03:55 atorvastatin 10 mg Oral tab 1 tab nightly [Active]; escitalopram oxalate 10 mg Oral tab bb 1 tab once daily [Active]; hydralazine 25 mg Oral tab 1 tab 2 times per day [Active]; lactulose 10 gram/15 mL (15 mL) Oral soln 15 mL twice a day [Active]; levothyroxine 25 mcg tab 1 tab once daily [Active]; modafinil 100 mg Oral tab 1 tabs once daily [Active]; nitroglycerin 0.4 mg SL subl 1 tab every 5 minutes [Active]; spironolactone 100 mg Oral tab 1 tab once daily [Active]; - PMHx: 03:55 Anemia; Arthritis; CAD; Cataracts; C-diff; Dementia; Depression; ENCEPHALOPATHY; bb generalized weakness; GERD; High Cholesterol; Hyperlipidemia; Hypertension; Hypothyroidism; Osteopenia; Osteoporosis; Rheumatoid Arthritis; unspecified edema; UTI; - Immunization history:: Adult Immunizations unknown. - Social history:: Smoking status: unknown. ROS: 03:45 Unable to obtain ROS due to altered mental status. mh7 Exam: 03:45 Head/Face: Normocephalic, atraumatic. Eyes: Pupils equal round and reactive to light, mh7 extra-ocular motions intact. Lids and lashes normal. Conjunctiva and sclera are non-icteric and not injected. Cornea within normal limits. Periorbital areas with no swelling, redness, or edema. Neck: Trachea midline, no thyromegaly or masses palpated, and no cervical lymphadenopathy. Supple, full range of motion without nuchal rigidity, or vertebral point tenderness. No Meningismus. Chest/axilla: Normal chest wall appearance and motion. Nontender with no deformity. No lesions are appreciated. Cardiovascular: Regular rate and rhythm with a normal S1 and S2. No gallops, murmurs, or rubs. Normal PMI, no JVD. No pulse deficits. Respiratory: Lungs have equal breath sounds bilaterally, clear to auscultation and percussion. No rales, rhonchi or wheezes noted. No increased work of breathing, no retractions or nasal flaring. Abdomen/GI: Soft, non-tender, with normal bowel sounds. No distension or tympany. No guarding or rebound. No evidence of tenderness throughout. Back: No spinal tenderness. No costovertebral tenderness. Full range of motion. Skin: Warm, dry with normal turgor. Normal color with no rashes, no lesions, and no evidence of cellulitis. MS/ Extremity: Pulses equal, no cyanosis. Neurovascular intact. Full, normal range of motion. 03:45 Constitutional: The patient appears in no acute distress, alert, awake, Altered mental status 03:45 Neuro: Orientation: unable to test, AMS, Mentation: responsive to voice Memory: unable to test, AMS, Cranial nerves: unable to test, AMS, Cerebellar function: unable to test, AMS, Motor: moves all fours, Sensation: no obvious gross deficits, Gait: not tested. seizure activity, is not displayed by the patient, Abnormal movements: there are no abnormal movements. Vital Signs: 03:50 BP 152 / 64; Pulse 66; Resp 14 S; Temp 97.7(O); Pulse Ox 98% on R/A; Weight 68.04 kg bb (R); Height 5 ft. 6 in. (167.64 cm) (R); Pain 0/10; 04:00 BP 156 / 58; Pulse 66; Resp 13; Pulse Ox 98% on R/A; lp1 04:45 BP 163 / 62; Pulse 67; Resp 12; Pulse Ox 98% on R/A; lp1 05:15 BP 170 / 70; Pulse 70; Resp 19; Pulse Ox 98% on R/A; lp1 07:16 BP 125 / 90; Pulse 66; Resp 15; Pulse Ox 96% ; jl7 09:31 BP 159 / 64; Pulse 64; Resp 15; Pulse Ox 98% ; jl7 10:30 BP 149 / 60; Pulse 61; Resp 15; Pulse Ox 98% ; jl7 11:30 BP 151 / 62; Pulse 59; Resp 14; Pulse Ox 98% ; jl7 12:40 BP 167 / 70; Pulse 63; Resp 15; Pulse Ox 99% ; jl7 14:00 BP 166 / 79; Pulse 65; Resp 15; Pulse Ox 99% ; jl7 15:15 BP 180 / 77; Pulse 68; Resp 14; Pulse Ox 98% ; jl7 16:45 BP 151 / 56; Pulse 76; Resp 16; Pulse Ox 98% ; jl7 18:00 BP 156 / 54; Pulse 75; Resp 14; Pulse Ox 98% ; jl7 03:50 Body Mass Index 24.21 (68.04 kg, 167.64 cm) bb 03:50 FLACC scale bb MDM: 07:05 Patient medically screened. rn 07:18 Differential diagnosis: abrasion, closed head injury, contusion, fracture, Attic rn encephalopathy, dehydration, altered mental status. Data reviewed: vital signs, nurses notes, lab test result(s). ED course: Patient signed out to me by Dr. Agosto pending CT for fall and trauma evaluation. Plan is to admit to Dr. York for hepatic encephalopathy and further care.. 09:52 ED course: Do not have CT scan results. Updated family. Anticipate admission for rn hepatic encephalopathy.. 10:16 Counseling: I had a detailed discussion with the patient and/or guardian regarding: the rn historical points, exam findings, and any diagnostic results supporting the discharge/admit diagnosis, lab results, radiology results, the need for further work-up and treatment in the hospital. Response to treatment: the patient's symptoms have mildly improved after treatment, and as a result, I will admit patient. Admission orders: after a detailed discussion of the patient's condition and case, the admit orders are written by me. ED course: No acute traumatic findings on CT scan. Shows thickening of the bladder consistent with cystitis the patient is taking antibiotics for currently. Will admit to Dr. York for hepatic encephalopathy, cystitis. Charles mejia number: [phone].. 06/21 04:01 Order name: Basic Metabolic Panel [facility] 06/21 04:01 Order name: CBC with Diff [facility] 06/21 04:01 Order name: Type And Screen [facility] 06/21 04:01 Order name: LFT's [facility] 06/21 04:01 Order name: Protime (+inr); Complete Time: 08:48 [facility] 06/21 04:01 Order name: Ptt, Activated; Complete Time: 08:48 [facility] 06/21 04:01 Order name: AMMONIA; Complete Time: 06:25 [facility] 06/21 04:01 Order name: Basic Metabolic Panel; Complete Time: 06:25 [facility] 06/21 04:01 Order name: CBC with Automated Diff; Complete Time: 06:58 [facility] 06/21 04:01 Order name: Type and Screen; Complete Time: 07:29 [facility] 06/21 04:01 Order name: Liver (Hepatic) Function; Complete Time: 06:25 [facility] 06/21 04:14 Order name: Urine Dipstick-Ancillary; Complete Time: 04:19 [facility] 06/21 04:19 Order name: Urine Microscopic Only [facility] 06/21 04:20 Order name: Urine Culture [facility] 06/21 04:01 Order name: CT Traumagram (Head C Spine CAP wo con) [facility] 06/21 04:01 Order name: Labs collected and sent; Complete Time: 04:32 [facility] 06/21 04:01 Order name: Urine Dipstick-Ancillary (obtain specimen); Complete Time: 04:08 [facility] 06/21 04:01 Order name: EKG - Nurse/Tech; Complete Time: 04:32 [facility] 06/21 04:20 Order name: Urine Microscopic Only; Complete Time: 05:45 [facility] 06/21 14:26 Order name: COVID-19 : Document "Date of Symptom Onset" if Symptomatic. aa5 06/21 14:56 Order name: CORONAVIRUS [facility] 06/21 16:01 Order name: SARS-COV-2 RT PCR EDMS Administered Medications: 07:49 Drug: Lactulose 20 grams Volume: 30 ml; Route: PO; jl7 10:22 Follow up: Response: No adverse reaction jl7 Disposition Summary: 06/21/21 10:19 Hospitalization Ordered Hospitalization Status: Inpatient Admission rn Provider: Marc York rn Location: Telemetry/MedSurg (Inpatient) rn Condition: Stable rn Problem: an ongoing problem rn Symptoms: are unchanged rn Bed/Room Type: Standard rn Room Assignment: [facility](06/21/21 16:53) em1 Diagnosis - Metabolic encephalopathy - Hepatic encephalopathy rn - Dehydration rn - Fall from bed, initial encounter rn - Acute cystitis rn Forms: - Medication Reconciliation Form rn - SBAR form rn Signatures: Dispatcher [employer] Lovely Cox RN RN bb Nieto, Roman, MD MD rn Martinez, Eric em1 Sintia Marie RN RN jl7 Norberto Agosto MD MD 7 Corrections: (The following items were deleted from the chart) 16:53 10:19 rn em1
[2021-06-23] MEDS: LACTULOSE 20 GM/30 ML UCUP PO SCH ×6 (01:00→20:19)
--- NOTE | 2021-06-23 06:57 | PN ---
Date of Progress Note: 06/22/2021 Subjective: Patient was seen this morning for followup. She was lying in bed not in any distress, s leeping, responds to verbal stimuli by opening her eyes, but does not communicate or answers any ques tions. There was no family member this morning at bedside. Objective: Vital Signs: Reviewed. HEENT: Examination unremarkable. Lungs: Clear to auscultation. Heart: Sounds normal. Abdomen: Soft, bowel sounds normal. No guarding, rigidity, tenderness, or distention. Extremities: No leg edema. Laboratory Data: White count 5.6, hemoglobin 9.2, platelets 80. Sodium 144, potassium 4.7, chloride 113, bicarb 22, BUN 51, creatinine 2.02, glucose 79. Impression: 1.Hepatic encephalopathy. 2.Volume depletion. 3.Urinary tract infection. 4.Pancytopenia. 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 Plan: We will go ahead and continue current medication. Continue lactulose, antibiotics. We will g o ahead and follow up on ammonia level and I will see her tomorrow for followup. ALTAF/MODL Voice ID: [id number] Report ID: [id number]
--- NOTE | 2021-06-23 07:29 | HP ---
Date of Admission: 06/21/2021 Chief Complaint: Fall. History Of Present Illness: This is an 89-year-old pleasant female patient who was recently admitted to the hospice care and she has 24-hour caregiver at home. During indirect sales representative hours, the patient' s caregiver noted that the patient had fallen out of bed and she was not able to get her up and the p atient had significantly altered mental status with that. Caregiver contacted the patient's son and son advised her to call 911 and after the EMS arrived, they decided to bring patient to emergency [facility]. After she was evaluated in the ER, she was noted to have increased ammonia level. CAT scan per t rauma protocol was done, did not show any acute injury and when ER physician contacted me for admissi on, I requested ER physician to communicate with the patient's family member since she was on hospice care for cirrhosis of liver, admitting to the hospital for similar problem will not be appropriate t o do and we do not have any acute injury that we have noted on the CAT scan. After ER physician cont acted the patient's son who was in the emergency room, family decided to admit her to hospital after revoking hospice care for this admission. The patient also recently had urinary tract infection and was started on antibiotic per hospice agency. I saw her in the emergency room this evening, her son was at bedside. The patient does not communicate or answer any questions because of her altered ment al status. She does open her eyes, but does not answer any questions. Allergies: TO SULFA, DETAILS UNKNOWN. Medications: List reviewed. Review of Systems: SOLUTION MAKER: As mentioned above. All other systems reviewed and negative. 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 Past Surgical History: Hysterectomy and surgery for right femur fracture. Family History: Father , had leukemia and coronary artery disease. Mother , had stroke and Alzheimer disease. Brother had coronary artery disease. Social History: Negative for smoking and alcohol use. Physical Examination: Vital signs: Reviewed. Temperature , pulse , respiratory rate , oxyge n saturation , height , weight . General: Patient lying in bed, appears weaker than normal not in any distress. HEENT: Head atraumatic, normocephalic. Conjunctivae nonerythematous. Sclerae white. Mouth, no thr ush or edema noted. Ears/Nose, no mass, lesion, discharge noted. Neck: Supple. No JVD, lymph nodes, bruit, thyromegaly noted. Lungs: Bilateral good equal air entry. Clear to auscultation. No rhonchi. No rales. Heart: Normal heart sounds, no murmur or gallop. Abdomen: Soft, bowel sounds normal. No guarding, rigidity, tenderness, mass, hepatosplenomegaly, dis tention, or bruit noted. Extremities: No leg edema. No calf tenderness. Skin: No rash, ulcer, cellulitis. Lymphatics: No lymph node enlargement in neck, supraclavicular, infraclavicular region. Neuro/SOLUTION MAKER: Patient opens her eyes, but does not communicate, does not follow any commands. Chest: Unremarkable. External Genitalia: Deferred. Rectal: Deferred. Laboratory Data: White count 4.1, hemoglobin 9.4, platelets 87. Sodium 139, potassium 4.5, chloride 107, bicarb 22, BUN 52, creatinine 2.35, glucose 89. Ammonia level 108. Liver function tests unrem arkable except SGOT is 49. Urinalysis shows trace leukocyte esterase, otherwise rest of the urinalys is negative. COVID-19 test negative. CAT scan per trauma protocol, no acute intracranial changes. No evidence of any acute fracture or subluxation of cervical spine, splenomegaly, coronary artery ath erosclerosis, small hiatal hernia, wall thickening of the urinary bladder and subtle appearance of un united type 2 odontoid process fracture and wall thickening of ascending colon with mild inflammatory change. Impression: 1.Hepatic encephalopathy. 2.Urinary tract infection. 3.Volume depletion. 4.Hypertension. 5.Hyperlipidemia. 6.Cirrhosis of liver, not due to alcohol use. 7.Hypothyroidism. 8.Coronary artery disease. 9.Osteoarthritis, multiple sites. 10.Chronic kidney disease, stage 3B. 11.Pancytopenia. Plan: Admit the patient to hospital for further evaluation and management of this problem. The robert ent is appropriate for inpatient and is expected to spend 2 midnights in hospital. I did have a deta iled discussion with the patient's son and he understands regulations regarding hospice care and he h as informed me that he has already communicated with the hospice care, he would like for patient to g et treatment while in the hospital for this admission, but he understands that this kind of decline i s to be expected with the patient's disease process and he has communicated with the hospice agency a nd after this admission, he is going to get her back on hospice care, but at the same time he underst ands that it will not be possible for the patient to get admitted to the hospital for the hospice rel ated diagnosis on a recurrent basis. Overall, prognosis is very poor. We also discussed advanced di rectives and as per family's decision DNR order will be written in the chart. We will treat a urinar y tract infection which could be partially treated urinary tract infection problem right now with ant ibiotics per order. She was on outpatient oral antibiotics. We will go ahead and give lactulose per order. ALTAF/MODL Voice ID: [id number]
[2021-06-23] MEDS ORDERED: VITAMIN D 5,000 UNIT CAP PO SCH (09:00)
[2021-06-23] MEDS ORDERED: SPIRONOLACTONE 100 MG TAB PO SCH (09:00)
[2021-06-23] MEDS ORDERED: ESCITALOPRAM 20 MG TAB PO SCH (09:00)
[2021-06-23] MEDS: CEFTRIAXONE/SWI 1gm 1 GM/10 ML SYR IV SCH ×2 (09:06→20:18)
[2021-06-23] MEDS: HYDRALAZINE HCL 25 MG TABLET PO SCH ×2 (09:07→20:18)
[2021-06-23 21:54] VITALS: BP 131/71; TEMP 98.3
[2021-06-23 23:18] VITALS: O2SAT 98
--- NOTE | 2021-06-24 07:32 | DS ---
Date of Discharge: 06/23/2021 Disposition: Discharged to go home with hospice care. Physical Examination: HEENT: Examination unremarkable. Lungs: Clear to auscultation. Heart: Sounds normal. Abdomen: Soft. Bowel sounds normal. No guarding, rigidity, tenderness, or distention. Extremities: No leg edema. Discharge Medications And Instructions: 1.Continue all prior home medications except change lactulose to 20 g by mouth 4 times a day. 2.The patient to be admitted to hospice care upon discharge and hospice medical front desk specialist to take ove r care. Laboratory Data: Upon admission: White count was 4.1, hemoglobin 9.4, platelets 87. Yesterday, whi te count 5.6, hemoglobin 9.2, platelets 80. On admission, ammonia level 108; yesterday, ammonia leve l 143; today, ammonia level down to 21. Upon admission; BUN 52, creatinine 2.35. Yesterday, BUN 51, creatinine 2.02. Hospital Course: This is an 89-year-old female patient with multiple medical problems, who was recen tly admitted to hospice care, was brought into emergency room after she fell out of bed and EMS was c teressad and EMS brought her to the hospital. Family decided to revoke hospice and requested the patien t to be admitted to the hospital. The patient was getting treatment with oral antibiotic for urinary tract infection prior to this admission and she continued to receive IV antibiotic during this hospi talization. Urine culture has not grown any specific bacteria. I did talk to the patient's son on t he day of admission and he also communicated with the hospice nurses and once again we had a discussi on regarding the patient's poor prognosis and he told me that he realizes and understands that this i s going to be a recurrent problem for patient, which is hepatic encephalopathy with increased ammonia level and he also communicated with his dad, which is the patient's , and they all understand and realize that they have 2 options. One option is to keep bringing her back to hospital the way [facility] have done until or to put her on a hospice care and let the God and nature take its course, but t hat means she will not be coming back to the hospital for reason that she goes on hospice with a diag nosis of cirrhosis of liver, so he tells me that her family has decided to put her back on hospice wh en she goes home. Overall, the patient's mental status has improved with improvement in ammonia leve l. Today, she was discharged to go home in stable condition with above mentioned medications and ins tructions. Final Diagnoses: 1.Hepatic encephalopathy. 2.Cirrhosis of liver, not due to alcohol use. 3.Pancytopenia. 4.Urinary tract infection. 5.Hypertension. ALTAF/MODL Voice ID: [id number] Report ID: [id number]
== END 2021-06-23 22:45 | disposition hospice, home (50) | DRG 442 ==
LOC: ER 03:44 → ERHOLD 10:20 → 2ND 18:32
PROVIDERS: ADMIT Internal Medicine; ATTEND Internal Medicine
DX: K72.10 Chronic hepatic failure without coma (principal); N39.0 Urinary tract infection, site not specified; D61.818 Other pancytopenia; K74.60 Unspecified cirrhosis of liver; E86.9 Volume depletion, unspecified; E03.9 Hypothyroidism, unspecified; E78.5 Hyperlipidemia, unspecified; I25.10 Atherosclerotic heart disease of native coronary artery without angina pectoris; M19.90 Unspecified osteoarthritis, unspecified site; I12.9 Hypertensive chronic kidney disease with stage 1 through stage 4 chronic kidney disease, or unspecified chronic kidney disease; N18.32 Chronic kidney disease, stage 3b; Z20.822 Contact with and (suspected) exposure to COVID-19
CPT/HCPCS: 36415; 51702; 70450; 71250; 72125; 80048; 80076; 81003; 81015; 82140; 85025; 85610; 85730; 86850; 86900; 86901; 87086; 87088; 93005; 99285; J0696; U0003